=== PATIENT | female | born 1935 | race Caucasian/White ===

== ENCOUNTER 2020-01-12 11:07 | Outpatient (REF) | payer MEDICARE, SELFPAY ==
--- NOTE | 2020-01-12 11:15 | XR_ITS ---
EXAMINATION: XR CHEST CLINICAL INFORMATION: Pneumonia COMPARISON: None TECHNIQUE: 2 views of the chest were obtained. FINDINGS: The cardiac silhouette is upper normal in size. There is a left subclavian dual chamber pacemaker. Mediastinal contours are unremarkable. There are increased central hilar markings and bronchial wall thickening. No evidence of lobar consolidation/pneumonia is seen. There is no pleural effusion. There are degenerative changes of the spine. XR/XR chest 2V IMPRESSION: Upper normal-size cardiac silhouette. Increased central hilar markings and bronchial wall thickening. Bronchitis/airways disease and atypical pneumonia such as viral or mycoplasma pneumonia and mild interstitial pulmonary edema should be considered.
== END 2020-01-12 11:08 | disposition home or self-care (01) ==
LOC: HO.XRAY 11:07
PROVIDERS: PCP Internal Medicine; Visit Provider Hospitalist
DX: J18.9 Pneumonia, unspecified organism (principal); J44.1 Chronic obstructive pulmonary disease with (acute) exacerbation
CPT/HCPCS: 71046; 99212

== ENCOUNTER → 2020-07-19 09:51 | Outpatient (BNVA) | payer MEDICARE, SELFPAY | PROVIDERS: PCP Internal Medicine; Visit Provider Hospitalist | DX: J44.1 Chronic obstructive pulmonary disease with (acute) exacerbation (principal); J18.9 Pneumonia, unspecified organism; F51.01 Primary insomnia | CPT/HCPCS: 99212 ==

== ENCOUNTER → 2020-09-16 13:22 | Outpatient (BNVA) | payer MEDICARE, SELFPAY | PROVIDERS: PCP Internal Medicine; Visit Provider Hospitalist | DX: J44.1 Chronic obstructive pulmonary disease with (acute) exacerbation (principal); J47.9 Bronchiectasis, uncomplicated; J18.9 Pneumonia, unspecified organism | CPT/HCPCS: 99212 ==

== ENCOUNTER 2020-11-21 13:13 | Outpatient (REF) | payer MEDICARE, SELFPAY ==
--- NOTE | ~2020-11-21 | XR_ITS ---
EXAMINATION: XR CHEST CLINICAL INFORMATION: Abnormal weight loss COMPARISON: Chest x-ray January 12, 2020 TECHNIQUE: 2 views of the chest were obtained. FINDINGS: Cardiac silhouette is normal in size. Dual lead pacemaker in stable position. Mildly hyperinflated lungs. Similar diffuse coarsening of the interstitial markings, a chronic finding. No lobar consolidation. No pleural effusion or pneumothorax. No acute osseous abnormality. XR/XR chest 2V IMPRESSION: Chronic emphysematous changes of the lungs suspected without acute pulmonary pathology.
== END 2020-11-21 13:14 | disposition home or self-care (01) ==
LOC: HO.XRAY 13:13
PROVIDERS: PCP Internal Medicine; Visit Provider Hospitalist
DX: J47.9 Bronchiectasis, uncomplicated (principal); R63.4 Abnormal weight loss; Z79.899 Other long term (current) drug therapy
CPT/HCPCS: 71046; 99212

== ENCOUNTER 2021-02-10 14:07 | Outpatient (REF) | payer MEDICARE, SELFPAY | END 2021-02-10 14:08 | disposition home or self-care (01) | LOC: HO.LNP 14:07 | PROVIDERS: PCP Internal Medicine; Visit Provider Hospitalist | DX: J44.1 Chronic obstructive pulmonary disease with (acute) exacerbation (principal); R63.4 Abnormal weight loss; Z79.899 Other long term (current) drug therapy; Z79.51 Long term (current) use of inhaled steroids | CPT/HCPCS: 87070; 87116; 87205; 96372; 99212 ==

== ENCOUNTER 2021-02-10 15:45 | Inpatient (IN) | payer MEDICARE, SELFPAY ==
--- NOTE | ~2021-02-10 | CT_ITS ---
EXAMINATION: CT CHEST WITHOUT CONTRAST CLINICAL INFORMATION: Fever and cough COMPARISON: Chest x-ray 11/21/2020 TECHNIQUE: Multidetector volumetric CT imaging of the chest was done. Axial MIP volume rendering provided. Sagittal and coronal reformatted images were obtained. This CT examination was performed using dose optimization techniques as appropriate, variously including the following: *Automated exposure control *Adjustment of mA and/or kV according to patient size (this includes techniques or standardized protocols for targeted exams where dose is matched to indication/reason for exam; i.e. extremities or head) *Use of iterative reconstruction technique DLP: 173 mGy-cm FINDINGS: The heart is normal in size. Dual-lead pacemaker noted. Atrial appendage flow present. There is no pericardial effusion. Normal caliber thoracic aorta. Evaluation for mediastinal lymphadenopathy is suboptimal given lack of IV contrast, however, there appears to be a few enlarged mediastinal lymph nodes, for example a precarinal lymph node appears to measure approximately 2.6 cm in transverse dimension (image 25/66, series 3). No enlarged axillary lymph nodes. Central airways are patent. Mild to moderate emphysematous changes are noted. Mild diffuse bronchiectasis is present. There is some mild peripheral mucous plugging noted. Diffuse primarily groundglass opacities are noted throughout the lungs in a somewhat peripheral distribution. There is no gross lobar consolidation present. There is mild posterior pleural thickening bilaterally without gross pleural effusion. Evaluation for pulmonary nodules is suboptimal given background of diffuse airspace disease, however, no large pulmonary mass is identified. There is no pneumothorax. Visualized portions of the upper abdomen are grossly unremarkable. Diffuse osteopenia. Mild degenerative changes of the spine are noted. T9 hemangioma. CT/CT chest wo con IMPRESSION: -Moderate emphysematous changes are demonstrated.. There are superimposed primarily groundglass opacities also present which suggest a viral process, i.e. Covid pneumonia. Clinical correlation recommended. Follow-up imaging suggested status post treatment to ensure improvement/resolution. -Evaluation for mediastinal lymphadenopathy is suboptimal given lack of IV contrast, however, there appears to be mild mediastinal lymphadenopathy which is nonspecific. Fleischner guidelines were followed.
[2021-02-10 15:49] VITALS: BP 156/61; PULSE 93; RESP 16; TEMP 36.5; O2SAT 95; BMI 21.2
--- NOTE | 2021-02-10 15:54 | ECG_ITS ---
Test Reason : SOB Blood Pressure : / mmHG Vent. Rate : 060 BPM Atrial Rate : 065 BPM P-R Int : 000 ms QRS Dur : 158 ms QT Int : 498 ms P-R-T Axes : 092 -76 083 degrees QTc Int : 498 ms Ventricular-paced rhythm Atrial sensed rhythm; Abnormal ECG No previous ECGs available Referred By: Generic ED Physician Electronically Signed By:TIMOTHY HERNADZE
--- NOTE | 2021-02-10 16:07 | ED.GENADULT ---
HPI - General Adult General Chief complaint: General Medical Stated complaint: SOB Time Seen by Provider: 02/10/21 18:46 Source: patient Mode of arrival: ambulatory Limitations: no limitations History of Present Illness HPI narrative: 85-year-old female presents for evaluation from pulmonary appointment for shortness of breath and hypoxia. Onset (ago): week(s) (2) Location: chest Severity: moderate Severity scale (1-10): 7 Quality: aching Pain Consistency: constant Relieving factors: none Exacerbating factors: movement Associated symptoms: cough, loss of appetite, malaise and shortness of breath Related Data Home Medications Medication Instructions Recorded Confirmed albuterol sulfate 90 mcg/actuation 2 inh INHALATION Q4H PRN 01/12/20 02/10/21 aerosol inhaler aspirin 81 mg tablet,delayed 81 mg PO Q2D 01/12/20 02/10/21 release levothyroxine 50 mcg tablet 50 mcg PO DAILY@0630 01/12/20 02/10/21 Bone Boost 1 tab PO TID 02/10/21 02/10/21 Lactobacillus 40-Bifidobact 2 cap PO BEDTIME 02/10/21 02/10/21 3-S.thermophilus 100 billion cell capsule (Probiotic) Zeaxanthin 1 mg PO DAILY 02/10/21 02/10/21 azithromycin 250 mg tablet 250 mg PO BEDTIME 02/10/21 02/10/21 budesonide 0.5 mg/2 mL suspension 0.5 mg INHALATION BID PRN 02/10/21 02/10/21 for nebulization cyanocobalamin (vitamin B-12) 1,000 mcg PO DAILY 02/10/21 02/10/21 1,000 mcg tablet folic acid 1 mg tablet 1 mg PO DAILY 02/10/21 02/10/21 ipratropium 0.5 mg-albuterol 3 mg 3 ml INHALATION BID PRN 02/10/21 02/10/21 (2.5 mg base)/3 mL nebulization soln lutein 20 mg capsule 20 mg PO DAILY 02/10/21 02/10/21 magnesium oxide 400 mg PO DAILY@1700 02/10/21 02/10/21 multivitamin 1 tab PO DAILY 02/10/21 02/10/21 sertraline 25 mg tablet 25 mg PO BID 02/10/21 02/10/21 Previous Rx's Medication Instructions Recorded budesonide-formoterol HFA 160 2 inh PO BID #30.6 g 11/16/20 mcg-4.5 mcg/actuation aerosol inhaler Allergies Allergy/AdvReac Type Severity Reaction Status Date / Time Iodinated Contrast Media Allergy Severe Itch and Verified 02/10/21 14:45 [CONTRAST, IV] Rash Review of Systems Review of Systems: Constitutional: positive Fever, positive Chills, positive fatigue, positive Malaise ENT/Mouth: No sore throat, no runny nose Eyes: No Discharge Cardiovascular: Positive Chest Pain, positive SOB Respiratory: Positive Cough, positive Sputum, positive Wheezing, No Smoke Exposure, No Dyspnea Gastrointestinal: No Nausea, No Vomiting, No Diarrhea Genitourinary: no irregular bleeding, No Dysuria, No Urinary Frequency, No Hematuria, No Urinary Incontinence, No Urgency, No Flank Pain, Musculoskeletal: positive Myalgia Skin: No rash Neuro: No Headache Yes all other systems are reviewed and are negative PMFSH Past Medical History Attestation statement: The following information was validated with the patient. Source: old records reviewed Medical History Bronchiectasis, uncomplicated COPD exacerbation Insomnia Pneumonia Weight loss Family History Family History Father No problems noted. Social History Social History Patient Tobacco Use Status: Never used Tobacco Advance Directives: No Advance Directives Information Provided: Yes Physical Exam Vital Signs: Vital Signs: Last Vital Signs Temp 98.3 F 02/10/21 19:15 Pulse 61 02/10/21 19:15 Resp 18 02/10/21 19:15 BP 143/79 H 02/10/21 19:15 Pulse Ox 99 02/10/21 19:15 BMI result Body Mass Index 21.2 Appearance: Alert. Oriented X3. Mild distress. Eyes: Pupils equal, round and reactive to light. ENT: Pharynx normal. Neck: Normal inspection. Neck supple. CVS: Normal heart rate and rhythm. Pulses normal. Respiratory: Expiratory wheezing throughout. Abdomen: Soft and nontender. Skin: Skin warm and dry. Normal skin color. Normal skin turgor. Extremities: No lower extremity edema. Moves all extremities against resistance. Neuro: No motor deficit. No sensory deficit. Cranial nerves 2-12 intact. Course Course Course Narrative: 85-year-old female presents with 2 weeks of upper respiratory symptoms. Received a COVID vaccine on January 23 and started to feel ill shortly after. Has had fevers up to 102 at home. Has a productive cough with yellow thick sputum. Was referred to the ED by Dr. Can and Pulmonary. Was given prednisone while in his office today. Patient presents reported hypoxia at 88% at home. Patient has been as low as 83% on room air at this facility. 7:[address] scan positive for COVID pneumonia bilaterally versus atypical pneumonia. Will give azithromycin and ceftriaxone. As patient did receive prednisone in the office will hold off on steroids at this time. Patient is on O2 2 L nasal cannula. 7:30 p.m. discussion with hospitalist regarding plan to admit for pneumonia, hypoxia. Consultations Consultation #1: Antonio Time: 19:30 Consultation #2: Dr Tarik Can Time: 19:33 Medical Decision Making Differential Diagnosis Differential Diagnosis: COVID, pneumonia, bronchitis, sepsis Medical Records Medical records reviewed: Yes I reviewed the patient's medical records. Lab Data Lab results reviewed: Yes I reviewed the patient's lab results. Result diagrams: 02/10/21 17:31 02/10/21 17:31 Labs: Lab Results 02/10/21 02/10/21 02/10/21 Range/Units 16:45 16:45 16:45 WBC (4.8-10.8) X10*3/uL RBC (4.20-5.50) X10*6/uL Hgb (12.0-16.0) g/dl Hct (37.0-47.0) % MCV (80.0-98.0) fL MCH (27.0-33.0) pg MCHC (31.0-35.0) g/dl RDW (11.0-16.0) % Plt Count (160-400) X10*3/uL MPV (9.4-12.3) fL Immature Gran % (Auto) (0.0-0.4) % Neut % (Auto) (45-73) % Lymph % (Auto) (20-40) % [place] % (Auto) (2-11) % Eos % (Auto) (0-4) % Baso % (Auto) (0-2) % Lymph # (Auto) (1.2-4.9) X10*3/uL [place] # (Auto) (0.1-1.2) X10*3/uL Eos # (Auto) (0.0-0.4) X10*3/uL Baso # (Auto) (0.0-0.2) X10*3/uL Abs Immat Gran (auto) (0.00-0.03) X10*3/uL Absolute Neuts (auto) (2.0-8.3) x10*3/uL Absolute Nucleated RBC (0.0-0.012) X10*3/uL Nucleated RBC % (auto) (0.0-0.2) /100WBC PT 13.8 H (9.9-13.0) SEC INR 1.2 H (0.9-1.1) D-Dimer High Sensitivty 272 NG/ML VBG pH (7.32-7.43) VBG pCO2 mmHg VBG pO2 mmHg VBG HCO3 (22-26) mmol/L VBG O2 Saturation % VBG Base Excess mmol/L Sodium (135-145) mmol/L Potassium (3.3-5.1) mmol/L Chloride (96-108) mmol/L Carbon Dioxide (22-29) mmol/L Anion Gap (12-20) BUN (9-16) mg/dL Creatinine (0.5-1.4) mg/dL Estim Creat Clear Calc Estimated GFR Random Glucose (60-115) mg/dL Lactic Acid 1.3 (0.5-2.0) mmol/L Calcium (8.4-10.2) mg/dL Ferritin (10-250) ng/mL Total Bilirubin (0.0-1.0) mg/dL Direct Bilirubin (0.0-0.5) mg/dL AST (5-31) U/L ALT (0-31) U/L Alkaline Phosphatase (39-117) U/L Total Creatine Kinase (26-140) U/L Troponin I High Sens (<3.5-17.0) ng/L B-Natriuretic Peptide (<100) pg/mL Total Protein (6.5-8.0) g/dL Albumin (3.5-5.0) g/dL Lipase (8-78) U/L Procalcitonin ng/mL Influenza Type A (PCR) NEGATIVE (Negative) Influenza Type B (PCR) NEGATIVE (Negative) RSV RNA Qual (PCR) NEGATIVE (Negative) SARS-CoV-2 RNA (RT-PCR) NEGATIVE (Negative) 02/10/21 02/10/21 02/10/21 Range/Units 16:45 16:45 16:45 WBC (4.8-10.8) X10*3/uL RBC (4.20-5.50) X10*6/uL Hgb (12.0-16.0) g/dl Hct (37.0-47.0) % MCV (80.0-98.0) fL MCH (27.0-33.0) pg MCHC (31.0-35.0) g/dl RDW (11.0-16.0) % Plt Count (160-400) X10*3/uL MPV (9.4-12.3) fL Immature Gran % (Auto) (0.0-0.4) % Neut % (Auto) (45-73) % Lymph % (Auto) (20-40) % [place] % (Auto) (2-11) % Eos % (Auto) (0-4) % Baso % (Auto) (0-2) % Lymph # (Auto) (1.2-4.9) X10*3/uL [place] # (Auto) (0.1-1.2) X10*3/uL Eos # (Auto) (0.0-0.4) X10*3/uL Baso # (Auto) (0.0-0.2) X10*3/uL Abs Immat Gran (auto) (0.00-0.03) X10*3/uL Absolute Neuts (auto) (2.0-8.3) x10*3/uL Absolute Nucleated RBC (0.0-0.012) X10*3/uL Nucleated RBC % (auto) (0.0-0.2) /100WBC PT (9.9-13.0) SEC INR (0.9-1.1) D-Dimer High Sensitivty NG/ML VBG pH (7.32-7.43) VBG pCO2 mmHg VBG pO2 mmHg VBG HCO3 (22-26) mmol/L VBG O2 Saturation % VBG Base Excess mmol/L Sodium (135-145) mmol/L Potassium (3.3-5.1) mmol/L Chloride (96-108) mmol/L Carbon Dioxide (22-29) mmol/L Anion Gap (12-20) BUN (9-16) mg/dL Creatinine (0.5-1.4) mg/dL Estim Creat Clear Calc Estimated GFR Random Glucose (60-115) mg/dL Lactic Acid (0.5-2.0) mmol/L Calcium (8.4-10.2) mg/dL Ferritin 212 (10-250) ng/mL Total Bilirubin (0.0-1.0) mg/dL Direct Bilirubin (0.0-0.5) mg/dL AST (5-31) U/L ALT (0-31) U/L Alkaline Phosphatase (39-117) U/L Total Creatine Kinase 49 (26-140) U/L Troponin I High Sens 3.9 (<3.5-17.0) ng/L B-Natriuretic Peptide 228 H (<100) pg/mL Total Protein (6.5-8.0) g/dL Albumin (3.5-5.0) g/dL Lipase (8-78) U/L Procalcitonin 0.12 ng/mL Influenza Type A (PCR) (Negative) Influenza Type B (PCR) (Negative) RSV RNA Qual (PCR) (Negative) SARS-CoV-2 RNA (RT-PCR) (Negative) 02/10/21 02/10/21 02/10/21 Range/Units 17:31 17:31 19:32 WBC 6.7 (4.8-10.8) X10*3/uL RBC 3.62 L (4.20-5.50) X10*6/uL Hgb 11.6 L (12.0-16.0) g/dl Hct 36.0 L (37.0-47.0) % MCV 99.4 H (80.0-98.0) fL MCH 32.0 (27.0-33.0) pg MCHC 32.2 (31.0-35.0) g/dl RDW 13.0 (11.0-16.0) % Plt Count 257 (160-400) X10*3/uL MPV 10.2 (9.4-12.3) fL Immature Gran % (Auto) 0.3 (0.0-0.4) % Neut % (Auto) 85.5 H (45-73) % Lymph % (Auto) 8.6 L (20-40) % [place] % (Auto) 3.4 (2-11) % Eos % (Auto) 1.0 (0-4) % Baso % (Auto) 1.2 (0-2) % Lymph # (Auto) 0.6 L (1.2-4.9) X10*3/uL [place] # (Auto) 0.2 (0.1-1.2) X10*3/uL Eos # (Auto) 0.1 (0.0-0.4) X10*3/uL Baso # (Auto) 0.1 (0.0-0.2) X10*3/uL Abs Immat Gran (auto) 0.02 (0.00-0.03) X10*3/uL Absolute Neuts (auto) 5.7 (2.0-8.3) x10*3/uL Absolute Nucleated RBC 0.000 (0.0-0.012) X10*3/uL Nucleated RBC % (auto) 0.0 (0.0-0.2) /100WBC PT (9.9-13.0) SEC INR (0.9-1.1) D-Dimer High Sensitivty NG/ML VBG pH 7.44 H (7.32-7.43) VBG pCO2 28 mmHg VBG pO2 105 mmHg VBG HCO3 19 L (22-26) mmol/L VBG O2 Saturation 97.0 % VBG Base Excess -3.2 mmol/L Sodium 139 (135-145) mmol/L Potassium 3.7 (3.3-5.1) mmol/L Chloride 108 (96-108) mmol/L Carbon Dioxide 21 L (22-29) mmol/L Anion Gap 14 (12-20) BUN 13 (9-16) mg/dL Creatinine 0.81 (0.5-1.4) mg/dL Estim Creat Clear Calc 42.0 Estimated GFR > 60 Random Glucose 100 (60-115) mg/dL Lactic Acid (0.5-2.0) mmol/L Calcium 8.9 (8.4-10.2) mg/dL Ferritin (10-250) ng/mL Total Bilirubin 0.4 (0.0-1.0) mg/dL Direct Bilirubin 0.2 (0.0-0.5) mg/dL AST 20 (5-31) U/L ALT 22 (0-31) U/L Alkaline Phosphatase 67 (39-117) U/L Total Creatine Kinase (26-140) U/L Troponin I High Sens (<3.5-17.0) ng/L B-Natriuretic Peptide (<100) pg/mL Total Protein 6.8 (6.5-8.0) g/dL Albumin 3.6 (3.5-5.0) g/dL Lipase 22 (8-78) U/L Procalcitonin ng/mL Influenza Type A (PCR) (Negative) Influenza Type B (PCR) (Negative) RSV RNA Qual (PCR) (Negative) SARS-CoV-2 RNA (RT-PCR) (Negative) Imaging Data CT scan - chest: Attestation: I personally reviewed and interpreted this imaging study as follows: Radiologist's impression: EXAMINATION: CT CHEST WITHOUT CONTRAST CLINICAL INFORMATION: Fever and cough? COMPARISON: Chest x-ray 11/21/2020? TECHNIQUE: Multidetector volumetric CT imaging of the chest was done. Axial MIP volume rendering provided. Sagittal and coronal reformatted images were obtained.? This CT examination was performed using dose optimization techniques as appropriate, variously including the following: *Automated exposure control *Adjustment of mA and/or kV according to patient size (this includes techniques or standardized protocols for targeted exams where dose is matched to indication/reason for exam; i.e. extremities or head) *Use of iterative reconstruction technique DLP: 173 mGy-cm FINDINGS: The heart is normal in size. Dual-lead pacemaker noted. Atrial appendage flow present. There is no pericardial effusion. Normal caliber thoracic aorta. Evaluation for mediastinal lymphadenopathy is suboptimal given lack of IV contrast, however, there appears to be a few enlarged mediastinal lymph nodes, for example a precarinal lymph node appears to measure approximately 2.6 cm in transverse dimension (image 25/66, series 3). No enlarged axillary lymph nodes. Central airways are patent. Mild to moderate emphysematous changes are noted. Mild diffuse bronchiectasis is present. There is some mild peripheral mucous plugging noted. Diffuse primarily groundglass opacities are noted throughout the lungs in a somewhat peripheral distribution. There is no gross lobar consolidation present. There is mild posterior pleural thickening bilaterally without gross pleural effusion. Evaluation for pulmonary nodules is suboptimal given background of diffuse airspace disease, however, no large pulmonary mass is identified. There is no pneumothorax. Visualized portions of the upper abdomen are grossly unremarkable. Diffuse osteopenia. Mild degenerative changes of the spine are noted. T9 hemangioma. CT/CT chest wo con IMPRESSION: -Moderate emphysematous changes are demonstrated.. There are superimposed primarily groundglass opacities also present which suggest a viral process, i.e. Covid pneumonia. Clinical correlation recommended. Follow-up imaging suggested status post treatment to ensure improvement/resolution. -Evaluation for mediastinal lymphadenopathy is suboptimal given lack of IV contrast, however, there appears to be mild mediastinal lymphadenopathy which is nonspecific.? ? Fleischner guidelines were followed. ECG Data Attestation: I personally reviewed and interpreted this ECG as follows: Prior ECG tracings: available for review Interpretation: Vent. Rate : 060 BPM ? ? Atrial Rate : 065 BPM ?? P-R Int : 000 ms? QRS Dur : 158 ms ? ? QT Int : 498 ms ? ? ? P-R-T Axes : 092 -76 083 degrees ?? QTc Int : 498 ms ? Ventricular-paced rhythm Abnormal ECG No previous ECGs available 10-FEB-2021 15:57:53 Critical Care Time Critical Care Time Critical Care Time: Yes Total Critical Care Time: 45 Attestation: I have personally provided critical care time exclusive of time spent on separately billable procedures. Time includes review of laboratory data, radiology results, discussion with consultants, and monitoring for potential decompensation. Interventions were performed as documented. Discharge Plan Discharge Clinical Impression: Hypoxia Pneumonia Qualifiers: Pneumonia type: due to unspecified organism Laterality: bilateral Lung location: unspecified part of lung Qualified Code(s): J18.9 - Pneumonia, unspecified organism Patient Disposition: Admitted As Inpatient
[2021-02-10] MEDS: 0.9 % Sodium Chloride 1,000 ML 999 ML IVCONT (16:47)
[2021-02-10 17:04] LABS: INTERNATIONAL NORM RATIO 1.2 (0.9-1.1); Prothrombin Time 13.8 SEC (9.9-13.0)
[2021-02-10 17:11] LABS: Lactic Acid 1.3 mmol/L (0.5-2.0)
[2021-02-10 17:22] LABS: B Type Natriuretic Peptide 228 pg/mL (<100); Troponin-I High Sensitivity 3.9 ng/L (<3.5-17.0)
[2021-02-10 17:37] LABS: MANUAL DIFF FLAG NO
[2021-02-10 17:44] LABS: Basophils Absolute Auto 0.1 X10*3/uL (0.0-0.2); Basophils Percent Auto 1.2 % (0-2); Eosinophils Absolute Auto 0.1 X10*3/uL (0.0-0.4); Hemoglobin 11.6 g/dl (12.0-16.0); Imm Gran Abs Auto 0.02 X10*3/uL (0.00-0.03); Imm Gran Pct Auto 0.3 % (0.0-0.4); Lymphocytes Absolute Auto 0.6 X10*3/uL (1.2-4.9); Lymphocytes Percent Auto 8.6 % (20-40); Mean Corpuscular HGB Conc 32.2 g/dl (31.0-35.0); Mean Corpuscular Volume 99.4 fL (80.0-98.0); Mean Platelet Volume 10.2 fL (9.4-12.3); Monocytes Absolute Auto 0.2 X10*3/uL (0.1-1.2); Monocytes Percent Auto 3.4 % (2-11); Neutrophils Absolute Auto 5.7 x10*3/uL (2.0-8.3); Neutrophils Percent Auto 85.5 % (45-73); Platelet Count 257 X10*3/uL (160-400); Red Blood Count 3.62 X10*6/uL (4.20-5.50); White Blood Count 6.7 X10*3/uL (4.8-10.8)
[2021-02-10 17:46] LABS: Procalcitonin 0.12 ng/mL
[2021-02-10 17:47] LABS: Influenza A PCR NEGATIVE (Negative); Influenza B PCR NEGATIVE (Negative); Resp Syncy Virus RNA Qual PCR NEGATIVE (Negative); SARS COV2 PCR INHOUSE NEGATIVE (Negative)
[2021-02-10 17:54] LABS: Alanine Aminotransferase 22 U/L (0-31); Albumin Level 3.6 g/dL (3.5-5.0); Alkaline Phosphatase 67 U/L (39-117); Anion Gap 14 (12-20); Aspartate Amino Transferase 20 U/L (5-31); Bilirubin Direct 0.2 mg/dL (0.0-0.5); Bilirubin Total 0.4 mg/dL (0.0-1.0); Blood Urea Nitrogen 13 mg/dL (9-16); Calcium 8.9 mg/dL (8.4-10.2); Carbon Dioxide 21 mmol/L (22-29); Chloride 108 mmol/L (96-108); Estimated Glomerular Filt Rate > 60; Glucose Random 100 mg/dL (60-115); Lipase 22 U/L (8-78); Potassium 3.7 mmol/L (3.3-5.1); Sodium 139 mmol/L (135-145); Total Protein 6.8 g/dL (6.5-8.0)
[2021-02-10 18:46] VITALS: BP 155/71; PULSE 63; RESP 18; TEMP 36.5; O2SAT 96
[2021-02-10 18:58] VITALS: PULSE 83
[2021-02-10 19:12] LABS: D Dimer High Sensitivity 272 NG/ML
[2021-02-10 19:15] VITALS: BP 143/79; PULSE 61; RESP 18; TEMP 36.8; O2SAT 99
[2021-02-10] MEDS: cefTRIAXone sodium 1 GM in 0.9 % Sodium Chloride 50 ML IV (19:24)
[2021-02-10] MEDS: Azithromycin 500 MG TABLET PO (19:25)
[2021-02-10 19:39] LABS: VBG Base Excess -3.2 mmol/L; VBG HCO3 19 mmol/L (22-26); VBG pCO2 28 mmHg; VBG pH 7.44 (7.32-7.43); VBG pO2 105 mmHg
[2021-02-10 19:41] LABS: Venous Blood Gas Refer to POC result
--- NOTE | 2021-02-10 20:14 | PHA.MEDREC ---
Pharmacy Consult ? Medication Reconciliation Pharmacy has completed the medication reconciliation.Spoke with patient in ED. Patient had updated med list with her.
--- NOTE | 2021-02-10 20:27 | P.HPHOSP_ITS ---
History of Present Illness Date of Service: 02/10/21 Chief Complaint: SOB, fever this is a 85-year-old female with past medical history of COPD, AFib status post Watchman procedure, pacemaker, hypothyroidism, depression who presents to the hospital with complaints of shortness of breath as well as fever over the past 2 weeks since receiving her COVID booster shot. Patient reports that she has been so fatigued, feverish, and had loss of appetite that she has been in bed for the past 2 weeks. She has trouble breathing, coughing, progressively worsening to productive cough for the past 3-4 days, she also has wheezing, she denies any abdominal pain, no nausea or vomiting, no chest pain, no palpitations, no diarrhea, no urinary symptoms and no lower extremity edema. patient was found a seen by her engineering documentation specialist who sent her to the ED for further management today. On arrival to the ED hemodynamically stable with no significant abnormal vitals, found to be 96% on room air labs are significant for WBC count of 6.7, pH of 7.4 with no CO2 retention, BNP of 228, influenza type a B as well as COVID-19 as well as RSV negative chest CT shows moderate emphysematous changes, superimposed primarily ground- glass opacities also present are suggestive bottle process i.e. COVID pneumonia. Patient is fully vaccinated against COVID with a booster shot done on the Review of Systems Review of Systems: Yes all other systems are reviewed and are negative FOR[facility], [facility] Medical History (Updated 02/11/21 @ 06:21 by Carlitos Alvarez MD) Bronchiectasis, uncomplicated COPD exacerbation Insomnia Pacemaker Pneumonia Presence of Watchman left atrial appendage closure device Weight loss Family History Father No problems noted. Surgical History (Updated 02/11/21 @ 06:21 by Carlitos Alvarez MD) No pertinent past surgical history Social History Household Members: None Housing: House Do you presently have visiting nurse or other home services: Yes Patient Tobacco Use Status: Never used Tobacco Use of substances other than those prescribed or required for medical reasons: No Currently Displaying Signs/Symptoms of Drug Intoxication Withdrawal: No Have you been hit, kicked, punched, or otherwise hurt by someone within the past year? If so, by whom?: No Do you feel safe in your current relationship?: No Current Relationship Is there a partner from a previous relationship who is making you feel unsafe now?: No Are you made to feel afraid or neglected: No Advance Directives: No Advance Directives Information Provided: Yes Do you have thoughts of harming others: None Do you have a plan to hurt others: No Plan Recently lost weight without trying: No Eating poorly because of decreased appetite: No Nutrition Risks: No Nutritional Risk Patient : No : No Poor oral hygiene: No Meds Allergies Allergy/AdvReac Type Severity Reaction Status Date / Time Iodinated Contrast Media Allergy Severe Itch and Verified 02/10/21 14:45 [CONTRAST, IV] Rash Active Medications: Current Medications Pharmacy Consult (Consult Rx Perform Med Rec) 1 each MISCELLANE ONCE PRN PRN Reason: Consult order Home Medications Medication Instructions Recorded Confirmed Last Taken Type albuterol sulfate 90 mcg/actuation 2 inh INHALATION Q4H PRN 01/12/20 02/10/21 Unknown History aerosol inhaler aspirin 81 mg tablet,delayed 81 mg PO Q2D 01/12/20 02/10/21 02/09/21 History release levothyroxine 50 mcg tablet 50 mcg PO DAILY@0630 01/12/20 02/10/21 02/09/21 History Bone Boost 1 tab PO TID 02/10/21 02/10/21 02/09/21 History Lactobacillus 40-Bifidobact 2 cap PO BEDTIME 02/10/21 02/10/21 02/09/21 History 3-S.thermophilus 100 billion cell capsule (Probiotic) Zeaxanthin 1 mg PO DAILY 02/10/21 02/10/21 02/09/21 History azithromycin 250 mg tablet 250 mg PO BEDTIME 02/10/21 02/10/21 02/09/21 History budesonide 0.5 mg/2 mL suspension 0.5 mg INHALATION BID PRN 02/10/21 02/10/21 Unknown History for nebulization cyanocobalamin (vitamin B-12) 1,000 mcg PO DAILY 02/10/21 02/10/21 02/09/21 History 1,000 mcg tablet folic acid 1 mg tablet 1 mg PO DAILY 02/10/21 02/10/21 02/09/21 History ipratropium 0.5 mg-albuterol 3 mg 3 ml INHALATION BID PRN 02/10/21 02/10/21 Unknown History (2.5 mg base)/3 mL nebulization soln lutein 20 mg capsule 20 mg PO DAILY 02/10/21 02/10/21 02/09/21 History magnesium oxide 400 mg PO DAILY@1700 02/10/21 02/10/21 02/09/21 History multivitamin 1 tab PO DAILY 02/10/21 02/10/21 02/09/21 History sertraline 25 mg tablet 25 mg PO BID 02/10/21 02/10/21 02/09/21 History Physical Exam Vital Signs and Narrative: Vital Signs: Last Vital Signs Temp 98.3 F 02/10/21 19:15 Pulse 61 02/10/21 19:15 Resp 18 02/10/21 19:15 BP 143/79 H 02/10/21 19:15 Pulse Ox 99 02/10/21 19:15 BMI result Body Mass Index 21.2 Const: General: cooperative and no acute distress Orientation/consciousness: patient oriented x3 Eyes: General: appearance normal, both eyes and all related structures Pupils: Equal, round and reactive pupils present Resp: Other: expiratory wheezing, crackles bilaterally Effort & Inspection: normal respiratory effort Cardio: Rate: regular rate Rhythm: regular rhythm GI: Palpation (GI): Soft to palpation Auscultation: normal bowel sounds Skin: General skin exam: no rashes or lesions noted Neuro: General: patient oriented x3 Cranial nerves: Yes Equal, round and reactive pupils present Cognition (Neuro): normal cognition Extrem: General: Yes normal to inspection and Yes no pedal edema Results Labs CBC and Chem 7: 02/10/21 17:31 02/10/21 17:31 Labs: Laboratory Results - last 24 hr 02/10/21 02/10/21 02/10/21 16:45 16:45 16:45 MCV MCH MCHC RDW Plt Count MPV Immature Gran % (Auto) Neut % (Auto) Lymph % (Auto) [place] % (Auto) Eos % (Auto) Baso % (Auto) Lymph # (Auto) [place] # (Auto) Eos # (Auto) Baso # (Auto) Abs Immat Gran (auto) Absolute Neuts (auto) Absolute Nucleated RBC Nucleated RBC % (auto) PT 13.8 H INR 1.2 H D-Dimer High Sensitivty 272 VBG pH VBG pCO2 VBG pO2 VBG HCO3 VBG O2 Saturation VBG Base Excess Anion Gap Estim Creat Clear Calc Estimated GFR Random Glucose Lactic Acid 1.3 Calcium Total Bilirubin Direct Bilirubin AST ALT Alkaline Phosphatase Troponin I High Sens B-Natriuretic Peptide Total Protein Albumin Lipase Procalcitonin Influenza Type A (PCR) NEGATIVE Influenza Type B (PCR) NEGATIVE RSV RNA Qual (PCR) NEGATIVE SARS-CoV-2 RNA (RT-PCR) NEGATIVE 02/10/21 02/10/21 02/10/21 16:45 16:45 17:31 MCV 99.4 H MCH 32.0 MCHC 32.2 RDW 13.0 Plt Count 257 MPV 10.2 Immature Gran % (Auto) 0.3 Neut % (Auto) 85.5 H Lymph % (Auto) 8.6 L [place] % (Auto) 3.4 Eos % (Auto) 1.0 Baso % (Auto) 1.2 Lymph # (Auto) 0.6 L [place] # (Auto) 0.2 Eos # (Auto) 0.1 Baso # (Auto) 0.1 Abs Immat Gran (auto) 0.02 Absolute Neuts (auto) 5.7 Absolute Nucleated RBC 0.000 Nucleated RBC % (auto) 0.0 PT INR D-Dimer High Sensitivty VBG pH VBG pCO2 VBG pO2 VBG HCO3 VBG O2 Saturation VBG Base Excess Anion Gap Estim Creat Clear Calc Estimated GFR Random Glucose Lactic Acid Calcium Total Bilirubin Direct Bilirubin AST ALT Alkaline Phosphatase Troponin I High Sens 3.9 B-Natriuretic Peptide 228 H Total Protein Albumin Lipase Procalcitonin 0.12 Influenza Type A (PCR) Influenza Type B (PCR) RSV RNA Qual (PCR) SARS-CoV-2 RNA (RT-PCR) 02/10/21 02/10/21 17:31 19:32 MCV MCH MCHC RDW Plt Count MPV Immature Gran % (Auto) Neut % (Auto) Lymph % (Auto) [place] % (Auto) Eos % (Auto) Baso % (Auto) Lymph # (Auto) [place] # (Auto) Eos # (Auto) Baso # (Auto) Abs Immat Gran (auto) Absolute Neuts (auto) Absolute Nucleated RBC Nucleated RBC % (auto) PT INR D-Dimer High Sensitivty VBG pH 7.44 H VBG pCO2 28 VBG pO2 105 VBG HCO3 19 L VBG O2 Saturation 97.0 VBG Base Excess -3.2 Anion Gap 14 Estim Creat Clear Calc 42.0 Estimated GFR > 60 Random Glucose 100 Lactic Acid Calcium 8.9 Total Bilirubin 0.4 Direct Bilirubin 0.2 AST 20 ALT 22 Alkaline Phosphatase 67 Troponin I High Sens B-Natriuretic Peptide Total Protein 6.8 Albumin 3.6 Lipase 22 Procalcitonin Influenza Type A (PCR) Influenza Type B (PCR) RSV RNA Qual (PCR) SARS-CoV-2 RNA (RT-PCR) Imaging Radiologist's Impressions: Impressions Chest CT 02/10/21 18:04 IMPRESSION: -Moderate emphysematous changes are demonstrated.. There are superimposed primarily groundglass opacities also present which suggest a viral process, i.e. Covid pneumonia. Clinical correlation recommended. Follow-up imaging suggested status post treatment to ensure improvement/resolution. -Evaluation for mediastinal lymphadenopathy is suboptimal given lack of IV contrast, however, there appears to be mild mediastinal lymphadenopathy which is nonspecific. Fleischner guidelines were followed. Assessment and Plan (1) COPD exacerbation: Status: Acute (2) Pneumonia: Qualifiers: Pneumonia type: due to unspecified organism Laterality: bilateral Lung location: unspecified part of lung Qualified Code(s): J18.9 - Pneumonia, unspecified organism Status: Acute (3) Acute respiratory failure with hypoxia: Status: Acute this is an 85-year-old female with past medical history of COPD/ asthma presents to the hospital with complaints of shortness of breath, fever, found to have pneumonia # acute hypoxic respiratory failure - per ED PA patient was hypoxic in the mid 80s but no documentation were made in EMR - possibly secondary to COVID pneumonia although patient is fully vaccinated with a booster about 2 weeks ago as well as COVID 19 PCR is negative - patient now satting 99% on 2 L of oxygen, will attempt to reduce a given her history of CO2 with an O2 goal of 90-92% - engineering documentation specialist's seen the patient today, wants patient to be on Zosyn as well as Levaquin given her bronchiectasis # pneumonia - concerning for COVID-[address] imaging although COVID-19 PCR negative - patient also has history of COPD - will start on steroids, DuoNeb treatments, IV antibiotics as mentioned above - follow cultures # COPD exacerbation - patient has history of COPD, will start her on IV Solu-Medrol, does treatment - IV antibiotics # hypothyroidism - continue levothyroxine # history of AFib, status post Watchman procedure - not on anticoagulation, all rate controlling medications at this time - monitor DVT prophylaxis: Lovenox Quality Stroke Does the patient have a stroke diagnosis?: No VTE Prior VTE?: No VTE Risk Level:: Medical - moderate - high VTE Device Contraindication: Treatment Not Indicated VTE Drug Contraindication: N/A - Med Ordered
[2021-02-10 21:30] LABS: Ferritin 212 ng/mL (10-250)
[2021-02-10] MEDS: Enoxaparin Sodium 40 MG/0.4 ML SYRINGE SUBCUT (22:12)
[2021-02-10] MEDS: methylPREDNISolone Sod Succ 40 MG/ML VIAL IVPUSH (22:12)
[2021-02-10] MEDS: Sertraline HCL 25 MG TABLET PO (22:12)
[2021-02-10] MEDS: levoFLOXacin/D5W 750 MG/150 ML PIGGYBACK 100 MG IV (22:29)
[2021-02-10] MEDS: Acetaminophen 325 MG TABLET 650 MG PO (22:29)
[2021-02-10] MEDS: Piperacillin Sodium/Tazobactam 3.375 GM in 0.9 % Sodium Chloride 50 ML IV (22:29)
[2021-02-10 22:34] VITALS: BMI 21.2
[2021-02-10] MEDS: traZODone HCL 50 MG TABLET PO (22:54)
[2021-02-10 23:19] LABS: Lactate Dehydrogenase 187 U/L (122-220)
[2021-02-10 23:58] VITALS: BP 151/69; PULSE 62; RESP 17; TEMP 36.6; O2SAT 98
[2021-02-11] VITALS (8 sets, daily range): BP systolic 122–157; BP diastolic 46–84; PULSE 62–67; RESP 14–25; TEMP 36.6–36.8; O2SAT 95–99
--- NOTE | 2021-02-11 03:40 | PC.NURSE ---
Addendum entered by Sanjuanita Gill 02/11/21 03:59: Pt is paced on bedside groundwater monitoring technician, no spikes present on bedside monitor. On EKG, pt is V-paced Original Note: Pt ambulates to bathroom with steady, independent gait with this RN as standby assist. Pt returned to stretcher without incidence. Stretcher in lowest locked position, rails raised, call conroy remains within reach.
[2021-02-11] MEDS: Piperacillin Sodium/Tazobactam 3.375 GM in 0.9 % Sodium Chloride 50 ML IV ×4 (05:11→19:48)
[2021-02-11] MEDS: Levothyroxine Sodium 50 MCG TABLET PO (05:11)
--- NOTE | 2021-02-11 06:44 | PC.NURSE ---
Pt removed from supplemental O2, SpO2 92% on RA. Pt with hx of COPD.
--- NOTE | 2021-02-11 07:44 | P.PNIM_ITS ---
Subjective Subjective Date of Service: 02/11/21 Interval History: COPD exacerbation, pneumonia Review of Systems shortness of breath messina seems improving, denies any chest pain or abdominal pain or fever chills denies any nausea or vomiting. Has dry cough Physical Exam Vital Signs: Vital Signs: Last Vital Signs Temp 97.9 F 02/11/21 03:34 Pulse 67 02/11/21 04:00 Resp 14 02/11/21 04:00 BP 140/69 H 02/11/21 04:00 Pulse Ox 99 02/11/21 04:00 BMI result Body Mass Index 21.2 physical exam: Appearance: Alert.? Oriented X3.? not in distress.? Eyes: Pupils equal, round and reactive to light.? Sclera nonicteric.? ENT: Pharynx normal.? Moist mucous membranes. cvs: rrr, [id number] , no murmur res: air entry improving , still has wheezing abd: no rebound or guarding ,nt, bs present. ext pulses present , no cyanosis. neuro: axo3 , nonfocal. Objective Data Active Medications Acetaminophen (Acetaminophen 325 Mg Tablet) 650 mg PO Q6H PRN PRN Reason: Pain, Mild (Pain Scale 1-3) Last Admin: 02/10/21 22:29 Dose: 650 mg Documented by: WILLIAMS Albuterol/Ipratropium (Albuterol/Iprat 2.5/0.5mg 3 Ml Ampul.Neb) 3 ml INHALE BID PRN PRN Reason: Shortness Of Breath Or Wheezing Albuterol/Ipratropium (Albuterol/Iprat 2.5/0.5mg 3 Ml Ampul.Neb) 3 ml INHALE RQ4H WHILE AWAKE [facility] Aspirin (Aspirin Enteric Coated 81 Mg Tablet.) 81 mg PO Q2D@0900 [facility] Cyanocobalamin (Cyanocobalamin (Vitamin B-12) 1,000 Mcg Tablet) 1,000 mcg PO DAILY [facility] Docusate Sodium (Docusate Sodium 100 Mg Capsule) 100 mg PO DAILY PRN PRN Reason: Constipation Enoxaparin Sodium (Enoxaparin Sodium 40 Mg/0.4 Ml Syringe) 40 mg SUBCUT Q24H [facility] Last Admin: 02/10/21 22:12 Dose: 40 mg Documented by: WILLIAMS Folic Acid (Folic Acid 1 Mg Tablet) 1 mg PO DAILY [facility] Piperacillin Sod/Tazobactam (Sod 3.375 gm/ Sodium Chloride) 50 mls @ 100 mls/hr IV Q6H [facility] Last Infusion: 02/11/21 05:47 Dose: 0 mls/hr Documented by: WILLIAMS Levofloxacin (Levaquin) 750 mg in 150 mls @ 100 mls/hr IV Q48H [facility] Last Infusion: 02/10/21 23:55 Dose: 0 mls/hr Documented by: DARCY Levothyroxine Sodium (Levothyroxine Sodium 50 Mcg Tablet) 50 mcg PO DAILY@0630 [facility] Last Admin: 02/11/21 05:11 Dose: 50 mcg Documented by: WILLIAMS Magnesium Oxide (Magnesium Oxide 400 Mg Tablet) 400 mg PO DAILY@1700 [facility] Methylprednisolone Sodium Succinate (Methylprednisolone Sod Succ 40 Mg/Ml Vial) 40 mg IVPUSH Q12H [facility] Last Admin: 02/10/21 22:12 Dose: 40 mg Documented by: WILLIAMS Multivitamins/Vitamin C (Multivitamin Tablet) 1 tab PO DAILY [facility] Ondansetron HCl (Ondansetron Hcl 4 Mg/2 Ml Vial) 4 mg IVPUSH Q8H PRN PRN Reason: Nausea and Vomiting Pharmacy Consult (Consult Rx Perform Med Rec) 1 each MISCELLANE ONCE PRN PRN Reason: Consult order Sertraline HCl (Sertraline Hcl 25 Mg Tablet) 25 mg PO BID [facility] Last Admin: 02/10/21 22:12 Dose: 25 mg Documented by: WILLIAMS Sodium Chloride (0.9 % Sodium Chloride Flush 3 Ml Syringe) 3 ml IVFLUSH QSHIFT [facility] Last Admin: 02/10/21 23:56 Dose: Not Given Documented by: DARCY Non-Admin Reason: Med Not Available Labs CBC & Chem 7: 02/11/21 08:37 02/11/21 08:37 Labs: Laboratory Results - last 24 hr 02/10/21 02/10/21 02/10/21 16:45 16:45 16:45 MCV MCH MCHC RDW Plt Count MPV Immature Gran % (Auto) Neut % (Auto) Lymph % (Auto) [place] % (Auto) Eos % (Auto) Baso % (Auto) Lymph # (Auto) [place] # (Auto) Eos # (Auto) Baso # (Auto) Abs Immat Gran (auto) Absolute Neuts (auto) Absolute Nucleated RBC Nucleated RBC % (auto) PT 13.8 H INR 1.2 H D-Dimer High Sensitivty 272 VBG pH VBG pCO2 VBG pO2 VBG HCO3 VBG O2 Saturation VBG Base Excess Anion Gap Estim Creat Clear Calc Estimated GFR Random Glucose Lactic Acid 1.3 Calcium Ferritin Total Bilirubin Direct Bilirubin AST ALT Alkaline Phosphatase Lactate Dehydrogenase Total Creatine Kinase Troponin I High Sens B-Natriuretic Peptide Total Protein Albumin Lipase Procalcitonin Influenza Type A (PCR) NEGATIVE Influenza Type B (PCR) NEGATIVE RSV RNA Qual (PCR) NEGATIVE SARS-CoV-2 RNA (RT-PCR) NEGATIVE 02/10/21 02/10/21 02/10/21 16:45 16:45 16:45 MCV MCH MCHC RDW Plt Count MPV Immature Gran % (Auto) Neut % (Auto) Lymph % (Auto) [place] % (Auto) Eos % (Auto) Baso % (Auto) Lymph # (Auto) [place] # (Auto) Eos # (Auto) Baso # (Auto) Abs Immat Gran (auto) Absolute Neuts (auto) Absolute Nucleated RBC Nucleated RBC % (auto) PT INR D-Dimer High Sensitivty VBG pH VBG pCO2 VBG pO2 VBG HCO3 VBG O2 Saturation VBG Base Excess Anion Gap Estim Creat Clear Calc Estimated GFR Random Glucose Lactic Acid Calcium Ferritin 212 Total Bilirubin Direct Bilirubin AST ALT Alkaline Phosphatase Lactate Dehydrogenase 187 Total Creatine Kinase 49 Troponin I High Sens 3.9 B-Natriuretic Peptide 228 H Total Protein Albumin Lipase Procalcitonin 0.12 Influenza Type A (PCR) Influenza Type B (PCR) RSV RNA Qual (PCR) SARS-CoV-2 RNA (RT-PCR) 02/10/21 02/10/21 02/10/21 17:31 17:31 19:32 MCV 99.4 H MCH 32.0 MCHC 32.2 RDW 13.0 Plt Count 257 MPV 10.2 Immature Gran % (Auto) 0.3 Neut % (Auto) 85.5 H Lymph % (Auto) 8.6 L [place] % (Auto) 3.4 Eos % (Auto) 1.0 Baso % (Auto) 1.2 Lymph # (Auto) 0.6 L [place] # (Auto) 0.2 Eos # (Auto) 0.1 Baso # (Auto) 0.1 Abs Immat Gran (auto) 0.02 Absolute Neuts (auto) 5.7 Absolute Nucleated RBC 0.000 Nucleated RBC % (auto) 0.0 PT INR D-Dimer High Sensitivty VBG pH 7.44 H VBG pCO2 28 VBG pO2 105 VBG HCO3 19 L VBG O2 Saturation 97.0 VBG Base Excess -3.2 Anion Gap 14 Estim Creat Clear Calc 42.0 Estimated GFR > 60 Random Glucose 100 Lactic Acid Calcium 8.9 Ferritin Total Bilirubin 0.4 Direct Bilirubin 0.2 AST 20 ALT 22 Alkaline Phosphatase 67 Lactate Dehydrogenase Total Creatine Kinase Troponin I High Sens B-Natriuretic Peptide Total Protein 6.8 Albumin 3.6 Lipase 22 Procalcitonin Influenza Type A (PCR) Influenza Type B (PCR) RSV RNA Qual (PCR) SARS-CoV-2 RNA (RT-PCR) Assessment and Plan (1) Acute respiratory failure with hypoxia: Status: Acute (2) Hypoxia: Status: Acute (3) COPD exacerbation: Status: Acute Assessment and Plan: 85-year-old female with past medical history of COPD/ asthma presents to the hospital with complaints of shortness of breath, fever, found to have? pneumonia 1. acute hypoxic respiratory failure- possibly secondary to COVID pneumonia fully vaccinated with a booster about 2 weeks ago as well as COVID 19 PCR is negative on Zosyn as well as Levaquin given her bronchiectasis 2. pneumonia-?-? patient also has history of COPD continue on steroids, DuoNeb treatments, IV antibiotics. -? follow cultures 3.? COPD exacerbation - ? patient has history of COPD, will start her on IV Solu-Medrol, does treatment -? IV antibiotics 4. hypothyroidism-? continue levothyroxine 5. history of AFib, status post Watchman procedure -? not on anticoagulation,? all rate controlling medications at this time -? monitor ?DVT prophylaxis:? [place] Stroke Does the patient have a stroke diagnosis?: No VTE Prior VTE?: No VTE Risk Level:: Medical - moderate - high VTE Device Contraindication: Treatment Not Indicated VTE Drug Contraindication: N/A - Med Ordered
[2021-02-11 08:52] LABS: Hematocrit 35.3 % (37.0-47.0); Hemoglobin 11.8 g/dl (12.0-16.0); Lymphocytes Absolute Auto 0.6 X10*3/uL (1.2-4.9); Lymphocytes Percent Auto 21.1 % (20-40); MANUAL DIFF FLAG SCAN; Mean Corpuscular HGB Conc 33.4 g/dl (31.0-35.0); Mean Corpuscular Hemoglobin 32.5 pg (27.0-33.0); Mean Corpuscular Volume 97.2 fL (80.0-98.0); Mean Platelet Volume 9.9 fL (9.4-12.3); Monocytes Absolute Auto 0.1 X10*3/uL (0.1-1.2); Monocytes Percent Auto 3.2 % (2-11); Neutrophils Absolute Auto 2.2 x10*3/uL (2.0-8.3); Neutrophils Percent Auto 75.7 % (45-73); Platelet Count 272 X10*3/uL (160-400); Red Blood Count 3.63 X10*6/uL (4.20-5.50); Red Cell Distribution Width 12.9 % (11.0-16.0); SCAN SMEAR FLAG 1; White Blood Count 2.8 X10*3/uL (4.8-10.8)
[2021-02-11 09:12] LABS: SLIDE REVIEW VERIFIED
[2021-02-11 09:17] LABS: Anion Gap 11 (12-20); Blood Urea Nitrogen 13 mg/dL (9-16); Calcium 9.2 mg/dL (8.4-10.2); Carbon Dioxide 23 mmol/L (22-29); Chloride 109 mmol/L (96-108); Creatinine Clr Calc Pharmacy 41.5; Estimated Glomerular Filt Rate > 60; Glucose Random 136 mg/dL (60-115); Potassium 4.5 mmol/L (3.3-5.1); Sodium 138 mmol/L (135-145)
[2021-02-11] MEDS: Cyanocobalamin (Vitamin B-12) 1,000 MCG TABLET 1000 MCG PO (09:58)
[2021-02-11] MEDS: Folic Acid 1 MG TABLET PO (09:58)
[2021-02-11] MEDS: Multivitamin TABLET 1 TAB PO (09:58)
[2021-02-11] MEDS: Sertraline HCL 25 MG TABLET PO ×2 (09:58→19:46)
[2021-02-11] MEDS: Aspirin Enteric Coated 81 MG TABLET.DR PO (09:58)
[2021-02-11] MEDS: methylPREDNISolone Sod Succ 40 MG/ML VIAL IVPUSH ×2 (12:10→22:13)
--- NOTE | 2021-02-11 15:05 | PC.NURSE ---
pt alert and oriented, vss. pt denies pain. no sob/headache/dizziness. pt satting 97-98% R/A. pt assisted to restroom x2, denies sob with exertion. breakfast and lunch given. pt awaiting bed assignment.
[2021-02-11] MEDS: Magnesium Oxide 400 MG TABLET PO (17:04)
[2021-02-11] MEDS: Enoxaparin Sodium 40 MG/0.4 ML SYRINGE SUBCUT (19:47)
[2021-02-11] MEDS: Albuterol/Iprat 2.5/0.5MG 3 ML AMPUL.NEB INHALE (19:55)
--- NOTE | 2021-02-11 20:39 | PC.NURSE ---
pt had been medicated per mar.
--- NOTE | 2021-02-11 21:55 | PC.NURSE ---
PATIENT WAS AMBULATED TO BATHROOM ,PATIENT VOIDED LARGE AMOUNT
[2021-02-11] MEDS: traZODone HCL 25 MG HALFTAB PO (22:13)
--- NOTE | 2021-02-11 22:17 | PC.NURSE ---
medicated per mar.
--- NOTE | 2021-02-11 22:18 | PC.NURSE ---
Report given to [facility] RN.
[2021-02-11] MEDS: 0.9 % Sodium Chloride Flush 3 ML SYRINGE IVFLUSH (23:25)
[2021-02-12] VITALS (7 sets, daily range): BP systolic 123–169; BP diastolic 59–79; PULSE 62–63; RESP 18; TEMP 36.5–37.4; O2SAT 93–97
--- NOTE | 2021-02-12 00:37 | PC.NURSE ---
02/11/21 2250 pt received from ED via hospital bedinto room 482. Although covid PCR negative - Ground glass on CTA typical of covid, therefore airborne precautions maintained. pt denies sob at rest but admits to sob w/ambulation. on ra sat96%, lungs coarse crackles t.o. with faint insp. wheeze. moderate fall risk explained & pt verbalizes whe will ring for assist oob. call conroy in place & oriented to room/surroundings and care plan reviewed & pt agrees with paln. vpaced on monitor with extreme first degree AVB. denies chest pain.medications reviewed. flush to #20 l lower arm - good blood return noted.
[2021-02-12] MEDS: Piperacillin Sodium/Tazobactam 3.375 GM in 0.9 % Sodium Chloride 50 ML IV ×4 (05:40→21:35)
[2021-02-12] MEDS: Levothyroxine Sodium 50 MCG TABLET PO (05:40)
[2021-02-12] MEDS: Sertraline HCL 25 MG TABLET PO ×2 (07:33→21:35)
[2021-02-12] MEDS: Folic Acid 1 MG TABLET PO (07:34)
[2021-02-12] MEDS: 0.9 % Sodium Chloride Flush 3 ML SYRINGE IVFLUSH ×3 (07:34→21:35)
[2021-02-12] MEDS: Multivitamin TABLET 1 TAB PO (07:34)
[2021-02-12] MEDS: Cyanocobalamin (Vitamin B-12) 1,000 MCG TABLET 1000 MCG PO (07:34)
--- NOTE | 2021-02-12 09:03 | MHC.CM.PN ---
CM met with Patient at bedside and addressed IMM with her, providing her with the original and placing a copy on the chart. Patient lives alone in an apartment and uses a cane to assist with mobility. Patient's goal is to return home, no services and CM has initiated and will follow for dc planning.PCP is DR. Analilia Zuniga.
[2021-02-12] MEDS: methylPREDNISolone Sod Succ 40 MG/ML VIAL IVPUSH (09:59)
[2021-02-12] MEDS: Albuterol/Iprat 2.5/0.5MG 3 ML AMPUL.NEB INHALE ×2 (11:37→19:14)
--- NOTE | 2021-02-12 13:41 | P.PNIM_ITS ---
Subjective Subjective Date of Service: 02/12/21 Interval History: copd/pna Review of Systems sob improving still feels generally weak , get sob with walking Physical Exam Vital Signs: Vital Signs: Last Vital Signs Temp 99.3 F 02/12/21 12:00 Pulse 62 02/12/21 12:00 Resp 18 02/12/21 12:00 BP 123/59 L 02/12/21 12:00 Pulse Ox 93 02/12/21 12:00 BMI result Body Mass Index 21.2 Appearance: Alert.? Oriented X3.? generlaly weak. cvs: rrr, [id number] , no murmur res: air entry improving , still has wheezing b/l abd: no rebound or guarding ,nt, bs present. ext pulses present , no cyanosis. neuro: axo3 , nonfocal. Objective Data Active Medications Acetaminophen (Acetaminophen 325 Mg Tablet) 650 mg PO Q6H PRN PRN Reason: Pain, Mild (Pain Scale 1-3) Last Admin: 02/10/21 22:29 Dose: 650 mg Documented by: WILLIAMS Albuterol/Ipratropium (Albuterol/Iprat 2.5/0.5mg 3 Ml Ampul.Neb) 3 ml INHALE BID PRN PRN Reason: Shortness Of Breath Or Wheezing Albuterol/Ipratropium (Albuterol/Iprat 2.5/0.5mg 3 Ml Ampul.Neb) 3 ml INHALE RQ4H WHILE AWAKE [facility] Last Admin: 02/12/21 11:37 Dose: 3 ml Documented by: KELSI Aspirin (Aspirin Enteric Coated 81 Mg Tablet.) 81 mg PO Q2D@0900 [facility] Last Admin: 02/11/21 09:58 Dose: 81 mg Documented by: JOHN Cyanocobalamin (Cyanocobalamin (Vitamin B-12) 1,000 Mcg Tablet) 1,000 mcg PO DAILY [facility] Last Admin: 02/12/21 07:34 Dose: 1,000 mcg Documented by: JESSE Docusate Sodium (Docusate Sodium 100 Mg Capsule) 100 mg PO DAILY PRN PRN Reason: Constipation Enoxaparin Sodium (Enoxaparin Sodium 40 Mg/0.4 Ml Syringe) 40 mg SUBCUT Q24H [facility] Last Admin: 02/11/21 19:47 Dose: 40 mg Documented by: UMBERTO Folic Acid (Folic Acid 1 Mg Tablet) 1 mg PO DAILY [facility] Last Admin: 02/12/21 07:34 Dose: 1 mg Documented by: JESSE Piperacillin Sod/Tazobactam (Sod 3.375 gm/ Sodium Chloride) 50 mls @ 100 mls/hr IV Q6H [facility] Last Infusion: 02/12/21 10:36 Dose: 0 mls/hr Documented by: VALENTINA Levofloxacin (Levaquin) 750 mg in 150 mls @ 100 mls/hr IV Q48H [facility] Last Infusion: 02/10/21 23:55 Dose: 0 mls/hr Documented by: DARCY Levothyroxine Sodium (Levothyroxine Sodium 50 Mcg Tablet) 50 mcg PO DAILY@0630 [facility] Last Admin: 02/12/21 05:40 Dose: 50 mcg Documented by: MARIBEL Magnesium Oxide (Magnesium Oxide 400 Mg Tablet) 400 mg PO DAILY@1700 [facility] Last Admin: 02/11/21 17:04 Dose: 400 mg Documented by: JOHN Methylprednisolone Sodium Succinate (Methylprednisolone Sod Succ 40 Mg/Ml Vial) 40 mg IVPUSH Q24H [facility] Last Admin: 02/12/21 09:59 Dose: 40 mg Documented by: JESSE Multivitamins/Vitamin C (Multivitamin Tablet) 1 tab PO DAILY [facility] Last Admin: 02/12/21 07:34 Dose: 1 tab Documented by: JESSE Ondansetron HCl (Ondansetron Hcl 4 Mg/2 Ml Vial) 4 mg IVPUSH Q8H PRN PRN Reason: Nausea and Vomiting Pharmacy Consult (Consult Rx Perform Med Rec) 1 each MISCELLANE ONCE PRN PRN Reason: Consult order Sertraline HCl (Sertraline Hcl 25 Mg Tablet) 25 mg PO BID [facility] Last Admin: 02/12/21 07:33 Dose: 25 mg Documented by: JESSE Sodium Chloride (0.9 % Sodium Chloride Flush 3 Ml Syringe) 3 ml IVFLUSH QSHIFT [facility] Last Admin: 02/12/21 07:34 Dose: 3 ml Documented by: JESSE Trazodone HCl (Trazodone Hcl 25 Mg Halftab) 25 mg PO BEDTIME PRN PRN Reason: insomnia Last Admin: 02/11/21 22:13 Dose: 25 mg Documented by: DARON Labs CBC & Chem 7: 02/11/21 08:37 02/11/21 08:37 Microbiology Microbiology Results: Microbiology 02/10/21 16:45 Blood Culture - Preliminary Blood - Venous No growth after 24 hours. 02/10/21 16:45 Blood Culture - Preliminary Blood - Venous No growth after 24 hours. Assessment and Plan (1) COPD exacerbation: Status: Acute (2) Bronchiectasis, uncomplicated: Status: Acute (3) Pneumonia: Status: Acute Assessment and Plan: 85-year-old female with past medical history of COPD/ asthma presents to the hospital with complaints of shortness of breath, fever, found to have? pneumonia 1. acute hypoxic respiratory failure- possibly secondary to COVID pneumonia ?fully vaccinated with a booster about 2 weeks ago as well as COVID 19 PCR is negative ?on Zosyn as well as Levaquin given her bronchiectasis 2. pneumonia-?-? patient also has history of COPD continue? on steroids, DuoNeb treatments, IV antibiotics. -? follow cultures 3.? COPD exacerbation - ? patient has history of COPD, will start her on IV Solu-Medrol, does treatment -? IV antibiotics 4. hypothyroidism-? continue levothyroxine 5. history of AFib, status post Watchman procedure -? not on anticoagulation,? all rate controlling medications at this time -? monitor ?DVT prophylaxis:? Lovenox Quality Stroke Does the patient have a stroke diagnosis?: No VTE Prior VTE?: No VTE Risk Level:: Medical - moderate - high VTE Device Contraindication: Treatment Not Indicated VTE Drug Contraindication: N/A - Med Ordered
[2021-02-12] MEDS: Magnesium Oxide 400 MG TABLET PO (16:25)
[2021-02-12] MEDS: LORazepam 0.5 MG TABLET PO (21:35)
[2021-02-12] MEDS: Enoxaparin Sodium 40 MG/0.4 ML SYRINGE SUBCUT (22:12)
[2021-02-12] MEDS: levoFLOXacin/D5W 750 MG/150 ML PIGGYBACK 100 MG IV (22:13)
[2021-02-12] MEDS: diphenhydrAMINE HCL 50 MG/ML VIAL 25 MG IVPUSH (22:31)
[2021-02-13] VITALS (7 sets, daily range): BP systolic 147–157; BP diastolic 67–78; PULSE 62–92; RESP 18–20; TEMP 36.6–37.2; O2SAT 94–98
[2021-02-13] MEDS: Piperacillin Sodium/Tazobactam 3.375 GM in 0.9 % Sodium Chloride 50 ML IV ×2 (06:22→12:24)
[2021-02-13] MEDS: Levothyroxine Sodium 50 MCG TABLET PO (06:22)
[2021-02-13] MEDS: Sertraline HCL 25 MG TABLET PO (08:21)
[2021-02-13] MEDS: methylPREDNISolone Sod Succ 40 MG/ML VIAL IVPUSH (08:21)
[2021-02-13] MEDS: Folic Acid 1 MG TABLET PO (08:21)
[2021-02-13] MEDS: Aspirin Enteric Coated 81 MG TABLET.DR PO (08:21)
[2021-02-13] MEDS: Multivitamin TABLET 1 TAB PO (08:22)
[2021-02-13] MEDS: 0.9 % Sodium Chloride Flush 3 ML SYRINGE IVFLUSH ×2 (08:22→16:14)
[2021-02-13] MEDS: Cyanocobalamin (Vitamin B-12) 1,000 MCG TABLET 1000 MCG PO (08:22)
[2021-02-13] MEDS: Albuterol/Iprat 2.5/0.5MG 3 ML AMPUL.NEB INHALE ×3 (08:53→15:22)
--- NOTE | 2021-02-13 08:55 | PM.DS ---
DS: Providers Provider Date of Service: 02/13/21 Date of admission: 02/10/21 20:26 Primary care physician: Analilia Zuniga MD DS: Diagnosis Discharge Diagnosis (1) COPD exacerbation: Status: Acute (2) Bronchiectasis, uncomplicated: Status: Acute (3) Pneumonia: Status: Acute DS: Summary Hospital Course Hospital Course: 85-year-old female with past medical history of COPD, AFib status post Watchman procedure, pacemaker, hypothyroidism, depression who presents to the hospital with complaints of shortness of breath as well as fever over the past 2 weeks since receiving her COVID booster shot.? Patient reports that she has been so fatigued, feverish, and had loss of appetite that she has been in bed for the past 2 weeks.? She has trouble breathing, coughing, progressively worsening to productive cough for the past 3-4 days, she also has wheezing, she denies any abdominal pain, no nausea or vomiting, no chest pain, no palpitations, no diarrhea, no urinary symptoms and no lower extremity edema. ?patient was found a seen by her office services representative who sent her to the ED for further management today. ? On arrival to the ED hemodynamically stable with no significant abnormal vitals, found to be 96% on room air ?labs are significant for WBC count of 6.7, pH of 7.4 with no CO2 retention, BNP of 228, influenza type a B as well as COVID-19 as well as RSV negative ?chest CT shows moderate emphysematous changes, superimposed? primarily ground-glass opacities also present are suggestive bottle process i.e. COVID pneumonia. ? Patient is fully vaccinated against COVID with a booster shot done on the . hospital course: Patient was admitted for acute hypoxemic respiratory failure secondary to COPD exacerbation /pneumonia- started on IV Solu-Medrol, nebs, antibiotics-seems to be improving: of oxygen, feeling better. Patient will be going home with p.o. steroids and antibiotics. Patient should hold her home azithromycin until complete current p.o. antibiotic course. Patient is to follow-up with her pulmonary outpatient for further management. Above management discussed with the patient in detail length she understand and in agreement with the above plan, time spent 50 minutes and 50% time spent on counseling. Significant findings: As above. Procedures performed: None. Treatment and response: As above. Complications: None. Time Spent with Patient Time attestation: Total time spent providing and/or coordinating discharge services: Discharge coordination time: Greater than 30 minutes Quality: Stroke Does the patient have a stroke diagnosis?: No Physical Exam Vital Signs: Vital Signs: Last Vital Signs Temp 98.8 F 02/13/21 07:22 Pulse 62 02/13/21 07:22 Resp 18 02/13/21 07:22 BP 154/78 H 02/13/21 07:22 Pulse Ox 94 02/13/21 07:22 BMI result Body Mass Index 21.2 Appearance: Alert.? Oriented X3.? generlaly weak. cvs: rrr, [id number] , no murmur res: air entry improving , still has wheezing b/l abd: no rebound or guarding ,nt, bs present. ext pulses present , no cyanosis. neuro: axo3 , nonfocal. DS: Data Data Completed and Pending Labs on day of discharge: Preliminary micro results at discharge 02/10/21 16:45 Blood Culture - Preliminary Blood - Venous No growth after 48 hours. 02/10/21 16:45 Blood Culture - Preliminary Blood - Venous No growth after 48 hours. Discharge Plan Discharge Patient Disposition: er SNF Discharge Diagnosis: Acute hypoxemic respiratory failure secondary to COPD exacerbation, pneumonia. Referrals: Analilia Zuniga MD [Primary Care Provider] - 1 Week Discharge Medications: New prednisone 20 mg tablet 40 mg PO DAILY Qty: 6 RF: 0 levofloxacin 500 mg tablet 500 mg PO DAILY Qty: 5 RF: 0 loratadine 10 mg capsule 10 mg PO DAILY Qty: 7 RF: 0 Continued budesonide-formoterol 160-4.5 mcg/actuation HFA aerosol inhaler 2 inh PO BID Qty: 30.6 RF: 3 multivitamin Tablet 1 tab PO DAILY RF: 0 cyanocobalamin (vitamin B-12) 1,000 mcg Tablet 1,000 mcg PO DAILY RF: 0 budesonide 0.5 mg/2 mL Suspension For Nebulization 0.5 mg INHALATION BID PRN (Reason: Shortness Of Breath) RF: 0 folic acid 1 mg Tablet 1 mg PO DAILY RF: 0 lutein 20 mg Capsule 20 mg PO DAILY RF: 0 Probiotic 100 billion cell Capsule 2 cap PO BEDTIME RF: 0 magnesium oxide 400 mg magnesium Tablet 400 mg PO DAILY@1700 RF: 0 Bone Boost 1 tab PO TID RF: 0 Zeaxanthin 1 mg PO DAILY RF: 0 ipratropium-albuterol 0.5 mg-3 mg(2.5 mg base)/3 mL solution for nebulization 3 ml inhalation BID PRN (Reason: Shortness Of Breath Or Wheezing) RF: 0 sertraline 25 mg tablet 25 mg PO BID RF: 0 levothyroxine 50 mcg tablet 50 mcg PO DAILY@0630 RF: 0 albuterol sulfate 90 mcg/actuation HFA aerosol inhaler 2 inh inhalation Q4H PRN (Reason: Shortness Of Breath) RF: 0 aspirin 81 mg tablet,delayed release (DR/EC) 81 mg PO Q2D RF: 0 Held azithromycin 250 mg tablet 250 mg PO BEDTIME RF: 0 Hold Instructions: Resume on 02/20/21. hold until on po antiobiotic Discharge Orders: Discharge Order (Routine); Ordered 02/13/21 Ordered By: Aleyda Khan Diet: advance to usual diet Activity on Discharge: As tolerated Stand Alone Forms: Patient Portal Discharge page Care Plan Goals: Patient was admitted for acute hypoxemic respiratory failure secondary to COPD exacerbation /pneumonia- started on IV Solu-Medrol, nebs, antibiotics-seems to be improving: of oxygen, feeling better. Patient will be going home with p.o. steroids and antibiotics. Patient should hold her home azithromycin until complete current p.o. antibiotic course. Patient is to follow-up with her pulmonary outpatient for further management. Health Concerns: As above. Plan of Treatment: As above. Assessment: As above.
--- NOTE | 2021-02-13 11:47 | HO.PM.IMPN ---
Subjective Subjective Date of Service: 02/13/21 Physical Exam Vital Signs: Vital Signs: Last Vital Signs Temp 98.9 F 02/13/21 10:55 Pulse 62 02/13/21 10:55 Resp 20 02/13/21 10:55 BP 147/67 H 02/13/21 10:55 Pulse Ox 95 02/13/21 10:55 BMI result Body Mass Index 21.2 Objective Data Active Medications Acetaminophen (Acetaminophen 325 Mg Tablet) 650 mg PO Q6H PRN PRN Reason: Pain, Mild (Pain Scale 1-3) Last Admin: 02/10/21 22:29 Dose: 650 mg Documented by: WILLIAMS Albuterol/Ipratropium (Albuterol/Iprat 2.5/0.5mg 3 Ml Ampul.Neb) 3 ml INHALE BID PRN PRN Reason: Shortness Of Breath Or Wheezing Albuterol/Ipratropium (Albuterol/Iprat 2.5/0.5mg 3 Ml Ampul.Neb) 3 ml INHALE RQ4H WHILE AWAKE [facility] Last Admin: 02/13/21 08:53 Dose: 3 ml Documented by: JAMI Aspirin (Aspirin Enteric Coated 81 Mg Tablet.) 81 mg PO Q2D@0900 [facility] Last Admin: 02/13/21 08:21 Dose: 81 mg Documented by: JESSE Cyanocobalamin (Cyanocobalamin (Vitamin B-12) 1,000 Mcg Tablet) 1,000 mcg PO DAILY [facility] Last Admin: 02/13/21 08:22 Dose: 1,000 mcg Documented by: JESSE Docusate Sodium (Docusate Sodium 100 Mg Capsule) 100 mg PO DAILY PRN PRN Reason: Constipation Enoxaparin Sodium (Enoxaparin Sodium 40 Mg/0.4 Ml Syringe) 40 mg SUBCUT Q24H [facility] Last Admin: 02/12/21 22:12 Dose: 40 mg Documented by: ADDISON Folic Acid (Folic Acid 1 Mg Tablet) 1 mg PO DAILY [facility] Last Admin: 02/13/21 08:21 Dose: 1 mg Documented by: JESSE Piperacillin Sod/Tazobactam (Sod 3.375 gm/ Sodium Chloride) 50 mls @ 100 mls/hr IV Q6H [facility] Last Infusion: 02/13/21 07:10 Dose: 0 mls/hr Documented by: VALENTINA Levofloxacin (Levaquin) 750 mg in 150 mls @ 100 mls/hr IV Q48H [facility] Last Infusion: 02/12/21 23:49 Dose: 0 mls/hr Documented by: ADDISON Levothyroxine Sodium (Levothyroxine Sodium 50 Mcg Tablet) 50 mcg PO DAILY@0630 [facility] Last Admin: 02/13/21 06:22 Dose: 50 mcg Documented by: ADDISON Magnesium Oxide (Magnesium Oxide 400 Mg Tablet) 400 mg PO DAILY@1700 [facility] Last Admin: 02/12/21 16:25 Dose: 400 mg Documented by: JESSE Methylprednisolone Sodium Succinate (Methylprednisolone Sod Succ 40 Mg/Ml Vial) 40 mg IVPUSH Q24H [facility] Last Admin: 02/13/21 08:21 Dose: 40 mg Documented by: JESSE Multivitamins/Vitamin C (Multivitamin Tablet) 1 tab PO DAILY [facility] Last Admin: 02/13/21 08:22 Dose: 1 tab Documented by: JESSE Ondansetron HCl (Ondansetron Hcl 4 Mg/2 Ml Vial) 4 mg IVPUSH Q8H PRN PRN Reason: Nausea and Vomiting Pharmacy Consult (Consult Rx Perform Med Rec) 1 each MISCELLANE ONCE PRN PRN Reason: Consult order Sertraline HCl (Sertraline Hcl 25 Mg Tablet) 25 mg PO BID [facility] Last Admin: 02/13/21 08:21 Dose: 25 mg Documented by: JESSE Sodium Chloride (0.9 % Sodium Chloride Flush 3 Ml Syringe) 3 ml IVFLUSH QSHIFT [facility] Last Admin: 02/13/21 08:22 Dose: 3 ml Documented by: JESSE Trazodone HCl (Trazodone Hcl 25 Mg Halftab) 25 mg PO BEDTIME PRN PRN Reason: insomnia Last Admin: 02/11/21 22:13 Dose: 25 mg Documented by: DARON Labs CBC & Chem 7: 02/11/21 08:37 02/11/21 08:37 Microbiology Microbiology Results: Microbiology 02/10/21 16:45 Blood Culture - Preliminary Blood - Venous No growth after 48 hours. 02/10/21 16:45 Blood Culture - Preliminary Blood - Venous No growth after 48 hours. Assessment and Plan Assessment and Plan: 1.Patient was admitted for acute hypoxemic respiratory failure secondary to COPD exacerbation /pneumonia- started on IV Solu-Medrol, nebs, antibiotics-seems to be improving: off oxygen, feeling better. Patient will be going home with p.o. steroids and antibiotics. Patient should hold her home azithromycin until complete current p.o. antibiotic course. Patient is to follow-up with her pulmonary outpatient for further management. 2. hypothyroidism-? continue levothyroxine 3. history of AFib, status post Watchman procedure -? not on anticoagulation,? all rate controlling medications at this time -? monitor ?DVT prophylaxis:? Beautified Quality Stroke Does the patient have a stroke diagnosis?: No VTE Prior VTE?: No VTE Risk Level:: Medical - moderate - high VTE Device Contraindication: Treatment Not Indicated VTE Drug Contraindication: N/A - Med Ordered
[2021-02-13] MEDS: Docusate Sodium 100 MG CAPSULE PO (12:25)
[2021-02-13 13:02] LABS: COVID-19 Test Negative (Negative)
[2021-02-13] MEDS: Loratadine 10 MG TABLET PO (13:03)
--- NOTE | 2021-02-13 15:24 | MHC.CM.PN ---
IMM 02/13/21 Female COPD PNA discharged today. Pts preference [facility]. She requested a private room. [facility] had a private room available. Patient chose [facility]. She will transport at 5:30pm via BLS.
--- NOTE | 2021-02-13 17:36 | PC.NURSE ---
Attempted to call Francisca 3 times with no response
[2021-02-13] MEDS: Magnesium Oxide 400 MG TABLET PO (17:37)
== END 2021-02-13 18:50 | disposition skilled nursing facility (03) | DRG 193 ==
LOC: HO.ED 20:09 → HO.EDOVER 20:43 → HO.IMC 02-11 22:09
PROVIDERS: Nurse Practitioner Family; Admitting Provider Internal Medicine; Emergency Provider Internal Medicine; PCP Internal Medicine; Visit Provider Internal Medicine
DX: J18.9 Pneumonia, unspecified organism (principal); J96.01 Acute respiratory failure with hypoxia; J47.0 Bronchiectasis with acute lower respiratory infection; J47.1 Bronchiectasis with (acute) exacerbation; E03.9 Hypothyroidism, unspecified; F32.A Depression, unspecified; I48.91 Unspecified atrial fibrillation; Z20.822 Contact with and (suspected) exposure to COVID-19; Z95.0 Presence of cardiac pacemaker; Z79.82 Long term (current) use of aspirin; Z79.890 Hormone replacement therapy; Z79.899 Other long term (current) drug therapy
CPT/HCPCS: 0241U; 36415; 71250; 80048; 80076; 82550; 82728; 82803; 83605; 83615; 83690; 83880; 84145; 84484; 85025; 85379; 85610; 87040; 87635; 93005; 97162; 99285; J0696; J1200; J1650; J1956; J2543; J2920

== ENCOUNTER → 2021-02-14 10:52 | Outpatient (BNVA) | payer MEDICARE, SELFPAY | PROVIDERS: Visit Provider Hospitalist ==

== ENCOUNTER → 2021-02-20 14:27 | Outpatient (BNVA) | payer MEDICARE, SELFPAY | PROVIDERS: PCP Internal Medicine; Visit Provider Hospitalist | DX: J44.1 Chronic obstructive pulmonary disease with (acute) exacerbation (principal); J47.0 Bronchiectasis with acute lower respiratory infection; R63.4 Abnormal weight loss | CPT/HCPCS: 99212 ==

== ENCOUNTER → 2021-03-20 13:02 | Outpatient (BNVA) | payer MEDICARE, SELFPAY | PROVIDERS: PCP Internal Medicine; Visit Provider Hospitalist | DX: R63.4 Abnormal weight loss (principal); J44.1 Chronic obstructive pulmonary disease with (acute) exacerbation; J47.0 Bronchiectasis with acute lower respiratory infection; J18.9 Pneumonia, unspecified organism | CPT/HCPCS: Q3014 ==

== ENCOUNTER → 2021-04-07 08:25 | Outpatient (BNVA) | payer MEDICARE, SELFPAY | PROVIDERS: PCP Internal Medicine; Visit Provider Hospitalist | DX: J44.1 Chronic obstructive pulmonary disease with (acute) exacerbation (principal); J47.0 Bronchiectasis with acute lower respiratory infection; J18.9 Pneumonia, unspecified organism; R07.81 Pleurodynia; R63.4 Abnormal weight loss; Z79.899 Other long term (current) drug therapy | CPT/HCPCS: 99212 ==

== ENCOUNTER 2021-04-07 09:09 | Inpatient (IN) | payer MEDICARE, SELFPAY ==
[2021-04-07] VITALS (10 sets, daily range): BP systolic 111–137; BP diastolic 50–62; PULSE 61–64; RESP 14–24; TEMP 36.6–36.9; O2SAT 88–99; BMI 18.8
--- NOTE | ~2021-04-07 | NM_ITS ---
EXAMINATION: NM LUNG IMAGE PERFUSION CLINICAL INFORMATION: Short of breath, COPD. Pleuritic chest pain. COMPARISON: Chest x-ray 04/07/2021 TECHNIQUE: Following intravenous administration of 4 mCi of 99m technetium MAA, imaging of both lungs were in obtained multiple projections. FINDINGS: There are multiple segmental and nonsegmental filling defects in the right upper lobe, right lower lobe, lingula and left lower lobe. Chest x-ray reveals several ground-glass defects in the left upper lobe, right upper lobe, right lower lobe, lingula segments and left lower lobe suggestive of multilobar airspace disease. This process was seen on previous CT chest 02/10/2021 NM/ND pul perfusion IMPRESSION: Multiple segmental and non-segmental matched filling defects suggestive of indeterminate probability for PE. Recommend follow-up CT chest without contrast and correlation with old CT 02/10/2021.
--- NOTE | ~2021-04-07 | XR_ITS ---
EXAMINATION: XR CHEST CLINICAL INFORMATION: Shortness of breath COMPARISON: CT chest 02/10/2021 TECHNIQUE: Frontal view of the chest was obtained. FINDINGS: Cardiomediastinal silhouette is normal. Left-sided cardiac pacemaker in place. Additional wires overlie the chest. Superimposed on underlying interstitial prominence there are bilateral patchy airspace opacities. No pleural effusion or pneumothorax. Bones are demineralized. XR/XR chest 1V IMPRESSION: Superimposed underlying interstitial prominence there are bilateral patchy airspace opacities concerning for infiltrate.
--- NOTE | ~2021-04-07 | US_ITS ---
EXAMINATION: US VENOUS ULTRASOUND WITH DOPPLER LOWER EXTREMITY, BILATERAL CLINICAL INFORMATION: Pain. Skin changes. COMPARISON: None TECHNIQUE: Ultrasound of the deep veins is performed from the hip to the calf with compression sonography and color and pulse Doppler assessment. Spectral analysis with color-flow imaging is performed. FINDINGS: RIGHT: There is normal venous compression and respiratory variation and augmented flow. The visualized common femoral vein, superficial femoral vein, profunda femoral vein, popliteal vein, and the trifurcation region shows no evidence of deep venous thrombosis. There is no significant popliteal fossa cyst. LEFT: There is normal venous compression and respiratory variation and augmented flow. The visualized common femoral vein, superficial femoral vein, profunda femoral vein, popliteal vein, and the trifurcation region shows no evidence of deep venous thrombosis. There is no significant popliteal fossa cyst. If the patient's symptoms persist, followup ultrasound in 5 days 7 days might be of value to exclude proximal propagation from a non-visualized calf vein. US/US venous duplex LE BI IMPRESSION: No DVT demonstrated in the bilateral lower extremity.
--- NOTE | 2021-04-07 09:46 | ECG_ITS ---
Test Reason : dyspnea Blood Pressure : / mmHG Vent. Rate : 062 BPM Atrial Rate : 073 BPM P-R Int : 000 ms QRS Dur : 148 ms QT Int : 476 ms P-R-T Axes : 000 -76 087 degrees QTc Int : 483 ms Poor data quality Ventricular-paced rhythm with complete heart block Abnormal ECG When compared with ECG of 10-FEB-2021 15:57, Vent. rate has increased BY 2 BPM Referred By: Irene Delacruz Electronically Signed By:ANNA JENKINS MD
--- NOTE | 2021-04-07 09:47 | ED_ITS ---
HPI - SOB/Dyspnea General Chief Complaint: Dyspnea Stated Complaint: Not feeling well- sent from dr can Time Seen by Provider: 04/07/21 09:28 Source: patient Mode of arrival: ambulatory Limitations: no limitations History of Present Illness HPI Narrative: Patient comes to the emergency room complaining of worsening shortness of breath for the last 10 days. Patient was sent over from the pulmonary office this morning. Patient reports poor p.o. intake, weight loss. Patient states that since February she has been trying to recover from pneumonia. According to the office now, patient's oxygen saturation was 87% on room air. Patient states that with any minimal exertion she feels very short of breath. Denies chest pain Related Data Home Medications Medication Instructions Recorded Confirmed albuterol sulfate 90 2 inh INHALATION Q4H PRN 01/12/20 04/07/21 mcg/actuation aerosol inhaler levothyroxine 50 mcg tablet 50 mcg PO DAILY@0630 01/12/20 04/07/21 Bone Boost 1 tab PO TID 02/10/21 04/07/21 Lactobacillus 40-Bifidobact 2 cap PO BEDTIME 02/10/21 04/07/21 3-S.thermophilus 100 billion cell capsule (Probiotic) Zeaxanthin 1 mg PO DAILY 02/10/21 04/07/21 azithromycin 250 mg tablet 250 mg PO BEDTIME 02/10/21 04/07/21 cyanocobalamin (vitamin B-12) 1,000 mcg PO DAILY 02/10/21 04/07/21 1,000 mcg tablet folic acid 1 mg tablet 1 mg PO DAILY 02/10/21 04/07/21 ipratropium 0.5 mg-albuterol 3 3 ml INHALATION BID PRN 02/10/21 04/07/21 mg (2.5 mg base)/3 mL nebulization soln lutein 20 mg capsule 20 mg PO DAILY 02/10/21 04/07/21 magnesium oxide 400 mg PO DAILY@1700 02/10/21 04/07/21 multivitamin 1 tab PO DAILY 02/10/21 04/07/21 sertraline 100 mg tablet 100 mg PO DAILY 02/20/21 04/07/21 nystatin 100,000 unit/mL oral 1 ml PO QID PRN 04/07/21 04/07/21 suspension Previous Rx's Medication Instructions Recorded budesonide-formoterol HFA 160 2 inh PO BID #30.6 g 11/16/20 mcg-4.5 mcg/actuation aerosol inhaler Allergies Allergy/AdvReac Type Severity Reaction Status Date / Time Iodinated Contrast Media Allergy Severe Itch and Verified 04/07/21 09:22 [CONTRAST, IV] Rash Review of Systems Verdana 4l Review of Systems: Verdana 4d Verdana 4d Constitutional : Reports weight loss, subjective fever and chills, No Night Sweats, complaining of fatigue, generalized malaise ENT/Mouth : No Hearing loss, No Ear Pain, No Nasal Congestion, No Sinus Pain, No Hoarseness, No sore throat, NoNo Rhinorrhea, No Swallowing Difficulty Eyes: No Eye Pain, No Swelling, No Redness, No Foreign Body, No Discharge, No Vision Changes Cardiovascular : No Chest Pain, complaining of palpitations with exertion Respiratory : Complaining of chronic cough, chronic wheezing, worsening shortness of breath much worse with minimal exertion Gastrointestinal : No Nausea, No Vomiting, No Diarrhea, No Constipation, No abdominal Pain, No Hematochezia, No Melena Genitourinary : no irregular bleeding, No Dysuria, No Urinary Frequency, No Hematuria, No Urinary Incontinence, No Urgency, No Flank Pain, No Urinary Flow Changes, No Hesitancy Musculoskeletal : No joint pain, No Myalgias, No Joint Swelling Skin : No Skin Lesions, No rash Neuro : No Weakness, No Numbness, No Paresthesias, No Loss of Consciousness, No Dizziness, No Headache Psych : No Anxiety/Panic, No Depression, No SI/HI/AH/VH, No Social Issues, Heme/Lymph: No Bruising, No Bleeding,No Lymphadenopathy Endocrine : No Polyuria, No Polydipsia, No Temperature Intolerance [facility] Past Medical History Medical History Bronchiectasis Bronchiectasis, uncomplicated COPD (chronic obstructive pulmonary disease) COPD exacerbation Insomnia Pacemaker Pleuritic chest pain Pneumonia Presence of Watchman left atrial appendage closure device Weight loss Surgical History No pertinent past surgical history Family History Family History Father No problems noted. Social History Social History Household Members: None Housing: House Do you presently have visiting nurse or other home services: Yes Alcohol intake: unknown Patient Tobacco Use Status: Never used Tobacco Advance Directives: Yes Advance Directives Information Provided: Yes Advance Directives on File: No service: No Current occupational status: retired Physical Exam Verdana 4l Vital Signs: Verdana 4d Verdana 4d Vital Signs: Verdana 4d Verdana 4Bd Last Vital Signs Verdana 4d Match Marker New 4d Match Marker New 4d Temp 98.5 F 04/07/21 11:36 Match Marker New 4d Pulse 62 04/07/21 12:34 Match Marker New 4d Resp 19 04/07/21 12:34 BP 124/51 L 04/07/21 12:34 Pulse Ox 93 04/07/21 12:34 Oxygen Flow Rate 2 04/07/21 09:22 BMI result Body Mass Index 18.8 Const: Other: Appearance: Alert. Oriented X3. No acute distress. Eyes: Pupils equal, round and reactive to light. ENT: Pharynx normal. Neck: Normal inspection. Neck supple. No lymph nodes noted. No crepitus CVS: Normal heart rate and rhythm. Pulses normal. Normal S1 and S2 Respiratory: No respiratory distress. Bilateral rales and crackles, no wheezing. Patient gets significantly short of breath with a few steps, oxygen saturation 88% with exertion, 94% at rest Abdomen: Soft and nontender. No rigidity. No distention. good BS x4 Skin: Skin warm and dry. Normal skin color. Normal skin turgor. Extremities: No lower extremity edema. No Lacerations. No Rash Neuro: Oriented X 3. No motor deficit. No sensory deficit. Moving all exte rmities. No slurred speech. Course Course Course Narrative: Patient finished a course of doxycycline. Patient was recently discharged from [facility] for Staph pneumonia. Patient is allergic to contrast, we will get a V/Q scan to try to rule out PE, patient has been less active than usual due to pneumonia I discussed the patient with Dr. Can. Patient will be started on Levaquin and vancomycin. It is unclear if the patient's V/Q scan is positive for pulmonary embolisms. Patient will be started on Levaquin 1 milligrams/kilogram. Ultrasound of lower extremities pending. I discussed the patient with Dr. Song, patient being admitted. MDM - SOB/Dyspnea Lab Data Result diagrams: 04/07/21 10:16 04/07/21 10:16 Labs: Lab Results 04/07/21 04/07/21 04/07/21 Range/Units 10:16 10:16 10:16 WBC 10.0 (4.8-10.8) X10*3/uL RBC 3.73 L (4.20-5.50) X10*6/uL Hgb 12.0 (12.0-16.0) g/dl Hct 36.4 L (37.0-47.0) % MCV 97.6 (80.0-98.0) fL MCH 32.2 (27.0-33.0) pg MCHC 33.0 (31.0-35.0) g/dl RDW 15.8 (11.0-16.0) % Plt Count 222 (160-400) X10*3/uL MPV 10.6 (9.4-12.3) fL Immature Gran % (Auto) 0.4 (0.0-0.4) % Neut % (Auto) 80.1 H (45-73) % Lymph % (Auto) 9.3 L (20-40) % Piatt % (Auto) 6.8 (2-11) % Eos % (Auto) 2.8 (0-4) % Baso % (Auto) 0.6 (0-2) % Lymph # (Auto) 0.9 L (1.2-4.9) X10*3/uL Piatt # (Auto) 0.7 (0.1-1.2) X10*3/uL Eos # (Auto) 0.3 (0.0-0.4) X10*3/uL Baso # (Auto) 0.1 (0.0-0.2) X10*3/uL Abs Immat Gran (auto) 0.04 H (0.00-0.03) X10*3/uL Absolute Neuts (auto) 8.0 (2.0-8.3) x10*3/uL Absolute Nucleated RBC 0.000 (0.0-0.012) X10*3/uL Nucleated RBC % (auto) 0.0 (0.0-0.2) /100WBC Sodium 138 (135-145) mmol/L Potassium 4.3 (3.3-5.1) mmol/L Chloride 106 (96-108) mmol/L Carbon Dioxide 21 L (22-29) mmol/L Anion Gap 15 (12-20) BUN 18 H (9-16) mg/dL Creatinine 0.91 (0.5-1.4) mg/dL Estim Creat Clear Calc 35.5 Estimated GFR 59 Random Glucose 100 (60-115) mg/dL Lactic Acid 2.0 (0.5-2.0) mmol/L Calcium 9.7 (8.4-10.2) mg/dL Total Bilirubin 0.8 (0.0-1.0) mg/dL Direct Bilirubin 0.4 (0.0-0.5) mg/dL AST 22 (5-31) U/L ALT 17 (0-31) U/L Alkaline Phosphatase 61 (39-117) U/L B-Natriuretic Peptide (<100) pg/mL Total Protein 6.9 (6.5-8.0) g/dL Albumin 3.5 (3.5-5.0) g/dL COVID-19 (SILVER) (Negative) COVID-19 Clin Com 04/07/21 04/07/21 Range/Units 10:16 10:22 WBC (4.8-10.8) X10*3/uL RBC (4.20-5.50) X10*6/uL Hgb (12.0-16.0) g/dl Hct (37.0-47.0) % MCV (80.0-98.0) fL MCH (27.0-33.0) pg MCHC (31.0-35.0) g/dl RDW (11.0-16.0) % Plt Count (160-400) X10*3/uL MPV (9.4-12.3) fL Immature Gran % (Auto) (0.0-0.4) % Neut % (Auto) (45-73) % Lymph % (Auto) (20-40) % Piatt % (Auto) (2-11) % Eos % (Auto) (0-4) % Baso % (Auto) (0-2) % Lymph # (Auto) (1.2-4.9) X10*3/uL Piatt # (Auto) (0.1-1.2) X10*3/uL Eos # (Auto) (0.0-0.4) X10*3/uL Baso # (Auto) (0.0-0.2) X10*3/uL Abs Immat Gran (auto) (0.00-0.03) X10*3/uL Absolute Neuts (auto) (2.0-8.3) x10*3/uL Absolute Nucleated RBC (0.0-0.012) X10*3/uL Nucleated RBC % (auto) (0.0-0.2) /100WBC Sodium (135-145) mmol/L Potassium (3.3-5.1) mmol/L Chloride (96-108) mmol/L Carbon Dioxide (22-29) mmol/L Anion Gap (12-20) BUN (9-16) mg/dL Creatinine (0.5-1.4) mg/dL Estim Creat Clear Calc Estimated GFR Random Glucose (60-115) mg/dL Lactic Acid (0.5-2.0) mmol/L Calcium (8.4-10.2) mg/dL Total Bilirubin (0.0-1.0) mg/dL Direct Bilirubin (0.0-0.5) mg/dL AST (5-31) U/L ALT (0-31) U/L Alkaline Phosphatase (39-117) U/L B-Natriuretic Peptide 423 H (<100) pg/mL Total Protein (6.5-8.0) g/dL Albumin (3.5-5.0) g/dL COVID-19 (SILVER) Negative (Negative) COVID-19 Clin Com See Note Imaging Data Chest x-ray: Radiologist's impression: Cardiomediastinal silhouette is normal. Left-sided cardiac pacemaker in place. Additional wires overlie the chest. Superimposed on underlying interstitial prominence there are bilateral patchy airspace opacities. No pleural effusion or pneumothorax. Bones are demineralized. XR/XR chest 1V IMPRESSION: Superimposed underlying interstitial prominence there are bilateral patchy airspace opacities concerning for infiltrate. Critical Care Time Critical Care Time Critical Care Time: Yes Total Critical Care Time: 60 Attestation: 60 minutes were spent in direct patient care Discharge Plan Discharge Clinical Impression: Pneumonia, Pulmonary emboli Patient Disposition: Admitted As Inpatient Prescriptions: No Action budesonide-formoterol 160-4.5 mcg/actuation HFA aerosol inhaler 2 inh PO BID Qty: 30.6 3RF nystatin 100,000 unit/mL suspension 1 ml PO QID PRN (Reason: THRUSH) 0RF Rx Instructions: swish and swallow multivitamin Tablet 1 tab PO DAILY 0RF cyanocobalamin (vitamin B-12) 1,000 mcg Tablet 1,000 mcg PO DAILY 0RF folic acid 1 mg Tablet 1 mg PO DAILY 0RF lutein 20 mg Capsule 20 mg PO DAILY 0RF Probiotic 100 billion cell Capsule 2 cap PO BEDTIME 0RF magnesium oxide 400 mg magnesium Tablet 400 mg PO DAILY@1700 0RF Bone Boost 1 tab PO TID 0RF Zeaxanthin 1 mg PO DAILY 0RF ipratropium-albuterol 0.5 mg-3 mg(2.5 mg base)/3 mL solution for nebulization 3 ml inhalation BID PRN (Reason: Shortness Of Breath Or Wheezing) 0RF azithromycin 250 mg tablet 250 mg PO BEDTIME 0RF Hold Instructions: Resume on 02/20/21. hold until on po antiobiotic levothyroxine 50 mcg tablet 50 mcg PO DAILY@0630 0RF albuterol sulfate 90 mcg/actuation HFA aerosol inhaler 2 inh inhalation Q4H PRN (Reason: Shortness Of Breath) 0RF sertraline 100 mg tablet 100 mg PO DAILY 0RF
--- NOTE | 2021-04-07 09:53 | PC.NURSE ---
Increased work of breathing noted on ambulation trial. Desaturation noted to 88% on RA with marked tachypnea. Dr. Delacruz notified. Pt does recover to baseline oxygensaturation of 94-95% on RA.
[2021-04-07 10:23] LABS: MANUAL DIFF FLAG NO
[2021-04-07 10:30] LABS: Basophils Absolute Auto 0.1 X10*3/uL (0.0-0.2); Basophils Percent Auto 0.6 % (0-2); Eosinophils Absolute Auto 0.3 X10*3/uL (0.0-0.4); Eosinophils Percent Auto 2.8 % (0-4); Hematocrit 36.4 % (37.0-47.0); Imm Gran Abs Auto 0.04 X10*3/uL (0.00-0.03); Imm Gran Pct Auto 0.4 % (0.0-0.4); Lymphocytes Absolute Auto 0.9 X10*3/uL (1.2-4.9); Lymphocytes Percent Auto 9.3 % (20-40); Mean Corpuscular Hemoglobin 32.2 pg (27.0-33.0); Mean Corpuscular Volume 97.6 fL (80.0-98.0); Mean Platelet Volume 10.6 fL (9.4-12.3); Monocytes Absolute Auto 0.7 X10*3/uL (0.1-1.2); Monocytes Percent Auto 6.8 % (2-11); Neutrophils Percent Auto 80.1 % (45-73); Platelet Count 222 X10*3/uL (160-400); Red Blood Count 3.73 X10*6/uL (4.20-5.50); Red Cell Distribution Width 15.8 % (11.0-16.0)
[2021-04-07 10:44] LABS: COVID-19 Test Negative (Negative); IDNOW Serial# 9DD0AD1C
[2021-04-07 10:44] LABS: Alanine Aminotransferase 17 U/L (0-31); Albumin Level 3.5 g/dL (3.5-5.0); Alkaline Phosphatase 61 U/L (39-117); Anion Gap 15 (12-20); Aspartate Amino Transferase 22 U/L (5-31); Bilirubin Direct 0.4 mg/dL (0.0-0.5); Bilirubin Total 0.8 mg/dL (0.0-1.0); Blood Urea Nitrogen 18 mg/dL (9-16); Calcium 9.7 mg/dL (8.4-10.2); Carbon Dioxide 21 mmol/L (22-29); Chloride 106 mmol/L (96-108); Creatinine Clr Calc Pharmacy 35.5; Estimated Glomerular Filt Rate 59; Glucose Random 100 mg/dL (60-115); Potassium 4.3 mmol/L (3.3-5.1); Sodium 138 mmol/L (135-145); Total Protein 6.9 g/dL (6.5-8.0)
[2021-04-07 10:47] LABS: B Type Natriuretic Peptide 423 pg/mL (<100)
[2021-04-07] MEDS: levoFLOXacin/D5W 500 MG/100 ML PIGGYBACK 100 MG IV (11:06)
--- NOTE | 2021-04-07 11:12 | PC.NURSE ---
while in VQ scan, pt reported increased work of breathing. I went to bedside to assess, Pt was found to have mildly labored respiration on 3 L via NC. Pt reported that she felt anxious. Lung sounds had no acute change from initical assessment. Skin p/w/D, No additional WOB noted. Pt amendable to finishing VQ scan with O2. Provider notified and ammendable to plan.
--- NOTE | 2021-04-07 11:30 | PHA.MEDREC ---
Pharmacy Consult ? Medication Reconciliation Pharmacy has completed the medication reconciliation. Patient never started the prednisone taper from Dr. Can. She also has no start Trelegy she is currently still using the Symbicort. Karol Serra, SigridD
[2021-04-07] MEDS: vancomycin HCL 1,000 MG in 0.9 % Sodium Chloride 250 ML 270 MG IV (13:32)
--- NOTE | 2021-04-07 16:39 | P.HPHOSP_ITS ---
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 The patient has been the hospital twice over the last 2 months for pneumonia is with no significant after leaving the hospital. She has been following with pulmonology clinic and received tapering dose of steroids along antibiotic with no improvement. Today she was noted to be hypoxic and physically deconditioned so pulmonology the clinic decided to send her to the emergency. Found to have O2 sat around 88% on room air with ambulation. The emergency if V/Q scan was done showing moderate possibility of PE. Patient started treatment for PE. Images also were concerning for worsening bilateral infiltrates. Started on IV antibiotics. To be admitted to the hospital further evaluation and treatment. Review of Systems Verdana 4l Review of Systems: Verdana 4d No fever, chills But Verdana 4d reported generalized weakness No chest pain, palpitation having difficulty breathing, dyspnea on exertion and coughing No abdominal pain, nausea or vomiting No urinary symptoms No any rash or wounds Verdana 4d [facility] Medical History Bronchiectasis Bronchiectasis, uncomplicated COPD (chronic obstructive pulmonary disease) COPD exacerbation Insomnia Pacemaker Pleuritic chest pain Pneumonia Presence of Watchman left atrial appendage closure device Weight loss Family History Father No problems noted. Surgical History No pertinent past surgical history Social History Household Members: None Housing: Apartment Do you presently have visiting nurse or other home services: Yes Alcohol intake: unknown Patient Tobacco Use Status: Never used Tobacco Use of substances other than those prescribed or required for medical reasons: No Have you been hit, kicked, punched, or otherwise hurt by someone within the past year? If so, by whom?: No Do you feel safe in your current relationship?: No Current Relationship Is there a partner from a previous relationship who is making you feel unsafe now?: No Are you made to feel afraid or neglected: No Advance Directives: Yes Advance Directives Information Provided: Yes Advance Directives on File: No Advance Directives Date on File: 04/08/21 Do you have thoughts of harming others: None Do you have a plan to hurt others: No Plan Recently lost weight without trying: No Nutrition Risks: No Nutritional Risk Patient : No : No Poor oral hygiene: No service: No Current occupational status: retired Meds Allergies Allergy/AdvReac Type Severity Reaction Status Date / Time Iodinated Contrast Media Allergy Severe Itch and Verified 04/07/21 09:22 [CONTRAST, IV] Rash Active Medications: Current Medications Pharmacy Consult (Consult Rx Vancomycin Dosing) 1 each MISCELLANE DAILY PRN PRN Reason: Consult order Pharmacy Consult (Consult Rx Perform Med Rec) 1 each MISCELLANE ONCE PRN PRN Reason: Consult order Home Medications Medication Instructions Recorded Confirmed Last Taken Type albuterol sulfate 2 inh INHALATION 01/12/20 04/07/21 04/05/21 History 90 mcg/actuation Q4H PRN aerosol inhaler levothyroxine 50 50 mcg PO 01/12/20 04/07/21 04/06/21 History mcg tablet DAILY@0630 Bone Boost 1 tab PO TID 02/10/21 04/07/21 04/05/21 History Lactobacillus 2 cap PO BEDTIME 02/10/21 04/07/21 04/05/21 History 40-Bifidobact 3-S.thermophilus 100 billion cell capsule (Probiotic) Zeaxanthin 1 mg PO DAILY 02/10/21 04/07/21 04/05/21 History azithromycin 250 250 mg PO 02/10/21 04/07/21 04/05/21 History mg tablet BEDTIME cyanocobalamin 1,000 mcg PO 02/10/21 04/07/21 04/05/21 History (vitamin B-12) DAILY 1,000 mcg tablet folic acid 1 mg 1 mg PO DAILY 02/10/21 04/07/21 04/05/21 History tablet ipratropium 0.5 3 ml INHALATION 02/10/21 04/07/21 04/05/21 History mg-albuterol 3 mg BID PRN (2.5 mg base)/3 mL nebulization soln lutein 20 mg 20 mg PO DAILY 02/10/21 04/07/21 04/05/21 History capsule magnesium oxide 400 mg PO 02/10/21 04/07/21 04/05/21 History DAILY@1700 multivitamin 1 tab PO DAILY 02/10/21 04/07/21 04/05/21 History sertraline 100 mg 100 mg PO DAILY 02/20/21 04/07/21 04/05/21 History tablet nystatin 100,000 1 ml PO QID PRN 04/07/21 04/07/21 04/05/21 History unit/mL oral suspension pantoprazole 40 40 mg PO BEDTIME 04/08/21 04/08/21 2 Days Ago History mg tablet,delayed release ~04/06/21 Physical Exam Verdana 4l Vital Signs and Narrative: Verdana 4d Verdana 4d Vital Signs: Verdana 4d Verdana 4Bd Last Vital Signs Verdana 4d Drop Worker New 4d Drop Worker New 4d Temp 98.5 F 04/07/21 11:36 Drop Worker New 4d Pulse 62 04/07/21 12:34 Drop Worker New 4d Resp 19 04/07/21 12:34 BP 124/51 L 04/07/21 12:34 Pulse Ox 93 04/07/21 12:34 Oxygen Flow Rate 2 04/07/21 09:22 BMI result Body Mass Index 18.8 Const: Other: Constitutional : Alert, oriented, in mild dispo distress Neck : Normal inspection, Supple Cardiovascular : RRR, S1 S2, no lower extremity edema Respiratory : decreased bilateral air entry, mildly tachypneic, basal bilateral crackles with expiratory wheezes Gastrointestinal: soft, lax, Normal bowel sounds, Non tender Skin : Warm, Dry, no edema or tenderness In lower extremities. Neurological : Alert & oriented x3, No focal deficit Results Labs CBC and Chem 7: 04/08/21 06:43 04/08/21 06:43 Labs: Laboratory Results - last 24 hr 04/07/21 04/07/21 04/07/21 10:16 10:16 10:16 MCV 97.6 MCH 32.2 MCHC 33.0 RDW 15.8 Plt Count 222 MPV 10.6 Immature Gran % (Auto) 0.4 Neut % (Auto) 80.1 H Lymph % (Auto) 9.3 L Bonner % (Auto) 6.8 Eos % (Auto) 2.8 Baso % (Auto) 0.6 Lymph # (Auto) 0.9 L Bonner # (Auto) 0.7 Eos # (Auto) 0.3 Baso # (Auto) 0.1 Abs Immat Gran (auto) 0.04 H Absolute Neuts (auto) 8.0 Absolute Nucleated RBC 0.000 Nucleated RBC % (auto) 0.0 Anion Gap 15 Estim Creat Clear Calc 35.5 Estimated GFR 59 Random Glucose 100 Lactic Acid 2.0 Calcium 9.7 Total Bilirubin 0.8 Direct Bilirubin 0.4 AST 22 ALT 17 Alkaline Phosphatase 61 B-Natriuretic Peptide Total Protein 6.9 Albumin 3.5 COVID-19 (SILVER) COVID-19 Managed Objects Com 04/07/21 04/07/21 10:16 10:22 MCV MCH MCHC RDW Plt Count MPV Immature Gran % (Auto) Neut % (Auto) Lymph % (Auto) Bonner % (Auto) Eos % (Auto) Baso % (Auto) Lymph # (Auto) Bonner # (Auto) Eos # (Auto) Baso # (Auto) Abs Immat Gran (auto) Absolute Neuts (auto) Absolute Nucleated RBC Nucleated RBC % (auto) Anion Gap Estim Creat Clear Calc Estimated GFR Random Glucose Lactic Acid Calcium Total Bilirubin Direct Bilirubin AST ALT Alkaline Phosphatase B-Natriuretic Peptide 423 H Total Protein Albumin COVID-19 (SILVER) Negative COVID-19 Clin Com See Note Imaging Radiologist's Impressions: Impressions Pulmonary Perfusion Imaging 04/07/21 10:45 IMPRESSION: Multiple segmental and non-segmental matched filling defects suggestive of indeterminate probability for PE. Recommend follow-up CT chest without contrast and correlation with old CT 02/10/2021. Chest X-Ray 04/07/21 11:10 IMPRESSION: Superimposed underlying interstitial prominence there are bilateral patchy airspace opacities concerning for infiltrate. 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 acute hypoxic respiratory failure Secondary to worsening pneumonia possible PE CXR, CT scan showing worsening infiltrates V/Q scan concerning for intermediate JULIO. Started on subcu Lovenox To check Doppler ultrasound lower extremities, D-dimer Start broad-spectrum antibiotic of Zosyn Consider tobramycin nebs Pending sputum culture for mycobacterium To get pulmonology evaluation Wean oxygen down as tolerated COPD To use nebulizer while in the hospital Hypothyroidism Continue levothyroxine DVT PPX Lovenox Quality Stroke Does the patient have a stroke diagnosis?: No VTE Prior VTE?: No VTE Risk Level:: Medical - moderate - high VTE Device Contraindication: Treatment Not Indicated VTE Drug Contraindication: Treatment Not Indicated
[2021-04-07] MEDS: Albuterol Sulfate 90 MCG 8 GM INHALER 2 PUFF INHALE (18:01)
[2021-04-07 18:11] LABS: D Dimer High Sensitivity 782 NG/ML
[2021-04-07] MEDS: Enoxaparin Sodium 60 MG/0.6 ML SYRINGE 50 MG SUBCUT (18:32)
--- NOTE | 2021-04-07 21:22 | PC.NURSE ---
Report given to Felice ALFARO going to [facility]
--- NOTE | 2021-04-07 21:26 | PC.NURSE ---
ASSUMED CARE OF PT. PT ALERT AND SPEAKING ON PHONE. RESPIRATIONS EASY, N/L. SKIN W/D/P. PT IS C/O NO ONE IS ANSWERING MY CALL QUINTERO TO SHUT MY LIGHT OFF AND NO ONE IS FEEDING ME PT HAS EMPTY WRAPPERS OF CRACKERS, 2 PUDDINGS AND SEVERAL APPLE JUICES. PT GIVEN A SANDWICH TO EAT BUT REFUSES IT. PT BEING TRANSFERRED TO [facility]. PT LEFT ED IN NAD.
[2021-04-07] MEDS: Acetaminophen 325 MG TABLET 650 MG PO (22:40)
[2021-04-08] VITALS (9 sets, daily range): BP systolic 101–164; BP diastolic 49–72; PULSE 61–86; RESP 15–20; TEMP 36.1–37.1; O2SAT 88–98; BMI 21.4
[2021-04-08] MEDS: Zolpidem Tartrate 5 MG TABLET PO (03:02)
[2021-04-08] MEDS: Levothyroxine Sodium 50 MCG TABLET PO (06:37)
[2021-04-08] MEDS: Enoxaparin Sodium 60 MG/0.6 ML SYRINGE 50 MG SUBCUT ×2 (06:38→18:36)
[2021-04-08 07:25] LABS: Hematocrit 35.1 % (37.0-47.0); Hemoglobin 11.2 g/dl (12.0-16.0); Mean Corpuscular HGB Conc 31.9 g/dl (31.0-35.0); Mean Corpuscular Hemoglobin 31.4 pg (27.0-33.0); Mean Corpuscular Volume 98.3 fL (80.0-98.0); Mean Platelet Volume 12.1 fL (9.4-12.3); Platelet Count 172 X10*3/uL (160-400); Red Blood Count 3.57 X10*6/uL (4.20-5.50); Red Cell Distribution Width 15.8 % (11.0-16.0); White Blood Count 10.7 X10*3/uL (4.8-10.8)
[2021-04-08 07:51] LABS: Anion Gap 17 (12-20); Blood Urea Nitrogen 13 mg/dL (9-16); Carbon Dioxide 17 mmol/L (22-29); Chloride 106 mmol/L (96-108); Creatinine Clr Calc Pharmacy 46.1; Estimated Glomerular Filt Rate > 60; Glucose Random 81 mg/dL (60-115); Potassium 4.3 mmol/L (3.3-5.1); Sodium 136 mmol/L (135-145)
[2021-04-08] MEDS: guaiFENesin LA 600 MG TAB.ER.12H PO ×2 (08:31→21:08)
[2021-04-08] MEDS: Folic Acid 1 MG TABLET PO (08:31)
[2021-04-08] MEDS: Multivitamin TABLET 1 TAB PO (08:31)
[2021-04-08] MEDS: Sertraline HCL 100 MG TABLET PO (08:31)
[2021-04-08] MEDS: Cyanocobalamin (Vitamin B-12) 1,000 MCG TABLET 1000 MCG PO (08:31)
--- NOTE | 2021-04-08 08:41 | MHC.CM.PN ---
CM met with Patient at bedside and addressed IMM with her, providing her with the original and placing a copy on the chart. Patient lives alone in her apartment and uses no DME to assist with mobility. Patient is active with [facility] but her goal for dc is [facility] at [facility]. CM has initiated and will follow for dc planning. Patient has received Moderna X3 Covid vax and her PCP is Dr. Analilia Zuniga. Patient's Sister will provide transportation to home and Daughter/HCP/Joan can be reached at [phone].
--- NOTE | 2021-04-08 10:25 | P.PNIM_ITS ---
Subjective Subjective Date of Service: 04/08/21 Interval History: the patient was seen and evaluated this morning Laying in bed, feels around the same, still dyspneic at rest and with minimal exertion Denies any fever, chills or chest pain No reported other overnight events. Review of Systems No fever, chills But reported generalized weakness No chest pain, palpitation having difficulty breathing, dyspnea on exertion and coughing No abdominal pain, nausea or vomiting No urinary symptoms No any rash or wounds Physical Exam Verdana 4l Vital Signs: Verdana 4d Verdana 4d Vital Signs: Verdana 4d Verdana 4Bd Last Vital Signs Verdana 4d Cardiovascular Technologist New 4d Cardiovascular Technologist New 4d Temp 98.7 F 04/08/21 07:55 Cardiovascular Technologist New 4d Pulse 63 04/08/21 07:55 Cardiovascular Technologist New 4d Resp 18 04/08/21 07:55 BP 123/58 L 04/08/21 07:55 Pulse Ox 98 04/08/21 07:55 Oxygen Flow Rate 2 04/07/21 09:22 BMI result Body Mass Index 21.4 Const: Other: Constitutional : Alert, oriented, in mild dispo distress Neck : Normal inspection, Supple Cardiovascular : RRR, S1 S2, no lower extremity edema Respiratory : decreased bilateral air entry, mildly tachypneic, basal b ilateral crackles with expiratory wheezes Gastrointestinal: soft, lax, Normal bowel sounds, Non tender Skin : Warm, Dry, no edema or tenderness In lower extremities. Neurological : Alert & oriented x3, No focal deficit Objective Data Active Medications Acetaminophen (Acetaminophen 325 Mg Tablet) 650 mg PO Q6H PRN PRN Reason: Pain, Mild (Pain Scale 1-3) Last Admin: 04/07/21 22:40 Dose: 650 mg Documented by: STEFANI Albuterol Sulfate (Albuterol Sulfate 90 Mcg 8 Gm Inhaler) 2 puff INHALE Q4H PRN PRN Reason: Shortness Of Breath Last Admin: 04/07/21 18:01 Dose: 2 puff Documented by: KIKI Albuterol/Ipratropium (Albuterol/Iprat 2.5/0.5mg 3 Ml Ampul.Neb) 3 ml INHALE RQ4H SAMM Last Admin: 04/08/21 08:30 Dose: Not Given Documented by: HO.[email or web address] Non-Admin Reason: Patient Asleep Cyanocobalamin (Cyanocobalamin (Vitamin B-12) 1,000 Mcg Tablet) 1,000 mcg PO DAILY [facility] Last Admin: 04/08/21 08:31 Dose: 1,000 mcg Documented by: STEPHANIE Enoxaparin Sodium (Enoxaparin Sodium 60 Mg/0.6 Ml Syringe) 50 mg SUBCUT Q12H [facility] Last Admin: 04/08/21 06:38 Dose: 50 mg Documented by: LISA Folic Acid (Folic Acid 1 Mg Tablet) 1 mg PO DAILY [facility] Last Admin: 04/08/21 08:31 Dose: 1 mg Documented by: STEPHANIE Guaifenesin (Guaifenesin La 600 Mg Tab.Er.12h) 600 mg PO BID [facility] Last Admin: 04/08/21 08:31 Dose: 600 mg Documented by: STEPHANIE Piperacillin Sod/Tazobactam (Sod 3.375 gm/ Sodium Chloride) 50 mls @ 100 mls/hr IV Q6H [facility] Levothyroxine Sodium (Levothyroxine Sodium 50 Mcg Tablet) 50 mcg PO DAILY@0630 [facility] Last Admin: 04/08/21 06:37 Dose: 50 mcg Documented by: LISA Magnesium Oxide (Magnesium Oxide 400 Mg Tablet) 400 mg PO DAILY@1700 [facility] Last Admin: 04/07/21 18:33 Dose: Not Given Documented by: JEF Non-Admin Reason: Patient Refused Multivitamins/Vitamin C (Multivitamin Tablet) 1 tab PO DAILY [facility] Last Admin: 04/08/21 08:31 Dose: 1 tab Documented by: STEPHANIE Ondansetron HCl (Ondansetron Hcl 4 Mg/2 Ml Vial) 4 mg IVPUSH Q8H PRN PRN Reason: Nausea and Vomiting Pharmacy Consult (Consult Rx Vancomycin Dosing) 1 each MISCELLANE DAILY PRN PRN Reason: Consult order Pharmacy Consult (Consult Rx Perform Med Rec) 1 each MISCELLANE ONCE PRN PRN Reason: Consult order Sertraline HCl (Sertraline Hcl 100 Mg Tablet) 100 mg PO DAILY [facility] Last Admin: 04/08/21 08:31 Dose: 100 mg Documented by: STEPHANIE Labs CBC & Chem 7: 04/08/21 06:43 04/08/21 06:43 Labs: Laboratory Results - last 24 hr 04/07/21 04/07/21 04/07/21 10:16 10:16 10:16 MCV 97.6 MCH 32.2 MCHC 33.0 RDW 15.8 Plt Count 222 MPV 10.6 Immature Gran % (Auto) 0.4 Neut % (Auto) 80.1 H Lymph % (Auto) 9.3 L [place] % (Auto) 6.8 Eos % (Auto) 2.8 Baso % (Auto) 0.6 Lymph # (Auto) 0.9 L [place] # (Auto) 0.7 Eos # (Auto) 0.3 Baso # (Auto) 0.1 Abs Immat Gran (auto) 0.04 H Absolute Neuts (auto) 8.0 Absolute Nucleated RBC 0.000 Nucleated RBC % (auto) 0.0 D-Dimer High Sensitivty Anion Gap 15 Estim Creat Clear Calc 35.5 Estimated GFR 59 Random Glucose 100 Lactic Acid 2.0 Calcium 9.7 Total Bilirubin 0.8 Direct Bilirubin 0.4 AST 22 ALT 17 Alkaline Phosphatase 61 B-Natriuretic Peptide Total Protein 6.9 Albumin 3.5 COVID-19 (SILVER) COVID-InteraXon 04/07/21 04/07/21 04/07/21 10:16 10:22 17:56 MCV MCH MCHC RDW Plt Count MPV Immature Gran % (Auto) Neut % (Auto) Lymph % (Auto) [place] % (Auto) Eos % (Auto) Baso % (Auto) Lymph # (Auto) [place] # (Auto) Eos # (Auto) Baso # (Auto) Abs Immat Gran (auto) Absolute Neuts (auto) Absolute Nucleated RBC Nucleated RBC % (auto) D-Dimer High Sensitivty 782 Anion Gap Estim Creat Clear Calc Estimated GFR Random Glucose Lactic Acid Calcium Total Bilirubin Direct Bilirubin AST ALT Alkaline Phosphatase B-Natriuretic Peptide 423 H Total Protein Albumin COVID-19 (SILVER) Negative COVID-19 [employer] Com See Note 04/08/21 04/08/21 06:43 06:43 MCV 98.3 H MCH 31.4 MCHC 31.9 RDW 15.8 Plt Count 172 MPV 12.1 Immature Gran % (Auto) Neut % (Auto) Lymph % (Auto) [place] % (Auto) Eos % (Auto) Baso % (Auto) Lymph # (Auto) [place] # (Auto) Eos # (Auto) Baso # (Auto) Abs Immat Gran (auto) Absolute Neuts (auto) Absolute Nucleated RBC 0.000 Nucleated RBC % (auto) 0.0 D-Dimer High Sensitivty Anion Gap 17 Estim Creat Clear Calc 46.1 Estimated GFR > 60 Random Glucose 81 Lactic Acid Calcium 9.0 D Total Bilirubin Direct Bilirubin AST ALT Alkaline Phosphatase B-Natriuretic Peptide Total Protein Albumin COVID-19 (SILVER) COVID-19 Clin Com Assessment and Plan (1) Pulmonary emboli: Status: Acute (2) COPD (chronic obstructive pulmonary disease): Status: Acute (3) Bronchiectasis: Status: Acute (4) Acute respiratory failure with hypoxia: Status: Acute Plan an 85 years old lady with PMH bronchiectasis, COPD who presents to the hospital with worsening shortness of breath as a referral from her human services assistant. acute hypoxic respiratory failure Secondary to worsening pneumonia possible PE CXR, CT scan showing worsening infiltrates V/Q scan concerning for intermediate JULIO. Started on subcu Lovenox pending pulmonology input Negative Doppler ultrasound lower extremities, D-dimer elevated at 700 Continue Zosyn Consider tobramycin nebs Pending sputum culture for mycobacterium To get pulmonology evaluation Wean oxygen down as tolerated COPD To use nebulizer while in the hospital Hypothyroidism Continue levothyroxine DVT PPX Lovenox Quality Stroke Does the patient have a stroke diagnosis?: No VTE Prior VTE?: No VTE Risk Level:: Medical - moderate - high VTE Device Contraindication: Treatment Not Indicated VTE Drug Contraindication: Treatment Not Indicated
--- NOTE | 2021-04-08 11:18 | PM.CNPUL ---
History of Present Illness History of Present Illness Consult date: 04/08/21 Reason for consult: dyspnea, cough, chest pain, hypoxemia and abnormal CXR/CT Chief complaint: Hypoxia, Dyspnea, Weakness Narrative: This 85 years old female is a well-known patient, with extensive chronic lung disease, has been admitted to the hospital several times before with acute exacerbations. Recently she was also treated at [facility] from where she was discharged about 2 weeks ago. She was reported to have Staph aureus infection and was treated with a course of doxycycline for 2-3 weeks. Patient was seen in the office by Dr. Can on 04/06/21 and because she was acutely sick she was sent to the emergency room for further investigations and admission. Patient is known to have chronic bronchiectasis and pulmonary nodules in both lungs for the past many years, In the past she has been treated for mycobacterium avium. She has advanced chronic obstructive pulmonary disease and extensive bronchiectasis. And she is prone to get recurrent respiratory infections causing acute exacerbation. Her past medical history is well documented in medical records from several previous admissions. At home she is being treated with Tresara Stallworth, Bryanna schwabrayaya, intermittent courses of steroids, and oxygen. She states that she does not use oxygen all the times. Currently she complains of fever, increased cough with yellowish expectoration, nonspecific/pleuritic chest pain on the left side. Along with the symptoms her shortness of breath has increased and she has become more debilitated. Review of Systems Review of Systems: As noted in HPI patient is main symptoms include shortness of breath cough expectoration left-sided chest pain low-grade fever. Systemically she remains very weak and debilitated, Along with that she also has chronic symptoms of the insomnia, poor appetite, weight loss. [facility] Past Medical History Medical History (Updated 04/18/21 @ 11:32 by Jayjay Can MD) Bronchiectasis Bronchiectasis, uncomplicated COPD (chronic obstructive pulmonary disease) COPD exacerbation Insomnia Pacemaker Pleuritic chest pain Pneumonia Presence of Watchman left atrial appendage closure device Sedimentation rate elevation Weight loss Family History Family History Father No problems noted. Surgical History Surgical History No pertinent past surgical history Social History Social History Household Members: None Housing: Apartment Do you presently have visiting nurse or other home services: Yes Alcohol intake: unknown Patient Tobacco Use Status: Never used Tobacco Advance Directives Date on File: 04/08/21 service: No Current occupational status: retired Meds Allergies Allergy/AdvReac Type Severity Reaction Status Date / Time Iodinated Contrast Media Allergy Severe Itch and Verified 04/18/21 11:05 [CONTRAST, IV] Rash Active Medications: Current Medications Acetaminophen (Acetaminophen 325 Mg Tablet) 650 mg PO Q6H PRN PRN Reason: Pain, Mild (Pain Scale 1-3) Last Admin: 04/07/21 22:40 Dose: 650 mg Documented by: Albuterol Sulfate (Albuterol Sulfate 90 Mcg 8 Gm Inhaler) 2 puff INHALE Q4H PRN PRN Reason: Shortness Of Breath Last Admin: 04/07/21 18:01 Dose: 2 puff Documented by: Albuterol/Ipratropium (Albuterol/Iprat 2.5/0.5mg 3 Ml Ampul.Neb) 3 ml INHALE RQ4H [facility] Last Admin: 04/08/21 08:30 Dose: Not Given Documented by: Cyanocobalamin (Cyanocobalamin (Vitamin B-12) 1,000 Mcg Tablet) 1,000 mcg PO DAILY [facility] Last Admin: 04/08/21 08:31 Dose: 1,000 mcg Documented by: Enoxaparin Sodium (Enoxaparin Sodium 60 Mg/0.6 Ml Syringe) 50 mg SUBCUT Q12H [facility] Last Admin: 04/08/21 06:38 Dose: 50 mg Documented by: Folic Acid (Folic Acid 1 Mg Tablet) 1 mg PO DAILY [facility] Last Admin: 04/08/21 08:31 Dose: 1 mg Documented by: Guaifenesin (Guaifenesin La 600 Mg Tab.Er.12h) 600 mg PO BID [facility] Last Admin: 04/08/21 08:31 Dose: 600 mg Documented by: Piperacillin Sod/Tazobactam (Sod 3.375 gm/ Sodium Chloride) 50 mls @ 100 mls/hr IV Q6H [facility] Levothyroxine Sodium (Levothyroxine Sodium 50 Mcg Tablet) 50 mcg PO DAILY@0630 [facility] Last Admin: 04/08/21 06:37 Dose: 50 mcg Documented by: Magnesium Oxide (Magnesium Oxide 400 Mg Tablet) 400 mg PO DAILY@1700 [facility] Last Admin: 04/07/21 18:33 Dose: Not Given Documented by: Multivitamins/Vitamin C (Multivitamin Tablet) 1 tab PO DAILY [facility] Last Admin: 04/08/21 08:31 Dose: 1 tab Documented by: Ondansetron HCl (Ondansetron Hcl 4 Mg/2 Ml Vial) 4 mg IVPUSH Q8H PRN PRN Reason: Nausea and Vomiting Pharmacy Consult (Consult Rx Vancomycin Dosing) 1 each MISCELLANE DAILY PRN PRN Reason: Consult order Pharmacy Consult (Consult Rx Perform Med Rec) 1 each MISCELLANE ONCE PRN PRN Reason: Consult order Sertraline HCl (Sertraline Hcl 100 Mg Tablet) 100 mg PO DAILY [facility] Last Admin: 04/08/21 08:31 Dose: 100 mg Documented by: Home Medications Medication Instructions Recorded Confirmed Last Taken Type albuterol sulfate 90 mcg/actuation 2 inh INHALATION Q4H PRN 01/12/20 04/07/21 04/05/21 History aerosol inhaler levothyroxine 50 mcg tablet 50 mcg PO DAILY@0630 01/12/20 04/07/21 04/06/21 History Bone Boost 1 tab PO TID 02/10/21 04/07/21 04/05/21 History Lactobacillus 40-Bifidobact 2 cap PO BEDTIME 02/10/21 04/07/21 04/05/21 History 3-S.thermophilus 100 billion cell capsule (Probiotic) Zeaxanthin 1 mg PO DAILY 02/10/21 04/07/21 04/05/21 History cyanocobalamin (vitamin B-12) 1,000 mcg PO DAILY 02/10/21 04/07/21 04/05/21 History 1,000 mcg tablet folic acid 1 mg tablet 1 mg PO DAILY 02/10/21 04/07/21 04/05/21 History ipratropium 0.5 mg-albuterol 3 mg 3 ml INHALATION BID PRN 02/10/21 04/07/21 04/05/21 History (2.5 mg base)/3 mL nebulization soln lutein 20 mg capsule 20 mg PO DAILY 02/10/21 04/07/21 04/05/21 History magnesium oxide 400 mg PO DAILY@1700 02/10/21 04/07/21 04/05/21 History multivitamin 1 tab PO DAILY 02/10/21 04/07/21 04/05/21 History sertraline 100 mg tablet 100 mg PO DAILY 02/20/21 04/07/21 04/05/21 History pantoprazole 40 mg tablet,delayed 40 mg PO BEDTIME 04/08/21 04/08/21 2 Days Ago History release ~04/06/21 fluticasone fur. 100 mcg-umeclid 1 inh INHALATION Q24H 04/18/21 Unknown History 62.5 mcg-vilant 25 mcg inhalat.powder (Trelegy Ellipta) Physical Exam Vital Signs: Vital Signs: Last Vital Signs Temp 98.0 F 04/08/21 11:07 Pulse 62 04/08/21 11:07 Resp 18 04/08/21 11:07 BP 120/60 04/08/21 11:07 Pulse Ox 95 04/08/21 11:07 Oxygen Flow Rate 2 04/07/21 09:22 BMI result Body Mass Index 21.4 Thin built chronically sick-looking and debilitated Const: General: no acute distress, alert and awake Orientation/consciousness: patient oriented x3 HENMT: Head: Yes normal to inspection General nose exam: No nasal polyps present and No nasal discharge present Face and sinus: Yes sinuses nontender Mouth: oropharynx normal Throat: Yes posterior oropharynx normal Eyes: General: appearance normal, both eyes and all related structures Neck: Neck: Yes normal visual inspection, Yes no lymphadenopathy, Yes trachea midline and Yes no JVD Thyroid: Thyroid normal Chest: Chest palpation & inspection: normal inspection of the chest, normal palpation of entire chest wall and no tenderness Resp: Other: Breath sounds are distant but equal on both sides with prolonged expiratory phase. Coarse crepitations and minimal expiratory wheezes heard posteriorly over both lower lobes. No pleural rub. Cardio: Palpation: normal PMI Rate: regular rate Rhythm: regular rhythm Heart sounds: no gallops and no murmurs GI: Palpation (GI): Soft to palpation, nontender, No hepatosplenomegaly present and no masses Auscultation: normal bowel sounds Back/Spine/Pelvis: Thoracic/Lumbar Spine: thoracic and lumbar spine normal to inspection and thoraco-lumbar ROM limited Skin: General skin exam: no rashes or lesions noted Neuro: General: patient oriented x3 and no focal motor deficits Cranial nerves: Yes CN's II-XII intact bilaterally Extrem: General: Yes normal to inspection, Yes no clubbing, cyanosis or edema and Yes no calf tenderness Psych: Speech and movement: Normal speech and movement present Affect: Anxious affect present Results Laboratory Findings CBC and BMP: 04/14/21 06:03 04/14/21 06:03 ABG, PT/INR, D-dimer: D-dimer values 782, moderately elevated Abnormal lab findings: Abnormal Labs 04/07/21 04/07/21 04/07/21 10:16 10:16 10:16 RBC 3.73 L Hgb Hct 36.4 L MCV Neut % (Auto) 80.1 H Lymph % (Auto) 9.3 L Lymph # (Auto) 0.9 L Abs Immat Gran (auto) 0.04 H Carbon Dioxide 21 L BUN 18 H B-Natriuretic Peptide 423 H 04/08/21 04/08/21 06:43 06:43 RBC 3.57 L Hgb 11.2 L Hct 35.1 L MCV 98.3 H Neut % (Auto) Lymph % (Auto) Lymph # (Auto) Abs Immat Gran (auto) Carbon Dioxide 17 L BUN B-Natriuretic Peptide Coronavirus (COVID 2019): Negative Diagnostic Findings Chest x-ray: report reviewed and image reviewed U/S of Legs: report reviewed and image reviewed Additional studies: Pulmonary ventilation/perfusion scan, shows segmental and subsegmental perfusion defects, With intermediate possibility of pulmonary embolism. CTA of the chest could not be performed because of her reported allergy to contrast media Assessment and Plan (1) Bronchiectasis: Qualifiers: Bronchiectasis type: with acute lower respiratory infection Qualified Code(s): J47.0 - Bronchiectasis with acute lower respiratory infection Status: Acute (2) COPD exacerbation: Status: Acute (3) Pneumonia: Status: Acute (4) Pulmonary emboli: Status: Acute (5) Acute respiratory failure with hypoxia: Status: Acute Plan This elderly, chronically sick and debilitated patient is a well known case of COPD ease, bronchiectasis,, past history , ISIDRO, With the demand pacemaker and also watchman device in the left atrial appendix, Has history of recurrent respiratory infections, and recurrent hospitalizations. 1-At present the ground-glass opacities on top of chronic interstitial lung disease is suggestive of some secondary bacterial pneumonia, Possibilities would be of Staph aureus and Pseudomonas infection or other Gram-negative organism. For this I think coverage with vancomycin and Zosyn at this time is appropriate. 2_Also finding of segmental and subsegmental perfusion defects, indicating intermediate diagnosis of pulmonary embolism, needs to be attended to. Unfortunately we cannot further define it because she would not be able to have CTA of the chest. I suggest that we should treat her with anticoagulation, currently Lovenox subQ b.i.d. while she is inpatient, followed by oral anti coagulant as outpatient for at least 6 months. 3- continue routine care with the oxygen, DuoNeb updrafts , and is IV Solu-Medrol for a few days . 4- I would request Dr. Can to see her on Saturday, and consider doing a bronchoscopy with bronchial lavage for diagnostic and therapeutic purposes. Procedures Date of Service Date of Service: 04/08/21
[2021-04-08] MEDS: Piperacillin Sodium/Tazobactam 3.375 GM in 0.9 % Sodium Chloride 50 ML IV ×2 (11:32→18:35)
[2021-04-08] MEDS: Albuterol Sulfate 90 MCG 8 GM INHALER 2 PUFF INHALE ×2 (11:50→19:22)
[2021-04-08] MEDS: methylPREDNISolone acetate 40 MG VIAL IM (13:22)
[2021-04-08] MEDS: Magnesium Oxide 400 MG TABLET PO (18:35)
[2021-04-08] MEDS: Melatonin 3 MG TABLET 6 MG PO (21:08)
[2021-04-08] MEDS: Nystatin Oral Susp 500,000 UNIT/5 ML ORAL.SUSP 200000 UNIT BUCCAL (21:11)
[2021-04-08] MEDS: methylPREDNISolone Sod Succ 40 MG/ML VIAL IVPUSH (21:11)
[2021-04-09] VITALS (7 sets, daily range): BP systolic 112–148; BP diastolic 60–78; PULSE 59–83; RESP 15–18; TEMP 36.4–36.7; O2SAT 94–98
[2021-04-09] MEDS: Piperacillin Sodium/Tazobactam 3.375 GM in 0.9 % Sodium Chloride 50 ML IV ×4 (00:16→18:48)
[2021-04-09] MEDS: Enoxaparin Sodium 60 MG/0.6 ML SYRINGE 50 MG SUBCUT ×2 (06:18→18:48)
[2021-04-09] MEDS: Levothyroxine Sodium 50 MCG TABLET PO (06:19)
[2021-04-09] MEDS: Nystatin Oral Susp 500,000 UNIT/5 ML ORAL.SUSP 200000 UNIT BUCCAL ×4 (09:06→21:27)
[2021-04-09] MEDS: Sertraline HCL 100 MG TABLET PO (09:07)
[2021-04-09] MEDS: Folic Acid 1 MG TABLET PO (09:07)
[2021-04-09] MEDS: Multivitamin TABLET 1 TAB PO (09:07)
[2021-04-09] MEDS: Cyanocobalamin (Vitamin B-12) 1,000 MCG TABLET 1000 MCG PO (09:07)
[2021-04-09] MEDS: guaiFENesin LA 600 MG TAB.ER.12H PO ×2 (09:07→21:28)
[2021-04-09] MEDS: methylPREDNISolone Sod Succ 40 MG/ML VIAL IVPUSH ×2 (09:08→21:27)
[2021-04-09] MEDS: polyethylene glycoL 3350 17 GM POWD.PACK PO (12:23)
[2021-04-09] MEDS: Omeprazole 40 MG CAPSULE.DR PO (12:23)
--- NOTE | 2021-04-09 14:00 | P.PNIM_ITS ---
Subjective Subjective Date of Service: 04/09/21 Interval History: the patient was seen and evaluated this morning Laying in bed, feels mild improvement still dyspneic at rest and with minimal exertion Denies any fever, chills or chest pain No reported other overnight events. Review of Systems No fever, chills But reported generalized weakness No chest pain, palpitation having difficulty breathing, dyspnea on exertion and coughing No abdominal pain, nausea or vomiting No urinary symptoms No any rash or wounds Physical Exam Verdana 4l Vital Signs: Verdana 4d Verdana 4d Vital Signs: Verdana 4d Verdana 4Bd Last Vital Signs Verdana 4d Motor Block Mechanic New 4d Motor Block Mechanic New 4d Temp 97.9 F 04/09/21 11:25 Motor Block Mechanic New 4d Pulse 59 04/09/21 11:25 Motor Block Mechanic New 4d Resp 18 04/09/21 11:25 BP 136/69 04/09/21 11:25 Pulse Ox 98 04/09/21 11:25 Oxygen Flow Rate 2 04/07/21 09:22 BMI result Body Mass Index 21.4 Const: Other: Constitutional : Alert, oriented, not in distress Neck : Normal inspection, Supple Cardiovascular : RRR, S1 S2, no lower extremity edema Respiratory : decreased bilateral air entry, basal bilateral crackles, on oxyge n supplement Gastrointestinal: soft, lax, Normal bowel sounds, Non tender Skin : Warm, Dry, no edema or tenderness In lower extremities. Neurological : Alert & oriented x3, No focal deficit Objective Data Active Medications Acetaminophen (Acetaminophen 325 Mg Tablet) 650 mg PO Q6H PRN PRN Reason: Pain, Mild (Pain Scale 1-3) Last Admin: 04/07/21 22:40 Dose: 650 mg Documented by: STEFANI Albuterol Sulfate (Albuterol Sulfate 90 Mcg 8 Gm Inhaler) 2 puff INHALE Q4H PRN PRN Reason: Shortness Of Breath Last Admin: 04/08/21 19:22 Dose: 2 puff Documented by: ZOEY Albuterol Sulfate (Albuterol Sulfate 90 Mcg 8 Gm Inhaler) 4 puff INHALE RQ4H WHILE AWAKE [facility] Last Admin: 04/09/21 12:17 Dose: Not Given Documented by: KELSI Non-Admin Reason: Med Not Available Cyanocobalamin (Cyanocobalamin (Vitamin B-12) 1,000 Mcg Tablet) 1,000 mcg PO DAILY [facility] Last Admin: 04/09/21 09:07 Dose: 1,000 mcg Documented by: STEPHANIE Enoxaparin Sodium (Enoxaparin Sodium 60 Mg/0.6 Ml Syringe) 50 mg SUBCUT Q12H [facility] Last Admin: 04/09/21 06:18 Dose: 50 mg Documented by: LISA Folic Acid (Folic Acid 1 Mg Tablet) 1 mg PO DAILY [facility] Last Admin: 04/09/21 09:07 Dose: 1 mg Documented by: STEPHANIE Guaifenesin (Guaifenesin La 600 Mg Tab.Er.12h) 600 mg PO BID [facility] Last Admin: 04/09/21 09:07 Dose: 600 mg Documented by: STEPHANIE Piperacillin Sod/Tazobactam (Sod 3.375 gm/ Sodium Chloride) 50 mls @ 100 mls/hr IV Q6H [facility] Last Admin: 04/09/21 11:38 Dose: 100 mls/hr Documented by: STEPHANIE Levothyroxine Sodium (Levothyroxine Sodium 50 Mcg Tablet) 50 mcg PO DAILY@0630 [facility] Last Admin: 04/09/21 06:19 Dose: 50 mcg Documented by: LISA Magnesium Oxide (Magnesium Oxide 400 Mg Tablet) 400 mg PO DAILY@1700 [facility] Last Admin: 04/08/21 18:35 Dose: 400 mg Documented by: FLORECITA Melatonin (Melatonin 3 Mg Tablet) 6 mg PO BEDTIME [facility] Last Admin: 04/08/21 21:08 Dose: 6 mg Documented by: FLORECITA Methylprednisolone Sodium Succinate (Methylprednisolone Sod Succ 40 Mg/Ml Vial) 40 mg IVPUSH BID [facility] Last Admin: 04/09/21 09:08 Dose: 40 mg Documented by: STEPHANIE Multivitamins/Vitamin C (Multivitamin Tablet) 1 tab PO DAILY [facility] Last Admin: 04/09/21 09:07 Dose: 1 tab Documented by: STEPHANIE Nystatin (Nystatin Oral Susp 500,000 Unit/5 Ml Oral.Susp) 200,000 unit BUCCAL QID [facility]; Protocol Last Admin: 04/09/21 09:06 Dose: 200,000 unit Documented by: STEPHANIE Omeprazole (Omeprazole 40 Mg Capsule.Dr) 40 mg PO DAILY@0630 [facility] Last Admin: 04/09/21 12:23 Dose: 40 mg Documented by: STEPHANIE Ondansetron HCl (Ondansetron Hcl 4 Mg/2 Ml Vial) 4 mg IVPUSH Q8H PRN PRN Reason: Nausea and Vomiting Pharmacy Consult (Consult Rx Vancomycin Dosing) 1 each MISCELLANE DAILY PRN PRN Reason: Consult order Pharmacy Consult (Consult Rx Perform Med Rec) 1 each MISCELLANE ONCE PRN PRN Reason: Consult order Polyethylene Glycol (Polyethylene Glycol 3350 17 Gm Powd.Pack) 17 gm PO DAILY [facility] Last Admin: 04/09/21 12:23 Dose: 17 gm Documented by: STEPHANIE Sertraline HCl (Sertraline Hcl 100 Mg Tablet) 100 mg PO DAILY [facility] Last Admin: 04/09/21 09:07 Dose: 100 mg Documented by: STEPHANIE Labs CBC & Chem 7: 04/08/21 06:43 04/08/21 06:43 Microbiology Microbiology Results: Microbiology 04/07/21 10:22 Blood Culture - Preliminary Blood - Venous No growth after 48 hours. 04/07/21 10:16 Blood Culture - Preliminary Blood - Venous No growth after 48 hours. 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 acute hypoxic respiratory failure Secondary to worsening pneumonia possible PE CXR, CT scan showing worsening infiltrates V/Q scan concerning for intermediate JULIO. Started on subcu Lovenox Negative Doppler ultrasound lower extremities, D-dimer elevated at 700 Continue Zosyn Pending sputum culture for mycobacterium Pulmonology input appreciated, treat be, consider bronchoscopy Wean oxygen down as tolerated COPD exacerbation Started on IV steroids Refuses DuoNebs, to use albuterol inhaler ATC Hypothyroidism Continue levothyroxine DVT PPX Lovenox Quality Stroke Does the patient have a stroke diagnosis?: No VTE Prior VTE?: No VTE Risk Level:: Medical - moderate - high VTE Device Contraindication: Treatment Not Indicated VTE Drug Contraindication: Treatment Not Indicated
[2021-04-09] MEDS: Magnesium Oxide 400 MG TABLET PO (16:59)
[2021-04-09] MEDS: Albuterol Sulfate 90 MCG 8 GM INHALER 4 PUFF INHALE (18:55)
[2021-04-09] MEDS: Melatonin 3 MG TABLET 6 MG PO (21:27)
[2021-04-10] VITALS (8 sets, daily range): BP systolic 129–161; BP diastolic 61–88; PULSE 57–67; RESP 16–20; TEMP 36.4–37; O2SAT 93–97
[2021-04-10] MEDS: Piperacillin Sodium/Tazobactam 3.375 GM in 0.9 % Sodium Chloride 50 ML IV ×5 (00:54→23:26)
[2021-04-10] MEDS: Enoxaparin Sodium 60 MG/0.6 ML SYRINGE 50 MG SUBCUT (06:14)
[2021-04-10] MEDS: Omeprazole 40 MG CAPSULE.DR PO (06:15)
[2021-04-10] MEDS: Levothyroxine Sodium 50 MCG TABLET PO (06:16)
[2021-04-10 06:19] LABS: Anion Gap 11 (12-20); Blood Urea Nitrogen 21 mg/dL (9-16); Calcium 9.1 mg/dL (8.4-10.2); Carbon Dioxide 25 mmol/L (22-29); Chloride 107 mmol/L (96-108); Creatinine Clr Calc Pharmacy 45.5; Estimated Glomerular Filt Rate > 60; Glucose Random 137 mg/dL (60-115); Potassium 4.6 mmol/L (3.3-5.1); Sodium 138 mmol/L (135-145)
[2021-04-10 06:20] LABS: B Type Natriuretic Peptide 439 pg/mL (<100)
[2021-04-10] MEDS: Nystatin Oral Susp 500,000 UNIT/5 ML ORAL.SUSP 200000 UNIT BUCCAL ×4 (09:51→19:23)
[2021-04-10] MEDS: Sertraline HCL 100 MG TABLET PO (09:52)
[2021-04-10] MEDS: Multivitamin TABLET 1 TAB PO (09:52)
[2021-04-10] MEDS: Cyanocobalamin (Vitamin B-12) 1,000 MCG TABLET 1000 MCG PO (09:52)
[2021-04-10] MEDS: guaiFENesin LA 600 MG TAB.ER.12H PO ×2 (09:52→19:24)
[2021-04-10] MEDS: methylPREDNISolone Sod Succ 40 MG/ML VIAL IVPUSH ×2 (09:53→19:24)
[2021-04-10] MEDS: Folic Acid 1 MG TABLET PO (09:53)
--- NOTE | 2021-04-10 10:02 | P.PNPL_ITS ---
Subjective Subjective Date of Service: 04/10/21 Interval history: The patient was seen on exam. She is feeling a little better. She is still on the oxygen. Her cough is less congested. She is starting to walk around a little bit more. She has refused an albuterol treatments due to increased tremulousness. I told her we will try some Xopenex. I am hopeful she can tolerate that. She needs to continue chest physical therapy. I did provide her with a flutter valve that she can use specially after her breathing treatments. In view of the recent diagnosis of blood clots on anti thrombotic therapy in addition to her improvement in symptoms with last chest congestion we will hold off on a bronchoscopy at this point. In a bronchoscopy likely not be of any benefit at this time. We can always consider it in the future. Objective Data Labs CBC & Chem 7: 04/08/21 06:43 04/10/21 05:43 Labs: Laboratory Results - last 24 hr 04/10/21 04/10/21 05:43 05:43 Sodium 138 Potassium 4.6 Chloride 107 Carbon Dioxide 25 Anion Gap 11 L BUN 21 H D Creatinine 0.78 Estim Creat Clear Calc 45.5 Estimated GFR > 60 Random Glucose 137 H Calcium 9.1 B-Natriuretic Peptide 439 H Microbiology Microbiology Results: Microbiology 04/07/21 10:22 Blood - Venous Blood Culture - Preliminary No growth after 48 hours. 04/07/21 10:16 Blood - Venous Blood Culture - Preliminary No growth after 48 hours. Review of Systems Review of Systems No fever, chills But reported generalized weakness No chest pain, palpitation having difficulty breathing, dyspnea on exertion and coughing No abdominal pain, nausea or vomiting No urinary symptoms No any rash or wounds Physical Exam Verdana 4l Vital Signs: Verdana 4d Verdana 4d Vital Signs: Verdana 4d Verdana 4Bd Last Vital Signs Verdana 4d Delivery Table Feeder New 4d Delivery Table Feeder New 4d Temp 98.0 F 04/10/21 07:44 Delivery Table Feeder New 4d Pulse 62 04/10/21 07:44 Delivery Table Feeder New 4d Resp 18 04/10/21 07:44 BP 129/67 04/10/21 07:44 Pulse Ox 96 04/10/21 07:44 Oxygen Flow Rate 2 04/07/21 09:22 BMI result Body Mass Index 21.4 Const: General: alert Neck: Neck: Yes normal visual inspection, Yes full ROM and Yes no lymphadenopathy Chest: Chest palpation & inspection: normal inspection of the chest Resp: Auscultation: crackles, rhonchi and diminished lung sounds Cardio: Rate: regular rate Rhythm: regular rhythm Heart sounds: S1 normal heart sound present and S2 normal heart sound present GI: Palpation (GI): Soft to palpation and nontender Auscultation: normal bowel sounds Procedures Date of Service Date of Service: 04/10/21 Assessment and Plan Assessment and plan (1) Pulmonary emboli: Status: Acute (2) Acute respiratory failure with hypoxia: Status: Acute (3) COPD (chronic obstructive pulmonary disease): Status: Acute (4) Bronchiectasis: Status: Acute (5) Bronchiectasis with (acute) exacerbation: Status: Acute (6) Pneumonia: Status: Acute Plan Holding off on bronchoscopy at this point. We can always consider in the future even as an outpatient the Okay to switch over to anticoagulation with Eliquis twice a day Continue IV antibiotics for today will have to discuss further deescalation of antibiotics with her disposition Provided flutter valve for her to use 4 times a day specially after her nebulized therapy Start Xopenex 4 times a day. She should restart hypertonic saline once available Continue oxygen supplementation to maintain a pulse ox over 90% Disposition: I am concerned with the patient's worsening respiratory capacity and living by herself. Her daughter was staying with her for some time which was very effective. She has been now in and out of hospitals and in and out of rehabs. She does need more assistance specially if she goes home. Time Spent With Patient Time: Total time spent is greater than 50% in coordination of care (as documented) at patient's floor/unit and/or counseling patient: Time with patient: 15 - 24 minutes Progress Note: Quality Stroke Does the patient have a stroke diagnosis?: No
--- NOTE | 2021-04-10 13:11 | P.PNIM_ITS ---
Subjective Subjective Date of Service: 04/10/21 Interval History: the patient was seen and evaluated this morning Laying in bed, feels mild improvement Still requiring oxygen supplement Reporting constipation No reported other overnight events. Review of Systems No fever, chills But reported generalized weakness No chest pain, palpitation having difficulty breathing, dyspnea on exertion and coughing No abdominal pain, nausea or vomiting No urinary symptoms No any rash or wounds Physical Exam Verdana 4l Vital Signs: Verdana 4d Verdana 4d Vital Signs: Verdana 4d Verdana 4Bd Last Vital Signs Verdana 4d Substance Abuse Services Director New 4d Substance Abuse Services Director New 4d Temp 97.6 F 04/10/21 11:58 Substance Abuse Services Director New 4d Pulse 62 04/10/21 12:25 Substance Abuse Services Director New 4d Resp 20 04/10/21 11:58 BP 130/61 04/10/21 12:25 Pulse Ox 97 04/10/21 12:25 Oxygen Flow Rate 2 04/07/21 09:22 BMI result Body Mass Index 21.4 Const: Other: Constitutional : Alert, oriented, not in distress Neck : Normal inspection, Supple Cardiovascular : RRR, S1 S2, no lower extremity edema Respiratory : decreased bilateral air entry, basal bilateral crackles, on oxygen supplement Gastrointestinal: soft, lax, Normal bowel sounds, Non tender Skin : Warm, Dry, no edema or tenderness In lower extremities. Neurological : Alert & oriented x3, No focal deficit Objective Data Active Medications Acetaminophen (Acetaminophen 325 Mg Tablet) 650 mg PO Q6H PRN PRN Reason: Pain, Mild (Pain Scale 1-3) Last Admin: 04/07/21 22:40 Dose: 650 mg Documented by: STEFANI Albuterol Sulfate (Albuterol Sulfate 90 Mcg 8 Gm Inhaler) 2 puff INHALE Q4H PRN PRN Reason: Shortness Of Breath Last Admin: 04/08/21 19:22 Dose: 2 puff Documented by: ZOEY Albuterol Sulfate (Albuterol Sulfate 90 Mcg 8 Gm Inhaler) 4 puff INHALE RQ4H WHILE AWAKE [facility] Last Admin: 04/10/21 10:57 Dose: Not Given Documented by: SANDOR Non-Admin Reason: pt states took mdi already Cyanocobalamin (Cyanocobalamin (Vitamin B-12) 1,000 Mcg Tablet) 1,000 mcg PO DAILY [facility] Last Admin: 04/10/21 09:52 Dose: 1,000 mcg Documented by: KIKI Enoxaparin Sodium (Enoxaparin Sodium 60 Mg/0.6 Ml Syringe) 50 mg SUBCUT Q12H [facility] Last Admin: 04/10/21 06:14 Dose: 50 mg Documented by: FREDRICK Folic Acid (Folic Acid 1 Mg Tablet) 1 mg PO DAILY [facility] Last Admin: 04/10/21 09:53 Dose: 1 mg Documented by: KIKI Guaifenesin (Guaifenesin La 600 Mg Tab.Er.12h) 600 mg PO BID [facility] Last Admin: 04/10/21 09:52 Dose: 600 mg Documented by: KIKI Piperacillin Sod/Tazobactam (Sod 3.375 gm/ Sodium Chloride) 50 mls @ 100 mls/hr IV Q6H [facility] Last Infusion: 04/10/21 07:34 Dose: 0 mls/hr Documented by: FREDRICK Levothyroxine Sodium (Levothyroxine Sodium 50 Mcg Tablet) 50 mcg PO DAILY@0630 [facility] Last Admin: 04/10/21 06:16 Dose: 50 mcg Documented by: FREDRICK Magnesium Oxide (Magnesium Oxide 400 Mg Tablet) 400 mg PO DAILY@1700 [facility] Last Admin: 04/09/21 16:59 Dose: 400 mg Documented by: FLORECITA Melatonin (Melatonin 3 Mg Tablet) 6 mg PO BEDTIME [facility] Last Admin: 04/09/21 21:27 Dose: 6 mg Documented by: FLORECITA Methylprednisolone Sodium Succinate (Methylprednisolone Sod Succ 40 Mg/Ml Vial) 40 mg IVPUSH BID [facility] Last Admin: 04/10/21 09:53 Dose: 40 mg Documented by: KIKI Multivitamins/Vitamin C (Multivitamin Tablet) 1 tab PO DAILY [facility] Last Admin: 04/10/21 09:52 Dose: 1 tab Documented by: KIKI Nystatin (Nystatin Oral Susp 500,000 Unit/5 Ml Oral.Susp) 200,000 unit BUCCAL Q ID [facility]; Protocol Last Admin: 04/10/21 09:51 Dose: 200,000 unit Documented by: KIKI Omeprazole (Omeprazole 40 Mg Capsule.Dr) 40 mg PO DAILY@0630 [facility] Last Admin: 04/10/21 06:15 Dose: 40 mg Documented by: FREDRICK Ondansetron HCl (Ondansetron Hcl 4 Mg/2 Ml Vial) 4 mg IVPUSH Q8H PRN PRN Reason: Nausea and Vomiting Pharmacy Consult (Consult Rx Vancomycin Dosing) 1 each MISCELLANE DAILY PRN PRN Reason: Consult order Pharmacy Consult (Consult Rx Perform Med Rec) 1 each MISCELLANE ONCE PRN PRN Reason: Consult order Polyethylene Glycol (Polyethylene Glycol 3350 17 Gm Powd.Pack) 17 gm PO DAILY [facility] Last Admin: 04/10/21 10:02 Dose: Not Given Documented by: KIKI Non-Admin Reason: Patient Refused Sertraline HCl (Sertraline Hcl 100 Mg Tablet) 100 mg PO DAILY [facility] Last Admin: 04/10/21 09:52 Dose: 100 mg Documented by: KIKI Labs CBC & Chem 7: 04/08/21 06:43 04/10/21 05:43 Labs: Laboratory Results - last 24 hr 04/10/21 04/10/21 05:43 05:43 Anion Gap 11 L Estim Creat Clear Calc 45.5 Estimated GFR > 60 Random Glucose 137 H Calcium 9.1 B-Natriuretic Peptide 439 H Microbiology Microbiology Results: Microbiology 04/07/21 10:22 Blood Culture - Preliminary Blood - Venous No growth after 48 hours. 04/07/21 10:16 Blood Culture - Preliminary Blood - Venous No growth after 48 hours. Assessment and Plan (1) Bronchiectasis with (acute) exacerbation: Status: Acute (2) Acute respiratory failure with hypoxia: Status: Acute (3) Pulmonary emboli: Status: Acute (4) COPD (chronic obstructive pulmonary disease): Status: Acute Plan an 85 years old lady with PMH bronchiectasis, COPD who presents to the hospital with worsening shortness of breath as a referral from her laboratory asst. acute hypoxic respiratory failure Secondary to worsening pneumonia possible PE CXR, CT scan showing worsening infiltrates V/Q scan concerning for intermediate JULIO. Discontinue Lovenox, start Eliquis Negative Doppler ultrasound lower extremities, D-dimer elevated at 700 Continue Zosyn Pending sputum culture for mycobacterium Pulmonology input appreciated, treat be, consider bronchoscopy Wean oxygen down as tolerated COPD exacerbation Started on IV steroids Refuses DuoNebs, start Xopenex nebulizer to use albuterol inhaler ATC Hypothyroidism Continue levothyroxine DVT PPX Lovenox Quality Stroke Does the patient have a stroke diagnosis?: No VTE Prior VTE?: No VTE Risk Level:: Medical - moderate - high VTE Device Contraindication: Treatment Not Indicated VTE Drug Contraindication: Treatment Not Indicated
[2021-04-10] MEDS: Docusate Sodium 100 MG CAPSULE PO ×2 (13:51→19:24)
[2021-04-10] MEDS: Magnesium Oxide 400 MG TABLET PO (17:53)
[2021-04-11] VITALS (7 sets, daily range): BP systolic 126–146; BP diastolic 65–77; PULSE 60–64; RESP 16–20; TEMP 36.6–37.1; O2SAT 91–98
[2021-04-11] MEDS: Levothyroxine Sodium 50 MCG TABLET PO (05:31)
[2021-04-11] MEDS: Omeprazole 40 MG CAPSULE.DR PO (05:31)
[2021-04-11] MEDS: Piperacillin Sodium/Tazobactam 3.375 GM in 0.9 % Sodium Chloride 50 ML IV ×4 (05:31→23:59)
[2021-04-11 07:05] LABS: Anion Gap 11 (12-20); Blood Urea Nitrogen 23 mg/dL (9-16); Carbon Dioxide 26 mmol/L (22-29); Chloride 108 mmol/L (96-108); Creatinine Clr Calc Pharmacy 47.3; Estimated Glomerular Filt Rate > 60; Glucose Random 96 mg/dL (60-115); Potassium 4.6 mmol/L (3.3-5.1); Sodium 140 mmol/L (135-145)
--- NOTE | 2021-04-11 09:19 | P.PNPL_ITS ---
Subjective Subjective Date of Service: 04/11/21 Interval history: The patient was seen on exam. Still on oxygen supplementation. Continues on IV antibiotics. This is her 3rd admission with pneumonia and bronchiectasis exacerbation in a short period of time therefore she would continue and complete the IV antibiotics in the hospital setting. I did speak to her and also to her daughter regarding the abnormal V/Q scan. There was a suspicion of pulmonary emboli. Her D-dimer significantly elevated. She is agreeable ongoing on Eliquis but she does not want to take more than 2.5 mg twice a day. This is not the therapeutic dose for thromboembolic disease. However, we cannot lay start this dose and repeat the V/Q scan at some point for the CTA at some point to make sure that there is resolution of clots. I also spoke to the family and the patient in addition to case management regarding her disposition. The patient does have advanced respiratory disease with extensive bronchiectasis and will need help at home with her activities of daily living and medical therapies. Objective Data Labs CBC & Chem 7: 04/08/21 06:43 04/11/21 06:15 Labs: Laboratory Results - last 24 hr 04/11/21 06:15 Sodium 140 Potassium 4.6 Chloride 108 Carbon Dioxide 26 Anion Gap 11 L BUN 23 H Creatinine 0.75 Estim Creat Clear Calc 47.3 Estimated GFR > 60 Random Glucose 96 Calcium 9.0 Microbiology Microbiology Results: Microbiology 04/07/21 10:22 Blood - Venous Blood Culture - Preliminary No growth after 48 hours. 04/07/21 10:16 Blood - Venous Blood Culture - Preliminary No growth after 48 hours. Review of Systems Review of Systems No fever, chills But reported generalized weakness No chest pain, palpitation having difficulty breathing, dyspnea on exertion and coughing No abdominal pain, nausea or vomiting No urinary symptoms No any rash or wounds Constitutional: Denies chills and Denies fever(s) Physical Exam Verdana 4l Vital Signs: Verdana 4d Verdana 4d Vital Signs: Verdana 4d Verdana 4Bd Last Vital Signs Verdana 4d Disaster Recovery Analyst New 4d Disaster Recovery Analyst New 4d Temp 98.0 F 04/11/21 07:24 Disaster Recovery Analyst New 4d Pulse 62 04/11/21 07:24 Disaster Recovery Analyst New 4d Resp 18 04/11/21 07:24 BP 138/68 04/11/21 07:24 Pulse Ox 96 04/11/21 07:24 Oxygen Flow Rate 2 04/07/21 09:22 BMI result Body Mass Index 21.4 Const: General: alert Neck: Neck: Yes normal visual inspection, Yes full ROM and Yes no lymphadenopathy Chest: Chest palpation & inspection: normal inspection of the chest Resp: Auscultation: rhonchi and diminished lung sounds Cardio: Rate: regular rate Rhythm: regular rhythm Heart sounds: S1 normal heart sound present and S2 normal heart sound present GI: Palpation (GI): Soft to palpation and nontender Auscultation: normal bowel sounds Skin: General skin exam: rashes and/or lesions noted Procedures Date of Service Date of Service: 04/11/21 Assessment and Plan Assessment and plan (1) Bronchiectasis with (acute) exacerbation: Status: Acute (2) Acute respiratory failure with hypoxia: Status: Acute (3) Pulmonary emboli: Status: Acute (4) Pneumonia: Status: Acute (5) COPD exacerbation: Status: Acute Plan Continue vanco/zosyn IV x 8 days Continue Eliquis, pt understands that 2.5mg BID is not the therapeutic dose, but that is what she is willing to take Will repeat VQ or CTA in 3 months time to assess resolution Prednisone with slow taper nasal cannula oxygen to keep pox >90% CPT with [employer] Dispo: Needs assistance at home with ADLS and medical issues Time Spent With Patient Time: Total time spent is greater than 50% in coordination of care (as documented) at patient's floor/unit and/or counseling patient: Time with patient: 25 - 35 minutes Progress Note: Quality Stroke Does the patient have a stroke diagnosis?: No
[2021-04-11] MEDS: Cyanocobalamin (Vitamin B-12) 1,000 MCG TABLET 1000 MCG PO (09:35)
[2021-04-11] MEDS: guaiFENesin LA 600 MG TAB.ER.12H PO ×2 (09:35→20:47)
[2021-04-11] MEDS: methylPREDNISolone Sod Succ 40 MG/ML VIAL IVPUSH ×2 (09:35→20:47)
[2021-04-11] MEDS: Multivitamin TABLET 1 TAB PO (09:35)
[2021-04-11] MEDS: Nystatin Oral Susp 500,000 UNIT/5 ML ORAL.SUSP 200000 UNIT BUCCAL ×4 (09:35→20:47)
[2021-04-11] MEDS: Folic Acid 1 MG TABLET PO (09:35)
[2021-04-11] MEDS: Sertraline HCL 100 MG TABLET PO (09:35)
--- NOTE | 2021-04-11 16:17 | P.PNIM_ITS ---
Subjective Subjective Date of Service: 04/11/21 Interval History: the patient was seen and evaluated this morning Laying in bed, feels little improvement Still requiring oxygen supplement No reported other overnight events. Review of Systems No fever, chills But reported generalized weakness No chest pain, palpitation having difficulty breathing, dyspnea on exertion and coughing No abdominal pain, nausea or vomiting No urinary symptoms No any rash or wounds Physical Exam Verdana 4l Vital Signs: Verdana 4d Verdana 4d Vital Signs: Verdana 4d Verdana 4Bd Last Vital Signs Verdana 4d Thermodynamic Physicist New 4d Thermodynamic Physicist New 4d Temp 98.8 F 04/11/21 15:11 Thermodynamic Physicist New 4d Pulse 63 04/11/21 15:11 Thermodynamic Physicist New 4d Resp 16 04/11/21 15:11 BP 140/73 H 04/11/21 15:11 Pulse Ox 91 L 04/11/21 15:11 Oxygen Flow Rate 2 04/07/21 09:22 BMI result Body Mass Index 21.4 Const: Other: Constitutional : Alert, oriented, not in distress Neck : Normal inspection, Supple Cardiovascular : RRR, S1 S2, no lower extremity edema Respiratory : decreased bilateral air entry, basal bilateral crackles, on oxygen supplement Gastrointestinal: soft, lax, Normal bowel sounds, Non tender Skin : Warm, Dry, no edema or tenderness In lower extremities. Neurological : Alert & oriented x3, No focal deficit Objective Data Active Medications Acetaminophen (Acetaminophen 325 Mg Tablet) 650 mg PO Q6H PRN PRN Reason: Pain, Mild (Pain Scale 1-3) Last Admin: 04/07/21 22:40 Dose: 650 mg Documented by: STEFANI Albuterol Sulfate (Albuterol Sulfate 90 Mcg 8 Gm Inhaler) 2 puff INHALE Q4H PRN PRN Reason: Shortness Of Breath Last Admin: 04/08/21 19:22 Dose: 2 puff Documented by: ZOEY Apixaban (Apixaban 2.5 Mg Tablet) 2.5 mg PO BID@0600,1800 [facility] Cyanocobalamin (Cyanocobalamin (Vitamin B-12) 1,000 Mcg Tablet) 1,000 mcg PO DAILY [facility] Last Admin: 04/11/21 09:35 Dose: 1,000 mcg Documented by: IVY Docusate Sodium (Docusate Sodium 100 Mg Capsule) 100 mg PO BID [facility] Last Admin: 04/11/21 09:36 Dose: Not Given Documented by: IVY Non-Admin Reason: bm this am Folic Acid (Folic Acid 1 Mg Tablet) 1 mg PO DAILY [facility] Last Admin: 04/11/21 09:35 Dose: 1 mg Documented by: IVY Guaifenesin (Guaifenesin La 600 Mg Tab.Er.12h) 600 mg PO BID [facility] Last Admin: 04/11/21 09:35 Dose: 600 mg Documented by: IVY Piperacillin Sod/Tazobactam (Sod 3.375 gm/ Sodium Chloride) 50 mls @ 100 mls/hr IV Q6H [facility] Last Infusion: 04/11/21 12:52 Dose: 0 mls/hr Documented by: IVY Levalbuterol HCl (Levalbuterol Hcl 1.25 Mg/0.5 Ml Vial.Neb) 1.25 mg INHALE RQ4H WHILE AWAKE [facility] Last Admin: 04/11/21 15:23 Dose: Not Given Documented by: SANDOR Non-Admin Reason: pt refused Levothyroxine Sodium (Levothyroxine Sodium 50 Mcg Tablet) 50 mcg PO DAILY@0630 [facility] Last Admin: 04/11/21 05:31 Dose: 50 mcg Documented by: JOLLY Magnesium Oxide (Magnesium Oxide 400 Mg Tablet) 400 mg PO DAILY@1700 [facility] Last Admin: 04/10/21 17:53 Dose: 400 mg Documented by: KIKI Melatonin (Melatonin 3 Mg Tablet) 6 mg PO BEDTIME [facility] Last Admin: 04/10/21 19:33 Dose: Not Given Documented by: JOLLY Non-Admin Reason: Patient Refused Methylprednisolone Sodium Succinate (Methylprednisolone Sod Succ 40 Mg/Ml Vial) 40 mg IVPUSH BID [facility] Last Admin: 04/11/21 09:35 Dose: 40 mg Documented by: IVY Multivitamins/Vitamin C (Multivitamin Tablet) 1 tab PO DAILY [facility] Last Admin: 04/11/21 09:35 Dose: 1 tab Documented by: IVY Nystatin (Nystatin Oral Susp 500,000 Unit/5 Ml Oral.Susp) 200,000 unit BUCCAL QID [facility]; Protocol Last Admin: 04/11/21 12:11 Dose: 200,000 unit Documented by: IVY Omeprazole (Omeprazole 40 Mg Capsule.Dr) 40 mg PO DAILY@0630 [facility] Last Admin: 04/11/21 05:31 Dose: 40 mg Documented by: JOLLY Ondansetron HCl (Ondansetron Hcl 4 Mg/2 Ml Vial) 4 mg IVPUSH Q8H PRN PRN Reason: Nausea and Vomiting Pharmacy Consult (Consult Rx Vancomycin Dosing) 1 each MISCELLANE DAILY PRN PRN Reason: Consult order Pharmacy Consult (Consult Rx Perform Med Rec) 1 each MISCELLANE ONCE PRN PRN Reason: Consult order Polyethylene Glycol (Polyethylene Glycol 3350 17 Gm Powd.Pack) 17 gm PO DAILY [facility] Last Admin: 04/11/21 09:36 Dose: Not Given Documented by: IVY Non-Admin Reason: bm this am Sertraline HCl (Sertraline Hcl 100 Mg Tablet) 100 mg PO DAILY [facility] Last Admin: 04/11/21 09:35 Dose: 100 mg Documented by: IVY Labs CBC & Chem 7: 04/08/21 06:43 04/11/21 06:15 Labs: Laboratory Results - last 24 hr 04/11/21 06:15 Anion Gap 11 L Estim Creat Clear Calc 47.3 Estimated GFR > 60 Random Glucose 96 Calcium 9.0 Assessment and Plan (1) Bronchiectasis with (acute) exacerbation: Status: Acute (2) Acute respiratory failure with hypoxia: Status: Acute (3) Pulmonary emboli: Status: Acute Plan an 85 years old lady with PMH bronchiectasis, COPD who presents to the hospital with worsening shortness of breath as a referral from her network technical analyst. acute hypoxic respiratory failure Secondary to bronchiectasis, pneumonia and PE CXR, CT scan showing worsening infiltrates V/Q scan concerning for intermediate PE Discontinue Lovenox, start Eliquis lower dose 2.5 mg b.i.d. Negative Doppler ultrasound lower extremities, D-dimer elevated at 700 Continue Zosyn for total of 7 days per pulmonology D5/7 Pending sputum culture for mycobacterium Pulmonology input appreciated, antibiotic for 7 days, no need for bronchoscopy Wean oxygen down as tolerated COPD exacerbation Continue IV steroids Refuses DuoNebs, start Xopenex nebulizer to use albuterol inhaler ATC Hypothyroidism Continue levothyroxine DVT PPX Lovenox Quality Stroke Does the patient have a stroke diagnosis?: No VTE Prior VTE?: No VTE Risk Level:: Medical - moderate - high VTE Device Contraindication: Treatment Not Indicated VTE Drug Contraindication: Treatment Not Indicated
[2021-04-11] MEDS: Apixaban 2.5 MG TABLET PO (17:25)
[2021-04-11] MEDS: Magnesium Oxide 400 MG TABLET PO (17:25)
[2021-04-12] VITALS (7 sets, daily range): BP systolic 133–167; BP diastolic 65–95; PULSE 62–64; RESP 14–20; TEMP 36.7–37.3; O2SAT 93–97
[2021-04-12] MEDS: Apixaban 2.5 MG TABLET PO ×2 (05:37→18:22)
[2021-04-12] MEDS: Levothyroxine Sodium 50 MCG TABLET PO (05:37)
[2021-04-12] MEDS: Piperacillin Sodium/Tazobactam 3.375 GM in 0.9 % Sodium Chloride 50 ML IV ×3 (05:37→18:21)
[2021-04-12] MEDS: Omeprazole 40 MG CAPSULE.DR PO (05:37)
[2021-04-12] MEDS: Sertraline HCL 100 MG TABLET PO (08:34)
[2021-04-12] MEDS: guaiFENesin LA 600 MG TAB.ER.12H PO ×2 (08:34→20:47)
[2021-04-12] MEDS: Cyanocobalamin (Vitamin B-12) 1,000 MCG TABLET 1000 MCG PO (08:34)
[2021-04-12] MEDS: Multivitamin TABLET 1 TAB PO (08:34)
[2021-04-12] MEDS: Folic Acid 1 MG TABLET PO (08:34)
[2021-04-12] MEDS: Nystatin Oral Susp 500,000 UNIT/5 ML ORAL.SUSP 200000 UNIT BUCCAL ×4 (08:35→20:47)
[2021-04-12] MEDS: methylPREDNISolone Sod Succ 40 MG/ML VIAL IVPUSH ×2 (08:36→20:47)
--- NOTE | 2021-04-12 13:18 | P.PNIM_ITS ---
Subjective Subjective Date of Service: 04/12/21 Interval History: cc: sob interval history: better, but still sob Cardiovascular Cardiovascular: Reports no additional cardiovascular complaints Gastrointestinal Gastrointestinal: Reports no additional gastrointestinal complaints Physical Exam Verdana 4l Vital Signs: Verdana 4d Verdana 4d Vital Signs: Verdana 4d Verdana 4Bd Last Vital Signs Verdana 4d Endbander New 4d Endbander New 4d Temp 99.0 F 04/12/21 11:24 Endbander New 4d Pulse 64 04/12/21 11:24 Endbander New 4d Resp 18 04/12/21 11:24 BP 140/72 H 04/12/21 11:24 Pulse Ox 97 04/12/21 11:24 Oxygen Flow Rate 2 04/07/21 09:22 BMI result Body Mass Index 21.4 General: AO X 3, no acute distress Resp: Crackles bilateral, no accessory muscles used CVS: S1,S2,RRR GI: soft, non tender, non distended Neuro: motor grossly intact, alert Psych: appropriate affect, appropriate insight Objective Data Active Medications Acetaminophen (Acetaminophen 325 Mg Tablet) 650 mg PO Q6H PRN PRN Reason: Pain, Mild (Pain Scale 1-3) Last Admin: 04/07/21 22:40 Dose: 650 mg Documented by: STEFANI Albuterol Sulfate (Albuterol Sulfate 90 Mcg 8 Gm Inhaler) 2 puff INHALE Q4H PRN PRN Reason: Shortness Of Breath Last Admin: 04/08/21 19:22 Dose: 2 puff Documented by: ZOEY Apixaban (Apixaban 2.5 Mg Tablet) 2.5 mg PO BID@0600,1800 [facility] Last Admin: 04/12/21 05:37 Dose: 2.5 mg Documented by: RALPH Cyanocobalamin (Cyanocobalamin (Vitamin B-12) 1,000 Mcg Tablet) 1,000 mcg PO DAILY [facility] Last Admin: 04/12/21 08:34 Dose: 1,000 mcg Documented by: COTEMA Docusate Sodium (Docusate Sodium 100 Mg Capsule) 100 mg PO BID [facility] Last Admin: 04/12/21 08:35 Dose: Not Given Documented by: COTEMA Non-Admin Reason: Patient Refused Doxycycline Hyclate (Doxycycline Hyclate 100 Mg Tablet) 100 mg PO Q12H [facility] Folic Acid (Folic Acid 1 Mg Tablet) 1 mg PO DAILY [facility] Last Admin: 04/12/21 08:34 Dose: 1 mg Documented by: JUVEEMA Guaifenesin (Guaifenesin La 600 Mg Tab.Er.12h) 600 mg PO BID [facility] Last Admin: 04/12/21 08:34 Dose: 600 mg Documented by: RUEL Piperacillin Sod/Tazobactam (Sod 3.375 gm/ Sodium Chloride) 50 mls @ 100 mls/hr IV Q6H [facility] Last Admin: 04/12/21 12:42 Dose: 100 mls/hr Documented by: RUEL Levalbuterol HCl (Levalbuterol Hcl 1.25 Mg/0.5 Ml Vial.Neb) 1.25 mg INHALE RQ4H WHILE AWAKE [facility] Last Admin: 04/12/21 12:51 Dose: Not Given Documented by: DANIELRICC Non-Admin Reason: Patient Refused Levothyroxine Sodium (Levothyroxine Sodium 50 Mcg Tablet) 50 mcg PO DAILY@0630 [facility] Last Admin: 04/12/21 05:37 Dose: 50 mcg Documented by: RALPH Magnesium Oxide (Magnesium Oxide 400 Mg Tablet) 400 mg PO DAILY@1700 [facility] Last Admin: 04/11/21 17:25 Dose: 400 mg Documented by: IVY Melatonin (Melatonin 3 Mg Tablet) 6 mg PO BEDTIME [facility] Last Admin: 04/11/21 20:49 Dose: Not Given Documented by: RALPH Non-Admin Reason: Patient Refused Methylprednisolone Sodium Succinate (Methylprednisolone Sod Succ 40 Mg/Ml Vial) 40 mg IVPUSH BID [facility] Last Admin: 04/12/21 08:36 Dose: 40 mg Documented by: RUEL Multivitamins/Vitamin C (Multivitamin Tablet) 1 tab PO DAILY [facility] Last Admin: 04/12/21 08:34 Dose: 1 tab Documented by: RUEL Nystatin (Nystatin Oral Susp 500,000 Unit/5 Ml Oral.Susp) 200,000 unit BUCCAL QID [facility]; Protocol Last Admin: 04/12/21 12:43 Dose: 200,000 unit Documented by: RUEL Omeprazole (Omeprazole 40 Mg Capsule.) 40 mg PO DAILY@0630 [facility] Last Admin: 04/12/21 05:37 Dose: 40 mg Documented by: RALPH Ondansetron HCl (Ondansetron Hcl 4 Mg/2 Ml Vial) 4 mg IVPUSH Q8H PRN PRN Reason: Nausea and Vomiting Pharmacy Consult (Consult Rx Vancomycin Dosing) 1 each MISCELLANE DAILY PRN PRN Reason: Consult order Pharmacy Consult (Consult Rx Perform Med Rec) 1 each MISCELLANE ONCE PRN PRN Reason: Consult order Polyethylene Glycol (Polyethylene Glycol 3350 17 Gm Powd.Pack) 17 gm PO DAILY [facility] Last Admin: 04/12/21 08:35 Dose: Not Given Documented by: RUEL Non-Admin Reason: Patient Refused Sertraline HCl (Sertraline Hcl 100 Mg Tablet) 100 mg PO DAILY [facility] Last Admin: 04/12/21 08:34 Dose: 100 mg Documented by: RUEL Labs CBC & Chem 7: 04/08/21 06:43 04/11/21 06:15 Microbiology Microbiology Results: Microbiology 04/07/21 10:22 Blood Culture - Final Blood - Venous No growth after 5 days. 04/07/21 10:16 Blood Culture - Final Blood - Venous No growth after 5 days. 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 acute hypoxic respiratory failure Secondary to bronchiectasis, pneumonia and possible PE CXR, CT scan showing worsening infiltrates V/Q scan concerning for intermediate PE on Eliquis 2.5 mg b.i.d. as that was the only dose patient willing to take, she is aware that this is not the recommended dose for VTE Negative Doppler ultrasound lower extremities, D-dimer elevated at 700 Continue Zosyn for total of 7 days per pulmonology D6/8, and po doxy Pending sputum culture for mycobacterium Pulmonology input appreciated, antibiotic for 8 days, no need for bronchoscopy Wean oxygen down as tolerated COPD exacerbation Continue IV steroids followed by prolonged prednisone taper Refuses DuoNebs, start Xopenex nebulizer to use albuterol inhaler ATC Hypothyroidism Continue levothyroxine DVT PPX Lovenox Quality Stroke Does the patient have a stroke diagnosis?: No VTE Prior VTE?: No VTE Risk Level:: Medical - moderate - high VTE Device Contraindication: Treatment Not Indicated VTE Drug Contraindication: Treatment Not Indicated
--- NOTE | 2021-04-12 15:34 | MHC.CM.PN ---
per rounds pt has pneumonia and is not ready for dc
[2021-04-12] MEDS: Magnesium Oxide 400 MG TABLET PO (18:22)
[2021-04-13] VITALS (10 sets, daily range): BP systolic 130–164; BP diastolic 64–83; PULSE 60–65; RESP 16–20; TEMP 36.4–37.3; O2SAT 92–95
[2021-04-13] MEDS: Piperacillin Sodium/Tazobactam 3.375 GM in 0.9 % Sodium Chloride 50 ML IV ×4 (01:05→17:35)
[2021-04-13] MEDS: Omeprazole 40 MG CAPSULE.DR PO (06:33)
[2021-04-13] MEDS: Apixaban 2.5 MG TABLET PO ×2 (06:33→17:35)
[2021-04-13] MEDS: Levothyroxine Sodium 50 MCG TABLET PO (06:33)
[2021-04-13] MEDS: Sertraline HCL 100 MG TABLET PO (08:38)
[2021-04-13] MEDS: Cyanocobalamin (Vitamin B-12) 1,000 MCG TABLET 1000 MCG PO (08:38)
[2021-04-13] MEDS: guaiFENesin LA 600 MG TAB.ER.12H PO ×2 (08:38→21:18)
[2021-04-13] MEDS: Multivitamin TABLET 1 TAB PO (08:38)
[2021-04-13] MEDS: Folic Acid 1 MG TABLET PO (08:39)
[2021-04-13] MEDS: Nystatin Oral Susp 500,000 UNIT/5 ML ORAL.SUSP 200000 UNIT BUCCAL ×4 (08:39→21:18)
[2021-04-13] MEDS: methylPREDNISolone Sod Succ 40 MG/ML VIAL IVPUSH ×2 (08:40→21:18)
--- NOTE | 2021-04-13 09:28 | P.PNPL_ITS ---
Subjective Subjective Date of Service: 04/13/21 Interval history: Patient was seen on exam. The patient overall feels a little better. She was able to be weaned off the oxygen at rest saturating 92% on room air. However, patient is likely to still need oxygen with activity. In the meantime she continues to complete her IV antibiotics. The biggest issue will be her disposition. Her family is coming this weekend in order to figure out what services she will need. I do believe that in view of her 3rd admission we need to make sure that social insurance analyst Case Management talks directly to the family to come up with good option of taking care of the patient's needs outside of the hospital. In the meantime slowly she is making some progress although she is not her baseline. Objective Data Labs CBC & Chem 7: 04/08/21 06:43 04/11/21 06:15 Microbiology Microbiology Results: Microbiology 04/07/21 10:22 Blood - Venous Blood Culture - Final No growth after 5 days. 04/07/21 10:16 Blood - Venous Blood Culture - Final No growth after 5 days. Review of Systems Review of Systems No fever, chills But reported generalized weakness No chest pain, palpitation having difficulty breathing, dyspnea on exertion and coughing No abdominal pain, nausea or vomiting No urinary symptoms No any rash or wounds Constitutional: Denies chills and Denies fever(s) Physical Exam Verdana 4l Vital Signs: Verdana 4d Verdana 4d Vital Signs: Verdana 4d Verdana 4Bd Last Vital Signs Verdana 4d Desk Pen Set Assembler New 4d Desk Pen Set Assembler New 4d Temp 97.5 F 04/13/21 07:49 Desk Pen Set Assembler New 4d Pulse 63 04/13/21 07:59 Desk Pen Set Assembler New 4d Resp 18 04/13/21 07:59 BP 154/75 H 04/13/21 07:49 Pulse Ox 92 04/13/21 07:49 Oxygen Flow Rate 2 04/07/21 09:22 BMI result Body Mass Index 21.4 Const: General: alert HENMT: General nose exam: Abnormal external nose present and Nasal discharge present Eyes: Pupils: Equal, round and reactive pupils present Neck: Neck: Yes normal visual inspection, Yes full ROM and Yes no lymphadenopathy Chest: Chest palpation & inspection: normal inspection of the chest Resp: Effort & Inspection: normal respiratory effort and able to speak in complete sentences Skin: General skin exam: rashes and/or lesions noted Neuro: Cranial nerves: Yes Equal, round and reactive pupils present Procedures Date of Service Date of Service: 04/13/21 Assessment and Plan Assessment and plan (1) Acute respiratory failure with hypoxia: Status: Acute (2) Pulmonary emboli: Status: Acute (3) Bronchiectasis with (acute) exacerbation: Status: Acute (4) COPD (chronic obstructive pulmonary disease): Status: Acute (5) Pneumonia: Status: Acute Plan Complete complete a days of IV antibiotics Complete 14 days total of doxycycline. Then will switch over to azithromycin 500 mg 3 times a week for treatment of her bronchiectasis Okay to continue the Eliquis at 2.5 mg b.i.d.. Will have to reassess any clot burden issues as an outpatient. Patient will need a total of 3 months of anticoagulation as long as the clot burden subsides Disposition needs to be discussed with the family and Case Management and social insurance analyst. The patient does need help with her activities of daily living. Plans for to go home but she does need support and based on her 3rd admission when he to make sure to provide her with the support needed to avoid readmission. Time Spent With Patient Time: Total time spent is greater than 50% in coordination of care (as documented) at patient's floor/unit and/or counseling patient: Time with patient: 25 - 35 minutes Progress Note: Quality Stroke Does the patient have a stroke diagnosis?: No
--- NOTE | 2021-04-13 10:08 | P.PNIM_ITS ---
Subjective Subjective Date of Service: 04/13/21 Interval History: cc: sob interval history: improving Cardiovascular Cardiovascular: Reports no additional cardiovascular complaints Gastrointestinal Gastrointestinal: Reports no additional gastrointestinal complaints Physical Exam Verdana 4l Vital Signs: Verdana 4d Verdana 4d Vital Signs: Verdana 4d Verdana 4Bd Last Vital Signs Verdana 4d City Engineer New 4d City Engineer New 4d Temp 97.5 F 04/13/21 07:49 City Engineer New 4d Pulse 63 04/13/21 07:59 City Engineer New 4d Resp 18 04/13/21 07:59 BP 154/75 H 04/13/21 07:49 Pulse Ox 92 04/13/21 07:49 Oxygen Flow Rate 2 04/07/21 09:22 BMI result Body Mass Index 21.4 General: AO X 3, no acute distress Resp:? Crackles bilateral, no accessory muscles used CVS: S1,S2,RRR GI: soft, non tender, non distended Neuro:? motor grossly intact, alert Psych: appropriate affect, appropriate insight? Objective Data Active Medications Acetaminophen (Acetaminophen 325 Mg Tablet) 650 mg PO Q6H PRN PRN Reason: Pain, Mild (Pain Scale 1-3) Last Admin: 04/07/21 22:40 Dose: 650 mg Documented by: STEFANI Albuterol Sulfate (Albuterol Sulfate 90 Mcg 8 Gm Inhaler) 2 puff INHALE Q4H PRN PRN Reason: Shortness Of Breath Last Admin: 04/08/21 19:22 Dose: 2 puff Documented by: ZOEY Apixaban (Apixaban 2.5 Mg Tablet) 2.5 mg PO BID@0600,1800 [facility] Last Admin: 04/13/21 06:33 Dose: 2.5 mg Documented by: ADDISON Cyanocobalamin (Cyanocobalamin (Vitamin B-12) 1,000 Mcg Tablet) 1,000 mcg PO DAILY [facility] Last Admin: 04/13/21 08:38 Dose: 1,000 mcg Documented by: CHUY Docusate Sodium (Docusate Sodium 100 Mg Capsule) 100 mg PO BID [facility] Last Admin: 04/13/21 08:40 Dose: Not Given Documented by: CHUY Non-Admin Reason: Patient Refused Doxycycline Hyclate (Doxycycline Hyclate 100 Mg Tablet) 100 mg PO Q12H [facility] Last Admin: 04/13/21 08:38 Dose: 100 mg Documented by: CHUY Folic Acid (Folic Acid 1 Mg Tablet) 1 mg PO DAILY [facility] Last Admin: 04/13/21 08:39 Dose: 1 mg Documented by: CHUY Guaifenesin (Guaifenesin La 600 Mg Tab.Er.12h) 600 mg PO BID [facility] Last Admin: 04/13/21 08:38 Dose: 600 mg Documented by: CHUY Piperacillin Sod/Tazobactam (Sod 3.375 gm/ Sodium Chloride) 50 mls @ 100 mls/hr IV Q6H [facility] Last Infusion: 04/13/21 07:05 Dose: 0 mls/hr Documented by: CHUY Levalbuterol HCl (Levalbuterol Hcl 1.25 Mg/0.5 Ml Vial.Neb) 1.25 mg INHALE RQ4H WHILE AWAKE [facility] Last Admin: 04/13/21 07:57 Dose: 1.25 mg Documented by: KELSI Levothyroxine Sodium (Levothyroxine Sodium 50 Mcg Tablet) 50 mcg PO DAILY@0630 [facility] Last Admin: 04/13/21 06:33 Dose: 50 mcg Documented by: ADDISON Magnesium Oxide (Magnesium Oxide 400 Mg Tablet) 400 mg PO DAILY@1700 [facility] Last Admin: 04/12/21 18:22 Dose: 400 mg Documented by: IVY Melatonin (Melatonin 3 Mg Tablet) 6 mg PO BEDTIME [facility] Last Admin: 04/12/21 21:14 Dose: Not Given Documented by: ADDISON Non-Admin Reason: Patient Refused Methylprednisolone Sodium Succinate (Methylprednisolone Sod Succ 40 Mg/Ml Vial) 40 mg IVPUSH BID [facility] Last Admin: 04/13/21 08:40 Dose: 40 mg Documented by: CHUY Multivitamins/Vitamin C (Multivitamin Tablet) 1 tab PO DAILY [facility] Last Admin: 04/13/21 08:38 Dose: 1 tab Documented by: CHUY Nystatin (Nystatin Oral Susp 500,000 Unit/5 Ml Oral.Susp) 200,000 unit BUCCAL QID [facility]; Protocol Last Admin: 04/13/21 08:39 Dose: 200,000 unit Documented by: CHUY Omeprazole (Omeprazole 40 Mg Capsule.) 40 mg PO DAILY@0630 [facility] Last Admin: 04/13/21 06:33 Dose: 40 mg Documented by: ADDISON Ondansetron HCl (Ondansetron Hcl 4 Mg/2 Ml Vial) 4 mg IVPUSH Q8H PRN PRN Reason: Nausea and Vomiting Pharmacy Consult (Consult Rx Vancomycin Dosing) 1 each MISCELLANE DAILY PRN PRN Reason: Consult order Pharmacy Consult (Consult Rx Perform Med Rec) 1 each MISCELLANE ONCE PRN PRN Reason: Consult order Polyethylene Glycol (Polyethylene Glycol 3350 17 Gm Powd.Pack) 17 gm PO DAILY [facility] Last Admin: 04/13/21 08:40 Dose: Not Given Documented by: CHUY Non-Admin Reason: Patient Refused Sertraline HCl (Sertraline Hcl 100 Mg Tablet) 100 mg PO DAILY [facility] Last Admin: 04/13/21 08:38 Dose: 100 mg Documented by: CHUY Labs CBC & Chem 7: 04/08/21 06:43 04/11/21 06:15 Microbiology Microbiology Results: Microbiology 04/07/21 10:22 Blood Culture - Final Blood - Venous No growth after 5 days. 04/07/21 10:16 Blood Culture - Final Blood - Venous No growth after 5 days. 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 acute hypoxic respiratory failure Secondary to bronchiectasis, pneumonia and possible PE CXR, CT scan showing worsening infiltrates V/Q scan concerning for intermediate PE on Eliquis 2.5 mg b.i.d. as that was the only dose patient willing to take, she is aware that this is not the recommended dose for VTE Negative Doppler ultrasound lower extremities, D-dimer elevated at 700 Continue Zosyn for total of 7 days per pulmonology D7/8, and po doxy Pending sputum culture for mycobacterium Pulmonology input appreciated, antibiotic for 8 days, no need for bronchoscopy Wean oxygen down as tolerated COPD exacerbation Continue IV steroids followed by prolonged prednisone taper Refuses DuoNebs, start Xopenex nebulizer to use albuterol inhaler ATC Hypothyroidism Continue levothyroxine DVT PPX Lovenox Quality Stroke Does the patient have a stroke diagnosis?: No VTE Prior VTE?: No VTE Risk Level:: Medical - moderate - high VTE Device Contraindication: Treatment Not Indicated VTE Drug Contraindication: Treatment Not Indicated
--- NOTE | 2021-04-13 12:07 | MHC.CM.PN ---
CM met with Patient at bedside and over speaker phone spoke with Patient's Daughter/RN/Joan. DC Goal is home on 04/15/21, when Joan arrives from [place] to pick Patient up.Referrals have been made in order for [facility] to resume services and a request was made to add a TILE PRESSER and [facility] has been notified of Patient';s past concerns. CM will continue to follow.
[2021-04-13] MEDS: Magnesium Oxide 400 MG TABLET PO (17:35)
[2021-04-14] VITALS (9 sets, daily range): BP systolic 123–177; BP diastolic 63–86; PULSE 60–68; RESP 15–20; TEMP 36.2–36.8; O2SAT 92–96
[2021-04-14 06:30] LABS: Hematocrit 34.8 % (37.0-47.0); Hemoglobin 10.9 g/dl (12.0-16.0); Mean Corpuscular HGB Conc 31.3 g/dl (31.0-35.0); Mean Corpuscular Hemoglobin 30.5 pg (27.0-33.0); Mean Corpuscular Volume 97.5 fL (80.0-98.0); Mean Platelet Volume 12.7 fL (9.4-12.3); Platelet Count 195 X10*3/uL (160-400); Red Blood Count 3.57 X10*6/uL (4.20-5.50); Red Cell Distribution Width 16.3 % (11.0-16.0); White Blood Count 10.6 X10*3/uL (4.8-10.8)
[2021-04-14] MEDS: Piperacillin Sodium/Tazobactam 3.375 GM in 0.9 % Sodium Chloride 50 ML IV ×4 (06:41→17:25)
[2021-04-14] MEDS: Apixaban 2.5 MG TABLET PO ×2 (06:41→17:25)
[2021-04-14] MEDS: Omeprazole 40 MG CAPSULE.DR PO (06:41)
[2021-04-14] MEDS: Levothyroxine Sodium 50 MCG TABLET PO (06:41)
[2021-04-14] MEDS: methylPREDNISolone Sod Succ 40 MG/ML VIAL IVPUSH ×2 (08:14→19:53)
[2021-04-14] MEDS: Sertraline HCL 100 MG TABLET PO (08:15)
[2021-04-14] MEDS: Folic Acid 1 MG TABLET PO (08:16)
[2021-04-14] MEDS: Cyanocobalamin (Vitamin B-12) 1,000 MCG TABLET 1000 MCG PO (08:16)
[2021-04-14] MEDS: Nystatin Oral Susp 500,000 UNIT/5 ML ORAL.SUSP 200000 UNIT BUCCAL ×4 (08:16→19:52)
[2021-04-14] MEDS: Multivitamin TABLET 1 TAB PO (08:16)
[2021-04-14] MEDS: guaiFENesin LA 600 MG TAB.ER.12H PO ×2 (08:16→19:52)
[2021-04-14 08:27] LABS: Anion Gap 15 (12-20); Blood Urea Nitrogen 26 mg/dL (9-16); Calcium 9.3 mg/dL (8.4-10.2); Carbon Dioxide 23 mmol/L (22-29); Chloride 106 mmol/L (96-108); Creatinine Clr Calc Pharmacy 43.3; Estimated Glomerular Filt Rate > 60; Glucose Fasting 106 mg/dL (60-99); Potassium 4.9 mmol/L (3.3-5.1); Sodium 139 mmol/L (135-145)
--- NOTE | 2021-04-14 11:09 | P.PNIM_ITS ---
Subjective Subjective Date of Service: 04/14/21 Interval History: cc: sob interval history: improving Cardiovascular Cardiovascular: Reports no additional cardiovascular complaints Respiratory Respiratory: Reports no additional respiratory complaints Physical Exam Verdana 4l Vital Signs: Verdana 4d Verdana 4d Vital Signs: Verdana 4d Verdana 4Bd Last Vital Signs Verdana 4d Bus Matron New 4d Bus Matron New 4d Temp 97.8 F 04/14/21 07:38 Bus Matron New 4d Pulse 68 04/14/21 07:44 Bus Matron New 4d Resp 18 04/14/21 07:44 BP 141/82 H 04/14/21 07:38 Pulse Ox 96 04/14/21 07:38 Oxygen Flow Rate 2 04/07/21 09:22 BMI result Body Mass Index 21.4 General: AO X 3, no acute distress Resp:? Crackles bilateral, no accessory muscles used CVS: S1,S2,RRR GI: soft, non tender, non distended Neuro:? motor grossly intact, alert Psych: appropriate affect, appropriate insight? Objective Data Active Medications Acetaminophen (Acetaminophen 325 Mg Tablet) 650 mg PO Q6H PRN PRN Reason: Pain, Mild (Pain Scale 1-3) Last Admin: 04/07/21 22:40 Dose: 650 mg Documented by: STEFANI Albuterol Sulfate (Albuterol Sulfate 90 Mcg 8 Gm Inhaler) 2 puff INHALE Q4H PRN PRN Reason: Shortness Of Breath Last Admin: 04/08/21 19:22 Dose: 2 puff Documented by: ZOEY Apixaban (Apixaban 2.5 Mg Tablet) 2.5 mg PO BID@0600,1800 [facility] Last Admin: 04/14/21 06:41 Dose: 2.5 mg Documented by: ISIS Cyanocobalamin (Cyanocobalamin (Vitamin B-12) 1,000 Mcg Tablet) 1,000 mcg PO DAILY [facility] Last Admin: 04/14/21 08:16 Dose: 1,000 mcg Documented by: CHUY Docusate Sodium (Docusate Sodium 100 Mg Capsule) 100 mg PO BID [facility] Last Admin: 04/14/21 08:18 Dose: Not Given Documented by: CHUY Non-Admin Reason: Patient Refused Doxycycline Hyclate (Doxycycline Hyclate 100 Mg Tablet) 100 mg PO Q12H [facility] Last Admin: 04/14/21 08:16 Dose: 100 mg Documented by: CHUY Folic Acid (Folic Acid 1 Mg Tablet) 1 mg PO DAILY [facility] Last Admin: 04/14/21 08:16 Dose: 1 mg Documented by: CHUY Guaifenesin (Guaifenesin La 600 Mg Tab.Er.12h) 600 mg PO BID [facility] Last Admin: 04/14/21 08:16 Dose: 600 mg Documented by: CHUY Piperacillin Sod/Tazobactam (Sod 3.375 gm/ Sodium Chloride) 50 mls @ 100 mls/hr IV Q6H [facility] Last Infusion: 04/14/21 07:15 Dose: 0 mls/hr Documented by: CHUY Levalbuterol HCl (Levalbuterol Hcl 1.25 Mg/0.5 Ml Vial.Neb) 1.25 mg INHALE RQ4H WHILE AWAKE [facility] Last Admin: 04/14/21 07:42 Dose: 1.25 mg Documented by: JAMI Levothyroxine Sodium (Levothyroxine Sodium 50 Mcg Tablet) 50 mcg PO DAILY@0630 [facility] Last Admin: 04/14/21 06:41 Dose: 50 mcg Documented by: ANTOIC Magnesium Oxide (Magnesium Oxide 400 Mg Tablet) 400 mg PO DAILY@1700 [facility] Last Admin: 04/13/21 17:35 Dose: 400 mg Documented by: FLORECITA Melatonin (Melatonin 3 Mg Tablet) 6 mg PO BEDTIME [facility] Last Admin: 04/13/21 21:29 Dose: Not Given Documented by: FLORECITA Non-Admin Reason: Patient Refused Methylprednisolone Sodium Succinate (Methylprednisolone Sod Succ 40 Mg/Ml Vial) 40 mg IVPUSH BID [facility] Last Admin: 04/14/21 08:14 Dose: 40 mg Documented by: CHUY Multivitamins/Vitamin C (Multivitamin Tablet) 1 tab PO DAILY [facility] Last Admin: 04/14/21 08:16 Dose: 1 tab Documented by: CHUY Nystatin (Nystatin Oral Susp 500,000 Unit/5 Ml Oral.Susp) 200,000 unit BUCCAL QID [facility]; Protocol Last Admin: 04/14/21 08:16 Dose: 200,000 unit Documented by: CHUY Omeprazole (Omeprazole 40 Mg Capsule.Dr) 40 mg PO DAILY@0630 [facility] Last Admin: 04/14/21 06:41 Dose: 40 mg Documented by: ISIS Ondansetron HCl (Ondansetron Hcl 4 Mg/2 Ml Vial) 4 mg IVPUSH Q8H PRN PRN Reason: Nausea and Vomiting Pharmacy Consult (Consult Rx Vancomycin Dosing) 1 each MISCELLANE DAILY PRN PRN Reason: Consult order Pharmacy Consult (Consult Rx Perform Med Rec) 1 each MISCELLANE ONCE PRN PRN Reason: Consult order Polyethylene Glycol (Polyethylene Glycol 3350 17 Gm Powd.Pack) 17 gm PO DAILY [facility] Last Admin: 04/14/21 08:19 Dose: Not Given Documented by: CHUY Non-Admin Reason: Patient Refused Sertraline HCl (Sertraline Hcl 100 Mg Tablet) 100 mg PO DAILY [facility] Last Admin: 04/14/21 08:15 Dose: 100 mg Documented by: CHUY Labs CBC & Chem 7: 04/14/21 06:03 04/14/21 06:03 Labs: Laboratory Results - last 24 hr 04/14/21 04/14/21 06:03 06:03 MCV 97.5 MCH 30.5 MCHC 31.3 RDW 16.3 H Plt Count 195 MPV 12.7 H Absolute Nucleated RBC 0.000 Nucleated RBC % (auto) 0.0 Anion Gap 15 Estim Creat Clear Calc 43.3 Estimated GFR > 60 Fasting Glucose 106 H Calcium 9.3 Assessment and Plan (1) Bronchiectasis with (acute) exacerbation: Status: Acute (2) Acute respiratory failure with hypoxia: Status: Acute (3) Pulmonary emboli: Status: Acute Plan 85 years old lady with PMH bronchiectasis, COPD who presents to the hospital with worsening shortness of breath as a referral from her bindery technician. acute hypoxic respiratory failure Secondary to bronchiectasis, pneumonia and possible PE CXR, CT scan showing worsening infiltrates V/Q scan concerning for intermediate PE on Eliquis 2.5 mg b.i.d. as that was the only dose patient willing to take, she is aware that this is not the recommended dose for VTE Negative Doppler ultrasound lower extremities, D-dimer elevated at 700 Continue Zosyn for total of 8 days per pulmonology D7/8, and po doxy Pending sputum culture for mycobacterium no need for bronchoscopy Wean oxygen down as tolerated COPD exacerbation Continue IV steroids followed by prolonged prednisone taper Refuses DuoNebs, start Xopenex nebulizer to use albuterol inhaler ATC Hypothyroidism Continue levothyroxine DVT PPX Lovenox Quality Stroke Does the patient have a stroke diagnosis?: No VTE Prior VTE?: No VTE Risk Level:: Medical - moderate - high VTE Device Contraindication: Treatment Not Indicated VTE Drug Contraindication: Treatment Not Indicated
--- NOTE | 2021-04-14 17:09 | PC.NURSE ---
report given to Fabio PEREZ
[2021-04-14] MEDS: Magnesium Oxide 400 MG TABLET PO (17:18)
[2021-04-15] VITALS: BP 135/63; PULSE 62; RESP 20; TEMP 36.8; O2SAT 93
[2021-04-15] MEDS: Piperacillin Sodium/Tazobactam 3.375 GM in 0.9 % Sodium Chloride 50 ML IV ×3 (00:05→12:22)
[2021-04-15 04:00] VITALS: BP 145/75; PULSE 61; RESP 20; TEMP 36.9; O2SAT 93
[2021-04-15] MEDS: Apixaban 2.5 MG TABLET PO (06:02)
[2021-04-15] MEDS: Levothyroxine Sodium 50 MCG TABLET PO (06:02)
[2021-04-15] MEDS: Omeprazole 40 MG CAPSULE.DR PO (06:02)
[2021-04-15 07:40] VITALS: PULSE 61; RESP 18; O2SAT 96
[2021-04-15 07:52] VITALS: BP 130/64; PULSE 62; RESP 18; TEMP 36.6; O2SAT 92
[2021-04-15] MEDS: guaiFENesin LA 600 MG TAB.ER.12H PO (09:26)
[2021-04-15] MEDS: Cyanocobalamin (Vitamin B-12) 1,000 MCG TABLET 1000 MCG PO (09:26)
[2021-04-15] MEDS: Multivitamin TABLET 1 TAB PO (09:26)
[2021-04-15] MEDS: Nystatin Oral Susp 500,000 UNIT/5 ML ORAL.SUSP 200000 UNIT BUCCAL ×2 (09:26→12:22)
[2021-04-15] MEDS: Folic Acid 1 MG TABLET PO (09:26)
[2021-04-15] MEDS: Sertraline HCL 100 MG TABLET PO (09:27)
[2021-04-15] MEDS: methylPREDNISolone Sod Succ 40 MG/ML VIAL IVPUSH (09:27)
--- NOTE | 2021-04-15 10:46 | P.F2F_ITS ---
Service Date Service Date: 04/15/21 Encounter Date of encounter: 04/15/21 Reasons for Services Signs and symptoms assessed: sob on exertion Reason for group home: medication management, medication treatment and teach disease management Homebound: Leaving the home is medically contraindicated at this time without the asist of a device and/or another person due th the listed conditions above and below. Reason homebound: shortness of breath with minimal effort Certification: Based on the above findings, I certify that this patient is confined to the home and needs intermittent group home care, physical therapy and/or speech therapy, or continues to need occupational therapy. The patient is under my care, and I have initiated the establishment of the plan of care. The patient will be followed by a physician who will periodically review the plan of care.
--- NOTE | 2021-04-15 10:47 | P.DS_ITS ---
DS: Providers Provider Date of Service: 04/15/21 Date of admission: 04/07/21 16:33 Primary care physician: Jayjay Can MD Consults: 04/07/21 16:32 Consult to Pulmonology Routine Consulting Provider: Jayjay Can Reason for consultation: Eval for recurrent PNA, Concern of PE ? DS: Diagnosis Discharge Diagnosis (1) Bronchiectasis with (acute) exacerbation: Status: Acute (2) Acute respiratory failure with hypoxia: Status: Acute (3) Pulmonary emboli: Status: Acute DS: Summary Hospital Course Hospital Course: patient was admitted for acute hypoxic respiratory failure due to copd exacerbation in setting of bronchiectasis, possible pneumonia, and possible pulmonary embolism. she was treated with 8 days of iv zosyn and doxycyline, doxy will continue for 5 more days. she was given iv steroids and will be discharged on 10 day prednisone taper. her VQ scan showed intermediate risk for PE. pulmona ry recommended anticoagulation with eliquis 5mg bid, however, patient was only willing to take 2.5mg bid. she is aware this is a suboptimal dose for VTE treatment. she was able to be weaned off oxygen and will be discharged home. Time Spent with Patient Time attestation: Total time spent providing and/or coordinating discharge services: Discharge coordination time: Greater than 30 minutes Quality: Stroke Does the patient have a stroke diagnosis?: No Physical Exam Verdana 4l Vital Signs: Verdana 4d Verdana 4d Vital Signs: Verdana 4d Verdana 4Bd Last Vital Signs Verdana 4d Director Web New 4d Director Web New 4d Temp 97.9 F 04/15/21 07:52 Director Web New 4d Pulse 62 04/15/21 07:52 Director Web New 4d Resp 18 04/15/21 07:52 BP 130/64 04/15/21 07:52 Pulse Ox 92 04/15/21 07:52 Oxygen Flow Rate 2 04/07/21 09:22 BMI result Body Mass Index 21.4 General: AO X 3, no acute distress Resp: CTA bilateral, no accessory muscles used CVS: S1,S2,RRR GI: soft, non tender, non distended Neuro: motor grossly intact, alert Psych: appropriate affect, appropriate insight Discharge Plan Discharge Patient Disposition: Home Health Service Discharge Diagnosis: copd, pna Referrals: Jayjay Can MD [Primary Care Provider] - 1 Week Discharge Medications: New doxycycline hyclate 100 mg Tablet 100 mg PO Q12H Qty: 10 0RF Eliquis 2.5 mg Tablet 2.5 mg PO BID@0600,1800 Qty: 60 0RF Rx Instructions: correct dose would be 5mg bid, however, patient only willing to take 2.5mg bid prednisone 20 mg tablet 40 mg PO DAILY Qty: 15 0RF Rx Instructions: 40mg daily for 5 days, then 20mg daily for 5 days Continued budesonide-formoterol 160-4.5 mcg/actuation HFA aerosol inhaler 2 inh PO BID Qty: 30.6 3RF nystatin 100,000 unit/mL suspension 1 ml PO QID PRN (Reason: THRUSH) 0RF Rx Instructions: swish and swallow pantoprazole 40 mg Tablet,Delayed Release (Dr/Ec) 40 mg PO BEDTIME 0RF multivitamin Tablet 1 tab PO DAILY 0RF cyanocobalamin (vitamin B-12) 1,000 mcg Tablet 1,000 mcg PO DAILY 0RF folic acid 1 mg Tablet 1 mg PO DAILY 0RF lutein 20 mg Capsule 20 mg PO DAILY 0RF Probiotic 100 billion cell Capsule 2 cap PO BEDTIME 0RF magnesium oxide 400 mg magnesium Tablet 400 mg PO DAILY@1700 0RF Bone Boost 1 tab PO TID 0RF Zeaxanthin 1 mg PO DAILY 0RF ipratropium-albuterol 0.5 mg-3 mg(2.5 mg base)/3 mL solution for nebulization 3 ml inhalation BID PRN (Reason: Shortness Of Breath Or Wheezing) 0RF levothyroxine 50 mcg tablet 50 mcg PO DAILY@0630 0RF albuterol sulfate 90 mcg/actuation HFA aerosol inhaler 2 inh inhalation Q4H PRN (Reason: Shortness Of Breath) 0RF sertraline 100 mg tablet 100 mg PO DAILY 0RF Discontinued azithromycin 250 mg tablet 250 mg PO BEDTIME 0RF Hold Instructions: Resume on 02/20/21. hold until on po antiobiotic Discharge Orders: Discharge Order (Routine); Ordered 04/15/21 Ordered By: Fransico Oliva Diet: advance to usual diet Activity on Discharge: As tolerated Stand Alone Forms: Patient Portal Discharge page Care Plan Goals: avoid hospitalizations Health Concerns: bronchiectasis Plan of Treatment: doxy for 5 more days, prednisone taper, continue eliquis, follow up with pulmonary Assessment: see above
[2021-04-15 11:23] VITALS: BP 124/64; PULSE 63; RESP 18; TEMP 36.9; O2SAT 95
--- NOTE | 2021-04-15 11:35 | MHC.CM.PN ---
Addendum entered by Socorro Cadena 04/16/21 12:38: POST DC NOTE: AT DC, PTS DAUGHTER EXPRESSED CONCERN THAT SHE WAS UNSURE WHEN A ENGINE COWLING INSTALLER WOULD SEE THE PT. SHE ASKED THAT THE ENGINE COWLING INSTALLER CALL THEM WITHIN 48 HOURS TO SEE THE PT. CM INFORMED HER ENGINE COWLING INSTALLER SERVICES COULD NOT BE ARRANGED THROUGH THE HOSPITAL HOWEVER THE [facility] MAY PROVIDE ONE SO THEY WOULD BE THE ONES SETTING UP THE SCHEDULE. PT AND DAUGHTER ALSO REPORTED CONCERN THAT THEY THOUGHT THE ENGINE COWLING INSTALLER WOULD BE A FEW TIMES PER WEEK. CM EXPLAINED THE ENGINE COWLING INSTALLER THROUGH THE [facility] WAS USUALLY ONLY AN HOUR PER WEEK AND SOMETIMES LESS DEPENDING ON THEIR STAFFING AND THE ASSESSMENT OF THE PT. CM INFORMED THEM ANYTHING MORE WOULD NEED TO BE PRIVATELY PAIN OR THROUGH [facility]. CM ALSO INFORMED THEM A MESSAGE HAD BEEN LEFT FOR PTS [facility] MORTGAGE OR LOAN UNDERWRITER INFORMING HER OF PTS DC AND REQUEST FOR INCREASED SERVICES Original Note: PT BEING DISCHARGED HOME TODAY WITH RESUMPTION OF PREVIOUS SERVICES [facility] [facility] WAS NOTIFIED VIA [employer] AND DC SUMMARY WAS SENT A MESSAGE WAS LEFT FOR PTS DAYCARE ASSISTANT AT [facility] ([phone]) INFORMING HER OF DC PTS SISTER TO TRANSPORT
[2021-04-15 11:39] VITALS: PULSE 82; RESP 18; O2SAT 98
== END 2021-04-15 14:45 | disposition home health service (06) | DRG 193 ==
LOC: HO.ED 16:32 → HO.EDOVER 16:58 → HO.IMC 04-08 00:44
PROVIDERS: Admitting Provider Student in an Organized Health Care Education/Training Program; Emergency Provider Emergency Medicine; PCP Hospitalist; Visit Provider Internal Medicine
DX: J18.9 Pneumonia, unspecified organism (principal); I26.99 Other pulmonary embolism without acute cor pulmonale; J96.01 Acute respiratory failure with hypoxia; J47.0 Bronchiectasis with acute lower respiratory infection; E03.9 Hypothyroidism, unspecified; Z20.822 Contact with and (suspected) exposure to COVID-19; Z79.01 Long term (current) use of anticoagulants; Z79.890 Hormone replacement therapy; Z79.899 Other long term (current) drug therapy
CPT/HCPCS: 36415; 71045; 78580; 80048; 80076; 83605; 83880; 85025; 85027; 85379; 87040; 87635; 93005; 93970; 94640; 96365; 96367; 96372; 96375; 97116; 97162; 99285; 99291; A9540; J1020; J1650; J1956; J2543; J2920; J3370

== ENCOUNTER → 2021-04-18 10:48 | Outpatient (BNVA) | payer MEDICARE, SELFPAY | PROVIDERS: PCP Internal Medicine; Visit Provider Hospitalist | DX: Z23 Encounter for immunization (principal); J47.0 Bronchiectasis with acute lower respiratory infection; J18.9 Pneumonia, unspecified organism; I26.99 Other pulmonary embolism without acute cor pulmonale; R70.0 Elevated erythrocyte sedimentation rate; R63.4 Abnormal weight loss | CPT/HCPCS: 90471; 90732; 99212 ==

== ENCOUNTER 2021-04-30 18:34 | Inpatient (IN) | payer MEDICARE, SELFPAY ==
--- NOTE | ~2021-04-30 | XR_ITS ---
EXAMINATION: XR CHEST CLINICAL INFORMATION: Shortness of breath COMPARISON: 04/07/2021 TECHNIQUE: Frontal view of the chest was obtained. FINDINGS: Bilateral patchy airspace opacities appear increased when compared to the prior study. Heart size is normal. No gross CHF. Tiny pleural effusions are most likely present. A left chest wall bipolar pacemaker is again seen. XR/XR chest 1V IMPRESSION: Increase in the bilateral patchy airspace opacities.
--- NOTE | ~2021-04-30 | XR_ITS ---
EXAMINATION: XR CHEST CLINICAL INFORMATION: Hypoxia COMPARISON: 05/03/2021 TECHNIQUE: Frontal view of the chest was obtained. FINDINGS: Left-sided pacemaker lead tips extend to the right atrium and right ventricle. Right PICC tip lies in the region of the cavoatrial junction. Lung volumes are symmetric. There are moderately extensive multifocal bilateral airspace opacities, right lung greater than left. Left basilar aeration appears slightly improved compared to prior. No appreciable pneumothorax. There is suggestion of small pleural effusions. The cardiomediastinal contour is unremarkable. No acute osseous findings are seen. XR/XR chest 1V IMPRESSION: Moderately extensive bilateral airspace opacities, right lung greater than left. Left basilar aeration appears improved since 05/03/2021.
--- NOTE | ~2021-04-30 | CT_ITS ---
EXAMINATION: CT HEAD WITHOUT CONTRAST (STROKE PROTOCOL) CLINICAL INFORMATION: Stroke protocol. Right hand weakness COMPARISON: None TECHNIQUE: Contiguous axial imaging was performed from the skull base to vertex without intravenous administration of contrast. This CT examination was performed using dose optimization techniques as appropriate, variously including the following: *Automated exposure control *Adjustment of mA and/or kV according to patient size (this includes techniques or standardized protocols for targeted exams where dose is matched to indication/reason for exam; i.e. extremities or head) *Use of iterative reconstruction technique DLP: 676 mGy-cm FINDINGS: There is no intracranial hemorrhage, hematoma, or extra-axial fluid collection. There is mild prominence of the ventricles, sulci, and cisterns. No edematous change or midline structure shift is seen. The sosa-white matter differentiation appears symmetric. There is some periventricular white matter low density present bilaterally. No associated mass effect is seen. There is a lacunar infarct seen involving the anterior limb of the left internal capsule.. The calvarium appears intact. There is no pneumocephalus or orbital emphysema. The visualized sinuses and middle ears and mastoid air cells show no significant mucosal thickening. There are no air-fluid levels. CT/CT head for stroke IMPRESSION: No acute intracranial pathology. Findings consistent with microangiopathy. This critical result was discussed with Dr. Ross at 1330 p.m. hours on May 10, 2021. It was ascertained that the content and urgency of the report was understood at the time of direct communication.
--- NOTE | ~2021-04-30 | CT_ITS ---
EXAMINATION: CT CHEST WITHOUT CONTRAST CLINICAL INFORMATION: Pneumonia COMPARISON: CT chest 02/10/2021. Chest x-ray 04/30/2021, 04/07/2021, 11/21/2020 TECHNIQUE: Multidetector volumetric CT imaging of the chest was done. Axial MIP volume rendering provided. Sagittal and coronal reformatted images were obtained. This CT examination was performed using dose optimization techniques as appropriate, variously including the following: *Automated exposure control *Adjustment of mA and/or kV according to patient size (this includes techniques or standardized protocols for targeted exams where dose is matched to indication/reason for exam; i.e. extremities or head) *Use of iterative reconstruction technique DLP: 99 mGy-cm FINDINGS: LUNGS: There are diffuse multifocal reticular and groundglass opacities throughout the lung. Commonly reported imaging features of COVID-19 pneumonia are present. Other processes such as influenza pneumonia or organizing pneumonia can cause a similar imaging appearance, as can certain drug toxicities and connective tissue disorders. The severity of airspace disease has worsened since the CT chest 02/10/2021 and 04/07/2021. No lung cavitation. MEDIASTINUM: There are prominent mediastinal lymph nodes in the pretracheal retrovascular space measuring up to a diameter about 1.5 cm. Subcarinal lymph node measures 1.5 cm as well. Lymphadenopathy similar to CT chest 02/10/2021 Heart size is normal. No pericardial effusion. Pacemaker leads in right atrium and right ventricle. Cardiac device related to the left atrial appendage. PLEURA: Small volume dependent right pleural effusion and trace dependent left pleural effusion. Volume of the pleural effusions has increased slightly since prior CT exam 02/10/2021. There is no pneumothorax. AXILLA: No lymphadenopathy. UPPER ABDOMEN: Unremarkable. OSSEOUS STRUCTURES: Multilevel degenerative spondylosis of the spine. CT/CT chest wo con IMPRESSION: 1. Worsening bilateral airspace opacities. Commonly reported imaging features of COVID-19 pneumonia are present. Other processes such as influenza pneumonia or organizing pneumonia can cause a similar imaging appearance, as can certain drug toxicities and connective tissue disorders. 2. Persistent mediastinal lymphadenopathy. 3. Small bilateral pleural effusions. The volume of effusions has increased since CT chest 02/10/2021. Fleischner guidelines were followed.
--- NOTE | ~2021-04-30 | US_ITS ---
EXAMINATION: US VENOUS WITH DOPPLER UPPER EXTREMITY, LEFT CLINICAL INFORMATION: Pain and edema COMPARISON: None TECHNIQUE: Ultrasound of the upper extremity is performed using compression sonography and color and pulse Doppler flow with assessment of augmentation of flow. There is also imaging and Doppler assessment of the jugular and subclavian veins. Spectral analysis with color-flow imaging is performed. FINDINGS: DVT present within the left subclavian, axillary, brachial and basilic veins. Radial and ulnar veins not seen. Thrombus also present within the superficial forearm veins. Cephalic vein is patent. Left internal jugular vein is patent. Right subclavian vein for comparison is patent US/US venous duplex UE LT IMPRESSION: * Extensive DVT present throughout the left upper extremity including the left subclavian, axillary, brachial and basilic veins. * Left internal jugular vein is patent. * Superficial venous thrombosis throughout the forearm veins.
--- NOTE | ~2021-04-30 | US_ITS ---
EXAMINATION: US EXTRACRANIAL CAROTID DUPLEX, BILATERAL CLINICAL INFORMATION: CVA COMPARISON: None TECHNIQUE: Real-time ultrasound and Doppler techniques (integrating B-mode 2-D vascular images, Doppler spectral analysis and color-flow Doppler imaging) were utilized to interrogate the extracranial carotid arteries, the vertebral arteries and proximal subclavian arteries bilaterally. The degree of stenosis is determined by criteria similar to NASCET. FINDINGS: Right Side: 1. There is minimal atherosclerotic plaque seen in the bifurcation/proximal ICA region. 2. The common carotid artery PSV proximally is 52.9 cm/s and distally 35.2 cm/s. 3. The proximal internal carotid artery velocities are 41.5 cm/s systolic and 12 cm/s diastolic. 4. The proximal external carotid artery PSV is 32.3 cm/s. 5. The vertebral artery shows 35.7 flow. 6. The subclavian artery waveforms are normal. Left Side: 1. There is minimal atherosclerotic plaque seen in the bifurcation/proximal ICA region. 2. The common carotid artery PSV proximally is 55.8 cm/s and distally 42.0 cm/s. 3. The proximal internal carotid artery velocities are 49.5 cm/s systolic and 12.7 cm/s diastolic. 4. The proximal external carotid artery PSV is 40.0 cm/s. 5. The vertebral artery shows antegrade flow. 6. The subclavian artery waveforms are normal. US/US carotid duplex BI IMPRESSION: 1. RIGHT: 0-49% range stenosis right carotid artery. 2. LEFT: 0-49% range stenosis left carotid artery 3. Normal antegrade flow seen in both vertebral arteries.
--- NOTE | ~2021-04-30 | CT_ITS ---
EXAMINATION: CT HEAD WITHOUT CONTRAST (STROKE PROTOCOL) CLINICAL INFORMATION: Stroke protocol. Right upper extremity weakness and new expressive aphasia COMPARISON: May 10, 2021 TECHNIQUE: Contiguous axial imaging was performed from the skull base to vertex without intravenous administration of contrast. This CT examination was performed using dose optimization techniques as appropriate, variously including the following: *Automated exposure control *Adjustment of mA and/or kV according to patient size (this includes techniques or standardized protocols for targeted exams where dose is matched to indication/reason for exam; i.e. extremities or head) *Use of iterative reconstruction technique DLP: 683 mGy-cm FINDINGS: There is no intracranial hemorrhage, hematoma, or extra-axial fluid collection. Ventricles are again noted to be mildly prominent as well sulci and cisterns consistent with generalized atrophy. . Periventricular white matter low density is again seen consistent with microangiopathy. There is a question of some increase in diminished density within the left centrum semiovale which may be related to a small evolving infarct with no hemorrhage or mass effect identified.. The diffuse bilateral periventricular low density again seen consistent with chronic microangiopathy. The calvarium appears intact. There is no pneumocephalus or orbital emphysema. The visualized sinuses and middle ears and mastoid air cells show no significant mucosal thickening. There are no air-fluid levels. CT/CT head for stroke IMPRESSION: Question possible small evolving left centrum semiovale infarct without hemorrhage or edema. Microangiopathy. This critical result was discussed with Dr. Ross at 10:27 AM hours on May 11, 2021. It was ascertained that the content and urgency of the report was understood at the time of direct communication.
--- NOTE | ~2021-04-30 | IR_ITS ---
PROCEDURE: IR INSERTION OF PICC CLINICAL INFORMATION: Needs IV therapy for bilateral infiltrates COMPARISON: None TECHNIQUE: Following explaining ultrasound and fluoroscopically guided placement of PICC line placement procedure, benefits and risk, it couldn't consent was obtained patient was placed supine on fluoroscopy table and preliminary ultrasound imaging was obtained through the right arm. An optimal site was selected, marked, cleaned and draped in usual sterile manner. A tourniquet was applied about the right arm. The area marked along the right arm was cleaned in the usual sterile manner. 1% lidocaine was injected. Under sterile ultrasound guidance a single wall needle was advanced and right basilic vein was punctured above the elbow. After obtaining venous return a thin guidewire was advanced under fluoroscopy and placed in SVC and needle withdrawn. A 5 [place] dilator sheath was placed over the guidewire. A precut single lumen PICC catheter was then advanced over the guidewire and through the peel away sheath after removing the dilator. The catheter was and advanced and placed in the distal SVC. The peel-away sheath and the guidewire removed and a single image obtained over the chest with documentation. The single port catheter was flushed with saline . Simple dressing was placed at the incision site. Patient on procedure extremely well. All elements of maximal sterile barrier technique followed including use of cap, mask, sterile gown, sterile gloves, a sterile full body drape and hand hygiene. Also followed skin preparation with 2% chlorhexidine for cutaneous antisepsis, and sterile ultrasound preparation with sterile gel and probe cover when applicable. FINDINGS: On preliminary ultrasound imaging there is widely patent basilic vein. Cephalic vein is not seen. 8 38 cm long 5 Sammarinese long single lumen PICC catheter was placed under fluoroscopy and CT with the tip lying in the distal SVC. The catheter is ready for use. IR/IR cvc insert peripheral IMPRESSION: Successful ultrasound fluoroscopy-guided placement of a 5 [place] 38 cm long PICC catheter with its tip in distal SVC. The catheter is ready for use. Fluoroscopy time: 1.1 minute Dose area product: 83 cGy/cm2
[2021-04-30 18:46] VITALS: BP 122/59; PULSE 67; RESP 28; TEMP 36.5; O2SAT 97; BMI 20.9
--- NOTE | 2021-04-30 18:49 | ECG_ITS ---
Test Reason : SOB Blood Pressure : / mmHG Vent. Rate : 062 BPM Atrial Rate : 066 BPM P-R Int : 000 ms QRS Dur : 156 ms QT Int : 512 ms P-R-T Axes : 000 -78 079 degrees QTc Int : 519 ms Ventricular-paced rhythm Abnormal ECG When compared with ECG of 07-APR-2021 09:52, due to quality, cannot compare Referred By: Mendoza Sibley Electronically Signed By:TIMOTHY HERNADEZ
[2021-04-30 18:59] VITALS: PULSE 67; RESP 17; O2SAT 97
[2021-04-30] MEDS: Albuterol/Iprat 2.5/0.5MG 3 ML AMPUL.NEB INHALE (18:59)
[2021-04-30 20:00] VITALS: PULSE 62; RESP 18; O2SAT 95
[2021-04-30 20:08] LABS: MANUAL DIFF FLAG NO
[2021-04-30 20:10] LABS: Basophils Absolute Auto 0.1 X10*3/uL (0.0-0.2); Basophils Percent Auto 0.4 % (0-2); Eosinophils Absolute Auto 0.3 X10*3/uL (0.0-0.4); Hematocrit 32.3 % (37.0-47.0); Hemoglobin 10.4 g/dl (12.0-16.0); Imm Gran Abs Auto 0.05 X10*3/uL (0.00-0.03); Imm Gran Pct Auto 0.4 % (0.0-0.4); Lymphocytes Absolute Auto 2.8 X10*3/uL (1.2-4.9); Mean Corpuscular HGB Conc 32.2 g/dl (31.0-35.0); Mean Corpuscular Volume 99.4 fL (80.0-98.0); Mean Platelet Volume 10.6 fL (9.4-12.3); Monocytes Absolute Auto 0.7 X10*3/uL (0.1-1.2); Monocytes Percent Auto 5.5 % (2-11); Neutrophils Absolute Auto 9.3 x10*3/uL (2.0-8.3); Neutrophils Percent Auto 70.7 % (45-73); Platelet Count 152 X10*3/uL (160-400); Red Blood Count 3.25 X10*6/uL (4.20-5.50); Red Cell Distribution Width 17.2 % (11.0-16.0); White Blood Count 13.2 X10*3/uL (4.8-10.8)
--- NOTE | 2021-04-30 20:17 | ED_ITS ---
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 wit h history of bronchiectasis and mucous plugging had intermediate probability of V/Q scan on 04/18 started on Eliquis finish prednisone and doxycycline, discharge on no oxygen but since last night patient required oxygen to breathe comes back as she is not feeling better specially for last 2 days still coughing with purulent phlegm no fever no chest pain or palpitation Related Data Home Medications Medication Instructions Recorded Confirmed albuterol sulfate 90 mcg/actuation 2 inh INHALATION Q4H PRN 01/12/20 04/30/21 aerosol inhaler levothyroxine 50 mcg tablet 50 mcg PO DAILY@0630 01/12/20 04/30/21 Bone Boost 1 tab PO TID 02/10/21 04/30/21 Lactobacillus 40-Bifidobact 2 cap PO BEDTIME 02/10/21 04/30/21 3-S.thermophilus 100 billion cell capsule (Probiotic) Zeaxanthin 1 mg PO DAILY 02/10/21 04/30/21 cyanocobalamin (vitamin B-12) 1,000 mcg PO DAILY 02/10/21 04/30/21 1,000 mcg tablet folic acid 1 mg tablet 1 mg PO DAILY 02/10/21 04/30/21 ipratropium 0.5 mg-albuterol 3 mg 3 ml INHALATION BID PRN 02/10/21 04/30/21 (2.5 mg base)/3 mL nebulization soln lutein 20 mg capsule 20 mg PO DAILY 02/10/21 04/30/21 magnesium oxide 400 mg PO DAILY@1700 02/10/21 04/30/21 multivitamin 1 tab PO DAILY 02/10/21 04/30/21 sertraline 100 mg tablet 100 mg PO DAILY 02/20/21 04/30/21 pantoprazole 40 mg tablet,delayed 40 mg PO BEDTIME 04/08/21 04/30/21 release Previous Rx's Medication Instructions Recorded apixaban 2.5 mg tablet (Eliquis) 2.5 mg PO BID@0600,1800 #60 tab 04/15/21 doxycycline hyclate 100 mg tablet 100 mg PO Q12H #10 tab 04/15/21 nystatin 100,000 unit/mL oral 1 ml PO QID PRN #60 ml 04/15/21 suspension prednisone 20 mg tablet 40 mg PO DAILY #15 tab 04/15/21 Allergies Allergy/AdvReac Type Severity Reaction Status Date / Time Iodinated Contrast Media Allergy Severe Itch and Verified 04/18/21 11:05 [CONTRAST, IV] Rash Review of Systems Review of Systems: Yes all other systems are reviewed and are negative [facility] Past Medical History Medical History (Reviewed 04/30/21 @ 21: by Mendoza Sibley MD) Bronchiectasis Bronchiectasis, uncomplicated COPD (chronic obstructive pulmonary disease) COPD exacerbation Insomnia Pacemaker Pleuritic chest pain Pneumonia Presence of Watchman left atrial appendage closure device Sedimentation rate elevation Weight loss Surgical History (Reviewed 04/30/21 @ 21: by Mendoza Sibley MD) No pertinent past surgical history Family History Family History (Reviewed 04/30/21 @ : by Mendoza Sibley MD) Father No problems noted. Social History Social History (Reviewed 04/30/21 @ 21: by Mendoza Sibley MD) Household Members: None Housing: Apartment Do you presently have visiting nurse or other home services: Yes Alcohol intake: never Patient Tobacco Use Status: Never used Tobacco Use of substances other than those prescribed or required for medical reasons: No Advance Directives: Yes Advance Directives Information Provided: No Advance Directives on File: No Advance Directives Date on File: 04/08/21 service: No Current occupational status: retired Physical Exam 2 Vital Signs: Vital Signs: Last Vital Signs Temp 98.2 F 04/30/21 22:00 Pulse 60 04/30/21 22:24 Resp 14 04/30/21 22:24 BP 118/58 L 04/30/21 22:24 Pulse Ox 95 04/30/21 22:24 Oxygen Flow Rate 2 04/30/21 18:46 BMI result Body Mass Index 20.9 Appearance: Alert. Oriented X3. No acute distress. Eyes: PERRLA, No Nystagmus ENT: Pharynx normal. Oral Mucosa moist Neck: Normal inspection. Neck supple. CVS: Normal heart rate and rhythm. Pulses normal. Respiratory: No respiratory distress. Equal air entry bilateral, bilateral diffuse crackles Abdomen: Soft and nontender. Bowel sounds are present, no mass palpable, no CVA tenderness Skin: Skin warm and dry. Normal skin color. Normal skin turgor. Extremities: No lower extremity edema. No calf tenderness Neuro: Oriented X 3. No motor deficit. MDM - SOB/Dyspnea Lab Data Result diagrams: 04/30/21 19:58 04/30/21 19:58 Labs: Lab Results 04/30/21 04/30/21 04/30/21 Range/Units 19:58 19:58 19:58 WBC 13.2 H (4.8-10.8) X10*3/uL RBC 3.25 L (4.20-5.50) X10*6/uL Hgb 10.4 L (12.0-16.0) g/dl Hct 32.3 L (37.0-47.0) % MCV 99.4 H (80.0-98.0) fL MCH 32.0 (27.0-33.0) pg MCHC 32.2 (31.0-35.0) g/dl RDW 17.2 H (11.0-16.0) % Plt Count 152 L (160-400) X10*3/uL MPV 10.6 (9.4-12.3) fL Immature Gran % (Auto) 0.4 (0.0-0.4) % Neut % (Auto) 70.7 (45-73) % Lymph % (Auto) 21.0 (20-40) % [place] % (Auto) 5.5 (2-11) % Eos % (Auto) 2.0 (0-4) % Baso % (Auto) 0.4 (0-2) % Lymph # (Auto) 2.8 (1.2-4.9) X10*3/uL [place] # (Auto) 0.7 (0.1-1.2) X10*3/uL Eos # (Auto) 0.3 (0.0-0.4) X10*3/uL Baso # (Auto) 0.1 (0.0-0.2) X10*3/uL Abs Immat Gran (auto) 0.05 H (0.00-0.03) X10*3/uL Absolute Neuts (auto) 9.3 H (2.0-8.3) x10*3/uL Absolute Nucleated RBC 0.000 (0.0-0.012) X10*3/uL Nucleated RBC % (auto) 0.0 (0.0-0.2) /100WBC PT 22.5 H (9.9-13.0) SEC INR 2.0 H (0.9-1.1) Sodium (135-145) mmol/L Potassium (3.3-5.1) mmol/L Chloride (96-108) mmol/L Carbon Dioxide (22-29) mmol/L Anion Gap (12-20) BUN (9-16) mg/dL Creatinine (0.5-1.4) mg/dL Estim Creat Clear Calc Estimated GFR Random Glucose (60-115) mg/dL Lactic Acid (0.5-2.0) mmol/L Calcium (8.4-10.2) mg/dL Total Bilirubin (0.0-1.0) mg/dL AST (5-31) U/L ALT (0-31) U/L Alkaline Phosphatase (39-117) U/L Troponin I High Sens (<3.5-17.0) ng/L B-Natriuretic Peptide (<100) pg/mL Total Protein (6.5-8.0) g/dL Albumin (3.5-5.0) g/dL COVID-19 (SIL[facility]) Negative (Negative) COVID-19 Clin Com See Note 04/30/21 04/30/21 04/30/21 Range/Units 19:58 19:58 19:58 WBC (4.8-10.8) X10*3/uL RBC (4.20-5.50) X10*6/uL Hgb (12.0-16.0) g/dl Hct (37.0-47.0) % MCV (80.0-98.0) fL MCH (27.0-33.0) pg MCHC (31.0-35.0) g/dl RDW (11.0-16.0) % Plt Count (160-400) X10*3/uL MPV (9.4-12.3) fL Immature Gran % (Auto) (0.0-0.4) % Neut % (Auto) (45-73) % Lymph % (Auto) (20-40) % [place] % (Auto) (2-11) % Eos % (Auto) (0-4) % Baso % (Auto) (0-2) % Lymph # (Auto) (1.2-4.9) X10*3/uL [place] # (Auto) (0.1-1.2) X10*3/uL Eos # (Auto) (0.0-0.4) X10*3/uL Baso # (Auto) (0.0-0.2) X10*3/uL Abs Immat Gran (auto) (0.00-0.03) X10*3/uL Absolute Neuts (auto) (2.0-8.3) x10*3/uL Absolute Nucleated RBC (0.0-0.012) X10*3/uL Nucleated RBC % (auto) (0.0-0.2) /100WBC PT (9.9-13.0) SEC INR (0.9-1.1) Sodium 136 (135-145) mmol/L Potassium 3.7 D (3.3-5.1) mmol/L Chloride 104 (96-108) mmol/L Carbon Dioxide 21 L (22-29) mmol/L Anion Gap 15 (12-20) BUN 11 D (9-16) mg/dL Creatinine 0.74 (0.5-1.4) mg/dL Estim Creat Clear Calc 47.9 Estimated GFR > 60 Random Glucose 91 (60-115) mg/dL Lactic Acid 1.3 (0.5-2.0) mmol/L Calcium 8.7 D (8.4-10.2) mg/dL Total Bilirubin 1.0 (0.0-1.0) mg/dL AST 20 (5-31) U/L ALT 15 (0-31) U/L Alkaline Phosphatase 49 (39-117) U/L Troponin I High Sens 20.9 H D (<3.5-17.0) ng/L B-Natriuretic Peptide 564 H (<100) pg/mL Total Protein 5.6 L (6.5-8.0) g/dL Albumin 2.9 L (3.5-5.0) g/dL COVID-19 ([facility]IL[facility]) (Negative) COVID-19 Clin Com Discharge Plan Discharge Clinical Impression: Bronchiectasis, Community acquired pneumonia, COPD (chronic obstructive pulmonary disease) Patient Disposition: Admitted As Inpatient
[2021-04-30 20:22] LABS: Prothrombin Time 22.5 SEC (9.9-13.0)
[2021-04-30] MEDS: methylPREDNISolone Sod Succ 125 MG/2 ML VIAL IVPUSH (20:25)
[2021-04-30] MEDS: cefTRIAXone sodium 1 GM in 0.9 % Sodium Chloride 50 ML IV (20:25)
--- NOTE | 2021-04-30 20:31 | PC.NURSE ---
DELAY IN MEDICATION ADMINISTRATION AND LABS DUE TO DIFFICULTY GETTING LABS AND BLOOD CULTURES. PATIENT IS CALM AND COOPERATIVE WITH NO COMPLAINTS AT THIS TIME. GIVEN WARM BLANKET AND LIGHTS DIMMED, PATIENT ON 2L NC SAT IS 96%
[2021-04-30 20:36] LABS: COVID-19 Test Negative (Negative)
[2021-04-30 20:39] LABS: B Type Natriuretic Peptide 564 pg/mL (<100); Troponin-I High Sensitivity 20.9 ng/L (<3.5-17.0)
[2021-04-30 20:41] LABS: Lactic Acid 1.3 mmol/L (0.5-2.0)
[2021-04-30 20:45] LABS: Alanine Aminotransferase 15 U/L (0-31); Albumin Level 2.9 g/dL (3.5-5.0); Alkaline Phosphatase 49 U/L (39-117); Anion Gap 15 (12-20); Aspartate Amino Transferase 20 U/L (5-31); Blood Urea Nitrogen 11 mg/dL (9-16); Calcium 8.7 mg/dL (8.4-10.2); Carbon Dioxide 21 mmol/L (22-29); Chloride 104 mmol/L (96-108); Creatinine Clr Calc Pharmacy 47.9; Estimated Glomerular Filt Rate > 60; Glucose Random 91 mg/dL (60-115); Potassium 3.7 mmol/L (3.3-5.1); Sodium 136 mmol/L (135-145); Total Protein 5.6 g/dL (6.5-8.0)
[2021-04-30] MEDS: Piperacillin Sodium/Tazobactam 3.375 GM in 0.9 % Sodium Chloride 50 ML IV (21:41)
[2021-04-30 22:00] VITALS: BP 120/56; PULSE 69; RESP 24; TEMP 36.8; O2SAT 95
[2021-04-30 22:24] VITALS: BP 118/58; PULSE 60; RESP 14; O2SAT 95
[2021-04-30] MEDS: vancomycin HCL 1,000 MG in 0.9 % Sodium Chloride 250 ML 270 MG IV (22:24)
[2021-04-30 23:13] VITALS: BP 132/62; PULSE 61; RESP 16; O2SAT 98
--- NOTE | 2021-04-30 23:28 | P.HPHOSP_ITS ---
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 Denies any nausea vomiting or diarrhea. review of all other systems is negative except mentioned above ER course: ER team concern for COPD exacerbation/ healthcare associated pneumonia; pat ient was given IV antibiotics and Solu-Medrol; admitted to the hospital for further management [facility] Medical History (Updated 05/10/21 @ 15:10 by Penny Jacobo MD) Acute and chronic respiratory failure Aspergillosis, unspecified Bronchiectasis Bronchiectasis, uncomplicated COPD (chronic obstructive pulmonary disease) COPD exacerbation Insomnia Pacemaker Pleuritic chest pain Pneumonia Presence of Watchman left atrial appendage closure device Sedimentation rate elevation Weight loss Family History Father No problems noted. Surgical History No pertinent past surgical history Social History Household Members: None Housing: House Do you presently have visiting nurse or other home services: No Alcohol intake: never Patient Tobacco Use Status: Former Tobacco user Quit Date: 50 years ago Advance Directives Date on File: 04/08/21 service: No Current occupational status: retired Meds Allergies Allergy/AdvReac Type Severity Reaction Status Date / Time Iodinated Contrast Media Allergy Severe Itch and Verified 04/18/21 11:05 [CONTRAST, IV] Rash Active Medications: Current Medications Acetaminophen (Acetaminophen 325 Mg Tablet) 650 mg PO Q6H PRN PRN Reason: Pain, Mild (Pain Scale 1-3) Albuterol Sulfate (Albuterol Sulfate 90 Mcg 8 Gm Inhaler) 2 puff INHALE Q4H PRN PRN Reason: Shortness Of Breath Albuterol/Ipratropium (Albuterol/Iprat 2.5/0.5mg 3 Ml Ampul.Neb) 3 ml INHALE BID PRN PRN Reason: Shortness Of Breath Or Wheezing Apixaban (Apixaban 2.5 Mg Tablet) 2.5 mg PO BID@0600,1800 [facility] Cyanocobalamin (Cyanocobalamin (Vitamin B-12) 1,000 Mcg Tablet) 1,000 mcg PO DAILY [facility] Folic Acid (Folic Acid 1 Mg Tablet) 1 mg PO DAILY [facility] Vancomycin HCl 1,000 mg/ (Sodium Chloride) 270 mls @ 270 mls/hr IV Q12H [facility] Piperacillin Sod/Tazobactam (Sod 3.375 gm/ Sodium Chloride) 50 mls @ 100 mls/hr IV Q6H [facility] Levothyroxine Sodium (Levothyroxine Sodium 50 Mcg Tablet) 50 mcg PO DAILY@0630 [facility] Magnesium Oxide (Magnesium Oxide 400 Mg Tablet) 400 mg PO DAILY@1700 [facility] Melatonin (Melatonin 3 Mg Tablet) 6 mg PO BEDTIME PRN PRN Reason: Insomnia Multivitamins/Vitamin C (Multivitamin Tablet) 1 tab PO DAILY [facility] Non-Formulary Medication (Pantoprazole) 40 mg PO BEDTIME [facility] Non-Formulary Medication (Zeaxanthin) 1 mg PO DAILY [facility] Pharmacy Consult (Consult Rx Vancomycin Dosing) 1 each MISCELLANE DAILY PRN PRN Reason: Consult order Senna (Sennosides 8.6 Mg Tablet) 17.2 mg PO BEDTIME PRN PRN Reason: Constipation Sertraline HCl (Sertraline Hcl 100 Mg Tablet) 100 mg PO DAILY [facility] Sodium Chloride (0.9 % Sodium Chloride Flush 3 Ml Syringe) 3 ml IVFLUSH QSHIFT [facility] Home Medications Medication Instructions Recorded Confirmed Last Taken Type albuterol sulfate 90 mcg/actuation 2 inh INHALATION Q4H PRN 01/12/20 04/30/21 04/05/21 History aerosol inhaler levothyroxine 50 mcg tablet 50 mcg PO DAILY@0630 01/12/20 04/30/21 04/06/21 History Bone Boost 1 tab PO TID 02/10/21 04/30/21 04/05/21 History Lactobacillus 40-Bifidobact 2 cap PO BEDTIME 12/05/2904/30/21 04/05/21 History 3-S.thermophilus 100 billion cell capsule (Probiotic) Zeaxanthin 1 mg PO DAILY 02/10/21 04/30/21 04/05/21 History cyanocobalamin (vitamin B-12) 1,000 mcg PO DAILY 02/10/21 04/30/21 04/05/21 History 1,000 mcg tablet folic acid 1 mg tablet 1 mg PO DAILY 02/10/21 04/30/21 04/05/21 History ipratropium 0.5 mg-albuterol 3 mg 3 ml INHALATION BID PRN 02/10/21 04/30/21 04/05/21 History (2.5 mg base)/3 mL nebulization soln lutein 20 mg capsule 20 mg PO DAILY 02/10/21 04/30/21 04/05/21 History magnesium oxide 400 mg PO DAILY@1700 02/10/21 04/30/21 04/05/21 History multivitamin 1 tab PO DAILY 02/10/21 04/30/21 04/05/21 History sertraline 100 mg tablet 100 mg PO DAILY 02/20/21 04/30/21 04/05/21 History pantoprazole 40 mg tablet,delayed 40 mg PO BEDTIME 04/08/21 04/30/21 2 Days Ago History release ~04/06/21 fluticasone fur. 200 mcg-umeclid 1 puff INHALATION DAILY 05/01/21 05/01/21 Unknown History 62.5 mcg-vilant 25 mcg inhalat.powder (Trelegy Ellipta) sodium chloride 7 % for 1 vial INHALATION BID 05/01/21 05/01/21 Unknown History nebulization Physical Exam Vital Signs and Narrative: Vital Signs: Last Vital Signs Temp 98.2 F 04/30/21 22:00 Pulse 61 04/30/21 23:13 Resp 16 04/30/21 23:13 BP 132/62 04/30/21 23:13 Pulse Ox 98 04/30/21 23:13 Oxygen Flow Rate 2 04/30/21 18:46 BMI result Body Mass Index 20.9 Gen: Appears be in no acute distress. On supplemental oxygen. Speaks in full sentences. HEENT: NCAT, Moist mucosa. Pulmonary: Coarse breath sounds, rales and rhonchi present. Mild occasional expiratory wheezing noted. CVS: Normal S1-S2 Abdomen: BS+, Soft, Nontender Extremities: Warm well perfused Neuro: Alert and awake. Grossly nonfocal Results Labs CBC and Chem 7: 05/10/21 08:02 05/10/21 08:02 Labs: Laboratory Results - last 24 hr 04/30/21 04/30/21 04/30/21 19:58 19:58 19:58 MCV 99.4 H MCH 32.0 MCHC 32.2 RDW 17.2 H Plt Count 152 L MPV 10.6 Immature Gran % (Auto) 0.4 Neut % (Auto) 70.7 Lymph % (Auto) 21.0 [place] % (Auto) 5.5 Eos % (Auto) 2.0 Baso % (Auto) 0.4 Lymph # (Auto) 2.8 [place] # (Auto) 0.7 Eos # (Auto) 0.3 Baso # (Auto) 0.1 Abs Immat Gran (auto) 0.05 H Absolute Neuts (auto) 9.3 H Absolute Nucleated RBC 0.000 Nucleated RBC % (auto) 0.0 PT 22.5 H INR 2.0 H Anion Gap Estim Creat Clear Calc Estimated GFR Random Glucose Lactic Acid Calcium Total Bilirubin AST ALT Alkaline Phosphatase B-Natriuretic Peptide Total Protein Albumin COVID-19 (SILVER) Negative COVID-19 Clin Com See Note 04/30/21 04/30/21 04/30/21 19:58 19:58 19:58 MCV MCH MCHC RDW Plt Count MPV Immature Gran % (Auto) Neut % (Auto) Lymph % (Auto) [place] % (Auto) Eos % (Auto) Baso % (Auto) Lymph # (Auto) [place] # (Auto) Eos # (Auto) Baso # (Auto) Abs Immat Gran (auto) Absolute Neuts (auto) Absolute Nucleated RBC Nucleated RBC % (auto) PT INR Anion Gap 15 Estim Creat Clear Calc 47.9 Estimated GFR > 60 Random Glucose 91 Lactic Acid 1.3 Calcium 8.7 D Total Bilirubin 1.0 AST 20 ALT 15 Alkaline Phosphatase 49 B-Natriuretic Peptide 564 H Total Protein 5.6 L Albumin 2.9 L COVID-19 (SILVER) COVID-19 Clin Com Imaging Radiologist's Impressions: Impressions Chest X-Ray 04/30/21 19:17 IMPRESSION: Increase in the bilateral patchy airspace opacities. 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 noted to have following-> Shortness of breath/dyspnea on exertion: Patient denies any chest pain. Likely in the setting of pneumonia/COPD. Currently on supplemental oxygen. Breathing comfortably. EKG nonischemic Troponin 29-> repeat pending Pneumonia: Hcap. Continue IV vancomycin and Zosyn History of PE: Patient on Eliquis Patient was not able to get CT angio of the ches given contrast allergy. Patient recent V/Q scan showed intermediate probability for PE. Patient empirically started on Eliquis. For all other chronic conditions, home medications continued DVT prophylaxis: Patient on Eliquis Code status: DNR/DNI. Confirmed with the patient's daughter at bedside Quality Stroke Does the patient have a stroke diagnosis?: No VTE Prior VTE?: No VTE Risk Level:: Medical - moderate - high VTE Device Contraindication: Treatment Not Indicated VTE Drug Contraindication: N/A - Med Ordered
[2021-05-01] VITALS (9 sets, daily range): BP systolic 118–198; BP diastolic 56–86; PULSE 61–78; RESP 16–26; TEMP 36.1–37.2; O2SAT 91–99
[2021-05-01 00:13] LABS: Troponin-I High Sensitivity 15.5 ng/L (<3.5-17.0)
[2021-05-01] MEDS: Levothyroxine Sodium 50 MCG TABLET PO (05:52)
[2021-05-01] MEDS: Apixaban 2.5 MG TABLET PO ×2 (05:52→18:36)
[2021-05-01] MEDS: Piperacillin Sodium/Tazobactam 3.375 GM in 0.9 % Sodium Chloride 50 ML IV ×3 (05:52→18:02)
--- NOTE | 2021-05-01 06:28 | PC.NURSE ---
WAKING PATIENT UP FROM SLEEP, BEDDING CHANGED, VITALS DONE. WITH ALL THE MOVEMENT PATIENT NEEDING TO GO UP TO 4L O2, SAT WAS 92% ON 4L, CALLING RESP THERAPY FOR A TREATMENT. PATIENT NOT WANTING PRN TREATMENT AND WAS GIVEN RESCUE INHALER PER REQUEST
[2021-05-01] MEDS: Albuterol Sulfate 90 MCG 8 GM INHALER 2 PUFF INHALE (06:33)
--- NOTE | 2021-05-01 07:03 | PHA.PROG ---
Admission Date/Time: April 30, 2021 23:24 Indication: Respiratory Inefection Weight in k.3 kg Adjusted body weight in Kg: [place] body weight in Kg: Obesity Dosing Indication % IBW: Serum Creatinine - Last 168 Hours 04/30/21 19:58 Creatinine 0.74 Estimated CrCl and GFR - Last 168 Hours 04/30/21 19:58 Estim Creat Clear Calc 47.9 Estimated GFR > 60 Vancomycin Loading Dose: 1000 mg Current Vancomycin Dosing Regimen: 750mg q24h Vancomycin Monitoring using AUC goal of 400 - 600 range with trough as surrogate marker: AUC 425; trough 13.3 Date and Time for next Vancomycin Level to be drawn: 05/02@1900 Pharmacist Comments on Vancomycin Plan: Patient's SCr could be low due to patient's age and size (lack of muscle). Since we are not tracking urine output yet, I would consider being more conservative. If CrCL improves, we may consider going up to 1g Q24 (predicted auc 557, trough 17.4). The trough is being drawn after the second dose to assess for safety. Vancomycin dosing will take advantage of [employer] as a clinical decision support tool that uses Bayesian modeling to calculate individual patient's pharmacokinetic parameters and forecast the patient's drug concentration time course with the target goal AUC 24 range of 400 - 600 mg/L/hr.
[2021-05-01] MEDS: Sertraline HCL 100 MG TABLET PO (07:47)
[2021-05-01] MEDS: Famotidine/PF 20 MG/2 ML VIAL IVPUSH ×2 (07:47→19:54)
[2021-05-01] MEDS: Cyanocobalamin (Vitamin B-12) 1,000 MCG TABLET 1000 MCG PO (07:47)
[2021-05-01] MEDS: 0.9 % Sodium Chloride Flush 3 ML SYRINGE IVFLUSH ×2 (07:48→18:32)
[2021-05-01] MEDS: Folic Acid 1 MG TABLET PO (07:48)
[2021-05-01] MEDS: Multivitamin TABLET 1 TAB PO (07:48)
--- NOTE | 2021-05-01 07:53 | PC.NURSE ---
pt arrived to overflow unit on 4l nc with increased work of breathing in stretcher. o2 was 89-90%. rt at bedside adjusting pt on to britt. medicated per emar.
--- NOTE | 2021-05-01 08:30 | PHA.MEDREC ---
Pharmacy Consult ? Medication Reconciliation Pharmacy has completed the medication reconciliation. Spoke to patients daughter Joan and updated med rec RN did accordingly. Mylene MattaD
[2021-05-01 08:49] LABS: Basophils Percent Auto 0.2 % (0-2); Hematocrit 37.3 % (37.0-47.0); Hemoglobin 11.8 g/dl (12.0-16.0); Imm Gran Abs Auto 0.03 X10*3/uL (0.00-0.03); Imm Gran Pct Auto 0.3 % (0.0-0.4); Lymphocytes Absolute Auto 0.3 X10*3/uL (1.2-4.9); Lymphocytes Percent Auto 3.6 % (20-40); MANUAL DIFF FLAG SCAN; Mean Corpuscular HGB Conc 31.6 g/dl (31.0-35.0); Mean Corpuscular Hemoglobin 31.6 pg (27.0-33.0); Monocytes Absolute Auto 0.2 X10*3/uL (0.1-1.2); Neutrophils Absolute Auto 8.1 x10*3/uL (2.0-8.3); Neutrophils Percent Auto 93.9 % (45-73); Platelet Count 166 X10*3/uL (160-400); Red Blood Count 3.73 X10*6/uL (4.20-5.50); Red Cell Distribution Width 17.2 % (11.0-16.0); SCAN SMEAR FLAG 1; White Blood Count 8.6 X10*3/uL (4.8-10.8)
[2021-05-01 09:17] LABS: Anion Gap 18 (12-20); Blood Urea Nitrogen 15 mg/dL (9-16); Calcium 9.2 mg/dL (8.4-10.2); Carbon Dioxide 21 mmol/L (22-29); Chloride 107 mmol/L (96-108); Creatinine Clr Calc Pharmacy 44.4; Estimated Glomerular Filt Rate > 60; Glucose Random 219 mg/dL (60-115); Potassium 4.5 mmol/L (3.3-5.1); Sodium 141 mmol/L (135-145)
[2021-05-01 09:26] LABS: SLIDE REVIEW VERIFIED
--- NOTE | 2021-05-01 10:11 | PC.NURSE ---
PT GOT HYPOXIC AND TACHYPNEA WITH AMBULATION TO THE BATHROOM. SHE WAS ABLE TO RECOVER WITH REST AND SHORT INCREASED OF 02
--- NOTE | 2021-05-01 14:54 | MHC.CM.PN ---
PT REPORTS SHE LIVES ALONE AND IS INDEPENDENT AT BASELINE PT REPORTS SHE IS ACTIVE WITH [facility] FOR SN/PT/MESSENGER OFFICE PT HAS A CANE FOR DME P[T REPORTS HER DAUGHTER, MICHELLE, IS HER HCP AND HER PCP IS HEB[facility] PT IS VACCINATED AGAINST COVID X 3 PT ALSO REPORTS SHE HAS BEEN APPROVED FOR MORE HOURS THROUGH [facility]. SHE REPORTS IT HAS NOT STARTED YET, BUT SHE WILL HAVE TWO HOURS TWICE PER WEEK OF TRANSPLANT NURSE SERVICES IMM DELIVERED, COPY SENT TO [facility] CURRENT DC PLAN IS HOME, RESUME [facility] TO TRANSPORT
--- NOTE | 2021-05-01 16:27 | P.PNIM_ITS ---
Subjective Subjective Date of Service: 05/01/21 Interval History: No acute events overnight. Respiratory status stable Review of Systems Denies chest pain Admits to ongoing shortness of breath at at rest; worse with exertion It denies nausea vomiting diarrhea Physical Exam Vital Signs: Vital Signs: Last Vital Signs Temp 97 F 05/01/21 07:50 Pulse 63 05/01/21 10:56 Resp 20 05/01/21 10:56 BP 133/77 05/01/21 10:56 Pulse Ox 99 05/01/21 10:56 Oxygen Flow Rate 2 04/30/21 18:46 BMI result Body Mass Index 20.9 Const: Other: Awake alert oriented x3 no acute distress Resp: Other: Diminished throughout with diffuse fine rhonchi; crackles at bases. Rhonchi improved with cough Cardio: Other: No S4; positive S1-S2; no S3 murmurs rubs or gallops GI: Other: Soft nontender nondistended with normoactive bowel sounds. Neuro: Other: Cranial nerves 2-12 grossly intact as tested. Motor is 5/5 all extremities. Sensation is intact. Cognition appropriate Extrem: Other: No edema bilaterally Objective Data Active Medications Acetaminophen (Acetaminophen 325 Mg Tablet) 650 mg PO Q6H PRN PRN Reason: Pain, Mild (Pain Scale 1-3) Albuterol Sulfate (Albuterol Sulfate 90 Mcg 8 Gm Inhaler) 2 puff INHALE Q4H PRN PRN Reason: Shortness Of Breath Last Admin: 05/01/21 06:33 Dose: 2 puff Documented by: CAROLANN Albuterol/Ipratropium (Albuterol/Iprat 2.5/0.5mg 3 Ml Ampul.Neb) 3 ml INHALE BID PRN PRN Reason: Shortness Of Breath Or Wheezing Albuterol/Ipratropium (Albuterol/Iprat 2.5/0.5mg 3 Ml Ampul.Neb) 3 ml INHALE RQ4H PRN PRN Reason: Shortness of Breath/Wheezing Apixaban (Apixaban 2.5 Mg Tablet) 2.5 mg PO BID@0600,1800 [facility] Last Admin: 05/01/21 05:52 Dose: 2.5 mg Documented by: GRZEGORZ Cyanocobalamin (Cyanocobalamin (Vitamin B-12) 1,000 Mcg Tablet) 1,000 mcg PO DAILY [facility] Last Admin: 05/01/21 07:47 Dose: 1,000 mcg Documented by: OUMOU Famotidine (Famotidine/Pf 20 Mg/2 Ml Vial) 20 mg IVPUSH BID [facility] Last Admin: 05/01/21 07:47 Dose: 20 mg Documented by: OUMOU Folic Acid (Folic Acid 1 Mg Tablet) 1 mg PO DAILY [facility] Last Admin: 05/01/21 07:48 Dose: 1 mg Documented by: OUMOU Piperacillin Sod/Tazobactam (Sod 3.375 gm/ Sodium Chloride) 50 mls @ 100 mls/hr IV Q6H [facility] Last Infusion: 05/01/21 11:44 Dose: 0 mls/hr Documented by: OUMOU Vancomycin HCl 750 mg/ Sodium (Chloride) 265 mls @ 265 mls/hr IV Q24H [facility] Levothyroxine Sodium (Levothyroxine Sodium 50 Mcg Tablet) 50 mcg PO DAILY@0630 [facility] Last Admin: 05/01/21 05:52 Dose: 50 mcg Documented by: GRZEGORZ Magnesium Oxide (Magnesium Oxide 400 Mg Tablet) 400 mg PO DAILY@1700 [facility] Melatonin (Melatonin 3 Mg Tablet) 6 mg PO BEDTIME PRN PRN Reason: Insomnia Multivitamins/Vitamin C (Multivitamin Tablet) 1 tab PO DAILY [facility] Last Admin: 05/01/21 07:48 Dose: 1 tab Documented by: OUMOU Omeprazole (Omeprazole 20 Mg Capsule.Dr) 20 mg PO BEDTIME [facility] Pharmacy Consult (Consult Rx Vancomycin Dosing) 1 each MISCELLANE DAILY PRN PRN Reason: Consult order Senna (Sennosides 8.6 Mg Tablet) 17.2 mg PO BEDTIME PRN PRN Reason: Constipation Sertraline HCl (Sertraline Hcl 100 Mg Tablet) 100 mg PO DAILY [facility] Last Admin: 05/01/21 07:47 Dose: 100 mg Documented by: OUMOU Sodium Chloride (0.9 % Sodium Chloride Flush 3 Ml Syringe) 3 ml IVFLUSH QSHIFT [facility] Last Admin: 05/01/21 07:48 Dose: 3 ml Documented by: OUMOU Labs CBC & Chem 7: 05/01/21 08:10 05/01/21 08:10 Labs: Laboratory Results - last 24 hr 04/30/21 04/30/21 04/30/21 19:58 19:58 19:58 MCV 99.4 H MCH 32.0 MCHC 32.2 RDW 17.2 H Plt Count 152 L MPV 10.6 Immature Gran % (Auto) 0.4 Neut % (Auto) 70.7 Lymph % (Auto) 21.0 [place] % (Auto) 5.5 Eos % (Auto) 2.0 Baso % (Auto) 0.4 Lymph # (Auto) 2.8 [place] # (Auto) 0.7 Eos # (Auto) 0.3 Baso # (Auto) 0.1 Abs Immat Gran (auto) 0.05 H Absolute Neuts (auto) 9.3 H Absolute Nucleated RBC 0.000 Nucleated RBC % (auto) 0.0 Smear Tech's Comments PT 22.5 H INR 2.0 H Anion Gap Estim Creat Clear Calc Estimated GFR Random Glucose Lactic Acid Calcium Total Bilirubin AST ALT Alkaline Phosphatase B-Natriuretic Peptide Total Protein Albumin COVID-19 (SILVER) Negative COVID-19 Clin Com See Note 04/30/21 04/30/21 04/30/21 19:58 19:58 19:58 MCV MCH MCHC RDW Plt Count MPV Immature Gran % (Auto) Neut % (Auto) Lymph % (Auto) [place] % (Auto) Eos % (Auto) Baso % (Auto) Lymph # (Auto) [place] # (Auto) Eos # (Auto) Baso # (Auto) Abs Immat Gran (auto) Absolute Neuts (auto) Absolute Nucleated RBC Nucleated RBC % (auto) Smear Tech's Comments PT INR Anion Gap 15 Estim Creat Clear Calc 47.9 Estimated GFR > 60 Random Glucose 91 Lactic Acid 1.3 Calcium 8.7 D Total Bilirubin 1.0 AST 20 ALT 15 Alkaline Phosphatase 49 B-Natriuretic Peptide 564 H Total Protein 5.6 L Albumin 2.9 L COVID-19 (SILVER) COVID-GLO Science 05/01/21 05/01/21 08:10 08:10 MCV 100.0 H MCH 31.6 MCHC 31.6 RDW 17.2 H Plt Count 166 MPV 11.0 Immature Gran % (Auto) 0.3 Neut % (Auto) 93.9 H Lymph % (Auto) 3.6 L [place] % (Auto) 2.0 Eos % (Auto) 0.0 Baso % (Auto) 0.2 Lymph # (Auto) 0.3 L [place] # (Auto) 0.2 Eos # (Auto) 0.0 Baso # (Auto) 0.0 Abs Immat Gran (auto) 0.03 Absolute Neuts (auto) 8.1 Absolute Nucleated RBC 0.000 Nucleated RBC % (auto) 0.0 Smear Tech's Comments VERIFIED PT INR Anion Gap 18 Estim Creat Clear Calc 44.4 Estimated GFR > 60 Random Glucose 219 H Lactic Acid Calcium 9.2 Total Bilirubin AST ALT Alkaline Phosphatase B-Natriuretic Peptide Total Protein Albumin COVID-19 (SILVER) COVID-19 Clin Com Microbiology Microbiology Results: Microbiology 05/01/21 07:31 Gram Stain - Final Sputum - Expectorated Sputum Culture - Final Assessment and Plan (1) HAP (hospital-acquired pneumonia): Status: Acute (2) Pulmonary emboli: Status: Acute Plan 85 years old with 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 had intermediate probability of V/Q scan on 04/18 and was started on Eliquis.Completed course of prednisone and doxycycline. Discharged 04/15/21 1.Pneumonia(bilat patchy infiltrates). -IV vancomycin and Zosyn to cover Hospital aquired -pulmonary consult in am -continue pulmonary toilet 2. PE(suspected on V/Q) - empirical eloquist however pt agreed only to subtheraputic dose -continue same; await Pulm input Eloquist DNR/DNI Quality Stroke Does the patient have a stroke diagnosis?: No VTE Prior VTE?: No VTE Risk Level:: Medical - moderate - high VTE Device Contraindication: Treatment Not Indicated VTE Drug Contraindication: N/A - Med Ordered
[2021-05-01] MEDS: Magnesium Oxide 400 MG TABLET PO (18:02)
[2021-05-01] MEDS: methylPREDNISolone Sod Succ 125 MG/2 ML VIAL 60 MG IVPUSH (18:36)
--- NOTE | 2021-05-01 18:39 | PC.NURSE ---
PT EATING REMAINS ON O2 SUPPORT WITH OSMAN CANNULA. SHE DECOMPS WITH ACTIVITY. SHE WAS OFFERED A RESP TREATMENT BUT DECLINES AT THIS TIME
[2021-05-01] MEDS: Omeprazole 20 MG CAPSULE.DR PO (19:53)
[2021-05-01] MEDS: vancomycin HCL 750 MG in 0.9 % Sodium Chloride 250 ML 265 MG IV (20:24)
[2021-05-01] MEDS: Albuterol/Iprat 2.5/0.5MG 3 ML AMPUL.NEB INHALE (23:03)
[2021-05-02] VITALS (9 sets, daily range): BP systolic 123–167; BP diastolic 52–85; PULSE 62–66; RESP 18–22; TEMP 36.1–36.7; O2SAT 88–98
[2021-05-02] MEDS: Piperacillin Sodium/Tazobactam 3.375 GM in 0.9 % Sodium Chloride 50 ML IV ×5 (00:31→22:52)
[2021-05-02] MEDS: 0.9 % Sodium Chloride Flush 3 ML SYRINGE IVFLUSH (00:36)
[2021-05-02] MEDS: methylPREDNISolone Sod Succ 125 MG/2 ML VIAL 60 MG IVPUSH ×3 (01:07→17:30)
--- NOTE | 2021-05-02 02:35 | PC.NURSE ---
This rn took over patient's care at 1900. Patient alert and oriented x3, denies pain at this time. Patient reports sob with any activity, currently on 3 liters britt, l/s crackles at bases, intermittent nonproductive cough noted. 2244; Patient became very sob after getting up to brush teeth for bedtime, respiratory called for breathing treatment with good effect. 0000; patient resting in bed with oxygen sats of 95% on 3 liters britt. Call conroy within reach.
[2021-05-02] MEDS: Albuterol/Iprat 2.5/0.5MG 3 ML AMPUL.NEB INHALE (05:04)
[2021-05-02] MEDS: Apixaban 2.5 MG TABLET PO ×2 (05:46→17:30)
[2021-05-02] MEDS: Levothyroxine Sodium 50 MCG TABLET PO (05:46)
[2021-05-02] MEDS: Acetaminophen 325 MG TABLET 650 MG PO ×2 (06:00→14:03)
[2021-05-02 08:05] LABS: Basophils Percent Auto 0.1 % (0-2); Hematocrit 31.4 % (37.0-47.0); Hemoglobin 10.2 g/dl (12.0-16.0); Imm Gran Abs Auto 0.06 X10*3/uL (0.00-0.03); Imm Gran Pct Auto 0.5 % (0.0-0.4); Lymphocytes Absolute Auto 0.3 X10*3/uL (1.2-4.9); Lymphocytes Percent Auto 1.9 % (20-40); MANUAL DIFF FLAG SCAN; Mean Corpuscular HGB Conc 32.5 g/dl (31.0-35.0); Mean Corpuscular Hemoglobin 31.8 pg (27.0-33.0); Mean Corpuscular Volume 97.8 fL (80.0-98.0); Mean Platelet Volume 10.8 fL (9.4-12.3); Monocytes Absolute Auto 0.3 X10*3/uL (0.1-1.2); Monocytes Percent Auto 2.3 % (2-11); Neutrophils Absolute Auto 12.7 x10*3/uL (2.0-8.3); Neutrophils Percent Auto 95.2 % (45-73); Platelet Count 164 X10*3/uL (160-400); Red Blood Count 3.21 X10*6/uL (4.20-5.50); SCAN SMEAR FLAG 1; White Blood Count 13.3 X10*3/uL (4.8-10.8)
[2021-05-02 08:23] LABS: Alanine Aminotransferase 21 U/L (0-31); Alkaline Phosphatase 52 U/L (39-117); Anion Gap 12 (12-20); Aspartate Amino Transferase 23 U/L (5-31); Bilirubin Total 0.4 mg/dL (0.0-1.0); Blood Urea Nitrogen 22 mg/dL (9-16); Calcium 9.1 mg/dL (8.4-10.2); Carbon Dioxide 24 mmol/L (22-29); Chloride 108 mmol/L (96-108); Creatinine Clr Calc Pharmacy 43.8; Estimated Glomerular Filt Rate > 60; Glucose Fasting 186 mg/dL (60-99); Potassium 4.2 mmol/L (3.3-5.1); Sodium 140 mmol/L (135-145); Total Protein 5.7 g/dL (6.5-8.0)
[2021-05-02 08:57] LABS: SLIDE REVIEW VERIFIED
[2021-05-02] MEDS: Folic Acid 1 MG TABLET PO (09:03)
[2021-05-02] MEDS: Famotidine/PF 20 MG/2 ML VIAL IVPUSH ×2 (09:03→20:50)
[2021-05-02] MEDS: Sertraline HCL 100 MG TABLET PO (09:03)
[2021-05-02] MEDS: Multivitamin TABLET 1 TAB PO (09:03)
--- NOTE | 2021-05-02 09:04 | PC.NURSE ---
Pt received from slot shift supervisor: Pt AOX4 with noted frustration and anger due to frequent hospital visits. NSR noted and lungs clear. Pt has intermittent dry cough. Noted tachypneia. Pt remains on 3L N/C on [place]. Pt abd soft and non-tender. Soybean Grower currently at bedside.
[2021-05-02] MEDS: Cyanocobalamin (Vitamin B-12) 1,000 MCG TABLET 1000 MCG PO (09:50)
--- NOTE | 2021-05-02 13:40 | P.PNIM_ITS ---
Subjective Subjective Date of Service: 05/02/21 Interval History: No acute issues overnight. Breathing minimally improved therapies Review of Systems Denies chest pain Denies nausea vomiting diarrhea Admits to exertional shortness of breath; minimal movement Physical Exam Vital Signs: Vital Signs: Last Vital Signs Temp 98.1 F 05/02/21 08:22 Pulse 63 05/02/21 08:22 Resp 18 05/02/21 08:22 BP 123/52 L 05/02/21 08:22 Pulse Ox 94 05/02/21 08:22 Oxygen Flow Rate 2 04/30/21 18:46 BMI result Body Mass Index 20.9 Const: Other: Awake alert oriented x3 in no acute distress Resp: Other: Dizziness all fontanez fine rhonchi that clear with cough. Scattered expiratory wheezes Cardio: Other: No S4; positive S1-S2; no S3 murmurs rubs or gallops GI: Other: Soft nontender nondistended with normoactive bowel sounds x4 quadrants Extrem: Other: No edema bilaterally Objective Data Active Medications Acetaminophen (Acetaminophen 325 Mg Tablet) 650 mg PO Q6H PRN PRN Reason: Pain, Mild (Pain Scale 1-3) Last Admin: 05/02/21 06:00 Dose: 650 mg Documented by: BENIGNO Albuterol Sulfate (Albuterol Sulfate 90 Mcg 8 Gm Inhaler) 2 puff INHALE Q4H PRN PRN Reason: Shortness Of Breath Last Admin: 05/01/21 06:33 Dose: 2 puff Documented by: CAROLANN Albuterol/Ipratropium (Albuterol/Iprat 2.5/0.5mg 3 Ml Ampul.Neb) 3 ml INHALE BID PRN PRN Reason: Shortness Of Breath Or Wheezing Last Admin: 05/02/21 05:04 Dose: 3 ml Documented by: ZOEY Albuterol/Ipratropium (Albuterol/Iprat 2.5/0.5mg 3 Ml Ampul.Neb) 3 ml INHALE RQ4H PRN PRN Reason: Shortness of Breath/Wheezing Apixaban (Apixaban 2.5 Mg Tablet) 2.5 mg PO BID@0600,1800 [facility] Last Admin: 05/02/21 05:46 Dose: 2.5 mg Documented by: BENIGNO Cyanocobalamin (Cyanocobalamin (Vitamin B-12) 1,000 Mcg Tablet) 1,000 mcg PO DAILY [facility] Last Admin: 05/02/21 09:50 Dose: 1,000 mcg Documented by: DANIELA Comments: pt initially refused this medication, but now would like to take it. medication given to pt, and documenting now. Famotidine (Famotidine/Pf 20 Mg/2 Ml Vial) 20 mg IVPUSH BID [facility] Last Admin: 05/02/21 09:03 Dose: 20 mg Documented by: DANIELA Folic Acid (Folic Acid 1 Mg Tablet) 1 mg PO DAILY [facility] Last Admin: 05/02/21 09:03 Dose: 1 mg Documented by: DANIELA Piperacillin Sod/Tazobactam (Sod 3.375 gm/ Sodium Chloride) 50 mls @ 100 mls/hr IV Q6H [facility] Last Infusion: 05/02/21 12:32 Dose: 0 mls/hr Documented by: DANIELA Vancomycin HCl 750 mg/ Sodium (Chloride) 265 mls @ 265 mls/hr IV Q24H [facility] Last Infusion: 05/01/21 22:00 Dose: 0 mls/hr Documented by: BENIGNO Levothyroxine Sodium (Levothyroxine Sodium 50 Mcg Tablet) 50 mcg PO DAILY@0630 [facility] Last Admin: 05/02/21 05:46 Dose: 50 mcg Documented by: BENIGNO Magnesium Oxide (Magnesium Oxide 400 Mg Tablet) 400 mg PO DAILY@1700 [facility] Last Admin: 05/01/21 18:02 Dose: 400 mg Documented by: EFRAIN Melatonin (Melatonin 3 Mg Tablet) 6 mg PO BEDTIME PRN PRN Reason: Insomnia Methylprednisolone Sodium Succinate (Methylprednisolone Sod Succ 125 Mg/2 Ml Vial) 60 mg IVPUSH Q8H [facility] Last Admin: 05/02/21 09:03 Dose: 60 mg Documented by: DANIELA Multivitamins/Vitamin C (Multivitamin Tablet) 1 tab PO DAILY [facility] Last Admin: 05/02/21 09:03 Dose: 1 tab Documented by: DANIELA Omeprazole (Omeprazole 20 Mg Capsule.) 20 mg PO BEDTIME [facility] Last Admin: 05/01/21 19:53 Dose: 20 mg Documented by: BENIGNO Pharmacy Consult (Consult Rx Vancomycin Dosing) 1 each MISCELLANE DAILY PRN PRN Reason: Consult order Senna (Sennosides 8.6 Mg Tablet) 17.2 mg PO BEDTIME PRN PRN Reason: Constipation Sertraline HCl (Sertraline Hcl 100 Mg Tablet) 100 mg PO DAILY [facility] Last Admin: 05/02/21 09:03 Dose: 100 mg Documented by: DANIELA Sodium Chloride (0.9 % Sodium Chloride Flush 3 Ml Syringe) 3 ml IVFLUSH QSHIFT [facility] Last Admin: 05/02/21 10:35 Dose: Not Given Documented by: DANIELA Non-Admin Reason: Med Not Available Labs CBC & Chem 7: 05/02/21 07:48 05/02/21 07:48 Labs: Laboratory Results - last 24 hr 05/02/21 05/02/21 07:48 07:48 MCV 97.8 MCH 31.8 MCHC 32.5 RDW 17.0 H Plt Count 164 MPV 10.8 Immature Gran % (Auto) 0.5 H Neut % (Auto) 95.2 H Lymph % (Auto) 1.9 L [place] % (Auto) 2.3 Eos % (Auto) 0.0 Baso % (Auto) 0.1 Lymph # (Auto) 0.3 L [place] # (Auto) 0.3 Eos # (Auto) 0.0 Baso # (Auto) 0.0 Abs Immat Gran (auto) 0.06 H Absolute Neuts (auto) 12.7 H Absolute Nucleated RBC 0.000 Nucleated RBC % (auto) 0.0 Smear Tech's Comments VERIFIED Anion Gap 12 Estim Creat Clear Calc 43.8 Estimated GFR > 60 Fasting Glucose 186 H Calcium 9.1 Total Bilirubin 0.4 AST 23 ALT 21 Alkaline Phosphatase 52 Total Protein 5.7 L Albumin 3.0 L Microbiology Microbiology Results: Microbiology 04/30/21 20:23 Blood Culture - Preliminary Blood - Venous No growth after 24 hours. 04/30/21 19:58 Blood Culture - Preliminary Blood - Venous No growth after 24 hours. 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 had intermediate probability of V/Q scan on 04/18 and was started on Eliquis.Completed course of prednisone and doxycycline. Discharged 04/15/21 1.Pneumonia(bilat patchy infiltrates).? -IV vancomycin and Zosyn to cover Hospital aquired - Discussed with Pulm;PICC and plan for 2-3 weeks followed by inhaled Tobramycin -STR for therapies 2. PE(suspected on V/Q) - empirical cornelio however pt agreed only to subtheraputic dose -continue same; await Pulm input Cornelio DNR/DNI Quality Stroke Does the patient have a stroke diagnosis?: No VTE Prior VTE?: No VTE Risk Level:: Medical - moderate - high VTE Device Contraindication: Treatment Not Indicated VTE Drug Contraindication: N/A - Med Ordered
--- NOTE | 2021-05-02 15:50 | PC.NURSE ---
1407: Dr Menjivar made aware that pt requesting for nystatin suspension for oral thrush r/t solumedrol IVP. Pt also requesting for either lorazepam or zolpidem PRN for sleep. states he will place order. RN will continue to monitor. No new orders placed yet.
[2021-05-02] MEDS: Magnesium Oxide 400 MG TABLET PO (17:29)
[2021-05-02] MEDS: Nystatin Oral Susp 500,000 UNIT/5 ML ORAL.SUSP 200000 UNIT BUCCAL ×2 (18:51→20:53)
[2021-05-02 19:24] LABS: Vancomycin Trough 3.1 mcg/mL (10.0-20.0)
--- NOTE | 2021-05-02 19:37 | HE.PHANOTE ---
Vancomycin Dosing Addendum Increased dose to 1000 mg q24h for predicted AUC of 419. next trough 05/04/21 @1800
--- NOTE | 2021-05-02 19:51 | PC.NURSE ---
pt 02 sat 88% on 3L nasal cannula. this nurse offered to increase 02 flow but pt refused. while this nurse was taking vitals, pt was expressing frustration/complaining about being in overflow unit. pt was encouraged by nurse to not expend energy on talking and focus on her breathing. pt requesting to speak to nurse telephone supervisor or ombudsman. nurse telephone supervisor contacted. hospitalist notified of pt vitals/oxygen status.
--- NOTE | 2021-05-02 19:56 | PC.NURSE ---
88% on 3L ok per hospitalist. no new orders at this time.
--- NOTE | 2021-05-02 20:08 | P.CONPL_ITS ---
History of Present Illness History of Present Illness Consult date: 05/02/21 Chief complaint: HCAP Narrative: This is an inpatient pulmonary consultation. The patient is an 85 years old w ith nontuberculous mycobacterial lung disease and extensive bronchiectasis and mucous plugging had intermediate probability of V/Q scan on 04/18 started on Eliquis. the patient has had multiple hospitalizations with recurrent bronchiectasis exacerbation and pneumonia. She has had cultures positive for both Staph aureus and for Pseudomonas. She finished prednisone and doxycycline,? discharge on no oxygen. After her recent discharge she did follow-up with Pulmonary. She had been doing well and had been completing the course of the doxycycline. Once she stop the doxycycline and she went back on her azithromycin 3 times a week she started noticing again shortness of breath and extreme weakness and malaise. She also has been coughing and has been using her percussion vest as well as the hypertonic saline without any significant improvement. On the day of the admission the patient had significant shortness of breath and was noted to be hypoxic again. The patient was then transferred over back to the hospital for further evaluation. Her chest x-ray demonstrated worsening airspace disease and extensive bronchiectasis. She was started on vancomycin and Zosyn in appears to be doing better on the oxygen. We did consider bronchoscopy. This point the patient seems to be responding to therapy therefore we will hold off at this time. Although, based on her recurrent admissions at this point we will treat her with IV antibiotics for 21 days for bronchiectasis exacerbation. Will try to get a sputum culture but, since she is already on antibiotics is going to be of low yield to try to identify the organism. Therefore I will recommend continuing the broad antibiotic coverage. In the meantime I will hold off on her Eliquis in order for her to be able to have a bronchoscopy if her condition worsens that she will need therapeutic cleaning of the airways. Review of Systems Constitutional: Constitutional: Reports fatigue, Denies fever(s) and Reports malaise Eyes: Eyes: Denies change in vision ENT: Denies nasal congestion and Denies nasal discharge Cardiovascular: Cardiovascular: Denies chest pain and Reports dyspnea on exer tion Respiratory: Respiratory: Reports change in phlegm color, Reports chest congestion, Reports cough, Denies hemoptysis, Reports excessive phlegm production and Reports dyspnea on exertion Gastrointestinal: Gastrointestinal: Reports no additional gastrointestinal complaints Musculoskeletal: Musculoskeletal: Reports no additional musculoskeletal complaints Endocrine: Endocrine: Reports fatigue [facility] Past Medical History Medical History (Updated 05/02/21 @ 20:31 by Jayjay Can MD) Acute and chronic respiratory failure Bronchiectasis Bronchiectasis, uncomplicated COPD (chronic obstructive pulmonary disease) COPD exacerbation Insomnia Pacemaker Pleuritic chest pain Pneumonia Presence of Watchman left atrial appendage closure device Sedimentation rate elevation Weight loss Family History Family History (Reviewed 04/30/21 @ 21: by Mendoza Sibley MD) Father No problems noted. Surgical History Surgical History (Reviewed 04/30/21 @ 21: by Mendoza Sibely MD) No pertinent past surgical history Social History Social History (Reviewed 04/30/21 @ : by Mendoza Sibley MD) Household Members: None Housing: Apartment Do you presently have visiting nurse or other home services: Yes Alcohol intake: never Patient Tobacco Use Status: Never used Tobacco Use of substances other than those prescribed or required for medical reasons: No Advance Directives: Yes Advance Directives Information Provided: No Advance Directives on File: No Advance Directives Date on File: 04/08/21 service: No Current occupational status: retired [employer] Allergies Allergy/AdvReac Type Severity Reaction Status Date / Time Iodinated Contrast Media Allergy Severe Itch and Verified 04/18/21 11:05 [CONTRAST, IV] Rash Active Medications: Current Medications Acetaminophen (Acetaminophen 325 Mg Tablet) 650 mg PO Q6H PRN PRN Reason: Pain, Mild (Pain Scale 1-3) Last Admin: 05/02/21 14:03 Dose: 650 mg Documented by: Albuterol Sulfate (Albuterol Sulfate 90 Mcg 8 Gm Inhaler) 2 puff INHALE Q4H PRN PRN Reason: Shortness Of Breath Last Admin: 05/01/21 06:33 Dose: 2 puff Documented by: Albuterol/Ipratropium (Albuterol/Iprat 2.5/0.5mg 3 Ml Ampul.Neb) 3 ml INHALE BID PRN PRN Reason: Shortness Of Breath Or Wheezing Last Admin: 05/02/21 05:04 Dose: 3 ml Documented by: Albuterol/Ipratropium (Albuterol/Iprat 2.5/0.5mg 3 Ml Ampul.Neb) 3 ml INHALE RQ4H PRN PRN Reason: Shortness of Breath/Wheezing Apixaban (Apixaban 2.5 Mg Tablet) 2.5 mg PO BID@0600,1800 [facility] Last Admin: 05/02/21 17:30 Dose: 2.5 mg Documented by: Cyanocobalamin (Cyanocobalamin (Vitamin B-12) 1,000 Mcg Tablet) 1,000 mcg PO DAILY [facility] Last Admin: 05/02/21 09:50 Dose: 1,000 mcg Documented by: Famotidine (Famotidine/Pf 20 Mg/2 Ml Vial) 20 mg IVPUSH BID [facility] Last Admin: 05/02/21 09:03 Dose: 20 mg Documented by: Folic Acid (Folic Acid 1 Mg Tablet) 1 mg PO DAILY [facility] Last Admin: 05/02/21 09:03 Dose: 1 mg Documented by: Piperacillin Sod/Tazobactam (Sod 3.375 gm/ Sodium Chloride) 50 mls @ 100 mls/hr IV Q6H [facility] Last Infusion: 05/02/21 17:58 Dose: Infused Documented by: Vancomycin HCl 1,000 mg/ (Sodium Chloride) 270 mls @ 270 mls/hr IV Q24H [facility] Levothyroxine Sodium (Levothyroxine Sodium 50 Mcg Tablet) 50 mcg PO DAILY@0630 [facility] Last Admin: 05/02/21 05:46 Dose: 50 mcg Documented by: Lorazepam (Lorazepam 0.5 Mg Tablet) 0.5 mg PO BEDTIME PRN PRN Reason: Insomnia Magnesium Oxide (Magnesium Oxide 400 Mg Tablet) 400 mg PO DAILY@1700 [facility] Last Admin: 05/02/21 17:29 Dose: 400 mg Documented by: Melatonin (Melatonin 3 Mg Tablet) 6 mg PO BEDTIME PRN PRN Reason: Insomnia Methylprednisolone Sodium Succinate (Methylprednisolone Sod Succ 125 Mg/2 Ml Vial) 60 mg IVPUSH Q8H [facility] Last Admin: 05/02/21 17:30 Dose: 60 mg Documented by: Multivitamins/Vitamin C (Multivitamin Tablet) 1 tab PO DAILY [facility] Last Admin: 05/02/21 09:03 Dose: 1 tab Documented by: Nystatin (Nystatin Oral Susp 500,000 Unit/5 Ml Oral.Susp) 200,000 unit BUCCAL QID [facility]; Protocol Stop: 05/07/21 16:59 Last Admin: 05/02/21 18:51 Dose: 200,000 unit Documented by: Omeprazole (Omeprazole 20 Mg Capsule.Dr) 20 mg PO BEDTIME [facility] Last Admin: 05/01/21 19:53 Dose: 20 mg Documented by: Pharmacy Consult (Consult Rx Vancomycin Dosing) 1 each MISCELLANE DAILY PRN PRN Reason: Consult order Senna (Sennosides 8.6 Mg Tablet) 17.2 mg PO BEDTIME PRN PRN Reason: Constipation Sertraline HCl (Sertraline Hcl 100 Mg Tablet) 100 mg PO DAILY [facility] Last Admin: 05/02/21 09:03 Dose: 100 mg Documented by: Sodium Chloride (0.9 % Sodium Chloride Flush 3 Ml Syringe) 3 ml IVFLUSH QSHIFT [facility] Last Admin: 05/02/21 10:35 Dose: Not Given Documented by: Home Medications Medication Instructions Recorded Confirmed Last Taken Type albuterol sulfate 90 mcg/actuation 2 inh INHALATION Q4H PRN 01/12/20 04/30/21 04/05/21 History aerosol inhaler levothyroxine 50 mcg tablet 50 mcg PO DAILY@0630 01/12/20 04/30/21 04/06/21 History Bone Boost 1 tab PO TID 02/10/21 04/30/21 04/05/21 History Lactobacillus 40-Bifidobact 2 cap PO BEDTIME 02/10/21 04/30/21 04/05/21 History 3-S.thermophilus 100 billion cell capsule (Probiotic) Zeaxanthin 1 mg PO DAILY 02/10/21 04/30/21 04/05/21 History cyanocobalamin (vitamin B-12) 1,000 mcg PO DAILY 02/10/21 04/30/21 04/05/21 History 1,000 mcg tablet folic acid 1 mg tablet 1 mg PO DAILY 02/10/21 04/30/21 04/05/21 History ipratropium 0.5 mg-albuterol 3 mg 3 ml INHALATION BID PRN 02/10/21 04/30/21 04/05/21 History (2.5 mg base)/3 mL nebulization soln lutein 20 mg capsule 20 mg PO DAILY 02/10/21 04/30/21 04/05/21 History magnesium oxide 400 mg PO DAILY@1700 02/10/21 04/30/21 04/05/21 History multivitamin 1 tab PO DAILY 02/10/21 04/30/21 04/05/21 History sertraline 100 mg tablet 100 mg PO DAILY 02/20/21 04/30/21 04/05/21 History pantoprazole 40 mg tablet,delayed 40 mg PO BEDTIME 04/08/21 04/30/21 2 Days Ago History release ~04/06/21 fluticasone fur. 200 mcg-umeclid 1 puff INHALATION DAILY 05/01/21 05/01/21 Unknown History 62.5 mcg-vilant 25 mcg inhalat.powder (Trelegy Ellipta) sodium chloride 7 % for 1 vial INHALATION BID 05/01/21 05/01/21 Unknown History nebulization Physical Exam Vital Signs: Vital Signs: Last Vital Signs Temp 98.1 F 05/02/21 08:22 Pulse 63 05/02/21 19:42 Resp 22 H 05/02/21 19:42 BP 164/79 H 05/02/21 19:42 Pulse Ox 88 L 05/02/21 19:42 Oxygen Flow Rate 2 04/30/21 18:46 BMI result Body Mass Index 20.9 Const: General: alert Neck: Neck: Yes normal visual inspection, Yes full ROM and Yes no lymphadenopathy Chest: Chest palpation & inspection: normal inspection of the chest Resp: Auscultation: rhonchi and diminished lung sounds Cardio: Rate: regular rate Rhythm: regular rhythm Heart sounds: S1 normal heart sound present and S2 normal heart sound present GI: Palpation (GI): Soft to palpation and nontender Auscultation: normal bowel sounds Skin: General skin exam: rashes and/or lesions noted Results Laboratory Findings CBC and BMP: 05/02/21 07:48 05/02/21 07:48 ABG, PT/INR, D-dimer: PT/INR, D-dimer PT 22.5 SEC (9.9-13.0) H 04/30/21 19:58 INR 2.0 (0.9-1.1) H 04/30/21 19:58 Abnormal lab findings: Abnormal Labs 04/30/21 04/30/21 04/30/21 19:58 19:58 19:58 WBC 13.2 H RBC 3.25 L Hgb 10.4 L Hct 32.3 L MCV 99.4 H RDW 17.2 H Plt Count 152 L Immature Gran % (Auto) Neut % (Auto) Lymph % (Auto) Lymph # (Auto) Abs Immat Gran (auto) 0.05 H Absolute Neuts (auto) 9.3 H PT 22.5 H INR 2.0 H Carbon Dioxide 21 L BUN Random Glucose Fasting Glucose Troponin I High Sens B-Natriuretic Peptide Total Protein 5.6 L Albumin 2.9 L Vancomycin Trough 04/30/21 05/01/21 05/01/21 19:58 08:10 08:10 WBC RBC 3.73 L Hgb 11.8 L Hct MCV 100.0 H RDW 17.2 H Plt Count Immature Gran % (Auto) Neut % (Auto) 93.9 H Lymph % (Auto) 3.6 L Lymph # (Auto) 0.3 L Abs Immat Gran (auto) Absolute Neuts (auto) PT INR Carbon Dioxide 21 L BUN Random Glucose 219 H Fasting Glucose Troponin I High Sens 20.9 H D B-Natriuretic Peptide 564 H Total Protein Albumin Vancomycin Trough 05/02/21 05/02/21 05/02/21 07:48 07:48 18:54 WBC 13.3 H RBC 3.21 L Hgb 10.2 L Hct 31.4 L MCV RDW 17.0 H Plt Count Immature Gran % (Auto) 0.5 H Neut % (Auto) 95.2 H Lymph % (Auto) 1.9 L Lymph # (Auto) 0.3 L Abs Immat Gran (auto) 0.06 H Absolute Neuts (auto) 12.7 H PT INR Carbon Dioxide BUN 22 H Random Glucose Fasting Glucose 186 H Troponin I High Sens B-Natriuretic Peptide Total Protein 5.7 L Albumin 3.0 L Vancomycin Trough 3.1 L Microbiology: Microbiology 04/30/21 20:23 Blood - Venous Blood Culture - Preliminary No growth after 24 hours. 04/30/21 19:58 Blood - Venous Blood Culture - Preliminary No growth after 24 hours. 05/01/21 07:31 Sputum - Expectorated Gram Stain - Final 05/01/21 07:31 Sputum - Expectorated Sputum Culture - Final Assessment and Plan (1) Acute and chronic respiratory failure: Qualifiers: Respiratory failure complication: hypoxia Qualified Code(s): J96.21 - Acute and chronic respiratory failure with hypoxia Status: Acute (2) Bronchiectasis with (acute) exacerbation: Status: Acute (3) HAP (hospital-acquired pneumonia): Status: Acute (4) COPD (chronic obstructive pulmonary disease): Qualifiers: COPD type: chronic bronchitis Chronic bronchitis type: mucopurulent Qualified Code(s): J41.1 - Mucopurulent chronic bronchitis Status: Acute Plan Continue broad-spectrum antibiotics for 21 days to treat her bronchiectasis exacerbation with a history of both Pseudomonas and Staph aureus continue oxygen supplementation to maintain a pulse ox above 90% continue CPT, at home using hypertonic saline and percussion vest sputum culture holding Eliquis in case she needs a bronchoscopy. will reassess in 24 hours to avoid prolonged period of times off anticoagulation in view of her suspicion of thromboembolic disease continue respiratory therapy continue Solu-Medrol for now will continue to follow closely Procedures Date of Service Date of Service: 05/02/21
[2021-05-02] MEDS: Omeprazole 20 MG CAPSULE.DR PO (20:49)
[2021-05-02] MEDS: vancomycin HCL 1,000 MG in 0.9 % Sodium Chloride 250 ML 270 MG IV (20:55)
[2021-05-02] MEDS: LORazepam 0.5 MG TABLET PO (22:52)
--- NOTE | 2021-05-02 22:56 | PC.NURSE ---
pt informed this RN that she does not want to be woken up for vitals through the night if she is asleep. hospitalist notified
[2021-05-03] VITALS (11 sets, daily range): BP systolic 150–180; BP diastolic 63–92; PULSE 60–65; RESP 16–22; TEMP 36.4–36.6; O2SAT 82–99; BMI 19.6
[2021-05-03] MEDS: methylPREDNISolone Sod Succ 125 MG/2 ML VIAL 60 MG IVPUSH ×3 (01:40→17:50)
[2021-05-03] MEDS: Piperacillin Sodium/Tazobactam 3.375 GM in 0.9 % Sodium Chloride 50 ML IV ×3 (05:57→17:50)
[2021-05-03] MEDS: Levothyroxine Sodium 50 MCG TABLET PO (05:57)
--- NOTE | 2021-05-03 08:51 | PM.PNPUL ---
Subjective Subjective Date of Service: 05/03/21 Interval history: The patient was seen and examined. Had a restful night. Responded well to lorazepam last night. Continues on iv antibiotics. Awaiting PICC line. Held Eliquis for today. Unlikely to require a bronchoscopy. Objective Data Labs CBC & Chem 7: 05/02/21 07:48 05/02/21 07:48 Labs: Laboratory Results - last 24 hr 05/02/21 05/02/21 05/02/21 07:48 07:48 18:54 WBC 13.3 H RBC 3.21 L Hgb 10.2 L Hct 31.4 L MCV 97.8 MCH 31.8 MCHC 32.5 RDW 17.0 H Plt Count 164 MPV 10.8 Immature Gran % (Auto) 0.5 H Neut % (Auto) 95.2 H Lymph % (Auto) 1.9 L Collier % (Auto) 2.3 Eos % (Auto) 0.0 Baso % (Auto) 0.1 Lymph # (Auto) 0.3 L Collier # (Auto) 0.3 Eos # (Auto) 0.0 Baso # (Auto) 0.0 Abs Immat Gran (auto) 0.06 H Absolute Neuts (auto) 12.7 H Absolute Nucleated RBC 0.000 Nucleated RBC % (auto) 0.0 Smear Tech's Comments VERIFIED Sodium 140 Potassium 4.2 Chloride 108 Carbon Dioxide 24 Anion Gap 12 BUN 22 H Creatinine 0.81 Estim Creat Clear Calc 43.8 Estimated GFR > 60 Fasting Glucose 186 H Calcium 9.1 Total Bilirubin 0.4 AST 23 ALT 21 Alkaline Phosphatase 52 Total Protein 5.7 L Albumin 3.0 L Vancomycin Trough 3.1 L Microbiology Microbiology Results: Microbiology 04/30/21 20:23 Blood - Venous Blood Culture - Preliminary No growth after 48 hours. 04/30/21 19:58 Blood - Venous Blood Culture - Preliminary No growth after 48 hours. 05/01/21 07:31 Sputum - Expectorated Gram Stain - Final 05/01/21 07:31 Sputum - Expectorated Sputum Culture - Final Review of Systems Constitutional: Reports fatigue, Denies fever(s) and Reports malaise Eyes: Denies change in vision Denies nasal congestion and Denies nasal discharge Cardiovascular: Denies chest pain and Reports dyspnea on exertion Respiratory: Reports change in phlegm color, Reports chest congestion, Reports cough, Denies hemoptysis, Reports excessive phlegm production and Reports dyspnea on exertion Gastrointestinal: Reports no additional gastrointestinal complaints Musculoskeletal: Reports no additional musculoskeletal complaints Endocrine: Reports fatigue Physical Exam Vital Signs: Vital Signs: Last Vital Signs Temp 98.1 F 05/02/21 08:22 Pulse 60 05/03/21 05:18 Resp 18 05/03/21 05:18 BP 164/79 H 05/02/21 19:42 Pulse Ox 93 05/03/21 05:18 Oxygen Flow Rate 2 04/30/21 18:46 BMI result Body Mass Index 20.9 Const: General: alert Neck: Neck: Yes normal visual inspection, Yes full ROM and Yes no lymphadenopathy Chest: Chest palpation & inspection: normal inspection of the chest Resp: Auscultation: diminished lung sounds Cardio: Rate: regular rate Rhythm: regular rhythm Heart sounds: S1 normal heart sound present and S2 normal heart sound present GI: Palpation (GI): Soft to palpation and nontender Auscultation: normal bowel sounds Skin: General skin exam: rashes and/or lesions noted Procedures Date of Service Date of Service: 05/03/21 Assessment and Plan Assessment and plan (1) Acute and chronic respiratory failure: Status: Acute (2) HAP (hospital-acquired pneumonia): Status: Acute (3) Bronchiectasis with (acute) exacerbation: Status: Acute (4) COPD (chronic obstructive pulmonary disease): Status: Acute Plan Continue vanco and zosyn x 21 days CPT, once she gets to rehab needs to restart her percussion vest and hypertonic saline Unlikely to need bronchoscopy repeat CXR tomorrow Hold Cielo for today, ok to restart tomorrow (2.5mg) if no procedures needed Time Spent With Patient Time: Total time spent is greater than 50% in coordination of care (as documented) at patient's floor/unit and/or counseling patient: Time with patient: 15 - 24 minutes Progress Note: Quality Stroke Does the patient have a stroke diagnosis?: No
[2021-05-03] MEDS: Famotidine/PF 20 MG/2 ML VIAL IVPUSH ×2 (09:54→21:27)
[2021-05-03] MEDS: Nystatin Oral Susp 500,000 UNIT/5 ML ORAL.SUSP 200000 UNIT BUCCAL ×4 (09:55→20:25)
[2021-05-03] MEDS: Cyanocobalamin (Vitamin B-12) 1,000 MCG TABLET 1000 MCG PO (09:55)
[2021-05-03] MEDS: Sertraline HCL 100 MG TABLET PO (09:55)
[2021-05-03] MEDS: Multivitamin TABLET 1 TAB PO (09:55)
[2021-05-03] MEDS: Folic Acid 1 MG TABLET PO (09:55)
[2021-05-03] MEDS: 0.9 % Sodium Chloride Flush 3 ML SYRINGE IVFLUSH ×3 (09:56→20:26)
[2021-05-03 10:26] LABS: Basophils Percent Auto 0.1 % (0-2); Hematocrit 32.2 % (37.0-47.0); Hemoglobin 10.4 g/dl (12.0-16.0); Imm Gran Abs Auto 0.08 X10*3/uL (0.00-0.03); Imm Gran Pct Auto 0.6 % (0.0-0.4); Lymphocytes Absolute Auto 0.5 X10*3/uL (1.2-4.9); Lymphocytes Percent Auto 4.1 % (20-40); MANUAL DIFF FLAG SCAN; Mean Corpuscular HGB Conc 32.3 g/dl (31.0-35.0); Mean Corpuscular Hemoglobin 31.8 pg (27.0-33.0); Mean Corpuscular Volume 98.5 fL (80.0-98.0); Mean Platelet Volume 11.2 fL (9.4-12.3); Monocytes Absolute Auto 0.6 X10*3/uL (0.1-1.2); Monocytes Percent Auto 4.5 % (2-11); Neutrophils Absolute Auto 11.8 x10*3/uL (2.0-8.3); Neutrophils Percent Auto 90.7 % (45-73); Platelet Count 182 X10*3/uL (160-400); Red Blood Count 3.27 X10*6/uL (4.20-5.50); Red Cell Distribution Width 17.1 % (11.0-16.0); SCAN SMEAR FLAG 1
[2021-05-03 10:31] LABS: Creatinine Clr Calc Pharmacy 45.5; Estimated Glomerular Filt Rate > 60
[2021-05-03 10:40] LABS: Alanine Aminotransferase 68 U/L (0-31); Albumin Level 3.2 g/dL (3.5-5.0); Alkaline Phosphatase 65 U/L (39-117); Anion Gap 12 (12-20); Aspartate Amino Transferase 58 U/L (5-31); Bilirubin Total 0.5 mg/dL (0.0-1.0); Blood Urea Nitrogen 19 mg/dL (9-16); Carbon Dioxide 25 mmol/L (22-29); Chloride 105 mmol/L (96-108); Creatinine Clr Calc Pharmacy 45.5; Estimated Glomerular Filt Rate > 60; Glucose Fasting 118 mg/dL (60-99); Potassium 4.1 mmol/L (3.3-5.1); Sodium 138 mmol/L (135-145)
[2021-05-03 11:01] LABS: SLIDE REVIEW VERIFIED
[2021-05-03] MEDS: Albuterol Sulfate 90 MCG 8 GM INHALER 2 PUFF INHALE ×2 (11:19→15:02)
--- NOTE | 2021-05-03 11:24 | PHA.PROG ---
Admission Date/Time: April 30, 2021 23:24 Indication: Weight in k.9 kg Adjusted body weight in K.7 kg [place] body weight in K.5 kg Obesity Dosing Indication % IBW: 96 % Serum Creatinine - Last 168 Hours 04/30/21 05/01/21 05/02/21 19:58 08:10 07:48 Creatinine 0.74 0.80 0.81 05/03/21 05/03/21 10:07 10:07 Creatinine 0.74 0.74 Estimated CrCl and GFR - Last 168 Hours 04/30/21 05/01/21 05/02/21 19:58 08:10 07:48 Estim Creat Clear Calc 47.9 44.4 43.8 Estimated GFR > 60 > 60 > 60 05/03/21 05/03/21 10:07 10:07 Estim Creat Clear Calc 45.5 45.5 Estimated GFR > 60 > 60 Vancomycin Loading Dose: N/A Current Vancomycin Dosing Regimen: 1000 mg Q24H Date and Time for next Vancomycin Level to be drawn: 05/04 @ 1800 Vancomycin Trough 3.1 mcg/mL (10.0-20.0) L 05/02/21 18:54 Pharmacist Comments on Vancomycin Plan: Vancomycin orginally dosed by [facility] to be conservative due to old age and low muslce mass. Random level prior to 3rd dose was subtherapeutic at 3.1. Dose was increased to 1000 mg Q24H Since patient only has one more dose then another random level tomorrow. We will continue with 1000 mg Q24H and have the dose adjusted after level is drawn. Per insight, using the nanette model, patient will most likely required 1250 mg Q24H. Karol Serra, Praveen Vancomycin dosing will take advantage of [employer] as a clinical decision support tool that uses Bayesian modeling to calculate individual patient's pharmacokinetic parameters and forecast the patient's drug concentration time course with the target goal AUC 24 range of 400 - 600 mg/L/hr.
--- NOTE | 2021-05-03 12:07 | MHC.CM.PN ---
Per ROUNDS discussion, MD has spoken to Patient and family who hope that Patient can go to STR at [facility] [place]. Referral has been made and CM will continue to follow.
--- NOTE | 2021-05-03 12:36 | P.CNID_ITS ---
History of Present Illness Data of Consult Service Date: 05/02/21 Requesting physician: Morena Can Primary Care Provider: Rebekah Kurtz MD [facility] Reason for consult: shortness of breath She is a patient of Dr Jayjay Can who has been treated for ISIDRO presents with shortness of breath and found to have new oxygen need. She is on 4 liters. She has CXR increased hazy opacities from previous CXR but no lobar infiltrates. She has no productive sputum and no reported fevers or significant leukocytosis(has been on Prednisone earlier) Review of Systems Review of Systems: Yes all other systems are reviewed and are negative [facility] Past Medical History Medical History (Updated 05/12/21 @ 17:10 by Akshat White MD) Acute and chronic respiratory failure Aspergillosis, unspecified Bronchiectasis Bronchiectasis, uncomplicated COPD (chronic obstructive pulmonary disease) COPD exacerbation Insomnia Pacemaker Pleuritic chest pain Pneumonia Presence of Watchman left atrial appendage closure device Sedimentation rate elevation Weight loss Family History Family History Father No problems noted. Family history: reviewed and not pertinent Surgical History Surgical History No pertinent past surgical history Social History Social History Household Members: None Housing: House Do you presently have visiting nurse or other home services: No Alcohol intake: never Patient Tobacco Use Status: Former Tobacco user Quit Date: 50 years ago Advance Directives Date on File: 04/08/21 service: No Current occupational status: retired Meds Allergies Allergy/AdvReac Type Severity Reaction Status Date / Time Iodinated Contrast Media Allergy Severe Itch and Verified 04/18/21 11:05 [CONTRAST, IV] Rash Active Medications: Current Medications Acetaminophen (Acetaminophen 325 Mg Tablet) 650 mg PO Q6H PRN PRN Reason: Pain, Mild (Pain Scale 1-3) Last Admin: 05/02/21 14:03 Dose: 650 mg Documented by: Albuterol Sulfate (Albuterol Sulfate 90 Mcg 8 Gm Inhaler) 2 puff INHALE Q4H PRN PRN Reason: Shortness Of Breath Last Admin: 05/03/21 11:19 Dose: 2 puff Documented by: Albuterol/Ipratropium (Albuterol/Iprat 2.5/0.5mg 3 Ml Ampul.Neb) 3 ml INHALE BID PRN PRN Reason: Shortness Of Breath Or Wheezing Last Admin: 05/02/21 05:04 Dose: 3 ml Documented by: Albuterol/Ipratropium (Albuterol/Iprat 2.5/0.5mg 3 Ml Ampul.Neb) 3 ml INHALE RQ4H PRN PRN Reason: Shortness of Breath/Wheezing Apixaban (Apixaban 2.5 Mg Tablet) 2.5 mg PO BID@0600,1800 [facility] Last Admin: 05/02/21 17:30 Dose: 2.5 mg Documented by: Cyanocobalamin (Cyanocobalamin (Vitamin B-12) 1,000 Mcg Tablet) 1,000 mcg PO DAILY [facility] Last Admin: 05/03/21 09:55 Dose: 1,000 mcg Documented by: Famotidine (Famotidine/Pf 20 Mg/2 Ml Vial) 20 mg IVPUSH BID [facility] Last Admin: 05/03/21 09:54 Dose: 20 mg Documented by: Folic Acid (Folic Acid 1 Mg Tablet) 1 mg PO DAILY [facility] Last Admin: 05/03/21 09:55 Dose: 1 mg Documented by: Piperacillin Sod/Tazobactam (Sod 3.375 gm/ Sodium Chloride) 50 mls @ 100 mls/hr IV Q6H [facility] Last Infusion: 05/03/21 06:27 Dose: Infused Documented by: Vancomycin HCl 1,000 mg/ (Sodium Chloride) 270 mls @ 270 mls/hr IV Q24H [facility] Last Infusion: 05/02/21 21:55 Dose: Infused Documented by: Levothyroxine Sodium (Levothyroxine Sodium 50 Mcg Tablet) 50 mcg PO DAILY@0630 [facility] Last Admin: 05/03/21 05:57 Dose: 50 mcg Documented by: Lorazepam (Lorazepam 0.5 Mg Tablet) 0.5 mg PO BEDTIME PRN PRN Reason: Insomnia Last Admin: 05/02/21 22:52 Dose: 0.5 mg Documented by: Magnesium Oxide (Magnesium Oxide 400 Mg Tablet) 400 mg PO DAILY@1700 [facility] Last Admin: 05/02/21 17:29 Dose: 400 mg Documented by: Melatonin (Melatonin 3 Mg Tablet) 6 mg PO BEDTIME PRN PRN Reason: Insomnia Methylprednisolone Sodium Succinate (Methylprednisolone Sod Succ 125 Mg/2 Ml Vial) 60 mg IVPUSH Q8H [facility] Last Admin: 05/03/21 09:54 Dose: 60 mg Documented by: Multivitamins/Vitamin C (Multivitamin Tablet) 1 tab PO DAILY [facility] Last Admin: 05/03/21 09:55 Dose: 1 tab Documented by: Nystatin (Nystatin Oral Susp 500,000 Unit/5 Ml Oral.Susp) 200,000 unit BUCCAL QID [facility]; Protocol Stop: 05/07/21 16:59 Last Admin: 05/03/21 09:55 Dose: 200,000 unit Documented by: Omeprazole (Omeprazole 20 Mg Capsule.Dr) 20 mg PO BEDTIME [facility] Last Admin: 05/02/21 20:49 Dose: 20 mg Documented by: Pharmacy Consult (Consult Rx Vancomycin Dosing) 1 each MISCELLANE DAILY PRN PRN Reason: Consult order Senna (Sennosides 8.6 Mg Tablet) 17.2 mg PO BEDTIME PRN PRN Reason: Constipation Sertraline HCl (Sertraline Hcl 100 Mg Tablet) 100 mg PO DAILY [facility] Last Admin: 05/03/21 09:55 Dose: 100 mg Documented by: Sodium Chloride (0.9 % Sodium Chloride Flush 3 Ml Syringe) 3 ml IVFLUSH QSHIFT [facility] Last Admin: 05/03/21 09:56 Dose: 3 ml Documented by: Home Medications Medication Instructions Recorded Confirmed Last Taken Type albuterol sulfate 90 mcg/actuation 2 inh INHALATION Q4H PRN 01/12/20 04/30/21 04/05/21 History aerosol inhaler levothyroxine 50 mcg tablet 50 mcg PO DAILY@0630 01/12/20 04/30/21 04/06/21 History Bone Boost 1 tab PO TID 02/10/21 04/30/21 04/05/21 History Lactobacillus 40-Bifidobact 2 cap PO BEDTIME 02/10/21 04/30/21 04/05/21 History 3-S.thermophilus 100 billion cell capsule (Probiotic) Zeaxanthin 1 mg PO DAILY 02/10/21 04/30/21 04/05/21 History cyanocobalamin (vitamin B-12) 1,000 mcg PO DAILY 02/10/21 04/30/21 04/05/21 History 1,000 mcg tablet folic acid 1 mg tablet 1 mg PO DAILY 02/10/21 04/30/21 04/05/21 History ipratropium 0.5 mg-albuterol 3 mg 3 ml INHALATION BID PRN 02/10/21 04/30/21 04/05/21 History (2.5 mg base)/3 mL nebulization soln lutein 20 mg capsule 20 mg PO DAILY 02/10/21 04/30/21 04/05/21 History magnesium oxide 400 mg PO DAILY@1700 02/10/21 04/30/21 04/05/21 History multivitamin 1 tab PO DAILY 02/10/21 04/30/21 04/05/21 History sertraline 100 mg tablet 100 mg PO DAILY 02/20/21 04/30/21 04/05/21 History pantoprazole 40 mg tablet,delayed 40 mg PO BEDTIME 04/08/21 04/30/21 2 Days Ago History release ~04/06/21 fluticasone fur. 200 mcg-umeclid 1 puff INHALATION DAILY 05/01/21 05/01/21 Unknown History 62.5 mcg-vilant 25 mcg inhalat.powder (Trelegy Ellipta) sodium chloride 7 % for 1 vial INHALATION BID 05/01/21 05/01/21 Unknown History nebulization Physical Exam Vital Signs: Vital Signs: Last Vital Signs Temp 97.6 F 05/03/21 11:35 Pulse 60 05/03/21 11:35 Resp 20 05/03/21 11:35 BP 150/63 H 05/03/21 11:35 Pulse Ox 98 05/03/21 11:35 Oxygen Flow Rate 2 04/30/21 18:46 BMI result Body Mass Index 19.6 Const: General: cooperative Eyes: General: appearance normal, both eyes and all related structures Pupils: Equal, round and reactive pupils present Resp: Effort & Inspection: abnormal respiratory pattern Auscultation: diminished lung sounds Cardio: Rate: regular rate Rhythm: regular rhythm GI: Palpation (GI): Soft to palpation and nontender Neuro: Cranial nerves: Yes Equal, round and reactive pupils present Extrem: General: Yes normal to inspection Results Labs CBC & Chem 7: 05/15/21 06:26 05/15/21 06:26 Labs: Short CBC 05/03/21 Range/Units 10:07 WBC 13.0 H (4.8-10.8) X10*3/uL Hgb 10.4 L (12.0-16.0) g/dl Hct 32.2 L (37.0-47.0) % Plt Count 182 (160-400) X10*3/uL BMP 05/03/21 05/03/21 10:07 10:07 Sodium 138 Potassium 4.1 Chloride 105 Carbon Dioxide 25 BUN 19 H Creatinine 0.74 0.74 Calcium 9.0 Liver Function 05/03/21 Range/Units 10:07 Total Bilirubin 0.5 (0.0-1.0) mg/dL AST 58 H (5-31) U/L ALT 68 H (0-31) U/L Alkaline Phosphatase 65 D (39-117) U/L Albumin 3.2 L (3.5-5.0) g/dL Microbiology Microbiology Results: Microbiology 04/30/21 20:23 Blood - Venous Blood Culture - Preliminary No growth after 48 hours. 04/30/21 19:58 Blood - Venous Blood Culture - Preliminary No growth after 48 hours. 05/01/21 07:31 Sputum - Expectorated Gram Stain - Final 05/01/21 07:31 Sputum - Expectorated Sputum Culture - Final Assessment and Plan (1) Bronchiectasis with (acute) exacerbation: Status: Acute (2) Acute respiratory failure with hypoxia: Status: Acute She has increased hazy opacities in lung and from CXR not consistent with usually lobar bacterial pneumonia. She has chronic bronchiectasis and may just have more mucus plugging contributing to shortness of breath Alternatively, nondefinitive ?PE or possible lung fibrosis or other complaints may be contributing to picture. (3) COPD (chronic obstructive pulmonary disease): Qualifiers: COPD type: chronic bronchitis Chronic bronchitis type: mucopurulent Qualified Code(s): J41.1 - Mucopurulent chronic bronchitis Status: Acute Plan Check procalcitonin. Recheck chest CT Have Dr Can review if he is available for consult. May stop IV antibiotics if nothing definitive found such as bacteremia,definite lobar pneumonia on CT for example or low procalcitonin.
[2021-05-03 13:55] LABS: Procalcitonin 0.19 ng/mL
--- NOTE | 2021-05-03 13:59 | P.PNIM_ITS ---
Subjective Subjective Date of Service: 05/03/21 Interval History: No acute issues overnight. Breathing minimally improved therapies; good response to HS ativan Review of Systems Denies chest pain Denies nausea vomiting diarrhea Admits to exertional shortness of breath; minimal movement Physical Exam Vital Signs: Vital Signs: Last Vital Signs Temp 97.6 F 05/03/21 11:35 Pulse 60 05/03/21 11:35 Resp 20 05/03/21 11:35 BP 150/63 H 05/03/21 11:35 Pulse Ox 98 05/03/21 11:35 Oxygen Flow Rate 2 04/30/21 18:46 BMI result Body Mass Index 19.6 Const: Other: Awake alert oriented x3 in no acute distress Resp: Other: Dizziness all fontanez fine rhonchi that clear with cough. Scattered expiratory wheezes Cardio: Other: No S4; positive S1-S2; no S3 murmurs rubs or gallops GI: Other: Soft nontender nondistended with normoactive bowel sounds x4 quadrants Extrem: Other: No edema bilaterally Objective Data Active Medications Acetaminophen (Acetaminophen 325 Mg Tablet) 650 mg PO Q6H PRN PRN Reason: Pain, Mild (Pain Scale 1-3) Last Admin: 05/02/21 14:03 Dose: 650 mg Documented by: DANIELA Albuterol Sulfate (Albuterol Sulfate 90 Mcg 8 Gm Inhaler) 2 puff INHALE Q4H PRN PRN Reason: Shortness Of Breath Last Admin: 05/03/21 11:19 Dose: 2 puff Documented by: SANDOR Albuterol/Ipratropium (Albuterol/Iprat 2.5/0.5mg 3 Ml Ampul.Neb) 3 ml INHALE BID PRN PRN Reason: Shortness Of Breath Or Wheezing Last Admin: 05/02/21 05:04 Dose: 3 ml Documented by: ZOEY Albuterol/Ipratropium (Albuterol/Iprat 2.5/0.5mg 3 Ml Ampul.Neb) 3 ml INHALE RQ4H PRN PRN Reason: Shortness of Breath/Wheezing Apixaban (Apixaban 2.5 Mg Tablet) 2.5 mg PO BID@0600,1800 [facility] Last Admin: 05/02/21 17:30 Dose: 2.5 mg Documented by: DANIELA Cyanocobalamin (Cyanocobalamin (Vitamin B-12) 1,000 Mcg Tablet) 1,000 mcg PO DAILY [facility] Last Admin: 05/03/21 09:55 Dose: 1,000 mcg Documented by: SRIKANTH Famotidine (Famotidine/Pf 20 Mg/2 Ml Vial) 20 mg IVPUSH BID [facility] Last Admin: 05/03/21 09:54 Dose: 20 mg Documented by: SRIKANTH Folic Acid (Folic Acid 1 Mg Tablet) 1 mg PO DAILY [facility] Last Admin: 05/03/21 09:55 Dose: 1 mg Documented by: SRIKANTH Piperacillin Sod/Tazobactam (Sod 3.375 gm/ Sodium Chloride) 50 mls @ 100 mls/hr IV Q6H [facility] Last Admin: 05/03/21 13:12 Dose: 100 mls/hr Documented by: SRIKANTH Vancomycin HCl 1,000 mg/ (Sodium Chloride) 270 mls @ 270 mls/hr IV Q24H [facility] Last Infusion: 05/02/21 21:55 Dose: 0 mls/hr Documented by: STERLING Levothyroxine Sodium (Levothyroxine Sodium 50 Mcg Tablet) 50 mcg PO DAILY@0630 [facility] Last Admin: 05/03/21 05:57 Dose: 50 mcg Documented by: STERLING Loratadine (Loratadine 10 Mg Tablet) 10 mg PO DAILY [facility] Lorazepam (Lorazepam 0.5 Mg Tablet) 0.5 mg PO BEDTIME PRN PRN Reason: Insomnia Last Admin: 05/02/21 22:52 Dose: 0.5 mg Documented by: STERLING Magnesium Oxide (Magnesium Oxide 400 Mg Tablet) 400 mg PO DAILY@1700 [facility] Last Admin: 05/02/21 17:29 Dose: 400 mg Documented by: DANIELA Melatonin (Melatonin 3 Mg Tablet) 6 mg PO BEDTIME PRN PRN Reason: Insomnia Methylprednisolone Sodium Succinate (Methylprednisolone Sod Succ 125 Mg/2 Ml Vial) 60 mg IVPUSH Q8H [facility] Last Admin: 05/03/21 09:54 Dose: 60 mg Documented by: SRIKANTH Multivitamins/Vitamin C (Multivitamin Tablet) 1 tab PO DAILY [facility] Last Admin: 05/03/21 09:55 Dose: 1 tab Documented by: SRIKANTH Nystatin (Nystatin Oral Susp 500,000 Unit/5 Ml Oral.Susp) 200,000 unit BUCCAL QID [facility]; Protocol Stop: 05/07/21 16:59 Last Admin: 05/03/21 13:17 Dose: 200,000 unit Documented by: SRIKANTH Omeprazole (Omeprazole 20 Mg Capsule.Dr) 20 mg PO BEDTIME [facility] Last Admin: 05/02/21 20:49 Dose: 20 mg Documented by: STERLING Pharmacy Consult (Consult Rx Vancomycin Dosing) 1 each MISCELLANE DAILY PRN PRN Reason: Consult order Senna (Sennosides 8.6 Mg Tablet) 17.2 mg PO BEDTIME PRN PRN Reason: Constipation Sertraline HCl (Sertraline Hcl 100 Mg Tablet) 100 mg PO DAILY [facility] Last Admin: 05/03/21 09:55 Dose: 100 mg Documented by: SRIKANTH Sodium Chloride (0.9 % Sodium Chloride Flush 3 Ml Syringe) 3 ml IVFLUSH QSHIFT [facility] Last Admin: 05/03/21 09:56 Dose: 3 ml Documented by: SRIKANTH Labs CBC & Chem 7: 05/03/21 10:07 05/03/21 10:07 Labs: Laboratory Results - last 24 hr 05/02/21 05/03/21 05/03/21 18:54 06:02 10:07 MCV 98.5 H MCH 31.8 MCHC 32.3 RDW 17.1 H Plt Count 182 MPV 11.2 Immature Gran % (Auto) 0.6 H Neut % (Auto) 90.7 H Lymph % (Auto) 4.1 L [place] % (Auto) 4.5 Eos % (Auto) 0.0 Baso % (Auto) 0.1 Lymph # (Auto) 0.5 L [place] # (Auto) 0.6 Eos # (Auto) 0.0 Baso # (Auto) 0.0 Abs Immat Gran (auto) 0.08 H Absolute Neuts (auto) 11.8 H Absolute Nucleated RBC 0.000 Nucleated RBC % (auto) 0.0 Smear Tech's Comments VERIFIED Anion Gap Estim Creat Clear Calc Estimated GFR Fasting Glucose Calcium Total Bilirubin AST ALT Alkaline Phosphatase Total Protein Albumin Procalcitonin 0.19 Vancomycin Trough 3.1 L 05/03/21 05/03/21 10:07 10:07 MCV MCH MCHC RDW Plt Count MPV Immature Gran % (Auto) Neut % (Auto) Lymph % (Auto) [place] % (Auto) Eos % (Auto) Baso % (Auto) Lymph # (Auto) [place] # (Auto) Eos # (Auto) Baso # (Auto) Abs Immat Gran (auto) Absolute Neuts (auto) Absolute Nucleated RBC Nucleated RBC % (auto) Smear Tech's Comments Anion Gap 12 Estim Creat Clear Calc 45.5 45.5 Estimated GFR > 60 > 60 Fasting Glucose 118 H Calcium 9.0 Total Bilirubin 0.5 AST 58 H ALT 68 H Alkaline Phosphatase 65 D Total Protein 6.0 L Albumin 3.2 L Procalcitonin Vancomycin Trough Microbiology Microbiology Results: Microbiology 04/30/21 20:23 Blood Culture - Preliminary Blood - Venous No growth after 48 hours. 04/30/21 19:58 Blood Culture - Preliminary Blood - Venous No growth after 48 hours. 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 had intermediate probability of V/Q scan on 04/18 and was started on Eliquis.Completed course of prednisone and doxycycline. Discharged 04/15/21 1.Pneumonia(bilat patchy infiltrates).? -IV vancomycin and Zosyn to cover Hospital aquired - Discussed with Pulm;PICC and plan for 2-3 weeks followed by inhaled Tobramycin -STR for therapies 2. PE(suspected on V/Q) - empirical cornelio however pt agreed only to subtheraputic dose -continue same; await Pulm input Cornelio DNR/DNI Quality Stroke Does the patient have a stroke diagnosis?: No VTE Prior VTE?: No VTE Risk Level:: Medical - moderate - high VTE Device Contraindication: Treatment Not Indicated VTE Drug Contraindication: N/A - Med Ordered
--- NOTE | 2021-05-03 14:13 | PC.NURSE ---
Patient SOB, 82% 3L OOB, back to bed and slow to recover after being put on 5L, only sat 91%, paged respiratory approx 10 min ago. [email or web address] requested from as patient c/o productive cough and runny nose. states she has allergies. CT scan notified of delay due to SOB and that we are waiting for respiratory.
[2021-05-03] MEDS: Loratadine 10 MG TABLET PO (14:32)
[2021-05-03] MEDS: Morphine Sulfate 2 MG/ML CARTRIDGE IVPUSH ×2 (16:04→20:25)
[2021-05-03] MEDS: Magnesium Oxide 400 MG TABLET PO (16:05)
[2021-05-03] MEDS: Omeprazole 20 MG CAPSULE.DR PO (20:25)
[2021-05-03] MEDS: vancomycin HCL 1,000 MG in 0.9 % Sodium Chloride 250 ML 270 MG IV (20:26)
[2021-05-04] VITALS (8 sets, daily range): BP systolic 137–174; BP diastolic 68–81; PULSE 62–68; RESP 18–22; TEMP 36.1–36.9; O2SAT 85–98
[2021-05-04] MEDS: Piperacillin Sodium/Tazobactam 3.375 GM in 0.9 % Sodium Chloride 50 ML IV ×5 (00:12→23:49)
[2021-05-04] MEDS: methylPREDNISolone Sod Succ 125 MG/2 ML VIAL 60 MG IVPUSH ×3 (00:50→18:29)
[2021-05-04] MEDS: Levothyroxine Sodium 50 MCG TABLET PO (06:14)
[2021-05-04] MEDS: Nystatin Oral Susp 500,000 UNIT/5 ML ORAL.SUSP 200000 UNIT BUCCAL ×4 (08:17→20:47)
[2021-05-04] MEDS: 0.9 % Sodium Chloride Flush 3 ML SYRINGE IVFLUSH ×3 (08:18→20:47)
[2021-05-04] MEDS: Famotidine/PF 20 MG/2 ML VIAL IVPUSH ×2 (08:18→20:47)
[2021-05-04] MEDS: Loratadine 10 MG TABLET PO (08:19)
[2021-05-04] MEDS: Cyanocobalamin (Vitamin B-12) 1,000 MCG TABLET 1000 MCG PO (08:22)
[2021-05-04] MEDS: Folic Acid 1 MG TABLET PO (08:23)
[2021-05-04] MEDS: Sertraline HCL 100 MG TABLET PO (08:23)
[2021-05-04] MEDS: Multivitamin TABLET 1 TAB PO (08:23)
[2021-05-04] MEDS: Albuterol Sulfate 90 MCG 8 GM INHALER 2 PUFF INHALE (08:47)
[2021-05-04] MEDS: Morphine Sulfate 2 MG/ML CARTRIDGE IVPUSH (09:33)
--- NOTE | 2021-05-04 09:44 | P.PNPL_ITS ---
Subjective Subjective Date of Service: 05/04/21 Interval history: the patient was seen and examined cleared had increased oxygen requirements overnight and increasing shortness of breath. CT chest with extensive GGO and bronchiectasis. Currently on 5-6 L NC. Awaiting RSV/flu/covid19 swab. If negative, plan for bronchoscpy 05/05 at 12pm. I also spoke to the patient's daughter, Joan. She understands the patient has a worsening respiratory condition and has respiratory failure. She continues on the broad-spectrum antibiotics and also the steroids. Objective Data Labs CBC & Chem 7: 05/03/21 10:07 05/03/21 10:07 Labs: Laboratory Results - last 24 hr 05/03/21 05/03/21 05/03/21 06:02 10:07 10:07 WBC 13.0 H RBC 3.27 L Hgb 10.4 L Hct 32.2 L MCV 98.5 H MCH 31.8 MCHC 32.3 RDW 17.1 H Plt Count 182 MPV 11.2 Immature Gran % (Auto) 0.6 H Neut % (Auto) 90.7 H Lymph % (Auto) 4.1 L [place] % (Auto) 4.5 Eos % (Auto) 0.0 Baso % (Auto) 0.1 Lymph # (Auto) 0.5 L [place] # (Auto) 0.6 Eos # (Auto) 0.0 Baso # (Auto) 0.0 Abs Immat Gran (auto) 0.08 H Absolute Neuts (auto) 11.8 H Absolute Nucleated RBC 0.000 Nucleated RBC % (auto) 0.0 Smear Tech's Comments VERIFIED Sodium 138 Potassium 4.1 Chloride 105 Carbon Dioxide 25 Anion Gap 12 BUN 19 H Creatinine 0.74 Estim Creat Clear Calc 45.5 Estimated GFR > 60 Fasting Glucose 118 H Calcium 9.0 Total Bilirubin 0.5 AST 58 H ALT 68 H Alkaline Phosphatase 65 D Total Protein 6.0 L Albumin 3.2 L Procalcitonin 0.19 05/03/21 10:07 WBC RBC Hgb Hct MCV MCH MCHC RDW Plt Count MPV Immature Gran % (Auto) Neut % (Auto) Lymph % (Auto) [place] % (Auto) Eos % (Auto) Baso % (Auto) Lymph # (Auto) [place] # (Auto) Eos # (Auto) Baso # (Auto) Abs Immat Gran (auto) Absolute Neuts (auto) Absolute Nucleated RBC Nucleated RBC % (auto) Smear Tech's Comments Sodium Potassium Chloride Carbon Dioxide Anion Gap BUN Creatinine 0.74 Estim Creat Clear Calc 45.5 Estimated GFR > 60 Fasting Glucose Calcium Total Bilirubin AST ALT Alkaline Phosphatase Total Protein Albumin Procalcitonin Microbiology Microbiology Results: Microbiology 05/03/21 10:18 Sputum - Expectorated Gram Stain - Final 05/03/21 10:18 Sputum - Expectorated Sputum Culture - Final 04/30/21 20:23 Blood - Venous Blood Culture - Preliminary No growth after 48 hours. 04/30/21 19:58 Blood - Venous Blood Culture - Preliminary No growth after 48 hours. 05/01/21 07:31 Sputum - Expectorated Gram Stain - Final 05/01/21 07:31 Sputum - Expectorated Sputum Culture - Final Review of Systems Constitutional: Reports fatigue, Denies fever(s) and Reports malaise Eyes: Denies change in vision Denies nasal congestion and Denies nasal discharge Cardiovascular: Denies chest pain, Reports dyspnea and Reports dyspnea on exertion Respiratory: Reports change in phlegm color, Reports chest congestion, Reports cough, Denies hemoptysis, Reports excessive phlegm production, Reports dyspnea and Reports dyspnea on exertion Gastrointestinal: Reports no additional gastrointestinal complaints Musculoskeletal: Reports no additional musculoskeletal complaints Endocrine: Reports fatigue Physical Exam Vital Signs: Vital Signs: Last Vital Signs Temp 97.8 F 05/04/21 07:12 Pulse 68 05/04/21 08:48 Resp 22 H 05/04/21 08:48 BP 151/78 H 05/04/21 07:12 Pulse Ox 95 05/04/21 07:12 Oxygen Flow Rate 2 04/30/21 18:46 BMI result Body Mass Index 19.6 Const: General: alert Neck: Neck: Yes normal visual inspection, Yes full ROM and Yes no ly mphadenopathy Chest: Chest palpation & inspection: normal inspection of the chest Resp: Auscultation: rhonchi and diminished lung sounds Cardio: Rate: regular rate Rhythm: regular rhythm Heart sounds: S1 normal heart sound present and S2 normal heart sound present GI: Palpation (GI): Soft to palpation and nontender Auscultation: normal bowel sounds Skin: General skin exam: rashes and/or lesions noted Procedures Date of Service Date of Service: 05/04/21 Assessment and Plan Assessment and plan (1) HAP (hospital-acquired pneumonia): Status: Acute (2) Acute and chronic respiratory failure: Status: Acute (3) Bronchiectasis with (acute) exacerbation: Status: Acute Plan We need to consider smoldering infections that is resulting in the worsening ground-glass opacities. She is on broad-spectrum antibiotics. Need to consider PCP and viral pneumonias. ARDS is also in differential. She has increased oxygen requirements. The patient carries a decreasing prognosis with her worsening respiratory status, multiple hospitalizations Plan for bronchoscopy at this point tomorrow at noon time. Please make patient NPO in continue holding Eliquis Currently the patient is DNR, she is aware that will have to switch her over to full code 24 hours during the perioperative. Continue broad-spectrum antibiotics for now Continue Solu-Medrol for now Time Spent With Patient Time: Total time spent is greater than 50% in coordination of care (as documented) at patient's floor/unit and/or counseling patient: Time with patient: 25 - 35 minutes Progress Note: Quality Stroke Does the patient have a stroke diagnosis?: No
[2021-05-04 10:37] LABS: Influenza A PCR NEGATIVE (Negative); Influenza B PCR NEGATIVE (Negative); Resp Syncy Virus RNA Qual PCR NEGATIVE (Negative); SARS COV2 PCR INHOUSE NEGATIVE (Negative)
--- NOTE | 2021-05-04 11:14 | HO.MIDLINE_ITS ---
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 Following completion of [place] Protocol the skin and soft tissues were anesthetized with 1% Lidocaine plain. Using ultrasound guidance, BASILIC vein access was obtained IN SINGLE ATTEMPT BY THIS RN; x1 UNSUCCESSFUL ATTEMPT PRIOR BY RN CARON Bonilla, SO TOTAL x2 ATTEMPTS. A SINGLE LUMEN, NONPASV, (18G X 8CM) MIDLINE was positioned. The procedure was performed in S-272. Ultrasound was used to document vein patency and for needle entry. A formal ultrasound picture was recorded. [employer] Teacher has released the line for use and it is currently dressed with a StatLock, Tegaderm, and CHG disc. Verification has been performed for blood return and line patency. Arm Circumference: 24 CM Equipment: [employer] POWERGLIDE PRO Catheter Type: SINGLE LUMEN, NONPASV, (18G X 8CM) Lot #: [id number]
--- NOTE | 2021-05-04 12:46 | P.PNIM_ITS ---
Subjective Subjective Date of Service: 05/04/21 Interval History: No acute issues overnight. Breathing minimally improved therapies; good response to HS ativan/MSO4. Increasing O2 requirement Review of Systems Denies chest pain Denies nausea vomiting diarrhea Admits to exertional shortness of breath; minimal movement Physical Exam Vital Signs: Vital Signs: Last Vital Signs Temp 97.1 F 05/04/21 11:14 Pulse 65 05/04/21 11:14 Resp 18 05/04/21 11:14 BP 137/77 05/04/21 11:14 Pulse Ox 92 05/04/21 11:14 Oxygen Flow Rate 2 04/30/21 18:46 BMI result Body Mass Index 19.6 Const: Other: Awake alert oriented x3 in no acute distress Resp: Other: Diminished all fontanez fine rhonchi that clear with cough. Scattered expiratory wheezes Cardio: Other: No S4; positive S1-S2; no S3 murmurs rubs or gallops GI: Other: Soft nontender nondistended with normoactive bowel sounds x4 quadrants Extrem: Other: No edema bilaterally Objective Data Active Medications Acetaminophen (Acetaminophen 325 Mg Tablet) 650 mg PO Q6H PRN PRN Reason: Pain, Mild (Pain Scale 1-3) Last Admin: 05/02/21 14:03 Dose: 650 mg Documented by: DANIELA Albuterol Sulfate (Albuterol Sulfate 90 Mcg 8 Gm Inhaler) 2 puff INHALE Q4H PRN PRN Reason: Shortness Of Breath Last Admin: 05/04/21 08:47 Dose: 2 puff Documented by: JAMI Albuterol/Ipratropium (Albuterol/Iprat 2.5/0.5mg 3 Ml Ampul.Neb) 3 ml INHALE BID PRN PRN Reason: Shortness Of Breath Or Wheezing Last Admin: 05/02/21 05:04 Dose: 3 ml Documented by: ZOEY Albuterol/Ipratropium (Albuterol/Iprat 2.5/0.5mg 3 Ml Ampul.Neb) 3 ml INHALE RQ4H PRN PRN Reason: Shortness of Breath/Wheezing Apixaban (Apixaban 2.5 Mg Tablet) 2.5 mg PO BID@0600,1800 [facility] Last Admin: 05/02/21 17:30 Dose: 2.5 mg Documented by: DANIELA Cyanocobalamin (Cyanocobalamin (Vitamin B-12) 1,000 Mcg Tablet) 1,000 mcg PO DAILY [facility] Last Admin: 05/04/21 08:22 Dose: 1,000 mcg Documented by: PERLA Famotidine (Famotidine/Pf 20 Mg/2 Ml Vial) 20 mg IVPUSH BID [facility] Last Admin: 05/04/21 08:18 Dose: 20 mg Documented by: PERLA Folic Acid (Folic Acid 1 Mg Tablet) 1 mg PO DAILY [facility] Last Admin: 05/04/21 08:23 Dose: 1 mg Documented by: PERLA Piperacillin Sod/Tazobactam (Sod 3.375 gm/ Sodium Chloride) 50 mls @ 100 mls/hr IV Q6H [facility] Last Admin: 05/04/21 12:27 Dose: 100 mls/hr Documented by: PERLA Vancomycin HCl 1,000 mg/ (Sodium Chloride) 270 mls @ 270 mls/hr IV Q24H [facility] Last Infusion: 05/03/21 21:46 Dose: 0 mls/hr Documented by: ADDISON Levothyroxine Sodium (Levothyroxine Sodium 50 Mcg Tablet) 50 mcg PO DAILY@0630 [facility] Last Admin: 05/04/21 06:14 Dose: 50 mcg Documented by: FREDRICK Loratadine (Loratadine 10 Mg Tablet) 10 mg PO DAILY [facility] Last Admin: 05/04/21 08:19 Dose: 10 mg Documented by: PERLA Lorazepam (Lorazepam 0.5 Mg Tablet) 0.5 mg PO BEDTIME PRN PRN Reason: Insomnia Last Admin: 05/02/21 22:52 Dose: 0.5 mg Documented by: STERLING Magnesium Oxide (Magnesium Oxide 400 Mg Tablet) 400 mg PO DAILY@1700 [facility] Last Admin: 05/03/21 16:05 Dose: 400 mg Documented by: FLORECITA Melatonin (Melatonin 3 Mg Tablet) 6 mg PO BEDTIME PRN PRN Reason: Insomnia Methylprednisolone Sodium Succinate (Methylprednisolone Sod Succ 125 Mg/2 Ml Vial) 60 mg IVPUSH Q8H [facility] Last Admin: 05/04/21 08:17 Dose: 60 mg Documented by: PERLA Morphine Sulfate (Morphine Sulfate 2 Mg/Ml Cartridge) 2 mg IVPUSH Q4H PRN; Protocol PRN Reason: Restlessness Last Admin: 05/04/21 09:33 Dose: 2 mg Documented by: LIBORIO Multivitamins/Vitamin C (Multivitamin Tablet) 1 tab PO DAILY [facility] Last Admin: 05/04/21 08:23 Dose: 1 tab Documented by: PERLA Nystatin (Nystatin Oral Susp 500,000 Unit/5 Ml Oral.Susp) 200,000 unit BUCCAL QID [facility]; Protocol Stop: 05/07/21 16:59 Last Admin: 05/04/21 12:26 Dose: 200,000 unit Documented by: PERLA Omeprazole (Omeprazole 20 Mg Capsule.Dr) 20 mg PO BEDTIME [facility] Last Admin: 05/03/21 20:25 Dose: 20 mg Documented by: ADDISON Pharmacy Consult (Consult Rx Vancomycin Dosing) 1 each MISCELLANE DAILY PRN PRN Reason: Consult order Senna (Sennosides 8.6 Mg Tablet) 17.2 mg PO BEDTIME PRN PRN Reason: Constipation Sertraline HCl (Sertraline Hcl 100 Mg Tablet) 100 mg PO DAILY [facility] Last Admin: 05/04/21 08:23 Dose: 100 mg Documented by: PERLA Sodium Chloride (0.9 % Sodium Chloride Flush 3 Ml Syringe) 3 ml IVFLUSH QSHIFT [facility] Last Admin: 05/04/21 08:18 Dose: 3 ml Documented by: PERLA Labs CBC & Chem 7: 05/03/21 10:07 05/03/21 10:07 Labs: Laboratory Results - last 24 hr 05/03/21 05/04/21 06:02 08:41 Procalcitonin 0.19 Influenza Type A (PCR) NEGATIVE Influenza Type B (PCR) NEGATIVE RSV RNA Qual (PCR) NEGATIVE SARS-CoV-2 RNA (RT-PCR) NEGATIVE Microbiology Microbiology Results: Microbiology 05/03/21 10:18 Gram Stain - Final Sputum - Expectorated Sputum Culture - Final 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 had intermediate probability of V/Q scan on 04/18 and was started on Eliquis.Completed course of prednisone and doxycycline. Discharged 04/15/21 1.Pneumonia(bilat patchy infiltrates).? -IV vancomycin and Zosyn to cover Hospital aquired;mid line in -for bronch tomorrow am 2. PE(suspected on V/Q) - empirical elobraulio however pt agreed only to subtheraputic dose -continue same; await Pulm input Elobraulio DNR/DNI Quality Stroke Does the patient have a stroke diagnosis?: No VTE Prior VTE?: No VTE Risk Level:: Medical - moderate - high VTE Device Contraindication: Treatment Not Indicated VTE Drug Contraindication: N/A - Med Ordered
[2021-05-04 15:11] LABS: Basophils Percent Auto 0.1 % (0-2); Hematocrit 31.3 % (37.0-47.0); Hemoglobin 9.9 g/dl (12.0-16.0); Imm Gran Abs Auto 0.11 X10*3/uL (0.00-0.03); Lymphocytes Absolute Auto 0.4 X10*3/uL (1.2-4.9); Lymphocytes Percent Auto 3.4 % (20-40); MANUAL DIFF FLAG SCAN; Mean Corpuscular HGB Conc 31.6 g/dl (31.0-35.0); Mean Corpuscular Hemoglobin 31.3 pg (27.0-33.0); Mean Corpuscular Volume 99.1 fL (80.0-98.0); Mean Platelet Volume 10.2 fL (9.4-12.3); Monocytes Absolute Auto 0.4 X10*3/uL (0.1-1.2); Monocytes Percent Auto 3.7 % (2-11); Neutrophils Absolute Auto 10.5 x10*3/uL (2.0-8.3); Neutrophils Percent Auto 91.8 % (45-73); Platelet Count 128 X10*3/uL (160-400); Red Blood Count 3.16 X10*6/uL (4.20-5.50); SCAN SMEAR FLAG 1; White Blood Count 11.4 X10*3/uL (4.8-10.8)
[2021-05-04 15:29] LABS: SLIDE REVIEW VERIFIED
[2021-05-04 15:31] LABS: Alanine Aminotransferase 51 U/L (0-31); Albumin Level 3.2 g/dL (3.5-5.0); Alkaline Phosphatase 66 U/L (39-117); Anion Gap 12 (12-20); Aspartate Amino Transferase 20 U/L (5-31); Bilirubin Total 0.4 mg/dL (0.0-1.0); Blood Urea Nitrogen 22 mg/dL (9-16); Calcium 9.2 mg/dL (8.4-10.2); Carbon Dioxide 26 mmol/L (22-29); Chloride 105 mmol/L (96-108); Creatinine Clr Calc Pharmacy 41.6; Estimated Glomerular Filt Rate > 60; Glucose Fasting 156 mg/dL (60-99); Potassium 4.1 mmol/L (3.3-5.1); Sodium 139 mmol/L (135-145)
[2021-05-04] MEDS: Magnesium Oxide 400 MG TABLET PO (16:14)
[2021-05-04 20:04] LABS: Vancomycin Trough 9.8 mcg/mL (10.0-20.0)
--- NOTE | 2021-05-04 20:17 | HE.PHANOTE ---
increased vanco dose to 1250 mg q24h, predicted auc 475, trough 12.9, next trough 05/06 @1800
[2021-05-04] MEDS: Omeprazole 20 MG CAPSULE.DR PO (20:47)
[2021-05-04] MEDS: vancomycin HCL 1,250 MG in 0.9 % Sodium Chloride 250 ML 166.67 MG IV (20:47)
[2021-05-05] VITALS (14 sets, daily range): BP systolic 112–193; BP diastolic 65–129; PULSE 62–88; RESP 16–22; TEMP 36.1–37.3; O2SAT 90–100
[2021-05-05] MEDS: methylPREDNISolone Sod Succ 125 MG/2 ML VIAL 60 MG IVPUSH ×4 (00:45→23:00)
[2021-05-05] MEDS: Levothyroxine Sodium 50 MCG TABLET PO (06:06)
[2021-05-05] MEDS: Piperacillin Sodium/Tazobactam 3.375 GM in 0.9 % Sodium Chloride 50 ML IV ×4 (06:07→23:00)
[2021-05-05 07:08] LABS: Basophils Percent Auto 0.1 % (0-2); Hematocrit 31.8 % (37.0-47.0); Hemoglobin 10.2 g/dl (12.0-16.0); Imm Gran Abs Auto 0.08 X10*3/uL (0.00-0.03); Imm Gran Pct Auto 0.8 % (0.0-0.4); Lymphocytes Absolute Auto 0.4 X10*3/uL (1.2-4.9); Lymphocytes Percent Auto 4.1 % (20-40); MANUAL DIFF FLAG SCAN; Mean Corpuscular HGB Conc 32.1 g/dl (31.0-35.0); Mean Corpuscular Hemoglobin 31.6 pg (27.0-33.0); Mean Corpuscular Volume 98.5 fL (80.0-98.0); Mean Platelet Volume 11.4 fL (9.4-12.3); Monocytes Absolute Auto 0.3 X10*3/uL (0.1-1.2); Monocytes Percent Auto 3.2 % (2-11); Neutrophils Absolute Auto 9.4 x10*3/uL (2.0-8.3); Neutrophils Percent Auto 91.8 % (45-73); Platelet Count 109 X10*3/uL (160-400); Red Blood Count 3.23 X10*6/uL (4.20-5.50); SCAN SMEAR FLAG 1; White Blood Count 10.2 X10*3/uL (4.8-10.8)
[2021-05-05 07:30] LABS: Alanine Aminotransferase 59 U/L (0-31); Albumin Level 3.1 g/dL (3.5-5.0); Alkaline Phosphatase 71 U/L (39-117); Anion Gap 13 (12-20); Aspartate Amino Transferase 46 U/L (5-31); Bilirubin Total 0.7 mg/dL (0.0-1.0); Blood Urea Nitrogen 24 mg/dL (9-16); Calcium 9.1 mg/dL (8.4-10.2); Carbon Dioxide 27 mmol/L (22-29); Chloride 105 mmol/L (96-108); Creatinine Clr Calc Pharmacy 43.7; Estimated Glomerular Filt Rate > 60; Glucose Fasting 126 mg/dL (60-99); Potassium 4.2 mmol/L (3.3-5.1); Sodium 141 mmol/L (135-145); Total Protein 5.9 g/dL (6.5-8.0)
[2021-05-05 07:50] LABS: SLIDE REVIEW VERIFIED
--- NOTE | 2021-05-05 08:56 | PC.NURSE ---
lue midline assessed d/t c/o swelling. noted lue swelling and bruising at initial puncture site, along with 4 cm increase in arm circumference since insertion. midline flushing and able to aspirate blood, though pt c/o tenderness above insertion site w/ light ns flushing. findings discussed with ir dr smieon. per dr. simeon, midline to be removed. intact functional [id number] midline removed from lue. gauze/tegaderm dressing applied. rn and hospitalist made aware.
--- NOTE | 2021-05-05 09:07 | HE.PHANOTE ---
Vancomycin Dosing Addendum Based on new labs dose continued at [id number]. Next trough on 05/06 @ 1800
[2021-05-05] MEDS: Sertraline HCL 100 MG TABLET PO (09:40)
[2021-05-05] MEDS: 0.9 % Sodium Chloride Flush 3 ML SYRINGE IVFLUSH ×3 (09:42→21:27)
[2021-05-05] MEDS: Famotidine/PF 20 MG/2 ML VIAL IVPUSH ×2 (09:42→21:27)
[2021-05-05] MEDS: Nystatin Oral Susp 500,000 UNIT/5 ML ORAL.SUSP 200000 UNIT BUCCAL ×3 (09:46→21:26)
--- NOTE | 2021-05-05 10:07 | P.PNPL_ITS ---
Subjective Subjective Date of Service: 05/05/21 Interval history: The patient was seen on exam. She had an uneventful night. She is still on 4-5 L of oxygen to maintain a pulse ox above 90%. She is having hard time with her mucus. Feels like it is getting stuck and she is not able to expectorate. She is to agreeable to undergo a bronchoscopy today. Will plan to do that at noontime she is currently NPO. The patient understands that during the 24 hours perioperative. The patient will set will be changed to full code. Objective Data Labs CBC & Chem 7: 05/05/21 06:57 05/05/21 06:57 Labs: Laboratory Results - last 24 hr 05/04/21 05/04/21 05/04/21 08:41 15:02 15:02 WBC 11.4 H RBC 3.16 L Hgb 9.9 L Hct 31.3 L MCV 99.1 H MCH 31.3 MCHC 31.6 RDW 17.0 H Plt Count 128 L D MPV 10.2 Immature Gran % (Auto) 1.0 H Neut % (Auto) 91.8 H Lymph % (Auto) 3.4 L [place] % (Auto) 3.7 Eos % (Auto) 0.0 Baso % (Auto) 0.1 Lymph # (Auto) 0.4 L [place] # (Auto) 0.4 Eos # (Auto) 0.0 Baso # (Auto) 0.0 Abs Immat Gran (auto) 0.11 H Absolute Neuts (auto) 10.5 H Absolute Nucleated RBC 0.000 Nucleated RBC % (auto) 0.0 Smear Tech's Comments VERIFIED Sodium 139 Potassium 4.1 Chloride 105 Carbon Dioxide 26 Anion Gap 12 BUN 22 H Creatinine 0.81 Estim Creat Clear Calc 41.6 Estimated GFR > 60 Fasting Glucose 156 H Calcium 9.2 Total Bilirubin 0.4 AST 20 D ALT 51 H Alkaline Phosphatase 66 Total Protein 6.0 L Albumin 3.2 L Vancomycin Trough Influenza Type A (PCR) NEGATIVE Influenza Type B (PCR) NEGATIVE RSV RNA Qual (PCR) NEGATIVE SARS-CoV-2 RNA (RT-PCR) NEGATIVE 05/04/21 05/05/21 05/05/21 19:35 06:57 06:57 WBC 10.2 RBC 3.23 L Hgb 10.2 L Hct 31.8 L MCV 98.5 H MCH 31.6 MCHC 32.1 RDW 17.0 H Plt Count 109 L MPV 11.4 Immature Gran % (Auto) 0.8 H Neut % (Auto) 91.8 H Lymph % (Auto) 4.1 L [place] % (Auto) 3.2 Eos % (Auto) 0.0 Baso % (Auto) 0.1 Lymph # (Auto) 0.4 L [place] # (Auto) 0.3 Eos # (Auto) 0.0 Baso # (Auto) 0.0 Abs Immat Gran (auto) 0.08 H Absolute Neuts (auto) 9.4 H Absolute Nucleated RBC 0.000 Nucleated RBC % (auto) 0.0 Smear Tech's Comments VERIFIED Sodium 141 Potassium 4.2 Chloride 105 Carbon Dioxide 27 Anion Gap 13 BUN 24 H Creatinine 0.77 Estim Creat Clear Calc 43.7 Estimated GFR > 60 Fasting Glucose 126 H Calcium 9.1 Total Bilirubin 0.7 AST 46 H D ALT 59 H Alkaline Phosphatase 71 Total Protein 5.9 L Albumin 3.1 L Vancomycin Trough 9.8 L Influenza Type A (PCR) Influenza Type B (PCR) RSV RNA Qual (PCR) SARS-CoV-2 RNA (RT-PCR) Microbiology Microbiology Results: Microbiology 05/03/21 10:18 Sputum - Expectorated Gram Stain - Final 05/03/21 10:18 Sputum - Expectorated Sputum Culture - Final 04/30/21 20:23 Blood - Venous Blood Culture - Preliminary No growth after 48 hours. 04/30/21 19:58 Blood - Venous Blood Culture - Preliminary No growth after 48 hours. 05/01/21 07:31 Sputum - Expectorated Gram Stain - Final 05/01/21 07:31 Sputum - Expectorated Sputum Culture - Final Review of Systems Constitutional: Reports fatigue, Denies fever(s) and Reports malaise Eyes: Denies change in vision Denies nasal congestion and Denies nasal discharge Cardiovascular: Denies chest pain, Reports dyspnea and Reports dyspnea on exer tion Respiratory: Reports change in phlegm color, Reports chest congestion, Reports cough, Denies hemoptysis, Reports excessive phlegm production, Reports dyspnea and Reports dyspnea on exertion Gastrointestinal: Reports no additional gastrointestinal complaints Musculoskeletal: Reports no additional musculoskeletal complaints Endocrine: Reports fatigue Physical Exam Vital Signs: Vital Signs: Last Vital Signs Temp 97.0 F 05/05/21 08:00 Pulse 62 02/25/22 08:00 Resp 17 05/05/21 08:00 BP 193/91 H 05/05/21 08:00 Pulse Ox 100 05/05/21 08:00 Oxygen Flow Rate 2 04/30/21 18:46 BMI result Body Mass Index 19.6 Const: General: alert Neck: Neck: Yes normal visual inspection, Yes full ROM and Yes no lymphadenopathy Chest: Chest palpation & inspection: normal inspection of the chest Resp: Auscultation: rhonchi and diminished lung sounds Cardio: Rate: regular rate Rhythm: regular rhythm Heart sounds: S1 normal heart sound present and S2 normal heart sound present GI: Palpation (GI): Soft to palpation and nontender Auscultation: normal bowel sounds Skin: General skin exam: rashes and/or lesions noted Procedures Date of Service Date of Service: 05/05/21 Assessment and Plan Assessment and plan (1) Acute and chronic respiratory failure: Status: Acute (2) HAP (hospital-acquired pneumonia): Status: Acute (3) Bronchiectasis with (acute) exacerbation: Status: Acute (4) Pulmonary emboli: Status: Acute (5) COPD (chronic obstructive pulmonary disease): Status: Acute Plan Plan for bronchoscopy today for both therapeutic and diagnostic purposes. Continue broad-spectrum antibiotics Continue IV Solu-Medrol Continue oxygen supplementation CPT with Acapella valve should be provided Patient is currently DNR we will have to reverse her code status for 24 hours during the bronchoscopy in 24 hours after Time Spent With Patient Time: Total time spent is greater than 50% in coordination of care (as documented) at patient's floor/unit and/or counseling patient: Time with patient: 15 - 24 minutes Progress Note: Quality Stroke Does the patient have a stroke diagnosis?: No
--- NOTE | 2021-05-05 11:58 | MHC.SHP ---
Pre-Procedural Eval Section A Date of Service: 05/05/21 The patient is an INPATIENT: Yes Section B Chief Complaint: HCAP Allergies: Allergies Allergy/AdvReac Type Severity Reaction Status Date / Time Iodinated Contrast Media Allergy Severe Itch and Verified 04/18/21 11:05 [CONTRAST, IV] Rash Plan I have reviewed the history and physical and performed a pertinent physical examination on my patient. No changes have occurred unless specified.
[2021-05-05] MEDS: Lactated Ringers 500 ML 50 ML IV (12:15)
--- NOTE | 2021-05-05 12:59 | P.CONAN_ITS ---
FORM[facility]LY [facility] Active Problems Active Problems: All Active Problems (Updated 05/02/21 @ 20:31 by Jayjay Can MD) Acute and chronic respiratory failure (Acute) HAP (hospital-acquired pneumonia) (Acute) Community acquired pneumonia (Acute) Sedimentation rate elevation (Acute) Bronchiectasis with (acute) exacerbation (Acute) Acute respiratory failure with hypoxia (Acute) Pulmonary emboli (Acute) Pleuritic chest pain (Acute) COPD (chronic obstructive pulmonary disease) (Acute) Bronchiectasis (Acute) Weight loss (Acute) Insomnia (Acute) COPD exacerbation (Acute) Pneumonia (Acute) Past Medical History Medical History Acute and chronic respiratory failure Bronchiectasis Bronchiectasis, uncomplicated COPD (chronic obstructive pulmonary disease) COPD exacerbation Insomnia Pacemaker Pleuritic chest pain Pneumonia Presence of Watchman left atrial appendage closure device Sedimentation rate elevation Weight loss Functional capacity: independent ambulation Patient : No Family History Family History Father No problems noted. Family history of problems with anesthesia: No Surgical History Surgical History No pertinent past surgical history History of Problems with Anesthesia: No Social History Social History Household Members: None Housing: House Do you presently have visiting nurse or other home services: No Alcohol intake: never Patient Tobacco Use Status: Former Tobacco user Quit Date: 50 years ago Advance Directives Date on File: 04/08/21 service: No Current occupational status: retired Meds Allergies Allergy/AdvReac Type Severity Reaction Status Date / Time Iodinated Contrast Media Allergy Severe Itch and Verified 04/18/21 11:05 [CONTRAST, IV] Rash Active Medications: Current Medications Acetaminophen (Acetaminophen 325 Mg Tablet) 650 mg PO Q6H PRN PRN Reason: Pain, Mild (Pain Scale 1-3) Last Admin: 05/02/21 14:03 Dose: 650 mg Documented by: Albuterol Sulfate (Albuterol Sulfate 90 Mcg 8 Gm Inhaler) 2 puff INHALE Q4H PRN PRN Reason: Shortness Of Breath Last Admin: 05/04/21 08:47 Dose: 2 puff Documented by: Albuterol/Ipratropium (Albuterol/Iprat 2.5/0.5mg 3 Ml Ampul.Neb) 3 ml INHALE BID PRN PRN Reason: Shortness Of Breath Or Wheezing Last Admin: 05/02/21 05:04 Dose: 3 ml Documented by: Albuterol/Ipratropium (Albuterol/Iprat 2.5/0.5mg 3 Ml Ampul.Neb) 3 ml INHALE RQ4H PRN PRN Reason: Shortness of Breath/Wheezing Apixaban (Apixaban 2.5 Mg Tablet) 2.5 mg PO BID@0600,1800 [facility] Last Admin: 05/02/21 17:30 Dose: 2.5 mg Documented by: Cyanocobalamin (Cyanocobalamin (Vitamin B-12) 1,000 Mcg Tablet) 1,000 mcg PO DAILY [facility] Last Admin: 05/05/21 09:42 Dose: Not Given Documented by: Famotidine (Famotidine/Pf 20 Mg/2 Ml Vial) 20 mg IVPUSH BID [facility] Last Admin: 05/05/21 09:42 Dose: 20 mg Documented by: Folic Acid (Folic Acid 1 Mg Tablet) 1 mg PO DAILY [facility] Last Admin: 05/05/21 09:51 Dose: Not Given Documented by: Piperacillin Sod/Tazobactam (Sod 3.375 gm/ Sodium Chloride) 50 mls @ 100 mls/hr IV Q6H [facility] Last Infusion: 05/05/21 11:59 Dose: Infused Documented by: Vancomycin HCl 1,250 mg/ (Sodium Chloride) 250 mls @ 166.667 mls/hr IV Q24H [facility] Last Infusion: 05/04/21 22:20 Dose: Infused Documented by: Lactated Ringer's (Lr) 500 mls @ 50 mls/hr IV .Q10H [facility] Stop: 05/05/21 21:59 Last Admin: 05/05/21 12:15 Dose: 50 mls/hr Documented by: Levothyroxine Sodium (Levothyroxine Sodium 50 Mcg Tablet) 50 mcg PO DAILY@0630 [facility] Last Admin: 05/05/21 06:06 Dose: 50 mcg Documented by: Loratadine (Loratadine 10 Mg Tablet) 10 mg PO DAILY [facility] Last Admin: 05/05/21 09:51 Dose: Not Given Documented by: Lorazepam (Lorazepam 0.5 Mg Tablet) 0.5 mg PO BEDTIME PRN PRN Reason: Insomnia Last Admin: 05/02/21 22:52 Dose: 0.5 mg Documented by: Magnesium Oxide (Magnesium Oxide 400 Mg Tablet) 400 mg PO DAILY@1700 [facility] Last Admin: 05/04/21 16:14 Dose: 400 mg Documented by: Melatonin (Melatonin 3 Mg Tablet) 6 mg PO BEDTIME PRN PRN Reason: Insomnia Methylprednisolone Sodium Succinate (Methylprednisolone Sod Succ 125 Mg/2 Ml Vial) 60 mg IVPUSH Q8H [facility] Last Admin: 05/05/21 09:45 Dose: 60 mg Documented by: Morphine Sulfate (Morphine Sulfate 2 Mg/Ml Cartridge) 2 mg IVPUSH Q4H PRN; Protocol PRN Reason: Restlessness Last Admin: 05/04/21 09:33 Dose: 2 mg Documented by: Multivitamins/Vitamin C (Multivitamin Tablet) 1 tab PO DAILY [facility] Last Admin: 05/05/21 09:51 Dose: Not Given Documented by: Nystatin (Nystatin Oral Susp 500,000 Unit/5 Ml Oral.Susp) 200,000 unit BUCCAL QID [facility]; Protocol Stop: 05/07/21 16:59 Last Admin: 05/05/21 09:46 Dose: 200,000 unit Documented by: Omeprazole (Omeprazole 20 Mg Capsule.Dr) 20 mg PO BEDTIME [facility] Last Admin: 05/04/21 20:47 Dose: 20 mg Documented by: Pharmacy Consult (Consult Rx Vancomycin Dosing) 1 each MISCELLANE DAILY PRN PRN Reason: Consult order Senna (Sennosides 8.6 Mg Tablet) 17.2 mg PO BEDTIME PRN PRN Reason: Constipation Sertraline HCl (Sertraline Hcl 100 Mg Tablet) 100 mg PO DAILY [facility] Last Admin: 05/05/21 09:40 Dose: 100 mg Documented by: Sodium Chloride (0.9 % Sodium Chloride Flush 3 Ml Syringe) 3 ml IVFLUSH QSHIFT [facility] Last Admin: 05/05/21 09:42 Dose: 3 ml Documented by: Home Medications Medication Instructions Recorded Confirmed Last Taken Type albuterol sulfate 90 mcg/actuation 2 inh INHALATION Q4H PRN 01/12/20 04/30/21 04/05/21 History aerosol inhaler levothyroxine 50 mcg tablet 50 mcg PO DAILY@0630 01/12/20 04/30/21 04/06/21 History Bone Boost 1 tab PO TID 02/10/21 04/30/21 04/05/21 History Lactobacillus 40-Bifidobact 2 cap PO BEDTIME 02/10/21 04/30/21 04/05/21 History 3-S.thermophilus 100 billion cell capsule (Probiotic) Zeaxanthin 1 mg PO DAILY 02/10/21 04/30/21 04/05/21 History cyanocobalamin (vitamin B-12) 1,000 mcg PO DAILY 02/10/21 04/30/21 04/05/21 History 1,000 mcg tablet folic acid 1 mg tablet 1 mg PO DAILY 02/10/21 04/30/21 04/05/21 History ipratropium 0.5 mg-albuterol 3 mg 3 ml INHALATION BID PRN 02/10/21 04/30/21 04/05/21 History (2.5 mg base)/3 mL nebulization soln lutein 20 mg capsule 20 mg PO DAILY 02/10/21 04/30/21 04/05/21 History magnesium oxide 400 mg PO DAILY@1700 02/10/21 04/30/21 04/05/21 History multivitamin 1 tab PO DAILY 02/10/21 04/30/21 04/05/21 History sertraline 100 mg tablet 100 mg PO DAILY 02/20/21 04/30/21 04/05/21 History pantoprazole 40 mg tablet,delayed 40 mg PO BEDTIME 04/08/21 04/30/21 2 Days Ago History release ~04/06/21 fluticasone fur. 200 mcg-umeclid 1 puff INHALATION DAILY 05/01/21 05/01/21 Unknown History 62.5 mcg-vilant 25 mcg inhalat.powder (Trelegy Ellipta) sodium chloride 7 % for 1 vial INHALATION BID 05/01/21 05/01/21 Unknown History nebulization Exam Exam Date and Time: May 05, [id number] Height,Weight and Vital Signs: Height 5 ft 4 in Weight 51.9 kg Last Vital Signs Temp 97.7 F 05/05/21 12:31 Pulse 88 05/05/21 11:54 Resp 18 05/05/21 11:54 BP 165/76 H 05/05/21 11:54 Pulse Ox 98 05/05/21 11:54 Oxygen Flow Rate 2 04/30/21 18:46 Pertinent Lab Results Pertinent Lab Results: Laboratory Tests 04/30/21 04/30/21 04/30/21 19:58 19:58 19:58 WBC 13.2 H RBC 3.25 L Hgb 10.4 L Hct 32.3 L MCV 99.4 H MCH 32.0 MCHC 32.2 RDW 17.2 H Plt Count 152 L MPV 10.6 Immature Gran % (Auto) 0.4 Neut % (Auto) 70.7 Lymph % (Auto) 21.0 [place] % (Auto) 5.5 Eos % (Auto) 2.0 Baso % (Auto) 0.4 Lymph # (Auto) 2.8 [place] # (Auto) 0.7 Eos # (Auto) 0.3 Baso # (Auto) 0.1 Abs Immat Gran (auto) 0.05 H Absolute Neuts (auto) 9.3 H Absolute Nucleated RBC 0.000 Nucleated RBC % (auto) 0.0 Smear Tech's Comments PT 22.5 H INR 2.0 H Sodium Potassium Chloride Carbon Dioxide Anion Gap BUN Creatinine Estim Creat Clear Calc Estimated GFR Random Glucose Fasting Glucose Lactic Acid Calcium Total Bilirubin AST ALT Alkaline Phosphatase Troponin I High Sens B-Natriuretic Peptide Total Protein Albumin Procalcitonin Vancomycin Trough COVID-19 ([facility]) Negative COVID-19 Clin Com See Note Influenza Type A (PCR) Influenza Type B (PCR) RSV RNA Qual (PCR) SARS-CoV-2 RNA (RT-PCR) 04/30/21 04/30/21 04/30/21 19:58 19:58 19:58 WBC RBC Hgb Hct MCV MCH MCHC RDW Plt Count MPV Immature Gran % (Auto) Neut % (Auto) Lymph % (Auto) [place] % (Auto) Eos % (Auto) Baso % (Auto) Lymph # (Auto) [place] # (Auto) Eos # (Auto) Baso # (Auto) Abs Immat Gran (auto) Absolute Neuts (auto) Absolute Nucleated RBC Nucleated RBC % (auto) Smear Tech's Comments PT INR Sodium 136 Potassium 3.7 D Chloride 104 Carbon Dioxide 21 L Anion Gap 15 BUN 11 D Creatinine 0.74 Estim Creat Clear Calc 47.9 Estimated GFR > 60 Random Glucose 91 Fasting Glucose Lactic Acid 1.3 Calcium 8.7 D Total Bilirubin 1.0 AST 20 ALT 15 Alkaline Phosphatase 49 Troponin I High Sens 20.9 H D B-Natriuretic Peptide 564 H Total Protein 5.6 L Albumin 2.9 L Procalcitonin Vancomycin Trough COVID-19 ([facility]) COVID-19 Clin Com Influenza Type A (PCR) Influenza Type B (PCR) RSV RNA Qual (PCR) SARS-CoV-2 RNA (RT-PCR) 04/30/21 05/01/21 05/01/21 23:41 08:10 08:10 WBC 8.6 RBC 3.73 L Hgb 11.8 L Hct 37.3 MCV 100.0 H MCH 31.6 MCHC 31.6 RDW 17.2 H Plt Count 166 MPV 11.0 Immature Gran % (Auto) 0.3 Neut % (Auto) 93.9 H Lymph % (Auto) 3.6 L [place] % (Auto) 2.0 Eos % (Auto) 0.0 Baso % (Auto) 0.2 Lymph # (Auto) 0.3 L [place] # (Auto) 0.2 Eos # (Auto) 0.0 Baso # (Auto) 0.0 Abs Immat Gran (auto) 0.03 Absolute Neuts (auto) 8.1 Absolute Nucleated RBC 0.000 Nucleated RBC % (auto) 0.0 Smear Tech's Comments VERIFIED PT INR Sodium 141 Potassium 4.5 D Chloride 107 Carbon Dioxide 21 L Anion Gap 18 BUN 15 Creatinine 0.80 Estim Creat Clear Calc 44.4 Estimated GFR > 60 Random Glucose 219 H Fasting Glucose Lactic Acid Calcium 9.2 Total Bilirubin AST ALT Alkaline Phosphatase Troponin I High Sens 15.5 B-Natriuretic Peptide Total Protein Albumin Procalcitonin Vancomycin Trough COVID-19 ([facility]) COVID-19 Clin Com Influenza Type A (PCR) Influenza Type B (PCR) RSV RNA Qual (PCR) SARS-CoV-2 RNA (RT-PCR) 05/02/21 05/02/21 05/02/21 07:48 07:48 18:54 WBC 13.3 H RBC 3.21 L Hgb 10.2 L Hct 31.4 L MCV 97.8 MCH 31.8 MCHC 32.5 RDW 17.0 H Plt Count 164 MPV 10.8 Immature Gran % (Auto) 0.5 H Neut % (Auto) 95.2 H Lymph % (Auto) 1.9 L [place] % (Auto) 2.3 Eos % (Auto) 0.0 Baso % (Auto) 0.1 Lymph # (Auto) 0.3 L [place] # (Auto) 0.3 Eos # (Auto) 0.0 Baso # (Auto) 0.0 Abs Immat Gran (auto) 0.06 H Absolute Neuts (auto) 12.7 H Absolute Nucleated RBC 0.000 Nucleated RBC % (auto) 0.0 Smear Tech's Comments VERIFIED PT INR Sodium 140 Potassium 4.2 Chloride 108 Carbon Dioxide 24 Anion Gap 12 BUN 22 H Creatinine 0.81 Estim Creat Clear Calc 43.8 Estimated GFR > 60 Random Glucose Fasting Glucose 186 H Lactic Acid Calcium 9.1 Total Bilirubin 0.4 AST 23 ALT 21 Alkaline Phosphatase 52 Troponin I High Sens B-Natriuretic Peptide Total Protein 5.7 L Albumin 3.0 L Procalcitonin Vancomycin Trough 3.1 L COVID-19 ([facility]) COVID-19 Clin Com Influenza Type A (PCR) Influenza Type B (PCR) RSV RNA Qual (PCR) SARS-CoV-2 RNA (RT-PCR) 05/03/21 05/03/21 05/03/21 06:02 10:07 10:07 WBC 13.0 H RBC 3.27 L Hgb 10.4 L Hct 32.2 L MCV 98.5 H MCH 31.8 MCHC 32.3 RDW 17.1 H Plt Count 182 MPV 11.2 Immature Gran % (Auto) 0.6 H Neut % (Auto) 90.7 H Lymph % (Auto) 4.1 L [place] % (Auto) 4.5 Eos % (Auto) 0.0 Baso % (Auto) 0.1 Lymph # (Auto) 0.5 L [place] # (Auto) 0.6 Eos # (Auto) 0.0 Baso # (Auto) 0.0 Abs Immat Gran (auto) 0.08 H Absolute Neuts (auto) 11.8 H Absolute Nucleated RBC 0.000 Nucleated RBC % (auto) 0.0 Smear Tech's Comments VERIFIED PT INR Sodium 138 Potassium 4.1 Chloride 105 Carbon Dioxide 25 Anion Gap 12 BUN 19 H Creatinine 0.74 Estim Creat Clear Calc 45.5 Estimated GFR > 60 Random Glucose Fasting Glucose 118 H Lactic Acid Calcium 9.0 Total Bilirubin 0.5 AST 58 H ALT 68 H Alkaline Phosphatase 65 D Troponin I High Sens B-Natriuretic Peptide Total Protein 6.0 L Albumin 3.2 L Procalcitonin 0.19 Vancomycin Trough COVID-19 ([facility]) COVID-19 Clin Com Influenza Type A (PCR) Influenza Type B (PCR) RSV RNA Qual (PCR) SARS-CoV-2 RNA (RT-PCR) 05/03/21 05/04/21 05/04/21 10:07 08:41 15:02 WBC 11.4 H RBC 3.16 L Hgb 9.9 L Hct 31.3 L MCV 99.1 H MCH 31.3 MCHC 31.6 RDW 17.0 H Plt Count 128 L D MPV 10.2 Immature Gran % (Auto) 1.0 H Neut % (Auto) 91.8 H Lymph % (Auto) 3.4 L [place] % (Auto) 3.7 Eos % (Auto) 0.0 Baso % (Auto) 0.1 Lymph # (Auto) 0.4 L [place] # (Auto) 0.4 Eos # (Auto) 0.0 Baso # (Auto) 0.0 Abs Immat Gran (auto) 0.11 H Absolute Neuts (auto) 10.5 H Absolute Nucleated RBC 0.000 Nucleated RBC % (auto) 0.0 Smear Tech's Comments VERIFIED PT INR Sodium Potassium Chloride Carbon Dioxide Anion Gap BUN Creatinine 0.74 Estim Creat Clear Calc 45.5 Estimated GFR > 60 Random Glucose Fasting Glucose Lactic Acid Calcium Total Bilirubin AST ALT Alkaline Phosphatase Troponin I High Sens B-Natriuretic Peptide Total Protein Albumin Procalcitonin Vancomycin Trough COVID-19 ([facility]) COVID-19 Clin Com Influenza Type A (PCR) NEGATIVE Influenza Type B (PCR) NEGATIVE RSV RNA Qual (PCR) NEGATIVE SARS-CoV-2 RNA (RT-PCR) NEGATIVE 05/04/21 05/04/21 05/05/21 15:02 19:35 06:57 WBC 10.2 RBC 3.23 L Hgb 10.2 L Hct 31.8 L MCV 98.5 H MCH 31.6 MCHC 32.1 RDW 17.0 H Plt Count 109 L MPV 11.4 Immature Gran % (Auto) 0.8 H Neut % (Auto) 91.8 H Lymph % (Auto) 4.1 L [place] % (Auto) 3.2 Eos % (Auto) 0.0 Baso % (Auto) 0.1 Lymph # (Auto) 0.4 L [place] # (Auto) 0.3 Eos # (Auto) 0.0 Baso # (Auto) 0.0 Abs Immat Gran (auto) 0.08 H Absolute Neuts (auto) 9.4 H Absolute Nucleated RBC 0.000 Nucleated RBC % (auto) 0.0 Smear Tech's Comments VERIFIED PT INR Sodium 139 Potassium 4.1 Chloride 105 Carbon Dioxide 26 Anion Gap 12 BUN 22 H Creatinine 0.81 Estim Creat Clear Calc 41.6 Estimated GFR > 60 Random Glucose Fasting Glucose 156 H Lactic Acid Calcium 9.2 Total Bilirubin 0.4 AST 20 D ALT 51 H Alkaline Phosphatase 66 Troponin I High Sens B-Natriuretic Peptide Total Protein 6.0 L Albumin 3.2 L Procalcitonin Vancomycin Trough 9.8 L COVID-19 ([facility]) COVID-19 Clin Com Influenza Type A (PCR) Influenza Type B (PCR) RSV RNA Qual (PCR) SARS-CoV-2 RNA (RT-PCR) 05/05/21 06:57 WBC RBC Hgb Hct MCV MCH MCHC RDW Plt Count MPV Immature Gran % (Auto) Neut % (Auto) Lymph % (Auto) [place] % (Auto) Eos % (Auto) Baso % (Auto) Lymph # (Auto) [place] # (Auto) Eos # (Auto) Baso # (Auto) Abs Immat Gran (auto) Absolute Neuts (auto) Absolute Nucleated RBC Nucleated RBC % (auto) Smear Tech's Comments PT INR Sodium 141 Potassium 4.2 Chloride 105 Carbon Dioxide 27 Anion Gap 13 BUN 24 H Creatinine 0.77 Estim Creat Clear Calc 43.7 Estimated GFR > 60 Random Glucose Fasting Glucose 126 H Lactic Acid Calcium 9.1 Total Bilirubin 0.7 AST 46 H D ALT 59 H Alkaline Phosphatase 71 Troponin I High Sens B-Natriuretic Peptide Total Protein 5.9 L Albumin 3.1 L Procalcitonin Vancomycin Trough COVID-19 ([facility]) COVID-19 Clin Com Influenza Type A (PCR) Influenza Type B (PCR) RSV RNA Qual (PCR) SARS-CoV-2 RNA (RT-PCR) Airway Loose/Missing/Broken Teeth: No Heart: RRR Lungs: BS lower Assessment and Plan Final Anesthetic Review Family History of Problems with Anesthesia: No History of Problems with Anesthesia: No ASA Class: III Final Preanesthetic Review: No Changes in Pt Med Stat, Meds/Allgs Chart Reviewed, Consent Obtained/Reviewed and Anes Risks/Benef Reviewed Patient Risk: Intermediate Anesthetic Plan Anesthetic Plan: GA Disposition: Standard PACU
--- NOTE | 2021-05-05 13:07 | PM.OP ---
Brief Operative Note Date of Service: 05/05/21 Pre-op diagnosis: Pneumonia and bronchiectasis Post-op diagnosis: other (Pneumonia, bronchiectasis, neovascularization) Procedure: Bronchoscopy with therapeutic cleaning Surgeon: Jayjay Can MD Anesthesia: GETA Was an Seismic Prospecting Observer Helper used for this Procedure?: No Estimated blood loss (mL): 0 Condition: stable Disposition: floor
--- NOTE | 2021-05-05 14:51 | HO.PM.IMPN ---
Subjective Subjective Date of Service: 05/05/21 Interval History: No acute issues overnight. Breathing minimally improved therapies; good response to HS ativan/MSO4. Increasing O2 requirement Review of Systems Denies chest pain Denies nausea vomiting diarrhea Admits to exertional shortness of breath; minimal movement Physical Exam Vital Signs: Vital Signs: Last Vital Signs Temp 97.4 F 05/05/21 14:40 Pulse 62 05/05/21 14:40 Resp 19 05/05/21 14:40 BP 189/91 H 05/05/21 14:40 Pulse Ox 97 05/05/21 14:40 Oxygen Flow Rate 2 04/30/21 18:46 BMI result Body Mass Index 19.6 Const: Other: Awake alert oriented x3 in no acute distress Resp: Other: Diminished all fontanez fine rhonchi that clear with cough. Scattered expiratory wheezes Cardio: Other: No S4; positive S1-S2; no S3 murmurs rubs or gallops GI: Other: Soft nontender nondistended with normoactive bowel sounds x4 quadrants Extrem: Other: No edema bilaterally Objective Data Active Medications Acetaminophen (Acetaminophen 325 Mg Tablet) 650 mg PO Q6H PRN PRN Reason: Pain, Mild (Pain Scale 1-3) Last Admin: 05/02/21 14:03 Dose: 650 mg Documented by: DANIELA Albuterol Sulfate (Albuterol Sulfate 90 Mcg 8 Gm Inhaler) 2 puff INHALE Q4H PRN PRN Reason: Shortness Of Breath Last Admin: 05/04/21 08:47 Dose: 2 puff Documented by: JAMI Albuterol/Ipratropium (Albuterol/Iprat 2.5/0.5mg 3 Ml Ampul.Neb) 3 ml INHALE BID PRN PRN Reason: Shortness Of Breath Or Wheezing Last Admin: 05/02/21 05:04 Dose: 3 ml Documented by: ZOEY Albuterol/Ipratropium (Albuterol/Iprat 2.5/0.5mg 3 Ml Ampul.Neb) 3 ml INHALE RQ4H PRN PRN Reason: Shortness of Breath/Wheezing Apixaban (Apixaban 2.5 Mg Tablet) 2.5 mg PO BID@0600,1800 [facility] Last Admin: 05/02/21 17:30 Dose: 2.5 mg Documented by: DANIELA Cyanocobalamin (Cyanocobalamin (Vitamin B-12) 1,000 Mcg Tablet) 1,000 mcg PO DAILY [facility] Last Admin: 05/05/21 09:42 Dose: Not Given Documented by: VALERY Non-Admin Reason: NPO Famotidine (Famotidine/Pf 20 Mg/2 Ml Vial) 20 mg IVPUSH BID [facility] Last Admin: 05/05/21 09:42 Dose: 20 mg Documented by: VALERY Fentanyl (Fentanyl Citrate/Pf 100 Mcg/2 Ml Vial) 25 mcg IVPUSH Q5M PRN; Protocol PRN Reason: Pain, Moderate (Pain Scale 4-6 Folic Acid (Folic Acid 1 Mg Tablet) 1 mg PO DAILY [facility] Last Admin: 05/05/21 09:51 Dose: Not Given Documented by: VALERY Non-Admin Reason: NPO Piperacillin Sod/Tazobactam (Sod 3.375 gm/ Sodium Chloride) 50 mls @ 100 mls/hr IV Q6H [facility] Last Infusion: 05/05/21 11:59 Dose: 0 mls/hr Documented by: VALERY Vancomycin HCl 1,250 mg/ (Sodium Chloride) 250 mls @ 166.667 mls/hr IV Q24H [facility] Last Infusion: 05/04/21 22:20 Dose: 0 mls/hr Documented by: AB Lactated Ringer's (Lr) 500 mls @ 50 mls/hr IV .Q10H [facility] Stop: 05/05/21 21:59 Last Admin: 05/05/21 12:15 Dose: 50 mls/hr Documented by: MARIBEL Levothyroxine Sodium (Levothyroxine Sodium 50 Mcg Tablet) 50 mcg PO DAILY@0630 [facility] Last Admin: 05/05/21 06:06 Dose: 50 mcg Documented by: FREDRICK Loratadine (Loratadine 10 Mg Tablet) 10 mg PO DAILY [facility] Last Admin: 05/05/21 09:51 Dose: Not Given Documented by: VALERY Non-Admin Reason: NPO Lorazepam (Lorazepam 0.5 Mg Tablet) 0.5 mg PO BEDTIME PRN PRN Reason: Insomnia Last Admin: 05/02/21 22:52 Dose: 0.5 mg Documented by: STERLING Magnesium Oxide (Magnesium Oxide 400 Mg Tablet) 400 mg PO DAILY@1700 [facility] Last Admin: 05/04/21 16:14 Dose: 400 mg Documented by: PERLA Melatonin (Melatonin 3 Mg Tablet) 6 mg PO BEDTIME PRN PRN Reason: Insomnia Methylprednisolone Sodium Succinate (Methylprednisolone Sod Succ 125 Mg/2 Ml Vial) 60 mg IVPUSH Q8H [facility] Last Admin: 05/05/21 09:45 Dose: 60 mg Documented by: VALERY Morphine Sulfate (Morphine Sulfate 2 Mg/Ml Cartridge) 2 mg IVPUSH Q4H PRN; Protocol PRN Reason: Restlessness Last Admin: 05/04/21 09:33 Dose: 2 mg Documented by: LIBORIO Multivitamins/Vitamin C (Multivitamin Tablet) 1 tab PO DAILY [facility] Last Admin: 05/05/21 09:51 Dose: Not Given Documented by: VALERY Non-Admin Reason: NPO Nystatin (Nystatin Oral Susp 500,000 Unit/5 Ml Oral.Susp) 200,000 unit BUCCAL QID [facility]; Protocol Stop: 05/07/21 16:59 Last Admin: 05/05/21 09:46 Dose: 200,000 unit Documented by: VALERY Omeprazole (Omeprazole 20 Mg Capsule.Dr) 20 mg PO BEDTIME [facility] Last Admin: 05/04/21 20:47 Dose: 20 mg Documented by: AB Ondansetron HCl (Ondansetron Hcl 4 Mg/2 Ml Vial) 4 mg IVPUSH ONCE PRN PRN Reason: Nausea and Vomiting Pharmacy Consult (Consult Rx Vancomycin Dosing) 1 each MISCELLANE DAILY PRN PRN Reason: Consult order Senna (Sennosides 8.6 Mg Tablet) 17.2 mg PO BEDTIME PRN PRN Reason: Constipation Sertraline HCl (Sertraline Hcl 100 Mg Tablet) 100 mg PO DAILY [facility] Last Admin: 05/05/21 09:40 Dose: 100 mg Documented by: VALERY Sodium Chloride (0.9 % Sodium Chloride Flush 3 Ml Syringe) 3 ml IVFLUSH QSHIFT [facility] Last Admin: 05/05/21 09:42 Dose: 3 ml Documented by: VALERY Labs CBC & Chem 7: 05/05/21 06:57 05/05/21 06:57 Labs: Laboratory Results - last 24 hr 05/04/21 05/04/21 05/04/21 15:02 15:02 19:35 MCV 99.1 H MCH 31.3 MCHC 31.6 RDW 17.0 H Plt Count 128 L D MPV 10.2 Immature Gran % (Auto) 1.0 H Neut % (Auto) 91.8 H Lymph % (Auto) 3.4 L [place] % (Auto) 3.7 Eos % (Auto) 0.0 Baso % (Auto) 0.1 Lymph # (Auto) 0.4 L [place] # (Auto) 0.4 Eos # (Auto) 0.0 Baso # (Auto) 0.0 Abs Immat Gran (auto) 0.11 H Absolute Neuts (auto) 10.5 H Absolute Nucleated RBC 0.000 Nucleated RBC % (auto) 0.0 Smear Tech's Comments VERIFIED Anion Gap 12 Estim Creat Clear Calc 41.6 Estimated GFR > 60 Fasting Glucose 156 H Calcium 9.2 Total Bilirubin 0.4 AST 20 D ALT 51 H Alkaline Phosphatase 66 Total Protein 6.0 L Albumin 3.2 L Vancomycin Trough 9.8 L 05/05/21 05/05/21 06:57 06:57 MCV 98.5 H MCH 31.6 MCHC 32.1 RDW 17.0 H Plt Count 109 L MPV 11.4 Immature Gran % (Auto) 0.8 H Neut % (Auto) 91.8 H Lymph % (Auto) 4.1 L [place] % (Auto) 3.2 Eos % (Auto) 0.0 Baso % (Auto) 0.1 Lymph # (Auto) 0.4 L [place] # (Auto) 0.3 Eos # (Auto) 0.0 Baso # (Auto) 0.0 Abs Immat Gran (auto) 0.08 H Absolute Neuts (auto) 9.4 H Absolute Nucleated RBC 0.000 Nucleated RBC % (auto) 0.0 Smear Tech's Comments VERIFIED Anion Gap 13 Estim Creat Clear Calc 43.7 Estimated GFR > 60 Fasting Glucose 126 H Calcium 9.1 Total Bilirubin 0.7 AST 46 H D ALT 59 H Alkaline Phosphatase 71 Total Protein 5.9 L Albumin 3.1 L Vancomycin Trough 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 had intermediate probability of V/Q scan on 04/18 and was started on Eliquis.Completed course of prednisone and doxycycline. Re admitted for same 1.Pneumonia(bilat patchy infiltrates).? -IV vancomycin and Zosyn to cover Hospital aquired;needs PICC. --bronch done..await results 2. PE(suspected on V/Q) - empirical elobraulio however pt agreed only to subtheraputic dose -continue same; await Pulm input Elobraulio DNR/DNI Quality Stroke Does the patient have a stroke diagnosis?: No VTE Prior VTE?: No VTE Risk Level:: Medical - moderate - high VTE Device Contraindication: Treatment Not Indicated VTE Drug Contraindication: N/A - Med Ordered
[2021-05-05] MEDS: Morphine Sulfate 2 MG/ML CARTRIDGE IVPUSH (17:12)
[2021-05-05] MEDS: Magnesium Oxide 400 MG TABLET PO (17:23)
[2021-05-05] MEDS: vancomycin HCL 1,250 MG in 0.9 % Sodium Chloride 250 ML 166.67 MG IV (21:26)
[2021-05-05] MEDS: Omeprazole 20 MG CAPSULE.DR PO (21:26)
--- NOTE | 2021-05-05 23:14 | OP_ITS ---
SURGEON: Jayjay Can MD PREOPERATIVE DIAGNOSIS: POSTOPERATIVE DIAGNOSIS: PROCEDURE PERFORMED: Bronchoscopy with therapeutic cleaning. ESTIMATED BLOOD LOSS: COMPLICATIONS: ANESTHESIA: General endotracheal anesthesia provided. ASSISTANTS: SPECIMENS: PREOPERATIVE DIAGNOSES: Bronchiectasis and pneumonia. POSTOPERATIVE DIAGNOSES: Bronchiectasis, pneumonia, and also neovascularization. DESCRIPTION OF PROCEDURE: After the patient adequately sedated, the flexible digital bronchoscope was inserted over the ET tube to the level of the trachea. Tracheal mucosa appeared to be normal. The main chang was also normal splayed. The bronchoscope was then introduced to the entire tracheobronchial tree. The patient had significant bronchiectatic looking airways with some increased neovascularization primarily in the right lung. No evidence of any endobronchial lesions, however. Although, the thought of lymphangitic spreading process did come up based on the distribution of the neovascularization. The patient did have moderate degree of mucus plugging in the central airways in addition to significant heavy thick mucus in the lower airways bilaterally. The bronchoscope was navigated into every segment and saline was used for suctioning with mucus clearance. In addition to that, 10% acetylcysteine was used, 2 mL were introduced into both bases and that help with mucus breakdown. The patient has significant mucus plugging primarily at the bases. After the airways were all cleared, the bronchoscope was then removed. The total endoscopic time was approximately about 50 minutes. The patient tolerated the procedure well. She was quickly extubated and now transferred to the floor. INTERPRETATION: 1. Successful therapeutic bronchoscopy with airway clearance, [id number]. 2. Bilateral lung washings for Microbiology and Cytology. Jayjay Can MD MR/MODL / [id number]
[2021-05-06] VITALS: BP 159/93; PULSE 63; RESP 18; TEMP 37.1; O2SAT 98
[2021-05-06 04:00] VITALS: BP 155/80; PULSE 60; RESP 18; TEMP 36.2; O2SAT 98
[2021-05-06] MEDS: Piperacillin Sodium/Tazobactam 3.375 GM in 0.9 % Sodium Chloride 50 ML IV ×2 (06:06→17:20)
[2021-05-06] MEDS: Levothyroxine Sodium 50 MCG TABLET PO (06:07)
[2021-05-06 07:13] LABS: MANUAL DIFF FLAG NO
[2021-05-06 07:20] LABS: Basophils Percent Auto 0.1 % (0-2); Hematocrit 30.6 % (37.0-47.0); Hemoglobin 9.8 g/dl (12.0-16.0); Imm Gran Abs Auto 0.11 X10*3/uL (0.00-0.03); Lymphocytes Absolute Auto 0.6 X10*3/uL (1.2-4.9); Lymphocytes Percent Auto 5.7 % (20-40); Mean Corpuscular Hemoglobin 31.2 pg (27.0-33.0); Mean Corpuscular Volume 97.5 fL (80.0-98.0); Mean Platelet Volume 11.5 fL (9.4-12.3); Monocytes Absolute Auto 0.5 X10*3/uL (0.1-1.2); Monocytes Percent Auto 4.6 % (2-11); Neutrophils Absolute Auto 9.8 x10*3/uL (2.0-8.3); Neutrophils Percent Auto 88.6 % (45-73); Red Blood Count 3.14 X10*6/uL (4.20-5.50); Red Cell Distribution Width 17.4 % (11.0-16.0); White Blood Count 11.1 X10*3/uL (4.8-10.8)
[2021-05-06 07:32] LABS: Alanine Aminotransferase 86 U/L (0-31); Alkaline Phosphatase 78 U/L (39-117); Anion Gap 12 (12-20); Aspartate Amino Transferase 34 U/L (5-31); Bilirubin Total 0.6 mg/dL (0.0-1.0); Blood Urea Nitrogen 30 mg/dL (9-16); Calcium 8.9 mg/dL (8.4-10.2); Carbon Dioxide 28 mmol/L (22-29); Chloride 106 mmol/L (96-108); Creatinine Clr Calc Pharmacy 42.6; Estimated Glomerular Filt Rate > 60; Glucose Fasting 140 mg/dL (60-99); Platelet Count 91 X10*3/uL (160-400); Sodium 142 mmol/L (135-145); Total Protein 5.7 g/dL (6.5-8.0)
[2021-05-06] MEDS: Acetaminophen 325 MG TABLET 650 MG PO (08:50)
[2021-05-06] MEDS: Nystatin Oral Susp 500,000 UNIT/5 ML ORAL.SUSP 200000 UNIT BUCCAL ×2 (08:50→17:25)
[2021-05-06] MEDS: Sertraline HCL 100 MG TABLET PO (08:51)
[2021-05-06] MEDS: Multivitamin TABLET 1 TAB PO (08:51)
[2021-05-06] MEDS: Folic Acid 1 MG TABLET PO (08:51)
[2021-05-06] MEDS: methylPREDNISolone Sod Succ 125 MG/2 ML VIAL 60 MG IVPUSH ×2 (08:52→18:11)
[2021-05-06] MEDS: Famotidine/PF 20 MG/2 ML VIAL IVPUSH (08:52)
[2021-05-06] MEDS: Loratadine 10 MG TABLET PO (08:52)
[2021-05-06] MEDS: Cyanocobalamin (Vitamin B-12) 1,000 MCG TABLET 1000 MCG PO (08:52)
[2021-05-06] MEDS: 0.9 % Sodium Chloride Flush 3 ML SYRINGE IVFLUSH ×2 (08:53→17:20)
[2021-05-06] MEDS: Morphine Sulfate 2 MG/ML CARTRIDGE IVPUSH (09:32)
[2021-05-06] MEDS: Lidocaine HCl 1 % MPF 5 ML VIAL 8 ML INFILTRATI (12:57)
[2021-05-06 13:04] VITALS: O2SAT 92
[2021-05-06 13:37] VITALS: BP 135/81; PULSE 63; RESP 20; TEMP 36.8; O2SAT 92
--- NOTE | 2021-05-06 15:36 | PC.NURSE ---
PT RETURNED FROM PICC LINE INSERTION AT APPROX 1315. SITE BLEEDING, SATURATED THROUGH DRESSING. DSG CHANGED. AND AGAIN SATURATED THROUGH DSG LEEANN WRAP APPLIED FOR PRESSURE AT 1345. DR EUBANKS AWARE. IR TECH STATED WAS BLEEDING AFTER INSERTION, DUE TO ELIQUIS. 1500 LEEANN WRAP CLEAN DRY.
--- NOTE | 2021-05-06 15:40 | P.PNIM_ITS ---
Subjective Subjective Date of Service: 05/06/21 Interval History: No acute issues overnight. Stable after bronch.PICC today Review of Systems Denies chest pain Denies nausea vomiting diarrhea Admits to exertional shortness of breath; minimal movement Physical Exam Vital Signs: Vital Signs: Last Vital Signs Temp 98.2 F 05/06/21 13:37 Pulse 63 05/06/21 13:37 Resp 20 05/06/21 13:37 BP 135/81 05/06/21 13:37 Pulse Ox 92 05/06/21 13:37 Oxygen Flow Rate 4 05/06/21 13:04 BMI result Body Mass Index 19.6 Const: Other: Awake alert oriented x3 in no acute distress Resp: Other: Diminished all fontanez fine rhonchi that clear with cough. Scattered expiratory wheezes Cardio: Other: No S4; positive S1-S2; no S3 murmurs rubs or gallops GI: Other: Soft nontender nondistended with normoactive bowel sounds x4 quadrants Extrem: Other: No edema bilaterally Objective Data Active Medications Acetaminophen (Acetaminophen 325 Mg Tablet) 650 mg PO Q6H PRN PRN Reason: Pain, Mild (Pain Scale 1-3) Last Admin: 05/06/21 08:50 Dose: 650 mg Documented by: STEPHANIE Albuterol Sulfate (Albuterol Sulfate 90 Mcg 8 Gm Inhaler) 2 puff INHALE Q4H PRN PRN Reason: Shortness Of Breath Last Admin: 05/04/21 08:47 Dose: 2 puff Documented by: JAMI Albuterol/Ipratropium (Albuterol/Iprat 2.5/0.5mg 3 Ml Ampul.Neb) 3 ml INHALE BID PRN PRN Reason: Shortness Of Breath Or Wheezing Last Admin: 05/02/21 05:04 Dose: 3 ml Documented by: ZOEY Albuterol/Ipratropium (Albuterol/Iprat 2.5/0.5mg 3 Ml Ampul.Neb) 3 ml INHALE RQ4H PRN PRN Reason: Shortness of Breath/Wheezing Apixaban (Apixaban 2.5 Mg Tablet) 2.5 mg PO BID@0600,1800 [facility] Last Admin: 05/06/21 05:56 Dose: Not Given Documented by: ANTOIC Non-Admin Reason: Pt getting PICC line Cyanocobalamin (Cyanocobalamin (Vitamin B-12) 1,000 Mcg Tablet) 1,000 mcg PO DAILY [facility] Last Admin: 05/06/21 08:52 Dose: 1,000 mcg Documented by: STEPHANIE Famotidine (Famotidine/Pf 20 Mg/2 Ml Vial) 20 mg IVPUSH BID [facility] Last Admin: 05/06/21 08:52 Dose: 20 mg Documented by: STEPHANIE Fentanyl (Fentanyl Citrate/Pf 100 Mcg/2 Ml Vial) 25 mcg IVPUSH Q5M PRN; Protocol PRN Reason: Pain, Moderate (Pain Scale 4-6 Folic Acid (Folic Acid 1 Mg Tablet) 1 mg PO DAILY [facility] Last Admin: 05/06/21 08:51 Dose: 1 mg Documented by: STEPHANIE Piperacillin Sod/Tazobactam (Sod 3.375 gm/ Sodium Chloride) 50 mls @ 100 mls/hr IV Q6H [facility] Last Admin: 05/06/21 13:52 Dose: Not Given Documented by: STEPHANIE Non-Admin Reason: off unit Vancomycin HCl 1,250 mg/ (Sodium Chloride) 250 mls @ 166.667 mls/hr IV Q24H [facility] Last Infusion: 05/05/21 23:35 Dose: 0 mls/hr Documented by: ANTDIAMOND Levothyroxine Sodium (Levothyroxine Sodium 50 Mcg Tablet) 50 mcg PO DAILY@0630 [facility] Last Admin: 05/06/21 06:07 Dose: 50 mcg Documented by: ANTOIC Loratadine (Loratadine 10 Mg Tablet) 10 mg PO DAILY [facility] Last Admin: 05/06/21 08:52 Dose: 10 mg Documented by: STEPHANIE Lorazepam (Lorazepam 0.5 Mg Tablet) 0.5 mg PO BEDTIME PRN PRN Reason: Insomnia Last Admin: 05/02/21 22:52 Dose: 0.5 mg Documented by: STERLING Magnesium Oxide (Magnesium Oxide 400 Mg Tablet) 400 mg PO DAILY@1700 [facility] Last Admin: 05/05/21 17:23 Dose: 400 mg Documented by: KATIEENOAL Melatonin (Melatonin 3 Mg Tablet) 6 mg PO BEDTIME PRN PRN Reason: Insomnia Methylprednisolone Sodium Succinate (Methylprednisolone Sod Succ 125 Mg/2 Ml Vial) 60 mg IVPUSH Q8H [facility] Last Admin: 05/06/21 08:52 Dose: 60 mg Documented by: STEPHANIE Comments: Morphine Sulfate (Morphine Sulfate 2 Mg/Ml Cartridge) 2 mg IVPUSH Q4H PRN; Protocol PRN Reason: Restlessness Last Admin: 05/06/21 09:32 Dose: 2 mg Documented by: STEPHANIE Multivitamins/Vitamin C (Multivitamin Tablet) 1 tab PO DAILY [facility] Last Admin: 05/06/21 08:51 Dose: 1 tab Documented by: STEPHANIE Nystatin (Nystatin Oral Susp 500,000 Unit/5 Ml Oral.Susp) 200,000 unit BUCCAL QID [facility]; Protocol Stop: 05/07/21 16:59 Last Admin: 05/06/21 14:39 Dose: Not Given Documented by: STEPHANIE Non-Admin Reason: Patient Refused Omeprazole (Omeprazole 20 Mg Capsule.) 20 mg PO BEDTIME [facility] Last Admin: 05/05/21 21:26 Dose: 20 mg Documented by: ANTOIC Ondansetron HCl (Ondansetron Hcl 4 Mg/2 Ml Vial) 4 mg IVPUSH ONCE PRN PRN Reason: Nausea and Vomiting Pharmacy Consult (Consult Rx Vancomycin Dosing) 1 each MISCELLANE DAILY PRN PRN Reason: Consult order Senna (Sennosides 8.6 Mg Tablet) 17.2 mg PO BEDTIME PRN PRN Reason: Constipation Sertraline HCl (Sertraline Hcl 100 Mg Tablet) 100 mg PO DAILY [facility] Last Admin: 05/06/21 08:51 Dose: 100 mg Documented by: STEPHANIE Sodium Chloride (0.9 % Sodium Chloride Flush 3 Ml Syringe) 3 ml IVFLUSH QSHIFT [facility] Last Admin: 05/06/21 08:53 Dose: 3 ml Documented by: STEPHANIE Labs CBC & Chem 7: 05/06/21 06:48 05/06/21 06:48 Labs: Laboratory Results - last 24 hr 05/06/21 05/06/21 06:48 06:48 MCV 97.5 MCH 31.2 MCHC 32.0 RDW 17.4 H Plt Count 91 L MPV 11.5 Immature Gran % (Auto) 1.0 H Neut % (Auto) 88.6 H Lymph % (Auto) 5.7 L [place] % (Auto) 4.6 Eos % (Auto) 0.0 Baso % (Auto) 0.1 Lymph # (Auto) 0.6 L [place] # (Auto) 0.5 Eos # (Auto) 0.0 Baso # (Auto) 0.0 Abs Immat Gran (auto) 0.11 H Absolute Neuts (auto) 9.8 H Absolute Nucleated RBC 0.000 Nucleated RBC % (auto) 0.0 Anion Gap 12 Estim Creat Clear Calc 42.6 Estimated GFR > 60 Fasting Glucose 140 H Calcium 8.9 Total Bilirubin 0.6 AST 34 H ALT 86 H Alkaline Phosphatase 78 Total Protein 5.7 L Albumin 3.0 L Microbiology Microbiology Results: Microbiology 05/05/21 13:08 Gram Stain - Final Washing - Wash, bilateral Routine Culture - Preliminary No growth to date. 04/30/21 20:23 Blood Culture - Final Blood - Venous No growth after 5 days. 04/30/21 19:58 Blood Culture - Final Blood - Venous No growth after 5 days. 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 had intermediate probability of V/Q scan on 04/18 and was started on Eliquis.Completed course of prednisone and doxycycline. Re admitted for same 1.Pneumonia(bilat patchy infiltrates).? -IV vancomycin and Zosyn to cover Hospital aquired;PICC in --bronch done..await results 2. PE(suspected on V/Q) - empirical eloquist however pt agreed only to subtheraputic dose -continue same; Eloquist DNR/DNI Quality Stroke Does the patient have a stroke diagnosis?: No VTE Prior VTE?: No VTE Risk Level:: Medical - moderate - high VTE Device Contraindication: Treatment Not Indicated VTE Drug Contraindication: N/A - Med Ordered
[2021-05-06] MEDS: Magnesium Oxide 400 MG TABLET PO (17:25)
--- NOTE | 2021-05-06 17:44 | PC.NURSE ---
Addendum entered by Fernanda Summers RN 05/06/21 18:36: per DR Menjivar : apply warm compress to the lt upper extremity Addendum entered by Fernanda Summers RN 05/06/21 17:45: ,arm warm to touch , bruise present to the upper part of the lt arm, positive radial pulse. pt's daughter has questions regarding the intervention re: swollen lt arm, daughter requested to talk to DR Menjivar. MD was paged and speaking to the family now Original Note: left upper extremity nonpitting edema pr
[2021-05-06 18:27] VITALS: BP 140/68; PULSE 64; RESP 20; TEMP 37.1; O2SAT 94
[2021-05-06 18:36] LABS: Vancomycin Trough 15.3 mcg/mL (10.0-20.0)
[2021-05-06 20:25] VITALS: BP 165/70; PULSE 64; RESP 24; TEMP 36.5; O2SAT 100
[2021-05-06] MEDS: Omeprazole 20 MG CAPSULE.DR PO (20:35)
[2021-05-06] MEDS: LORazepam 0.5 MG TABLET PO (20:39)
[2021-05-06] MEDS: vancomycin HCL 1,000 MG in 0.9 % Sodium Chloride 250 ML 270 MG IV (20:40)
[2021-05-07] VITALS (7 sets, daily range): BP systolic 146–177; BP diastolic 71–87; PULSE 60–63; RESP 20; TEMP 36.1–36.8; O2SAT 96–100
[2021-05-07] MEDS: Piperacillin Sodium/Tazobactam 3.375 GM in 0.9 % Sodium Chloride 50 ML IV ×4 (00:46→17:37)
[2021-05-07] MEDS: 0.9 % Sodium Chloride Flush 3 ML SYRINGE IVFLUSH ×3 (00:54→17:36)
[2021-05-07] MEDS: methylPREDNISolone Sod Succ 125 MG/2 ML VIAL 60 MG IVPUSH ×3 (03:19→17:36)
[2021-05-07] MEDS: Levothyroxine Sodium 50 MCG TABLET PO (06:10)
[2021-05-07] MEDS: Apixaban 2.5 MG TABLET PO (06:10)
[2021-05-07 07:15] LABS: Basophils Percent Auto 0.1 % (0-2); Hemoglobin 9.3 g/dl (12.0-16.0); Monocytes Absolute Auto 0.4 X10*3/uL (0.1-1.2); Monocytes Percent Auto 3.4 % (2-11); SCAN SMEAR FLAG 1
[2021-05-07 07:16] LABS: Hematocrit 29.7 % (37.0-47.0); Imm Gran Abs Auto 0.12 X10*3/uL (0.00-0.03); Lymphocytes Absolute Auto 0.5 X10*3/uL (1.2-4.9); Lymphocytes Percent Auto 4.1 % (20-40); MANUAL DIFF FLAG SCAN; Mean Corpuscular HGB Conc 31.3 g/dl (31.0-35.0); Mean Corpuscular Hemoglobin 31.5 pg (27.0-33.0); Mean Corpuscular Volume 100.7 fL (80.0-98.0); Mean Platelet Volume 11.1 fL (9.4-12.3); Neutrophils Absolute Auto 11.2 x10*3/uL (2.0-8.3); Neutrophils Percent Auto 91.4 % (45-73); Red Blood Count 2.95 X10*6/uL (4.20-5.50); Red Cell Distribution Width 17.5 % (11.0-16.0); White Blood Count 12.2 X10*3/uL (4.8-10.8)
[2021-05-07 07:27] LABS: Alanine Aminotransferase 67 U/L (0-31); Albumin Level 2.9 g/dL (3.5-5.0); Alkaline Phosphatase 68 U/L (39-117); Anion Gap 12 (12-20); Aspartate Amino Transferase 27 U/L (5-31); Bilirubin Total 0.8 mg/dL (0.0-1.0); Blood Urea Nitrogen 33 mg/dL (9-16); Calcium 8.8 mg/dL (8.4-10.2); Carbon Dioxide 29 mmol/L (22-29); Chloride 106 mmol/L (96-108); Creatinine Clr Calc Pharmacy 41.6; Estimated Glomerular Filt Rate > 60; Glucose Fasting 138 mg/dL (60-99); Potassium 4.6 mmol/L (3.3-5.1); Sodium 142 mmol/L (135-145); Total Protein 5.7 g/dL (6.5-8.0)
[2021-05-07 07:44] LABS: PLT ABN DIST 1; Platelet Count 63 X10*3/uL (160-400)
[2021-05-07 07:46] LABS: SLIDE REVIEW VERIFIED
--- NOTE | 2021-05-07 09:52 | MHC.CM.PN ---
Updates sent to [facility] w/question of accommodations available today per request of MD. Pending response.
--- NOTE | 2021-05-07 10:08 | HE.PHANOTE ---
VANCOMYCIN DOSING ADDENDUM CURRENT DOSE 1000 MG EVERY 24 HOURS, PREDICTED AUC 418, CONTINUE CURRENT REGIMEN, NO CHANGE REPEAT TROUGH ANA
[2021-05-07] MEDS: Morphine Sulfate 2 MG/ML CARTRIDGE IVPUSH ×2 (10:17→16:40)
[2021-05-07] MEDS: Nystatin Oral Susp 500,000 UNIT/5 ML ORAL.SUSP 200000 UNIT BUCCAL (10:20)
[2021-05-07] MEDS: Famotidine/PF 20 MG/2 ML VIAL IVPUSH (10:20)
[2021-05-07] MEDS: Cyanocobalamin (Vitamin B-12) 1,000 MCG TABLET 1000 MCG PO (10:21)
[2021-05-07] MEDS: Multivitamin TABLET 1 TAB PO (10:21)
[2021-05-07] MEDS: Sertraline HCL 100 MG TABLET PO (10:21)
[2021-05-07] MEDS: Loratadine 10 MG TABLET PO (10:21)
[2021-05-07] MEDS: Folic Acid 1 MG TABLET PO (10:21)
--- NOTE | 2021-05-07 12:05 | MHC.CM.PN ---
communicated new clot; holding patient for another day. Notified facility. Facility changed acceptance status from yes, willing to accept, to interested, but need more information. Will follow along for bed offer and new D/C order.
--- NOTE | 2021-05-07 13:55 | HO.PM.IMPN ---
Subjective Subjective Date of Service: 05/07/21 Interval History: No acute issues overnight. Stable after bronch.PICC today Review of Systems Denies chest pain Denies nausea vomiting diarrhea Admits to exertional shortness of breath; minimal movement Physical Exam Vital Signs: Vital Signs: Last Vital Signs Temp 97.8 F 05/07/21 11:44 Pulse 62 05/07/21 11:44 Resp 20 05/07/21 11:44 BP 146/71 H 05/07/21 11:44 Pulse Ox 98 05/07/21 11:48 Oxygen Flow Rate 4 05/07/21 11:48 BMI result Body Mass Index 19.6 Const: Other: Awake alert oriented x3 in no acute distress Resp: Other: Diminished all fontanez fine rhonchi that clear with cough. Scattered expiratory wheezes Cardio: Other: No S4; positive S1-S2; no S3 murmurs rubs or gallops GI: Other: Soft nontender nondistended with normoactive bowel sounds x4 quadrants Extrem: Other: No edema bilaterally Objective Data Active Medications Acetaminophen (Acetaminophen 325 Mg Tablet) 650 mg PO Q6H PRN PRN Reason: Pain, Mild (Pain Scale 1-3) Last Admin: 05/06/21 08:50 Dose: 650 mg Documented by: STEPHANIE Albuterol Sulfate (Albuterol Sulfate 90 Mcg 8 Gm Inhaler) 2 puff INHALE Q4H PRN PRN Reason: Shortness Of Breath Last Admin: 05/04/21 08:47 Dose: 2 puff Documented by: JAMI Albuterol/Ipratropium (Albuterol/Iprat 2.5/0.5mg 3 Ml Ampul.Neb) 3 ml INHALE BID PRN PRN Reason: Shortness Of Breath Or Wheezing Last Admin: 05/02/21 05:04 Dose: 3 ml Documented by: ZOEY Albuterol/Ipratropium (Albuterol/Iprat 2.5/0.5mg 3 Ml Ampul.Neb) 3 ml INHALE RQ4H PRN PRN Reason: Shortness of Breath/Wheezing Apixaban (Apixaban 5 Mg Tablet) 5 mg PO BID [facility] Cyanocobalamin (Cyanocobalamin (Vitamin B-12) 1,000 Mcg Tablet) 1,000 mcg PO DAILY [facility] Last Admin: 05/07/21 10:21 Dose: 1,000 mcg Documented by: MEGHA Famotidine (Famotidine/Pf 20 Mg/2 Ml Vial) 20 mg IVPUSH BID [facility] Last Admin: 05/07/21 10:20 Dose: 20 mg Documented by: MEGHA Fentanyl (Fentanyl Citrate/Pf 100 Mcg/2 Ml Vial) 25 mcg IVPUSH Q5M PRN; Protocol PRN Reason: Pain, Moderate (Pain Scale 4-6 Folic Acid (Folic Acid 1 Mg Tablet) 1 mg PO DAILY [facility] Last Admin: 05/07/21 10:21 Dose: 1 mg Documented by: MEGHA Piperacillin Sod/Tazobactam (Sod 3.375 gm/ Sodium Chloride) 50 mls @ 100 mls/hr IV Q6H [facility] Last Infusion: 05/07/21 13:17 Dose: 0 mls/hr Documented by: MEGHA Vancomycin HCl 1,000 mg/ (Sodium Chloride) 270 mls @ 270 mls/hr IV Q24H [facility] Last Infusion: 05/06/21 22:35 Dose: 0 mls/hr Documented by: FLORECITA Levothyroxine Sodium (Levothyroxine Sodium 50 Mcg Tablet) 50 mcg PO DAILY@0630 [facility] Last Admin: 05/07/21 06:10 Dose: 50 mcg Documented by: MEGHANN Loratadine (Loratadine 10 Mg Tablet) 10 mg PO DAILY [facility] Last Admin: 05/07/21 10:21 Dose: 10 mg Documented by: MEGHA Lorazepam (Lorazepam 0.5 Mg Tablet) 0.5 mg PO BEDTIME PRN PRN Reason: Insomnia Last Admin: 05/06/21 20:39 Dose: 0.5 mg Documented by: FLORECITA Magnesium Oxide (Magnesium Oxide 400 Mg Tablet) 400 mg PO DAILY@1700 [facility] Last Admin: 05/06/21 17:25 Dose: 400 mg Documented by: FLORECITA Melatonin (Melatonin 3 Mg Tablet) 6 mg PO BEDTIME PRN PRN Reason: Insomnia Methylprednisolone Sodium Succinate (Methylprednisolone Sod Succ 125 Mg/2 Ml Vial) 60 mg IVPUSH Q8H [facility] Last Admin: 05/07/21 10:20 Dose: 60 mg Documented by: MEGHA Morphine Sulfate (Morphine Sulfate 2 Mg/Ml Cartridge) 2 mg IVPUSH Q4H PRN; Protocol PRN Reason: Restlessness Last Admin: 05/07/21 10:17 Dose: 2 mg Documented by: MEGHA Multivitamins/Vitamin C (Multivitamin Tablet) 1 tab PO DAILY [facility] Last Admin: 05/07/21 10:21 Dose: 1 tab Documented by: MEGHA Nystatin (Nystatin Oral Susp 500,000 Unit/5 Ml Oral.Susp) 200,000 unit BUCCAL QID [facility]; Protocol Stop: 05/07/21 16:59 Last Admin: 05/07/21 10:20 Dose: 200,000 unit Documented by: MEGHA Omeprazole (Omeprazole 20 Mg Capsule.Dr) 20 mg PO BEDTIME [facility] Last Admin: 05/06/21 20:35 Dose: 20 mg Documented by: FLORECITA Ondansetron HCl (Ondansetron Hcl 4 Mg/2 Ml Vial) 4 mg IVPUSH ONCE PRN PRN Reason: Nausea and Vomiting Pharmacy Consult (Consult Rx Vancomycin Dosing) 1 each MISCELLANE DAILY PRN PRN Reason: Consult order Senna (Sennosides 8.6 Mg Tablet) 17.2 mg PO BEDTIME PRN PRN Reason: Constipation Sertraline HCl (Sertraline Hcl 100 Mg Tablet) 100 mg PO DAILY [facility] Last Admin: 05/07/21 10:21 Dose: 100 mg Documented by: MEGHA Sodium Chloride (0.9 % Sodium Chloride Flush 3 Ml Syringe) 3 ml IVFLUSH QSHIFT [facility] Last Admin: 05/07/21 10:21 Dose: 3 ml Documented by: MEGHA Labs CBC & Chem 7: 05/07/21 06:37 05/07/21 06:37 Labs: Laboratory Results - last 24 hr 05/06/21 05/07/21 05/07/21 18:08 06:37 06:37 MCV 100.7 H MCH 31.5 MCHC 31.3 RDW 17.5 H Plt Count 63 L D MPV 11.1 Immature Gran % (Auto) 1.0 H Neut % (Auto) 91.4 H Lymph % (Auto) 4.1 L [place] % (Auto) 3.4 Eos % (Auto) 0.0 Baso % (Auto) 0.1 Lymph # (Auto) 0.5 L [place] # (Auto) 0.4 Eos # (Auto) 0.0 Baso # (Auto) 0.0 Abs Immat Gran (auto) 0.12 H Absolute Neuts (auto) 11.2 H Absolute Nucleated RBC 0.000 Nucleated RBC % (auto) 0.0 Smear Tech's Comments VERIFIED Anion Gap 12 Estim Creat Clear Calc 41.6 Estimated GFR > 60 Fasting Glucose 138 H Calcium 8.8 Total Bilirubin 0.8 AST 27 ALT 67 H Alkaline Phosphatase 68 Total Protein 5.7 L Albumin 2.9 L Vancomycin Trough 15.3 Microbiology Microbiology Results: Microbiology 05/05/21 13:08 Gram Stain - Final Washing - Wash, bilateral Routine Culture - Final No growth after 2 days Assessment and Plan (1) HAP (hospital-acquired pneumonia): Status: Acute (2) Acute embolism and thrombosis of deep vein of left upper extremity: Status: Acute Plan 85 years old with 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 had intermediate probability of V/Q scan on 04/18 and was started on Eliquis.Completed course of prednisone and doxycycline. Re admitted for same 1.Pneumonia(bilat patchy infiltrates).? -IV vancomycin and Zosyn to cover Hospital aquired;PICC in --bronch done..cultures thus far negative - Plan is 14 days Zosyn/Vanco (09/21) followed by inhaled tobramycin -Pulmonary rehab 2. PE(suspected on V/Q) now with Basilic -subclavian clot on left -full dose eliquist -3 months of therapies...repeat ROSETTEE US [place] DNR/DNI Quality Stroke Does the patient have a stroke diagnosis?: No VTE Prior VTE?: No VTE Risk Level:: Medical - moderate - high VTE Device Contraindication: Treatment Not Indicated VTE Drug Contraindication: N/A - Med Ordered
--- NOTE | 2021-05-07 14:52 | PC.NURSE ---
ULTRASOUND WITH DVT'S IN LEFT UPPER ARM. ELIQUIS DOSE INCREASED TO 5MG. PATIENT MEDICATED WITH 2.5 THIS AM. TO START 5MG TONIGHT AT 9PM PER DR. EUBANKS.
--- NOTE | 2021-05-07 15:04 | MHC.CM.PN ---
Patient's daughter requesting to meet w/CM; met w/patient's daughter Joan in room. Joan wanted to verify patient's plan several times. Reviewed and confirmed patient's plan w/Joan and patient; notified her that facility will require updates prior to formal offer and secured transfer. Joan inquiring exact date/time of D/C; discussed this is dictated per MD order based on patient's clinical stability. Joan requesting to be contacted when D/C is known. Sdd Joan she will be contacted when MD indicates patient has been cleared for D/C. Joan in agreement.
--- NOTE | 2021-05-07 15:34 | HO.POSTANES ---
Post Anesthesia Evaluation Post Anesthesia Evaluation Vital Signs: Vital Signs Temp Pulse Resp BP Pulse Ox 05/07/21 15:05 97.4 F 63 20 159/74 H 100 05/07/21 11:48 98 05/07/21 11:44 97.8 F 62 20 146/71 H 98 05/07/21 07:52 97.8 F 63 20 159/82 H 98 Anesthesia: General Endotracheal-GETA Mental Status: Awake Pain Control: Satisfactory Nausea/Vomiting: None Hydration: Adequate Anesthesia-Related Issues: No Anes. Related Issues
[2021-05-07] MEDS: Magnesium Oxide 400 MG TABLET PO (17:37)
[2021-05-07] MEDS: Omeprazole 20 MG CAPSULE.DR PO (20:17)
[2021-05-07] MEDS: Apixaban 5 MG TABLET PO (20:17)
[2021-05-07] MEDS: vancomycin HCL 1,000 MG in 0.9 % Sodium Chloride 250 ML 270 MG IV (20:17)
--- NOTE | 2021-05-07 22:36 | PC.NURSE ---
patient's daughter Joan called [facility] with the concern re: her mother's blood clots to the left arm ,the edema. She requested that assessment can be done by the house doctor camilo for her mother's lt arm. She was concerned if her mother is getting appropriate treatment for DVT. DR. Bran was notified and pt was assessed by Dr MD page. Pt's daughter was called again and she was assured that her concern was heard and that her mother is getting appropriate treatment for the DVT. RN assist and reminds pt to keep the left arm elevated . Intermittent warm compress was applied intermittently
[2021-05-08] VITALS (7 sets, daily range): BP systolic 126–175; BP diastolic 63–95; PULSE 59–65; RESP 18–20; TEMP 36.4–36.9; O2SAT 97–99; BMI 19.6
[2021-05-08] MEDS: methylPREDNISolone Sod Succ 125 MG/2 ML VIAL 60 MG IVPUSH (01:36)
[2021-05-08] MEDS: 0.9 % Sodium Chloride Flush 3 ML SYRINGE IVFLUSH ×4 (01:36→21:41)
[2021-05-08] MEDS: Levothyroxine Sodium 50 MCG TABLET PO (06:04)
[2021-05-08 07:05] LABS: MANUAL DIFF FLAG NO
[2021-05-08 07:17] LABS: Basophils Percent Auto 0.2 % (0-2); Hematocrit 30.8 % (37.0-47.0); Hemoglobin 9.4 g/dl (12.0-16.0); Imm Gran Abs Auto 0.22 X10*3/uL (0.00-0.03); Imm Gran Pct Auto 1.7 % (0.0-0.4); Lymphocytes Absolute Auto 0.6 X10*3/uL (1.2-4.9); Lymphocytes Percent Auto 5.1 % (20-40); Mean Corpuscular HGB Conc 30.5 g/dl (31.0-35.0); Mean Corpuscular Hemoglobin 31.2 pg (27.0-33.0); Mean Corpuscular Volume 102.3 fL (80.0-98.0); Mean Platelet Volume 12.7 fL (9.4-12.3); Monocytes Absolute Auto 0.5 X10*3/uL (0.1-1.2); Monocytes Percent Auto 3.7 % (2-11); NRBC Pct Auto 0.2 /100WBC (0.0-0.2); Neutrophils Absolute Auto 11.3 x10*3/uL (2.0-8.3); Neutrophils Percent Auto 89.3 % (45-73); Red Blood Count 3.01 X10*6/uL (4.20-5.50); Red Cell Distribution Width 17.6 % (11.0-16.0); White Blood Count 12.6 X10*3/uL (4.8-10.8)
[2021-05-08 07:18] LABS: Platelet Count 58 X10*3/uL (160-400)
[2021-05-08] MEDS: Sertraline HCL 100 MG TABLET PO (08:01)
[2021-05-08] MEDS: Famotidine/PF 20 MG/2 ML VIAL IVPUSH ×2 (08:01→21:38)
[2021-05-08] MEDS: Morphine Sulfate 2 MG/ML CARTRIDGE IVPUSH ×2 (08:01→21:52)
[2021-05-08] MEDS: Folic Acid 1 MG TABLET PO (08:01)
[2021-05-08] MEDS: Multivitamin TABLET 1 TAB PO (08:01)
[2021-05-08] MEDS: Loratadine 10 MG TABLET PO (08:01)
[2021-05-08] MEDS: Apixaban 5 MG TABLET PO ×2 (08:01→21:39)
[2021-05-08] MEDS: Cyanocobalamin (Vitamin B-12) 1,000 MCG TABLET 1000 MCG PO (08:01)
[2021-05-08 09:16] LABS: Procalcitonin 0.05 ng/mL
[2021-05-08] MEDS: methylPREDNISolone Sod Succ 40 MG/ML VIAL IVPUSH (09:54)
--- NOTE | 2021-05-08 13:02 | MHC.CLN ---
RE: CONSULT PT WITH INCREASED NUTRITION NEEDS R/T PRESSURE INJURY PO INTAKE VARIABLE DIET RX: 2GM NA-IF PO INTAKE REMAINS POOR CAN LIBERALIZE TO OFFER MORE VARIETY RECOMMEND ADDING ENSURE BID TO INCREASE KCLAS AND PROMOTE WOUND HEALING SUPP TO PROVIDE 700KCALS, 40G PROTEIN MONITOR PO INTAKE CLOSELY SEE ALSO FULL CLINICAL NUTRITION ASSESSMENT
--- NOTE | 2021-05-08 13:39 | MHC.CM.PN ---
Patient is not yet medically cleared for dc (S/P Bronch/MOLD grew, IV Pepcid, IV Solu Medrol, IV Morphine, IV Vanco, 5L O2q), [facility] [place] is attempting to get an [facility] agreement from [facility] to accept Patient. CM will follow.
--- NOTE | 2021-05-08 15:00 | HO.PM.IMPN ---
Subjective Subjective Date of Service: 05/08/21 Interval History: Dyspneic, but this is chronic. No fever. No sputum production. Fungal culture from BAL growing filamentous fungi, i.e., mold. Review of Systems Review of Systems: Yes all other systems are reviewed and are negative Physical Exam Vital Signs: Vital Signs: Last Vital Signs Temp 98.3 F 05/08/21 11:46 Pulse 65 05/08/21 11:46 Resp 18 05/08/21 11:46 BP 168/84 H 05/08/21 11:46 Pulse Ox 97 05/08/21 13:00 Oxygen Flow Rate 4 05/08/21 13:00 BMI result Body Mass Index 19.6 Gen: chronically ill but alert, hungry, and in no acute distress HEENT: sclera anicteric, moist mucus membranes Neck: supple Lungs: inspiratory crackles and rhonchi throughout Heart: regular rate and rhythm, no murmurs Abd: soft, non-tender, non-distended Ext: RUE hand swelling improved, LUE PICC Skin: warm/well-perfused Neuro: alert and oriented x3, no focal findings Psych: appropriate affect Objective Data Active Medications Acetaminophen (Acetaminophen 325 Mg Tablet) 650 mg PO Q6H PRN PRN Reason: Pain, Mild (Pain Scale 1-3) Last Admin: 05/06/21 08:50 Dose: 650 mg Documented by: STEPHANIE Albuterol Sulfate (Albuterol Sulfate 90 Mcg 8 Gm Inhaler) 2 puff INHALE Q4H PRN PRN Reason: Shortness Of Breath Last Admin: 05/04/21 08:47 Dose: 2 puff Documented by: JAMI Apixaban (Apixaban 5 Mg Tablet) 5 mg PO BID [facility] Last Admin: 05/08/21 08:01 Dose: 5 mg Documented by: ODILIA Cyanocobalamin (Cyanocobalamin (Vitamin B-12) 1,000 Mcg Tablet) 1,000 mcg PO DAILY [facility] Last Admin: 05/08/21 08:01 Dose: 1,000 mcg Documented by: ODILIA Famotidine (Famotidine/Pf 20 Mg/2 Ml Vial) 20 mg IVPUSH BID [facility] Last Admin: 05/08/21 08:01 Dose: 20 mg Documented by: ODILIA Folic Acid (Folic Acid 1 Mg Tablet) 1 mg PO DAILY [facility] Last Admin: 05/08/21 08:01 Dose: 1 mg Documented by: ODILIA Voriconazole 300 mg/ Sodium (Chloride) 100 mls @ 50 mls/hr IV Q12H [facility] Stop: 05/09/21 01:59 Last Infusion: 05/08/21 14:38 Dose: 0 mls/hr Documented by: ODILIA Voriconazole 200 mg/ Sodium (Chloride) 100 mls @ 50 mls/hr IV Q12H [facility] Levothyroxine Sodium (Levothyroxine Sodium 50 Mcg Tablet) 50 mcg PO DAILY@0630 [facility] Last Admin: 05/08/21 06:04 Dose: 50 mcg Documented by: FREDRICK Loratadine (Loratadine 10 Mg Tablet) 10 mg PO DAILY [facility] Last Admin: 05/08/21 08:01 Dose: 10 mg Documented by: ODILIA Magnesium Oxide (Magnesium Oxide 400 Mg Tablet) 400 mg PO DAILY@1700 [facility] Last Admin: 05/07/21 17:37 Dose: 400 mg Documented by: FLORECITA Melatonin (Melatonin 3 Mg Tablet) 6 mg PO BEDTIME PRN PRN Reason: Insomnia Methylprednisolone Sodium Succinate (Methylprednisolone Sod Succ 40 Mg/Ml Vial) 40 mg IVPUSH Q24H [facility] Stop: 05/09/21 22:00 Morphine Sulfate (Morphine Sulfate 2 Mg/Ml Cartridge) 2 mg IVPUSH Q4H PRN; Protocol PRN Reason: Restlessness Last Admin: 05/08/21 08:01 Dose: 2 mg Documented by: ODILIA Multivitamins/Vitamin C (Multivitamin Tablet) 1 tab PO DAILY [facility] Last Admin: 05/08/21 08:01 Dose: 1 tab Documented by: ODILIA Omeprazole (Omeprazole 20 Mg Capsule.Dr) 20 mg PO BEDTIME [facility] Last Admin: 05/07/21 20:17 Dose: 20 mg Documented by: FLORECITA Ondansetron HCl (Ondansetron Hcl 4 Mg/2 Ml Vial) 4 mg IVPUSH ONCE PRN PRN Reason: Nausea and Vomiting Prednisone (Prednisone 20 Mg Tablet) 40 mg PO DAILY [facility] Senna (Sennosides 8.6 Mg Tablet) 17.2 mg PO BEDTIME PRN PRN Reason: Constipation Sertraline HCl (Sertraline Hcl 100 Mg Tablet) 100 mg PO DAILY [facility] Last Admin: 05/08/21 08:01 Dose: 100 mg Documented by: ODILIA Sodium Chloride (0.9 % Sodium Chloride Flush 3 Ml Syringe) 3 ml IVFLUSH QSHIFT [facility] Last Admin: 05/08/21 08:02 Dose: 3 ml Documented by: ODILIA Labs CBC & Chem 7: 05/08/21 06:30 05/07/21 06:37 Labs: Laboratory Results - last 24 hr 05/08/21 05/08/21 06:30 06:30 MCV 102.3 H MCH 31.2 MCHC 30.5 L RDW 17.6 H Plt Count 58 L MPV 12.7 H Immature Gran % (Auto) 1.7 H Neut % (Auto) 89.3 H Lymph % (Auto) 5.1 L [place] % (Auto) 3.7 Eos % (Auto) 0.0 Baso % (Auto) 0.2 Lymph # (Auto) 0.6 L [place] # (Auto) 0.5 Eos # (Auto) 0.0 Baso # (Auto) 0.0 Abs Immat Gran (auto) 0.22 H Absolute Neuts (auto) 11.3 H Absolute Nucleated RBC 0.020 H Nucleated RBC % (auto) 0.2 Procalcitonin 0.05 Microbiology Microbiology Results: Microbiology 05/05/21 13:08 Fungal Identification - Preliminary Washing - Wash, bilateral Filamentous fungus Assessment and Plan (1) HAP (hospital-acquired pneumonia): Status: Acute (2) Acute embolism and thrombosis of deep vein of left upper extremity: Status: Acute Plan hospital d#8 85yo F with pulmonary MAC + bronchiectasis, prior pneumonia with Pseudomonas and Staph aureus, on suppressive/anti-inflammatory azithromycin, percussion vest, and nebulized 3% NaCl; COPD admitted with hypoxia, worsening airspace disease, underwent bronchoscopy 05/05/21 # bronchiectasis # fungal pneumonia, 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
--- NOTE | 2021-05-08 16:28 | PM.IDPN ---
Subjective Subjective Date of Service: 05/08/21 Critical Care Time (minutes): 15 Comment: she feels comfortable Objective Data Labs CBC & Chem 7: 05/15/21 06:26 05/15/21 06:26 Labs: Laboratory Results - last 24 hr 05/08/21 05/08/21 06:30 06:30 WBC 12.6 H RBC 3.01 L Hgb 9.4 L Hct 30.8 L MCV 102.3 H MCH 31.2 MCHC 30.5 L RDW 17.6 H Plt Count 58 L MPV 12.7 H Immature Gran % (Auto) 1.7 H Neut % (Auto) 89.3 H Lymph % (Auto) 5.1 L [place] % (Auto) 3.7 Eos % (Auto) 0.0 Baso % (Auto) 0.2 Lymph # (Auto) 0.6 L [place] # (Auto) 0.5 Eos # (Auto) 0.0 Baso # (Auto) 0.0 Abs Immat Gran (auto) 0.22 H Absolute Neuts (auto) 11.3 H Absolute Nucleated RBC 0.020 H Nucleated RBC % (auto) 0.2 Procalcitonin 0.05 Microbiology Microbiology Results: Microbiology 05/05/21 13:08 Washing - Wash, bilateral Fungal Identification - Preliminary Filamentous fungus 05/05/21 13:08 Washing - Wash, bilateral Gram Stain - Final 05/05/21 13:08 Washing - Wash, bilateral Routine Culture - Final No growth after 2 days 04/30/21 20:23 Blood - Venous Blood Culture - Final No growth after 5 days. 04/30/21 19:58 Blood - Venous Blood Culture - Final No growth after 5 days. 05/03/21 10:18 Sputum - Expectorated Gram Stain - Final 05/03/21 10:18 Sputum - Expectorated Sputum Culture - Final 05/01/21 07:31 Sputum - Expectorated Gram Stain - Final 05/01/21 07:31 Sputum - Expectorated Sputum Culture - Final Physical Exam Vital Signs: Vital Signs: Last Vital Signs Temp 97.5 F 05/08/21 15:18 Pulse 61 05/08/21 15:18 Resp 20 05/08/21 15:18 BP 171/80 H 05/08/21 15:18 Pulse Ox 98 05/08/21 15:18 Oxygen Flow Rate 4 05/08/21 13:00 BMI result Body Mass Index 19.6 Const: General: cooperative HENMT: Head: Yes normal to inspection General nose exam: Normal external nose present Mouth: Normal oral and palatal mucosa present Resp: Effort & Inspection: normal respiratory effort Cardio: Rate: regular rate Rhythm: regular rhythm GI: Palpation (GI): Soft to palpation and nontender Skin: General skin exam: no rashes or lesions noted Assessment and Plan Assessment and plan (1) Acute and chronic respiratory failure: Problem details: 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
[2021-05-08] MEDS: Magnesium Oxide 400 MG TABLET PO (17:44)
[2021-05-08 18:17] LABS: Creatinine Clr Calc Pharmacy 40.5; Estimated Glomerular Filt Rate > 60
[2021-05-08 18:24] LABS: Vancomycin Trough 13.5 mcg/mL (10.0-20.0)
[2021-05-08] MEDS: Omeprazole 20 MG CAPSULE.DR PO (21:38)
[2021-05-09] VITALS (8 sets, daily range): BP systolic 120–174; BP diastolic 56–83; PULSE 60–73; RESP 16–22; TEMP 35.9–37.1; O2SAT 90–100
[2021-05-09] MEDS: Morphine Sulfate 2 MG/ML CARTRIDGE IVPUSH ×2 (03:34→18:37)
[2021-05-09] MEDS: Levothyroxine Sodium 50 MCG TABLET PO (05:31)
[2021-05-09 06:45] LABS: Prothrombin Time 23.4 SEC (9.9-13.0)
[2021-05-09 06:46] LABS: Hematocrit 29.3 % (37.0-47.0); Hemoglobin 8.9 g/dl (12.0-16.0); Mean Corpuscular HGB Conc 30.4 g/dl (31.0-35.0); Mean Corpuscular Hemoglobin 31.2 pg (27.0-33.0); Mean Corpuscular Volume 102.8 fL (80.0-98.0); Mean Platelet Volume 12.5 fL (9.4-12.3); NRBC Pct Auto 0.3 /100WBC (0.0-0.2); Red Blood Count 2.85 X10*6/uL (4.20-5.50); Red Cell Distribution Width 17.9 % (11.0-16.0); White Blood Count 16.1 X10*3/uL (4.8-10.8)
[2021-05-09 06:56] LABS: Anion Gap 11 (12-20); Blood Urea Nitrogen 36 mg/dL (9-16); Carbon Dioxide 29 mmol/L (22-29); Chloride 105 mmol/L (96-108); Creatinine Clr Calc Pharmacy 42.6; Estimated Glomerular Filt Rate > 60; Glucose Random 139 mg/dL (60-115); Potassium 4.2 mmol/L (3.3-5.1); Sodium 141 mmol/L (135-145)
[2021-05-09 07:00] LABS: Platelet Count 68 X10*3/uL (160-400)
[2021-05-09 08:26] LABS: Alanine Aminotransferase 63 U/L (0-31); Albumin Level 3.1 g/dL (3.5-5.0); Alkaline Phosphatase 69 U/L (39-117); Aspartate Amino Transferase 71 U/L (5-31); Bilirubin Direct 0.2 mg/dL (0.0-0.5); Bilirubin Total 0.3 mg/dL (0.0-1.0); Total Protein 5.7 g/dL (6.5-8.0)
[2021-05-09] MEDS: Sertraline HCL 100 MG TABLET PO (09:34)
[2021-05-09] MEDS: 0.9 % Sodium Chloride Flush 3 ML SYRINGE IVFLUSH ×3 (09:34→20:58)
[2021-05-09] MEDS: Cyanocobalamin (Vitamin B-12) 1,000 MCG TABLET 1000 MCG PO (09:34)
[2021-05-09] MEDS: Famotidine/PF 20 MG/2 ML VIAL IVPUSH ×2 (09:34→20:58)
[2021-05-09] MEDS: Loratadine 10 MG TABLET PO (09:34)
[2021-05-09] MEDS: Apixaban 5 MG TABLET PO ×2 (09:34→20:58)
[2021-05-09] MEDS: methylPREDNISolone Sod Succ 40 MG/ML VIAL IVPUSH (09:34)
[2021-05-09] MEDS: Folic Acid 1 MG TABLET PO (09:35)
[2021-05-09] MEDS: Multivitamin TABLET 1 TAB PO (09:35)
--- NOTE | 2021-05-09 10:42 | PC.NURSE ---
Skin assessment completed. Patient has bilateral bruising to arms and legs. Left arm is swollen from IV infiltrate. No open wounds found. Buttocks pink and blanchable.
--- NOTE | 2021-05-09 11:31 | HO.PM.IMPN ---
Subjective Subjective Date of Service: 05/09/21 Interval History: No cough but short of breath. Feels weak. Review of Systems Review of Systems: Yes all other systems are reviewed and are negative Physical Exam Vital Signs: Vital Signs: Last Vital Signs Temp 97.2 F 05/09/21 07:11 Pulse 65 05/09/21 07:11 Resp 18 05/09/21 07:11 BP 153/83 H 05/09/21 07:11 Pulse Ox 100 05/09/21 07:11 Oxygen Flow Rate 4 05/08/21 13:00 BMI result Body Mass Index 19.6 Gen: chronically ill but alert and in no acute distress HEENT: sclera anicteric, moist mucus membranes Neck: supple Lungs: inspiratory crackles and rhonchi throughout Heart: regular rate and rhythm, no murmurs Abd: soft, non-tender, non-distended Ext: RUE hand swelling, LUE PICC Skin: warm/well-perfused Neuro: alert and oriented x3, no focal findings Psych: appropriate affect Objective Data Active Medications Acetaminophen (Acetaminophen 325 Mg Tablet) 650 mg PO Q6H PRN PRN Reason: Pain, Mild (Pain Scale 1-3) Last Admin: 05/06/21 08:50 Dose: 650 mg Documented by: STEPHANIE Albuterol Sulfate (Albuterol Sulfate 90 Mcg 8 Gm Inhaler) 2 puff INHALE Q4H PRN PRN Reason: Shortness Of Breath Last Admin: 05/04/21 08:47 Dose: 2 puff Documented by: JAMI Apixaban (Apixaban 5 Mg Tablet) 5 mg PO BID [facility] Last Admin: 05/09/21 09:34 Dose: 5 mg Documented by: KIKI Cyanocobalamin (Cyanocobalamin (Vitamin B-12) 1,000 Mcg Tablet) 1,000 mcg PO DAILY [facility] Last Admin: 05/09/21 09:34 Dose: 1,000 mcg Documented by: KIKI Famotidine (Famotidine/Pf 20 Mg/2 Ml Vial) 20 mg IVPUSH BID [facility] Last Admin: 05/09/21 09:34 Dose: 20 mg Documented by: KIKI Folic Acid (Folic Acid 1 Mg Tablet) 1 mg PO DAILY [facility] Last Admin: 05/09/21 09:35 Dose: 1 mg Documented by: KIKI Voriconazole 200 mg/ Sodium (Chloride) 100 mls @ 50 mls/hr IV Q12H [facility] Levothyroxine Sodium (Levothyroxine Sodium 50 Mcg Tablet) 50 mcg PO DAILY@0630 [facility] Last Admin: 05/09/21 05:31 Dose: 50 mcg Documented by: TYESHA Loratadine (Loratadine 10 Mg Tablet) 10 mg PO DAILY [facility] Last Admin: 05/09/21 09:34 Dose: 10 mg Documented by: KIKI Magnesium Oxide (Magnesium Oxide 400 Mg Tablet) 400 mg PO DAILY@1700 [facility] Last Admin: 05/08/21 17:44 Dose: 400 mg Documented by: ODILIA Melatonin (Melatonin 3 Mg Tablet) 6 mg PO BEDTIME PRN PRN Reason: Insomnia Methylprednisolone Sodium Succinate (Methylprednisolone Sod Succ 40 Mg/Ml Vial) 40 mg IVPUSH Q24H [facility] Stop: 05/09/21 22:00 Last Admin: 05/09/21 09:34 Dose: 40 mg Documented by: KIKI Morphine Sulfate (Morphine Sulfate 2 Mg/Ml Cartridge) 2 mg IVPUSH Q4H PRN; Protocol PRN Reason: Restlessness Last Admin: 05/09/21 03:34 Dose: 2 mg Documented by: TYESHA Multivitamins/Vitamin C (Multivitamin Tablet) 1 tab PO DAILY [facility] Last Admin: 05/09/21 09:35 Dose: 1 tab Documented by: KIKI Omeprazole (Omeprazole 20 Mg Capsule.Dr) 20 mg PO BEDTIME [facility] Last Admin: 05/08/21 21:38 Dose: 20 mg Documented by: TYESHA Ondansetron HCl (Ondansetron Hcl 4 Mg/2 Ml Vial) 4 mg IVPUSH ONCE PRN PRN Reason: Nausea and Vomiting Prednisone (Prednisone 20 Mg Tablet) 40 mg PO DAILY [facility] Senna (Sennosides 8.6 Mg Tablet) 17.2 mg PO BEDTIME PRN PRN Reason: Constipation Sertraline HCl (Sertraline Hcl 100 Mg Tablet) 100 mg PO DAILY [facility] Last Admin: 05/09/21 09:34 Dose: 100 mg Documented by: KIKI Sodium Chloride (0.9 % Sodium Chloride Flush 3 Ml Syringe) 3 ml IVFLUSH QSHIFT [facility] Last Admin: 05/09/21 09:34 Dose: 3 ml Documented by: KIKI Labs CBC & Chem 7: 05/09/21 06:28 05/09/21 06:14 Labs: Laboratory Results - last 24 hr 05/08/21 05/08/21 05/09/21 17:52 17:52 06:14 MCV MCH MCHC RDW Plt Count MPV Absolute Nucleated RBC Nucleated RBC % (auto) PT INR Anion Gap 11 L Estim Creat Clear Calc 40.5 42.6 Estimated GFR > 60 > 60 Random Glucose 139 H Calcium 9.0 Total Bilirubin 0.3 Direct Bilirubin 0.2 AST 71 H ALT 63 H Alkaline Phosphatase 69 Total Protein 5.7 L Albumin 3.1 L Vancomycin Trough 13.5 05/09/21 05/09/21 06:28 06:28 MCV 102.8 H MCH 31.2 MCHC 30.4 L RDW 17.9 H Plt Count 68 L MPV 12.5 H Absolute Nucleated RBC 0.050 H Nucleated RBC % (auto) 0.3 H PT 23.4 H INR 2.0 H Anion Gap Estim Creat Clear Calc Estimated GFR Random Glucose Calcium Total Bilirubin Direct Bilirubin AST ALT Alkaline Phosphatase Total Protein Albumin Vancomycin Trough 05/05/21 BAL fungal Fungus Cult Other Preliminary 05/08/21 Organism 1 Filamentous fungus Quantity Isolated 05/05/21 BAL cytology Lung, bilateral, bronchial washings (cytology and cell block):? Negative for malignant cells. Comment:? Examination of a monolayer preparation slide and 2 cell block slides reveals benign bronchial epithelium with focal reactive/metaplastic changes, scattered acute inflammatory cells, and mucoid/proteinaceous material.? Fragment of necrotic tissue and possible filamentous organisms are seen in the cell block.? Special stains pending, addendum to follow. See also microbiology culture reports, positive for fungi. Microbiology Microbiology Results: Microbiology 05/05/21 13:08 Fungal Identification - Preliminary Washing - Wash, bilateral Filamentous fungus Assessment and Plan (1) HAP (hospital-acquired pneumonia): Status: Acute (2) Acute embolism and thrombosis of deep vein of left upper extremity: Status: Acute Plan hospital d#9 85yo F with pulmonary MAC + bronchiectasis, prior pneumonias with Pseudomonas and MRSA, on suppressive/anti-inflammatory azithromycin, percussion vest, and nebulized 3% NaCl; COPD admitted with hypoxia, worsening airspace disease, underwent bronchoscopy 05/05/21 # bronchiectasis # fungal pneumonia, 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 # COPD - bacterial cultures negative + PCT low; d/c'ed vanc + pip/loraine; pull PICC prior to discharge - treat for suspected aspergillosis with voriconazole d#2 today, currently on 4 mg/kg q12h [200 mg q12h], change to PO upon discharge, will need to check level in 1 wk [target trough 1-2] + monitor CMP weekly - de-escalate steroids- prednisone 40 mg/d, taper as per Pulm - Pulm + ID following and will need outpt f/u # thrombocytopenia - improved, likely was due to pip/loraine # extensive LUE DVT - apixaban x3mo # dispo - anticipate STR @ [facility] Stroke Does the patient have a stroke diagnosis?: No VTE Prior VTE?: No VTE Risk Level:: Medical - moderate - high VTE Device Contraindication: Treatment Not Indicated VTE Drug Contraindication: N/A - Med Ordered
[2021-05-09] MEDS: Voriconazole 200 MG in 0.9 % Sodium Chloride 100 ML 50 MG IV (12:26)
--- NOTE | 2021-05-09 12:35 | MHC.CM.PN ---
Female 85 DX HCAP DP is [facility] tomorrow. The pt had a PT eval today. The recommendation is STR. Documentation has been sent to the facility. They are requesting authorization from [facility]. She will transition to PO Voriconazole at discharge. The facility confirmed that they will provide. Patient will travel via BLS.
[2021-05-09 14:58] LABS: COVID-19 Test Negative (Negative); IDNOW Serial# 16C4AD1C
[2021-05-09] MEDS: Albuterol Sulfate 90 MCG 8 GM INHALER 2 PUFF INHALE (15:52)
[2021-05-09] MEDS: Nystatin Oral Susp 500,000 UNIT/5 ML ORAL.SUSP 200000 UNIT PO ×2 (17:42→20:58)
[2021-05-09] MEDS: Magnesium Oxide 400 MG TABLET PO (17:42)
[2021-05-09] MEDS: Omeprazole 20 MG CAPSULE.DR PO (20:54)
[2021-05-10] VITALS (11 sets, daily range): BP systolic 145–171; BP diastolic 74–79; PULSE 62–68; RESP 14–25; TEMP 36.2–36.7; O2SAT 95–99
[2021-05-10] MEDS: Voriconazole 200 MG in 0.9 % Sodium Chloride 100 ML 50 MG IV ×2 (00:24→12:39)
[2021-05-10] MEDS: Levothyroxine Sodium 50 MCG TABLET PO (06:06)
[2021-05-10] MEDS: Morphine Sulfate 2 MG/ML CARTRIDGE IVPUSH ×2 (06:26→17:54)
[2021-05-10 08:24] LABS: Hematocrit 29.6 % (37.0-47.0); Hemoglobin 9.3 g/dl (12.0-16.0); Mean Corpuscular HGB Conc 31.4 g/dl (31.0-35.0); Mean Corpuscular Volume 101.7 fL (80.0-98.0); NRBC Pct Auto 0.5 /100WBC (0.0-0.2); Red Blood Count 2.91 X10*6/uL (4.20-5.50); Red Cell Distribution Width 18.6 % (11.0-16.0); White Blood Count 18.5 X10*3/uL (4.8-10.8)
[2021-05-10 08:37] LABS: Platelet Count 87 X10*3/uL (160-400)
[2021-05-10 08:49] LABS: Alanine Aminotransferase 62 U/L (0-31); Albumin Level 3.2 g/dL (3.5-5.0); Alkaline Phosphatase 70 U/L (39-117); Anion Gap 14 (12-20); Aspartate Amino Transferase 47 U/L (5-31); Bilirubin Total 0.4 mg/dL (0.0-1.0); Blood Urea Nitrogen 33 mg/dL (9-16); Calcium 9.2 mg/dL (8.4-10.2); Carbon Dioxide 30 mmol/L (22-29); Chloride 104 mmol/L (96-108); Creatinine Clr Calc Pharmacy 43.2; Estimated Glomerular Filt Rate > 60; Glucose Random 135 mg/dL (60-115); Sodium 143 mmol/L (135-145)
[2021-05-10 09:01] LABS: Potassium 5.1 mmol/L (3.3-5.1)
[2021-05-10] MEDS: 0.9 % Sodium Chloride Flush 3 ML SYRINGE IVFLUSH ×2 (09:06→16:45)
[2021-05-10] MEDS: predniSONE 20 MG TABLET 40 MG PO (09:06)
[2021-05-10] MEDS: Multivitamin TABLET 1 TAB PO (09:06)
[2021-05-10] MEDS: Loratadine 10 MG TABLET PO (09:06)
[2021-05-10] MEDS: Apixaban 5 MG TABLET PO ×2 (09:06→19:25)
[2021-05-10] MEDS: Sertraline HCL 100 MG TABLET PO (09:06)
[2021-05-10] MEDS: Cyanocobalamin (Vitamin B-12) 1,000 MCG TABLET 1000 MCG PO (09:06)
[2021-05-10] MEDS: Folic Acid 1 MG TABLET PO (09:06)
[2021-05-10] MEDS: Nystatin Oral Susp 500,000 UNIT/5 ML ORAL.SUSP 200000 UNIT PO ×4 (09:07→19:25)
[2021-05-10] MEDS: Famotidine/PF 20 MG/2 ML VIAL IVPUSH ×2 (09:07→19:24)
--- NOTE | 2021-05-10 11:25 | P.DS_ITS ---
DS: Providers Provider Date of Service: 05/10/21 Date of admission: 04/30/21 23:24 Primary care physician: Rebekah Kurtz MD Consults: 04/30/21 23:26 Consult to Infectious Diseases Routine Consulting Provider: Chelsea Matos Reason for consultation: hx mycobacterial infection; now p/w rec PNA/HCAP. Consult to Pulmonology Routine Consulting Provider: Jayjay Can Reason for consultation: SOB; rec pna; 05/02/21 07:53 Consult to Pulmonology Routine Consulting Provider: Jayjay Can Reason for consultation: persistant infiltrates Has provider been notified: Yes DS: Diagnosis Discharge Diagnosis (1) Acute embolism and thrombosis of deep vein of left upper extremity: Status: Acute (2) Aspergillosis, unspecified: Status: Acute (3) Acute and chronic respiratory failure: Status: Acute (4) Bronchiectasis with (acute) exacerbation: Status: Acute (5) Acute respiratory failure with hypoxia: Status: Acute (6) Thrombocytopenia: Status: Acute DS: Summary Hospital Course Hospital Course: from admission History and Physical by Israel Nogueira, 04/30/21: 85-year-old female with a past medical history of? 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 Denies any nausea vomiting or diarrhea.? ?review of all other systems is negative except mentioned above ER course: ? ER team concern for COPD exacerbation/ healthcare associated pneumonia; patient was given IV antibiotics and Solu-Medrol; admitted to the hospital for further management This 85 year-old woman with history of pulmonary MAC + bronchiectasis, prior pneumonias with Pseudomonas and MRSA, and COPD was admitted with hypoxia and worsening airspace disease concerning for pneumonia. She underwent bronchoscopy 05/05/[address] Can. Bacterial cultures were negative and procalcitonin low, so broad-spectrum antibiotic coverage with piperacillin/tazobactam and vancomycin was stopped. Cytology and fungal culture showed filamentous elements concerning for mold such as aspergillosis, for which she certainly at risk. She was started on voriconazole on 05/08/21, IV while inpatient, to transition to PO upon discharge. She will be prescribed 200 mg PO q12h for 3 more weeks recommend weekly monitoring of CBC and CMP. She is disch arged to rehab for inpatient pulmonary and physical rehabilitation and will need follow-up with Infectious Disease and Pulmonology within 1-2 week. Steroids were tapered to prednisone 20 mg/d, to decrease by 10 mg every 3 days. She had moderate thrombocytopenia attributable to piperacillin/tazobactam; this improved with discontinuation of the antibiotic. She also was diagnosed with an extensive LUE DVT and was started on full-dose apixaban 2.5 mg bid. During hospitalization On May 11 patient developed acute expressive aphasia with right upper extremity flaccid paralysis and right facial droop, TPN was contraindicated since patient on apixaban, MRI contraindicated due to pacemaker carotid Dopplers are normal, patient seen by neurology and has been placed on statin and continued on Eliquis, patient will require continue PT OT and speech therapy currently tolerating ground soft solids. During hospitalization patient also developed acute dyspnea and was diagnosed to have acute new onset right-sided congestive heart failure with BNP 2014 patient required treatment with IV diuretics with good response , currently euvolemic diuretics have been discontinued she was noted to have hypokalemia that has been aggressively repleted, and echocardiogram showed EF 45-50% with moderate severe tricuspid regurgitation, and severe pulmonary hypertension she is on 3-4 liters of supplemental O2 via nasal cannula upon discharge, with increased requirement of oxygen with activity. Check BMP at a.m. for follow-up on hypokalemia. Time Spent with Patient Time attestation: Total time spent providing and/or coordinating discharge services: Discharge coordination time: Greater than 30 minutes Quality: Stroke Does the patient have a stroke diagnosis?: No Physical Exam Vital Signs: Vital Signs: Last Vital Signs Temp 97.8 F 05/10/21 10:55 Pulse 68 05/10/21 10:55 Resp 20 05/10/21 10:55 BP 170/74 H 05/10/21 10:55 Pulse Ox 95 05/10/21 10:55 Oxygen Flow Rate 6 05/09/21 12:46 BMI result Body Mass Index 19.6 Gen: chronically ill but alert and in no acute distress HEENT: sclera anicteric, moist mucus membranes Neck: supple Lungs: inspiratory crackles and rhonchi throughout Heart: regular rate and rhythm, no murmurs Abd: soft, non-tender, non-distended Ext: RUE hand swelling Skin: warm/well-perfused Neuro: alert and oriented x3, no focal findings Psych: appropriate affect DS: Data Data Completed and Pending Completed studies during hospitalization [Text1]: Laboratory Results WBC 18.5 X10*3/uL (4.8-10.8) H 05/10/21 08:02 RBC 2.91 X10*6/uL (4.20-5.50) L 05/10/21 08:02 Hgb 9.3 g/dl (12.0-16.0) L 05/10/21 08:02 Hct 29.6 % (37.0-47.0) L 05/10/21 08:02 MCV 101.7 fL (80.0-98.0) H 05/10/21 08:02 MCH 32.0 pg (27.0-33.0) 05/10/21 08:02 MCHC 31.4 g/dl (31.0-35.0) 05/10/21 08:02 RDW 18.6 % (11.0-16.0) H 05/10/21 08:02 Plt Count 87 X10*3/uL (160-400) L D 05/10/21 08:02 MPV 12.0 fL (9.4-12.3) 05/10/21 08:02 Immature Gran % (Auto) 1.7 % (0.0-0.4) H 05/08/21 06:30 Neut % (Auto) 89.3 % (45-73) H 05/08/21 06:30 Lymph % (Auto) 5.1 % (20-40) L 05/08/21 06:30 Citrus % (Auto) 3.7 % (2-11) 05/08/21 06:30 Eos % (Auto) 0.0 % (0-4) 05/08/21 06:30 Baso % (Auto) 0.2 % (0-2) 05/08/21 06:30 Lymph # (Auto) 0.6 X10*3/uL (1.2-4.9) L 05/08/21 06:30 Citrus # (Auto) 0.5 X10*3/uL (0.1-1.2) 05/08/21 06:30 Eos # (Auto) 0.0 X10*3/uL (0.0-0.4) 05/08/21 06:30 Baso # (Auto) 0.0 X10*3/uL (0.0-0.2) 05/08/21 06:30 Abs Immat Gran (auto) 0.22 X10*3/uL (0.00-0.03) H 05/08/21 06:30 Absolute Neuts (auto) 11.3 x10*3/uL (2.0-8.3) H 05/08/21 06:30 Absolute Nucleated RBC 0.100 X10*3/uL (0.0-0.012) H 05/10/21 08:02 Nucleated RBC % (auto) 0.5 /100WBC (0.0-0.2) H 05/10/21 08:02 Smear Tech's Comments VERIFIED 05/07/21 06:37 PT 23.4 SEC (9.9-13.0) H 05/09/21 06:28 INR 2.0 (0.9-1.1) H 05/09/21 06:28 Sodium 143 mmol/L (135-145) 05/10/21 08:02 Potassium 5.1 mmol/L (3.3-5.1) D 05/10/21 08:02 Chloride 104 mmol/L (96-108) 05/10/21 08:02 Carbon Dioxide 30 mmol/L (22-29) H 05/10/21 08:02 Anion Gap 14 (12-20) 05/10/21 08:02 BUN 33 mg/dL (9-16) H 05/10/21 08:02 Creatinine 0.78 mg/dL (0.5-1.4) 05/10/21 08:02 Estim Creat Clear Calc 43.2 05/10/21 08:02 Estimated GFR > 60 05/10/21 08:02 Random Glucose 135 mg/dL (60-115) H 05/10/21 08:02 Fasting Glucose 138 mg/dL (60-99) H 05/07/21 06:37 Lactic Acid 1.3 mmol/L (0.5-2.0) 04/30/21 19:58 Calcium 9.2 mg/dL (8.4-10.2) 05/10/21 08:02 Total Bilirubin 0.4 mg/dL (0.0-1.0) 05/10/21 08:02 Direct Bilirubin 0.2 mg/dL (0.0-0.5) 05/09/21 06:14 AST 47 U/L (5-31) H 05/10/21 08:02 ALT 62 U/L (0-31) H 05/10/21 08:02 Alkaline Phosphatase 70 U/L (39-117) 05/10/21 08:02 Troponin I High Sens 15.5 ng/L (<3.5-17.0) 04/30/21 23:41 B-Natriuretic Peptide 564 pg/mL (<100) H 04/30/21 19:58 Total Protein 6.0 g/dL (6.5-8.0) L 05/10/21 08:02 Albumin 3.2 g/dL (3.5-5.0) L 05/10/21 08:02 Procalcitonin 0.05 ng/mL 05/08/21 06:30 Vancomycin Trough 13.5 mcg/mL (10.0-20.0) 05/08/21 17:52 COVID-19 (SILVER) Negative (Negative) 05/09/21 14:30 COVID-19 Clin Com See Note 05/09/21 14:30 Influenza Type A (PCR) NEGATIVE (Negative) 05/04/21 08:41 Influenza Type B (PCR) NEGATIVE (Negative) 05/04/21 08:41 RSV RNA Qual (PCR) NEGATIVE (Negative) 05/04/21 08:41 SARS-CoV-2 RNA (RT-PCR) NEGATIVE (Negative) 05/04/21 08:41 Impressions Chest X-Ray 04/30/21 19:17 IMPRESSION: Increase in the bilateral patchy airspace opacities. Chest CT 05/03/21 15:41 IMPRESSION: 1. Worsening bilateral airspace opacities. Commonly reported imaging features of COVID-19 pneumonia are present. Other processes such as influenza pneumonia or organizing pneumonia can cause a similar imaging appearance, as can certain drug toxicities and connective tissue disorders. 2. Persistent mediastinal lymphadenopathy. 3. Small bilateral pleural effusions. The volume of effusions has increased since CT chest 02/10/2021. Fleischner guidelines were followed. PICC Line Insertion 05/06/21 12:57 IMPRESSION: Successful ultrasound fluoroscopy-guided placement of a 5 Korean 38 cm long PICC catheter with its tip in distal SVC. The catheter is ready for use. Fluoroscopy time: 1.1 minute Dose area product: 83 cGy/cm2 Venous Duplex 05/07/21 09:47 IMPRESSION: * Extensive DVT present throughout the left upper extremity including the left subclavian, axillary, brachial and basilic veins. * Left internal jugular vein is patent. * Superficial venous thrombosis throughout the forearm veins. Preliminary micro results at discharge 05/05/21 13:08 Fungal Identification - Preliminary Washing - Wash, bilateral Filamentous fungus PATHOLOGY RESULTS Collected: 05/05/21 Location: [facility] Received: 05/05/21 Diagnosis Lung, bilateral, bronchial washings (cytology and cell block):? Negative for malignant cells. Comment:? Examination of a monolayer preparation slide and 2 cell block slides reveals benign bronchial epithelium with focal reactive/metaplastic changes, scattered acute inflammatory cells, and mucoid/proteinaceous material.? Fragment of necrotic tissue and possible filamentous organisms are seen in the cell block.? Special stains pending, addendum to follow. See also microbiology culture reports, positive for fungi. Discharge Plan Discharge Patient Disposition: Xfer Inpatient Rehab Fac Discharge Diagnosis: suspected aspergillosis, bronchiectasis, hypoxia, thrombocytopenia, left arm DVT Referrals: [facility] [place] [Outside] - 1 Week Rebekah Kurtz MD [Primary Care Provider] - 1 Week Chelsea Matos MD [Physician] - 1 Week Jayjay Can MD [Physician] - 1 Week Discharge Medications: New voriconazole 200 mg tablet 200 mg PO Q12H Qty: 60 2RF Rx Instructions: administer on empty stomach, at least 1 hour before or after meal(s) prednisone 10 mg tablet See Rx Instructions .ROUTE .COMPLEX Qty: 18 0RF Rx Instructions: take prednisone 2 tabs daily x 3 days, then 1 tabs daily x 3 days amlodipine 5 mg Tablet 5 mg PO DAILY Qty: 30 0RF Protocol: Hold for SBP< HOLD for SBP < : 90 atorvastatin [Lipitor] 20 mg tablet 20 mg PO DAILY Qty: 30 0RF Continued pantoprazole 40 mg Tablet,Delayed Release (Dr/Ec) 40 mg PO BEDTIME 0RF nystatin 100,000 unit/mL suspension 1 ml PO QID PRN (Reason: THRUSH) Qty: 60 0RF Rx Instructions: swish and swallow multivitamin Tablet 1 tab PO DAILY 0RF cyanocobalamin (vitamin B-12) 1,000 mcg Tablet 1,000 mcg PO DAILY 0RF folic acid 1 mg Tablet 1 mg PO DAILY 0RF lutein 20 mg Capsule 20 mg PO DAILY 0RF Probiotic 100 billion cell Capsule 2 cap PO BEDTIME 0RF magnesium oxide 400 mg magnesium Tablet 400 mg PO DAILY@1700 0RF Bone Boost 1 tab PO TID 0RF Zeaxanthin 1 mg PO DAILY 0RF ipratropium-albuterol 0.5 mg-3 mg(2.5 mg base)/3 mL solution for nebulization 3 ml inhalation BID PRN (Reason: Shortness Of Breath Or Wheezing) 0RF sodium chloride 7 % solution for nebulization 1 vial inhalation BID 0RF Trelegy Ellipta 200-62.5-25 mcg blister with device 1 puff inhalation DAILY 0RF Eliquis 2.5 mg Tablet 2.5 mg PO BID@0600,1800 Qty: 60 0RF levothyroxine 50 mcg tablet 50 mcg PO DAILY@0630 0RF albuterol sulfate 90 mcg/actuation HFA aerosol inhaler 2 inh inhalation Q4H PRN (Reason: Shortness Of Breath) 0RF sertraline 100 mg tablet 100 mg PO DAILY 0RF Discontinued doxycycline hyclate 100 mg Tablet 100 mg PO Q12H Qty: 10 0RF Discharge Orders: Discharge Order (Routine); Ordered 05/15/21 Ordered By: Akshat White Diet: advance to usual diet Activity on Discharge: As tolerated Stand Alone Forms: Patient Portal Discharge page Other Ambulatory Orders: Complete Blood Count Auto Diff (Routine) Timeframe: 1 Week Facility: [facility] - Location: Laboratory Ordered By: Nidhi Ross Comprehensive Met. Panel (Routine) Timeframe: 1 Day Facility: [facility] - Location: Laboratory Ordered By: Nidhi Ross Activity Restrictions/Additional Instructions: Takes med whole with applesause. last bm 3-3 senna and prune juice give. edema to left neg for dvt. Care Plan Goals: diagnosis and treatment of possible aspergillosis Health Concerns: suspected aspergillosis, bronchiectasis, hypoxia, thrombocytopenia, left arm DVT Plan of Treatment: voriconazole 200 mg twice daily for 3 weeks; follow up with Adan Can [Pulmonology] and Shawna [Infectious Disease] in 1-2 weeks; check labs check CBCd, CMP,including lfts q weekly check bmp at am prednisone 20 mg daily x 3 days, then 10 mg daily x 3 days supplemental oxygen, wean as tolerated take apixaban 2.5 mg twice daily for at least 3 months Assessment: see Discharge Summary Patient Instructions: Voriconazole (By mouth) Discharge Date/Time: 05/15/21 15:16
--- NOTE | 2021-05-10 13:00 | MHC.CLN ---
F/U PT WITH INCREASED NUTRITION NEEDS R/T PRESSURE INJURY PO INTAKE 50% AVG X 4 MEALS DIET RX: 2GM NA-IF PO INTAKE REMAINS POOR CAN LIBERALIZE TO REGULAR TO OFFER MORE VARIETY PT RECEIVING ENSURE BID TO INCREASE KCALS AND PROMOTE WOUND HEALING PROVIDES 700KCALS, 40G PROTEIN CONTINUE TO MONITOR PO INTAKE CLOSELY
[2021-05-10] MEDS: Albuterol Sulfate 90 MCG 8 GM INHALER 2 PUFF INHALE ×2 (13:11→16:57)
--- NOTE | 2021-05-10 14:27 | HO.PM.IMPN ---
Subjective Subjective Date of Service: 05/10/21 Interval History: Breathing slightly improved this AM, on 4L O2 via NC. At 13:30, had acute onset of R hand weakness- unable to use spoon or write her name [she is R-handed]. Code stroke called. Review of Systems Review of Systems: Yes all other systems are reviewed and are negative Physical Exam Vital Signs: Vital Signs: Last Vital Signs Temp 97.8 F 05/10/21 10:55 Pulse 67 05/10/21 13:14 Resp 24 H 05/10/21 13:14 BP 170/74 H 05/10/21 10:55 Pulse Ox 98 05/10/21 13:00 Oxygen Flow Rate 6 05/10/21 13:00 BMI result Body Mass Index 19.6 Gen: in no acute distress HEENT: sclera anicteric, moist mucus membranes Neck: supple Lungs: tachypneic, diffuse crackles and rhonchi Heart: regular rate and rhythm, no murmurs Abd: soft, non-tender, non-distended Ext: no edema Skin: warm/well-perfused Neuro: alert and oriented x3, no facial droop, no dysarthria, subtle R pronator drift with definite R hand weakness, no leg weaknes Psych: appropriate affect Objective Data Active Medications Acetaminophen (Acetaminophen 325 Mg Tablet) 650 mg PO Q6H PRN PRN Reason: Pain, Mild (Pain Scale 1-3) Last Admin: 05/06/21 08:50 Dose: 650 mg Documented by: STEPHANIE Albuterol Sulfate (Albuterol Sulfate 90 Mcg 8 Gm Inhaler) 2 puff INHALE Q4H PRN PRN Reason: Shortness Of Breath Last Admin: 05/10/21 13:11 Dose: 2 puff Documented by: JAMI Apixaban (Apixaban 5 Mg Tablet) 5 mg PO BID [facility] Last Admin: 05/10/21 09:06 Dose: 5 mg Documented by: CAMILLE Cyanocobalamin (Cyanocobalamin (Vitamin B-12) 1,000 Mcg Tablet) 1,000 mcg PO DAILY [facility] Last Admin: 05/10/21 09:06 Dose: 1,000 mcg Documented by: CAMILLE Famotidine (Famotidine/Pf 20 Mg/2 Ml Vial) 20 mg IVPUSH BID [facility] Last Admin: 05/10/21 09:07 Dose: 20 mg Documented by: CAMILLE Folic Acid (Folic Acid 1 Mg Tablet) 1 mg PO DAILY [facility] Last Admin: 05/10/21 09:06 Dose: 1 mg Documented by: CAMILLE Voriconazole 200 mg/ Sodium (Chloride) 100 mls @ 50 mls/hr IV Q12H [facility] Last Admin: 05/10/21 12:39 Dose: 50 mls/hr Documented by: CAMILLE Levothyroxine Sodium (Levothyroxine Sodium 50 Mcg Tablet) 50 mcg PO DAILY@0630 [facility] Last Admin: 05/10/21 06:06 Dose: 50 mcg Documented by: DIANNE Loratadine (Loratadine 10 Mg Tablet) 10 mg PO DAILY [facility] Last Admin: 05/10/21 09:06 Dose: 10 mg Documented by: CAMILLE Magnesium Oxide (Magnesium Oxide 400 Mg Tablet) 400 mg PO DAILY@1700 [facility] Last Admin: 05/09/21 17:42 Dose: 400 mg Documented by: KIKI Melatonin (Melatonin 3 Mg Tablet) 6 mg PO BEDTIME PRN PRN Reason: Insomnia Morphine Sulfate (Morphine Sulfate 2 Mg/Ml Cartridge) 2 mg IVPUSH Q4H PRN; Protocol PRN Reason: Restlessness Last Admin: 05/10/21 06:26 Dose: 2 mg Documented by: DIANNE Multivitamins/Vitamin C (Multivitamin Tablet) 1 tab PO DAILY [facility] Last Admin: 05/10/21 09:06 Dose: 1 tab Documented by: CAMILLE Nystatin (Nystatin Oral Susp 500,000 Unit/5 Ml Oral.Susp) 200,000 unit PO QID [facility]; Protocol Last Admin: 05/10/21 12:40 Dose: 200,000 unit Documented by: CAMILLE Omeprazole (Omeprazole 20 Mg Capsule.Dr) 20 mg PO BEDTIME [facility] Last Admin: 05/09/21 20:54 Dose: 20 mg Documented by: DIANNE Ondansetron HCl (Ondansetron Hcl 4 Mg/2 Ml Vial) 4 mg IVPUSH ONCE PRN PRN Reason: Nausea and Vomiting Prednisone (Prednisone 20 Mg Tablet) 40 mg PO DAILY [facility] Last Admin: 05/10/21 09:06 Dose: 40 mg Documented by: CAMILLE Senna (Sennosides 8.6 Mg Tablet) 17.2 mg PO BEDTIME PRN PRN Reason: Constipation Sertraline HCl (Sertraline Hcl 100 Mg Tablet) 100 mg PO DAILY [facility] Last Admin: 05/10/21 09:06 Dose: 100 mg Documented by: CAMILLE Sodium Chloride (0.9 % Sodium Chloride Flush 3 Ml Syringe) 3 ml IVFLUSH QSHIFT [facility] Last Admin: 05/10/21 09:06 Dose: 3 ml Documented by: CAMILLE Labs CBC & Chem 7: 05/10/21 08:02 05/10/21 08:02 Labs: Laboratory Results - last 24 hr 05/09/21 05/10/21 05/10/21 14:30 08:02 08:02 MCV 101.7 H MCH 32.0 MCHC 31.4 RDW 18.6 H Plt Count 87 L D MPV 12.0 Absolute Nucleated RBC 0.100 H Nucleated RBC % (auto) 0.5 H Anion Gap 14 Estim Creat Clear Calc 43.2 Estimated GFR > 60 Random Glucose 135 H Calcium 9.2 Total Bilirubin 0.4 AST 47 H ALT 62 H Alkaline Phosphatase 70 Total Protein 6.0 L Albumin 3.2 L COVID-19 (SILVER) Negative COVID-19 Clin Com See Note Microbiology Microbiology Results: Microbiology 05/05/21 13:08 Fungal Identification - Preliminary Washing - Wash, bilateral Filamentous fungus Assessment and Plan (1) HAP (hospital-acquired pneumonia): Status: Acute (2) Acute embolism and thrombosis of deep vein of left upper extremity: Status: Acute Plan hospital d#10 85yo F with pulmonary MAC + bronchiectasis, prior pneumonias with Pseudomonas and MRSA, on suppressive/anti-inflammatory azithromycin, percussion vest, and nebulized hypertonic NaCl; COPD admitted with hypoxia, worsening airspace disease, underwent bronchoscopy 05/05/21 # R hand weakness, suspected minor acute CVA - CT head stat, Neuro consult stat. 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 # COPD - bacterial cultures negative + PCT low; d/c'ed vanc + pip/loraine; pull PICC prior to discharge - treat for suspected aspergillosis with voriconazole d#3 today, currently on 4 mg/kg q12h [200 mg q12h], change to PO upon discharge, will need to check level in 1 wk [target trough 1-2] + monitor CMP weekly - de-escalate steroids- prednisone 40 mg/d, taper as per Pulm by 10 mg/d q 3d - Pulm + ID following and will need outpt f/u # thrombocytopenia - contiues to improve, likely was due to pip/loraine # extensive LUE DVT - apixaban x3mo # dispo - anticipate STR @ [place] Quality Stroke Does the patient have a stroke diagnosis?: No VTE Prior VTE?: No VTE Risk Level:: Medical - moderate - high VTE Device Contraindication: Treatment Not Indicated VTE Drug Contraindication: N/A - Med Ordered
--- NOTE | 2021-05-10 15:06 | P.CNNE_ITS ---
History of Present Illness Data of Consult Service Date: 05/10/21 Primary Care Provider: Rebekah Kurtz MD [facility] Reason for consult: Hand weakness 85 year-old woman with history of? pulmonary MAC + bronchiectasis, prior pneumonias with Pseudomonas and MRSA, and COPD was admitted with hypoxia and worsening airspace disease concerning for pneumonia.? She is on anticoagulation. Recently, couple of hours ago, she was noted to have new onset of right hand and arm weakness and this consultation was requested with stroke alert. Because of anticoagulation she was not considered a candidate for intravenous tPA. Th ere was no associated headache or pain. Review of Systems Review of Systems: No difficulty speaking headache or seizure-like symptoms PMFSH Past Medical History Medical History (Updated 05/10/21 @ 15:10 by Penny Jacobo MD) Acute and chronic respiratory failure Aspergillosis, unspecified Bronchiectasis Bronchiectasis, uncomplicated COPD (chronic obstructive pulmonary disease) COPD exacerbation Insomnia Pacemaker Pleuritic chest pain Pneumonia Presence of Watchman left atrial appendage closure device Sedimentation rate elevation Weight loss Functional capacity: independent ambulation Family History Family History Father No problems noted. Family history: reviewed and not pertinent Surgical History Surgical History No pertinent past surgical history Social History Social History Household Members: None Housing: House Do you presently have visiting nurse or other home services: No Alcohol intake: never Patient Tobacco Use Status: Former Tobacco user Quit Date: 50 years ago Advance Directives Date on File: 04/08/21 service: No Current occupational status: retired Meds Allergies Allergy/AdvReac Type Severity Reaction Status Date / Time Iodinated Contrast Media Allergy Severe Itch and Verified 04/18/21 11:05 [CONTRAST, IV] Rash Active Medications: Current Medications Acetaminophen (Acetaminophen 325 Mg Tablet) 650 mg PO Q6H PRN PRN Reason: Pain, Mild (Pain Scale 1-3) Last Admin: 05/06/21 08:50 Dose: 650 mg Documented by: Albuterol Sulfate (Albuterol Sulfate 90 Mcg 8 Gm Inhaler) 2 puff INHALE Q4H PRN PRN Reason: Shortness Of Breath Last Admin: 05/10/21 13:11 Dose: 2 puff Documented by: Apixaban (Apixaban 5 Mg Tablet) 5 mg PO BID [facility] Last Admin: 05/10/21 09:06 Dose: 5 mg Documented by: Atorvastatin Calcium (Atorvastatin Calcium 40 Mg Tablet) 40 mg PO BEDTIME [facility] Cyanocobalamin (Cyanocobalamin (Vitamin B-12) 1,000 Mcg Tablet) 1,000 mcg PO DAILY [facility] Last Admin: 05/10/21 09:06 Dose: 1,000 mcg Documented by: Famotidine (Famotidine/Pf 20 Mg/2 Ml Vial) 20 mg IVPUSH BID [facility] Last Admin: 05/10/21 09:07 Dose: 20 mg Documented by: Folic Acid (Folic Acid 1 Mg Tablet) 1 mg PO DAILY [facility] Last Admin: 05/10/21 09:06 Dose: 1 mg Documented by: Voriconazole 200 mg/ Sodium (Chloride) 100 mls @ 50 mls/hr IV Q12H [facility] Last Admin: 05/10/21 12:39 Dose: 50 mls/hr Documented by: Levothyroxine Sodium (Levothyroxine Sodium 50 Mcg Tablet) 50 mcg PO DAILY@0630 [facility] Last Admin: 05/10/21 06:06 Dose: 50 mcg Documented by: Loratadine (Loratadine 10 Mg Tablet) 10 mg PO DAILY [facility] Last Admin: 05/10/21 09:06 Dose: 10 mg Documented by: Magnesium Oxide (Magnesium Oxide 400 Mg Tablet) 400 mg PO DAILY@1700 [facility] Last Admin: 05/09/21 17:42 Dose: 400 mg Documented by: Melatonin (Melatonin 3 Mg Tablet) 6 mg PO BEDTIME PRN PRN Reason: Insomnia Morphine Sulfate (Morphine Sulfate 2 Mg/Ml Cartridge) 2 mg IVPUSH Q4H PRN; Protocol PRN Reason: Restlessness Last Admin: 05/10/21 06:26 Dose: 2 mg Documented by: Multivitamins/Vitamin C (Multivitamin Tablet) 1 tab PO DAILY [facility] Last Admin: 05/10/21 09:06 Dose: 1 tab Documented by: Nystatin (Nystatin Oral Susp 500,000 Unit/5 Ml Oral.Susp) 200,000 unit PO QID [facility]; Protocol Last Admin: 05/10/21 12:40 Dose: 200,000 unit Documented by: Omeprazole (Omeprazole 20 Mg Capsule.Dr) 20 mg PO BEDTIME [facility] Last Admin: 05/09/21 20:54 Dose: 20 mg Documented by: Ondansetron HCl (Ondansetron Hcl 4 Mg/2 Ml Vial) 4 mg IVPUSH ONCE PRN PRN Reason: Nausea and Vomiting Prednisone (Prednisone 20 Mg Tablet) 40 mg PO DAILY [facility] Last Admin: 05/10/21 09:06 Dose: 40 mg Documented by: Senna (Sennosides 8.6 Mg Tablet) 17.2 mg PO BEDTIME PRN PRN Reason: Constipation Sertraline HCl (Sertraline Hcl 100 Mg Tablet) 100 mg PO DAILY [facility] Last Admin: 05/10/21 09:06 Dose: 100 mg Documented by: Sodium Chloride (0.9 % Sodium Chloride Flush 3 Ml Syringe) 3 ml IVFLUSH QSHIFT [facility] Last Admin: 05/10/21 09:06 Dose: 3 ml Documented by: Home Medications Medication Instructions Recorded Confirmed Last Taken Type albuterol sulfate 90 mcg/actuation 2 inh INHALATION Q4H PRN 01/12/20 04/30/21 04/05/21 History aerosol inhaler levothyroxine 50 mcg tablet 50 mcg PO DAILY@0630 01/12/20 04/30/21 04/06/21 History Bone Boost 1 tab PO TID 02/10/21 04/30/21 04/05/21 History Lactobacillus 40-Bifidobact 2 cap PO BEDTIME 02/10/21 04/30/21 04/05/21 History 3-S.thermophilus 100 billion cell capsule (Probiotic) Zeaxanthin 1 mg PO DAILY 02/10/21 04/30/21 04/05/21 History cyanocobalamin (vitamin B-12) 1,000 mcg PO DAILY 02/10/21 04/30/21 04/05/21 Hist ory 1,000 mcg tablet folic acid 1 mg tablet 1 mg PO DAILY 02/10/21 04/30/21 04/05/21 History ipratropium 0.5 mg-albuterol 3 mg 3 ml INHALATION BID PRN 02/10/21 04/30/21 04/05/21 History (2.5 mg base)/3 mL nebulization soln lutein 20 mg capsule 20 mg PO DAILY 02/10/21 04/30/21 04/05/21 History magnesium oxide 400 mg PO DAILY@1700 02/10/21 04/30/21 04/05/21 History multivitamin 1 tab PO DAILY 02/10/21 04/30/21 04/05/21 History sertraline 100 mg tablet 100 mg PO DAILY 02/20/21 04/30/21 04/05/21 History pantoprazole 40 mg tablet,delayed 40 mg PO BEDTIME 04/08/21 04/30/21 2 Days Ago History release ~04/06/21 fluticasone fur. 200 mcg-umeclid 1 puff INHALATION DAILY 05/01/21 05/01/21 Unknown History 62.5 mcg-vilant 25 mcg inhalat.powder (Trelegy Ellipta) sodium chloride 7 % for 1 vial INHALATION BID 05/01/21 05/01/21 Unknown History nebulization Physical Exam Vital Signs: Vital Signs: Last Vital Signs Temp 97.8 F 05/10/21 10:55 Pulse 67 05/10/21 14:53 Resp 24 H 05/10/21 13:14 BP 170/74 H 05/10/21 10:55 Pulse Ox 98 05/10/21 13:00 Oxygen Flow Rate 6 05/10/21 13:00 BMI result Body Mass Index 19.6 Neuro: Other: [id number] right hand and arm weakness with mild diffuse muscle atrophy. Deep tendon reflexes were absent. Plantars were flat. Face was symmetrical. Speech and language were normal. Results Labs CBC & Chem 7: 05/10/21 08:02 05/10/21 08:02 Labs: Short CBC 05/10/21 Range/Units 08:02 WBC 18.5 H (4.8-10.8) X10*3/uL Hgb 9.3 L (12.0-16.0) g/dl Hct 29.6 L (37.0-47.0) % Plt Count 87 L D (160-400) X10*3/uL BMP 05/10/21 08:02 Sodium 143 Potassium 5.1 D Chloride 104 Carbon Dioxide 30 H BUN 33 H Creatinine 0.78 Calcium 9.2 Liver Function 05/10/21 Range/Units 08:02 Total Bilirubin 0.4 (0.0-1.0) mg/dL AST 47 H (5-31) U/L ALT 62 H (0-31) U/L Alkaline Phosphatase 70 (39-117) U/L Albumin 3.2 L (3.5-5.0) g/dL Noncontrast head CT revealed moderate to severe fronto temporal atrophy and some microvascular ischemic changes per Microbiology Microbiology Results: Microbiology 05/05/21 13:08 Washing - Wash, bilateral Fungal Identification - Preliminary Filamentous fungus 05/05/21 13:08 Washing - Wash, bilateral Gram Stain - Final 05/05/21 13:08 Washing - Wash, bilateral Routine Culture - Final No growth after 2 days 04/30/21 20:23 Blood - Venous Blood Culture - Final No growth after 5 days. 04/30/21 19:58 Blood - Venous Blood Culture - Final No growth after 5 days. 05/03/21 10:18 Sputum - Expectorated Gram Stain - Final 05/03/21 10:18 Sputum - Expectorated Sputum Culture - Final 05/01/21 07:31 Sputum - Expectorated Gram Stain - Final 05/01/21 07:31 Sputum - Expectorated Sputum Culture - Final Assessment and Plan (1) Hand weakness: Status: Acute 85 years old woman with extensive medical history with new onset of right hand weakness. This could be a small ischemic infarction but could also be peripheral nerve entrapment. Unfortunately MRI could not be obtained. At this time she was not a candidate for intravenous tPA or aggressive stroke management. I would recommend involving PT OT and consider outpatient EMG nerve conduction study of this weakness would continue Procedures Date of Service Date of Service: 05/10/21
--- NOTE | 2021-05-10 15:15 | MHC.CM.PN ---
Female 85 DX HCAP. Discharge was planned for today. DP STR @ [facility], pending insurance authorization. The authorization has not been received. The Patient had SS of a CVA this afternoon. She had a head CT today. Discharge is on hold for now. Patient will transport via BLS.
--- NOTE | 2021-05-10 15:32 | PC.NURSE ---
1300: patient's daughter called me into the room stating her mother couldn't hold her spoon right. Upon further assessment, her right hand was more weak than her left; this was not noted previously. Slight right arm drift also present. Dr. Ross paged; assessed at bedside and orders placed. Took patient to CT with 2nd RN without incident. Educated on stroke symptoms, including worsening of symptoms warranting calling the nurse, in which the patient stated she understood. Daughter also updated by myself and Dr. Ross.
[2021-05-10] MEDS: Magnesium Oxide 400 MG TABLET PO (16:40)
[2021-05-10] MEDS: Atorvastatin Calcium 40 MG TABLET PO (19:25)
[2021-05-10] MEDS: Omeprazole 20 MG CAPSULE.DR PO (19:25)
[2021-05-11] VITALS (9 sets, daily range): BP systolic 128–166; BP diastolic 62–84; PULSE 60–67; RESP 18–19; TEMP 36.2–37.2; O2SAT 97–99
[2021-05-11] MEDS: 0.9 % Sodium Chloride Flush 3 ML SYRINGE IVFLUSH ×4 (01:15→20:23)
[2021-05-11] MEDS: Voriconazole 200 MG in 0.9 % Sodium Chloride 100 ML 50 MG IV ×3 (01:15→22:36)
[2021-05-11] MEDS: Morphine Sulfate 2 MG/ML CARTRIDGE IVPUSH ×2 (01:37→06:32)
--- NOTE | 2021-05-11 02:08 | PM.EVENT ---
Event Note Date of Service: 05/11/21 Event Note: Acute Dyspnea: concerned fluid oveload. RRin 30s--> better with morphine. Lasix IV x1. CXR pending BNP 2013-> concerned for new onset CHF-> Echo ordered. Cardiology follow up. Villegas cath for I/Os
[2021-05-11 02:11] LABS: B Type Natriuretic Peptide 2014 pg/mL (<100)
[2021-05-11] MEDS: Furosemide 20 MG/2 ML VIAL IVPUSH ×3 (02:16→18:29)
[2021-05-11] MEDS: Levothyroxine Sodium 50 MCG TABLET PO (06:33)
--- NOTE | 2021-05-11 06:41 | PC.NURSE ---
CARE ASSUMED 23;15..AWAKE..ALERT..HANNA..O2 TITRATED TO 9 L/M FOR LOW SATURATIONS...INCREASED WORK OF BREATHING...SAO2 82% WITH O2 9 L/M..DIFFUSE CRACKLES AUSCULTATED...(+) JVD..RESPIRATIONS LABOURED...RR 32-36...INCONTINANT URINE..HOSPITALIST UPDATED...BLADDER SCANNED 1 ML PER MD REQUEST...STAT CXR DONE..STAT DSY=0212..MD UPDATED...LASIX 20MG IV GIVEN AND CHEN INSERTED...CHEN DRAINED 1350ML POST INSERTION/LASIX...PRN MORPHINE ALSO GIVEN PRIOR TO LASIX...REPORTED SIGNIFICANT IMPROVEMENT IN WORK OF BREATHIN..DOZED X 3 HOURS...AWAKE THIS AM...SAO2 HAD IMPROVED TO 100% ON 9 L/M..O2 WEANED TO 6 L/M...GRADUAL INCREASED WORK OF BREATHING THIS AM...O2 RETURNED TO 9 L/M AND PRN MORPHINE PER REQUEST..RESTFUL AFTERWARDS..SAO2 IMPROVING
[2021-05-11 07:16] LABS: Anion Gap 12 (12-20); Blood Urea Nitrogen 28 mg/dL (9-16); Calcium 9.5 mg/dL (8.4-10.2); Carbon Dioxide 35 mmol/L (22-29); Chloride 100 mmol/L (96-108); Creatinine Clr Calc Pharmacy 43.2; Estimated Glomerular Filt Rate > 60; Glucose Random 97 mg/dL (60-115); Potassium 4.9 mmol/L (3.3-5.1); Sodium 142 mmol/L (135-145)
[2021-05-11 07:17] LABS: Cholesterol 162 mg/dL; HDL Cholesterol 31 mg/dL; LDL Cholesterol Calculated 91 mg/dl; Triglycerides 204 mg/dL
--- NOTE | 2021-05-11 07:30 | CA_ITS ---
Transthoracic Echocardiogram Patient (Last, First, Middle): Racquel Martinez, Gender: Female Date of : 1935 Age: 85 Procedure Date: 05/11/2021 Procedure Type: Transthoracic Echocardiogram Location: [facility] [place] Height: 162.56 cm Weight: 51.71 kg BSA: 1.54 m2 Heart Rate: bpm BP: 128 / 72 mmHg Electron Beam Welding Machine Operator: DINO Referring MD: Nidhi Ross MD Symptoms: CVA Study Quality: Fair Conclusions: - Normal left ventricular cavity size. There is mildly increased left ventricular wall thickness. The left ventricular systolic function is borderline reduced. The visually estimated ejection fraction is between 45-50%. - Mildly increased right ventricular cavity size. There is mild to moderately decreased right ventricular systolic function. - The right atrium is severely dilated. - There is moderate to severe tricuspid valve regurgitation. Significantly elevated right atrial pressure. Severe pulmonary hypertension is present. Findings Left Ventricle Normal left ventricular cavity size. There is mildly increased left ventricular wall thickness. The left ventricular systolic function is borderline reduced. The visually estimated ejection fraction is between 45 50%. Regional wall motion abnormalities can not be excluded due to suboptimal endocardial definition. There is paradoxical septal motion consistent with a left bundle branch block. Diastolic function is indeterminate on the basis of available data. E/E prime ratio is between 8 and 15 consistent with indeterminate filling pressures. Right Ventricle Mildly increased right ventricular cavity size. There is mild to moderately decreased right ventricular systolic function. Atria The left atrium is normal in size. The right atrium is severely dilated. Aortic Valve There is no aortic valve stenosis. There is no aortic valve regurgitation. Mitral Valve The mitral valve appears normal. There is mild to moderate mitral valve regurgitation. There is no mitral valve stenosis. Pulmonic Valve Normal pulmonic valve structure and function. There is trace pulmonic valve regurgitation. Tricuspid Valve The tricuspid valve was not well visualized. There is moderate to severe tricuspid valve regurgitation. Significantly elevated right atrial pressure. Severe pulmonary hypertension is present. Great Vessels All visible segments of the aorta are normal in size. The visualized portions of the pulmonary artery and branches are normal. Venous The inferior vena cava is dilated and does not collapse with inspiration. Pericardium/Pleural There is no evidence of pericardial effusion. Prior Study Comparison No prior study available for comparison. Measurements 2D Linear Measurements IVSd: 1.09 0.6-0.9/0.6-1.0 cm LVIDd: 3.83 3.9-5.3/4.2-5.9 cm LVIDd Index: 2.49 2.4-3.2/2.2-3.1 cm/m2 LVIDs: 2.55 2.0-3.6 cm LVPWd: 1.02 0.7-1.1 cm LA Diam: 3.40 2.7-3.8/3.0-4.0 cm LAIDs Index: 2.21 1.5-2.3 cm/m2 LV Mass: 159.54 67-162/88-224 g LV Mass Index: 103.60 43-95/49-115 g/m2 LVOT Diam: 1.90 3.0+(-)1.3 cm Mitral Valve MV Pk E: 0.72 MV PK A: 0.36 MV Decel Time: 182.00 E/A: 2.00 E'Lateral: 7.07 E'Medial: 5.55 E/E' Med: 13.00 E/E' Lat: 10.20 PHT: 53.00 MVA PHT: 4.15 Decel Payne: 3.98 MR Vol - PW Dopp: 35.53 MR VTI: 1.87 MR ERO: 19.00 MR Alias William: 0.35 MR RAD: 0.70 Aortic Valve AoV Pk William: 1.17 AoV Mn William: 0.77 AoV VTI: 0.23 AoV Pk Grad: 5.00 Aov Mn Grad: 3.00 BRANDO Cont.VTI: 1.82 LVOT LVOT Pk William: 0.75 LVOT Mn William: 0.48 LVOT VTI: 0.15 LVOT Pk Grad: 2.00 LVOT Mn Grad: 1.00 LVOT Diam: 1.90 LVOT Area: 2.84 Diastolic Function MV Pk E: 0.72 MV Pk A: 0.36 E/A: 2.00 E'Medial: 5.55 E/E' Med: 13.00 E' Laterial: 7.07 E/E' Lat: 10.20 Right Ventricle TAPSE (mm): 13.80 TVS' William: 10.20 Tricuspid Valve TR Pk William: 3.88 TR Pk Grad: 60.00 RA Press: 15.00 RVSP: 75.00 Great Vessels Aorta Ao Asc: 2.90 2.1-3.4 cm Updated in Other Vendor System with Status of Final Bladimir Monique MD electronically signed on 05/11/2021 4:48:26 PM with status of Final
[2021-05-11 08:34] LABS: C Reactive Protein 4.45 mg/dL (< or = 0.50)
[2021-05-11 09:01] LABS: Procalcitonin 0.11 ng/mL
[2021-05-11] MEDS: Famotidine/PF 20 MG/2 ML VIAL IVPUSH ×2 (09:16→20:23)
[2021-05-11 09:18] LABS: Glucose, Whole Blood 87 mg/dL (60-115)
--- NOTE | 2021-05-11 12:03 | MHC.SL.SWA ---
Speech Pathologist Impression: Oropharyngeal dysphagia Risk of Aspiration Due to: Lethargy Neurological Condition History of Pneumonia Dysphasia Diet Status: Upgrade Liquid Consistency and Strategies for Safe Swallow: Liquid Intake Recommendation: Thin Liquid Intake Strategies: Small Sips Solid Food Consistency: Dietary Recommendations: Grnd/Mech Altered (NDD2) Additional Modifications to Solid Foods: Recommend GROUND/MECH ALTERED (NDD2) solids moistened with sauce/gravy and THIN liquids, pills WHOLE or CRUSHED in PUREE. Recommend supervision during meals, providing assistance as needed. Aspiration precautions apply. Patient must be awake and alert for PO intake- Tray may need to be withheld if patient is lethargic. PICK UP OPERATOR will f/u tomorrow morning. Oral Medication Intake: Whole with Puree Please contact the pharmacy regarding appropriate crushable or liquid drug formulations that are available whenever modified delivery is recommended. Compensatory Strategies and Precautions to be Taken for Safe Swallow: Sitting Upright (90 deg) Small Bites and Sips Alternate Liquids/Solids Rate of Ingestion Change Avoid Specific Foods Supervision While Eating and Drinking for Safe Swallow: Total Supervision (1:1) Foods to Avoid: Difficult to chew solids Swallowing Recommended Treatments: Compens. Strategy Educat. Recommendation for Speech: Inpatient Speech Therapy Comment: f/u tomorrow Help Desk Rep Clinican/Clinical Fellow: No Supervisory Statement: I have reviewed and agree with the student/clinical fellow's documentation: N/A Speech Language Pathologist: Lisa Gaytan M.A., [facility]-PICK UP OPERATOR
[2021-05-11] MEDS: Nystatin Oral Susp 500,000 UNIT/5 ML ORAL.SUSP 200000 UNIT PO ×3 (13:45→20:23)
--- NOTE | 2021-05-11 14:00 | HO.PM.IMPN ---
Subjective Subjective Date of Service: 05/11/21 Interval History: Overnight became more hypoxic and now on 8L NC. Given furosemide for IV diuresis This AM had acute expressive aphasia, which resolved within 1 hr R hand still weak and has R facial droop now Review of Systems Review of Systems: Yes all other systems are reviewed and are negative Physical Exam Vital Signs: Vital Signs: Last Vital Signs Temp 97.1 F 05/11/21 11:12 Pulse 67 05/11/21 11:12 Resp 19 05/11/21 11:12 BP 156/75 H 05/11/21 11:12 Pulse Ox 97 05/11/21 12:22 Oxygen Flow Rate 9 05/11/21 12:22 BMI result Body Mass Index 19.6 Gen: in no acute distress HEENT: sclera anicteric, moist mucus membranes Neck: supple Lungs: diffuse crackles and rhonchi Heart: regular rate and rhythm, no murmurs Abd: soft, non-tender, non-distended Ext: no edema Skin: warm/well-perfused Neuro: alert and oriented x3, R lower facial droop no dysarthria, RUE weakness, no leg weaknes Psych: appropriate affect Objective Data Active Medications Acetaminophen (Acetaminophen 325 Mg Tablet) 650 mg PO Q6H PRN PRN Reason: Pain, Mild (Pain Scale 1-3) Last Admin: 05/06/21 08:50 Dose: 650 mg Documented by: STEPHANIE Albuterol Sulfate (Albuterol Sulfate 90 Mcg 8 Gm Inhaler) 2 puff INHALE Q4H PRN PRN Reason: Shortness Of Breath Last Admin: 05/10/21 16:57 Dose: 2 puff Documented by: JAMI Albuterol/Ipratropium (Albuterol/Iprat 2.5/0.5mg 3 Ml Ampul.Neb) 3 ml INHALE RQ4H PRN PRN Reason: Shortness of Breath/Wheezing Apixaban (Apixaban 5 Mg Tablet) 5 mg PO BID [facility] Last Admin: 05/11/21 09:18 Dose: Not Given Documented by: BARTOLO Non-Admin Reason: NPO Atorvastatin Calcium (Atorvastatin Calcium 40 Mg Tablet) 40 mg PO BEDTIME [facility] Last Admin: 05/10/21 19:25 Dose: 40 mg Documented by: ODILIA Cyanocobalamin (Cyanocobalamin (Vitamin B-12) 1,000 Mcg Tablet) 1,000 mcg PO DAILY [facility] Last Admin: 05/11/21 09:18 Dose: Not Given Documented by: BARTOLO Non-Admin Reason: NPO Famotidine (Famotidine/Pf 20 Mg/2 Ml Vial) 20 mg IVPUSH BID [facility] Last Admin: 05/11/21 09:16 Dose: 20 mg Documented by: BARTOLO Folic Acid (Folic Acid 1 Mg Tablet) 1 mg PO DAILY [facility] Last Admin: 05/11/21 09:18 Dose: Not Given Documented by: BARTOLO Non-Admin Reason: NPO Furosemide (Furosemide 20 Mg/2 Ml Vial) 20 mg IVPUSH BID@0900,1800 [facility]; Protocol Last Admin: 05/11/21 09:16 Dose: 20 mg Documented by: BARTOLO Voriconazole 200 mg/ Sodium (Chloride) 100 mls @ 50 mls/hr IV Q12H [facility] Last Admin: 05/11/21 12:05 Dose: 50 mls/hr Documented by: BARTOLO Levothyroxine Sodium (Levothyroxine Sodium 50 Mcg Tablet) 50 mcg PO DAILY@0630 [facility] Last Admin: 05/11/21 06:33 Dose: 50 mcg Documented by: MAHI Loratadine (Loratadine 10 Mg Tablet) 10 mg PO DAILY [facility] Last Admin: 05/11/21 09:18 Dose: Not Given Documented by: BARTOLO Non-Admin Reason: NPO Magnesium Oxide (Magnesium Oxide 400 Mg Tablet) 400 mg PO DAILY@1700 [facility] Last Admin: 05/10/21 16:40 Dose: 400 mg Documented by: ODILIA Melatonin (Melatonin 3 Mg Tablet) 6 mg PO BEDTIME PRN PRN Reason: Insomnia Morphine Sulfate (Morphine Sulfate 2 Mg/Ml Cartridge) 2 mg IVPUSH Q4H PRN; Protocol PRN Reason: Restlessness Last Admin: 05/11/21 06:32 Dose: 2 mg Documented by: MAHI Multivitamins/Vitamin C (Multivitamin Tablet) 1 tab PO DAILY [facility] Last Admin: 05/11/21 09:18 Dose: Not Given Documented by: BARTOLO Non-Admin Reason: NPO Nystatin (Nystatin Oral Susp 500,000 Unit/5 Ml Oral.Susp) 200,000 unit PO QID [facility]; Protocol Last Admin: 05/11/21 13:45 Dose: 200,000 unit Documented by: BARTOLO Omeprazole (Omeprazole 20 Mg Capsule.) 20 mg PO BEDTIME [facility] Last Admin: 05/10/21 19:25 Dose: 20 mg Documented by: ODILIA Ondansetron HCl (Ondansetron Hcl 4 Mg/2 Ml Vial) 4 mg IVPUSH ONCE PRN PRN Reason: Nausea and Vomiting Prednisone (Prednisone 20 Mg Tablet) 40 mg PO DAILY [facility] Last Admin: 05/11/21 09:18 Dose: Not Given Documented by: BARTOLO Non-Admin Reason: NPO Senna (Sennosides 8.6 Mg Tablet) 17.2 mg PO BEDTIME PRN PRN Reason: Constipation Sertraline HCl (Sertraline Hcl 100 Mg Tablet) 100 mg PO DAILY [facility] Last Admin: 05/11/21 09:18 Dose: Not Given Documented by: BARTOLO Non-Admin Reason: NPO Sodium Chloride (0.9 % Sodium Chloride Flush 3 Ml Syringe) 3 ml IVFLUSH QSHIFT [facility] Last Admin: 05/11/21 09:18 Dose: 3 ml Documented by: BARTOLO Labs CBC & Chem 7: 05/10/21 08:02 05/11/21 06:25 Labs: Laboratory Results - last 24 hr 05/11/21 05/11/21 05/11/21 01:45 06:25 06:25 Anion Gap 12 Estim Creat Clear Calc 43.2 Estimated GFR > 60 POC Glucose Random Glucose 97 Calcium 9.5 C-Reactive Protein 4.45 H B-Natriuretic Peptide 2014 H Triglycerides 204 Cholesterol 162 LDL Cholesterol, Calc 91 HDL Cholesterol 31 Procalcitonin 05/11/21 05/11/21 06:25 09:13 Anion Gap Estim Creat Clear Calc Estimated GFR POC Glucose 87 Random Glucose Calcium C-Reactive Protein B-Natriuretic Peptide Triglycerides Cholesterol LDL Cholesterol, Calc HDL Cholesterol Procalcitonin 0.[address] 05/10/21 14:23 IMPRESSION: No acute intracranial pathology. Findings consistent with microangiopathy. This critical result was discussed with Dr. Ross at 1330 p.m. hours on May 10, 2021. It was ascertained that the content and urgency of the report was understood at the time of direct communication. Carotid Doppler Study 05/10/21 18:29 IMPRESSION: 1. RIGHT: 0-49% range stenosis right carotid artery. 2. LEFT: 0-49% range stenosis left carotid artery 3. Normal antegrade flow seen in both vertebral arteries. Chest X-Ray 05/11/21 01:55 IMPRESSION: Moderately extensive bilateral airspace opacities, right lung greater than left. Left basilar aeration appears improved since 05/03/2021. Head CT 05/11/21 10:07 IMPRESSION: Question possible small evolving left centrum semiovale infarct without hemorrhage or edema. Microangiopathy. This critical result was discussed with Dr. Ross at 10:27 AM hours on May 11, 2021. It was ascertained that the content and urgency of the report was understood at the time of direct communication. Assessment and Plan (1) HAP (hospital-acquired pneumonia): Status: Acute (2) Acute embolism and thrombosis of deep vein of left upper extremity: Status: Acute Plan hospital d#11 85yo F with pulmonary MAC + bronchiectasis, prior pneumonias with Pseudomonas and MRSA, on suppressive/anti-inflammatory azithromycin, percussion vest, and nebulized hypertonic NaCl; COPD admitted with hypoxia, worsening airspace disease, underwent bronchoscopy 05/05/21 hospitalization complicated by CHF exacerbation and acute CVA # acute ischemic CVA - tPA contraindicated by apixaban use, MRI contraindicated by PPM - statin - carotid dopplers normal; check TTE - Neuro consulted. PT/OT/ACCESSORIES REPAIRER evaluations # CHF exacerbation - continue IV furosemide, recheck BNP, -1060 mL yesterday, -1100 mL today. 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 # COPD - bacterial cultures negative + PCT low; d/c'ed vanc + pip/loraine; pull PICC prior to discharge - treat for suspected aspergillosis with voriconazole d#4 today, currently on 4 mg/kg q12h [200 mg q12h], change to PO upon discharge, will need to check level in 1 wk [target trough level of 1-5] + monitor CMP weekly - de-escalate steroids- prednisone 40 mg/d, taper as per Pulm by 10 mg/d q 3d - Pulm + ID following and will need outpt f/u # thrombocytopenia - contiues to improve, likely was due to pip/loraine # extensive LUE DVT - apixaban x3mo # dispo - anticipate STR @ [place] Quality Stroke Does the patient have a stroke diagnosis?: No VTE Prior VTE?: No VTE Risk Level:: Medical - moderate - high VTE Device Contraindication: Treatment Not Indicated VTE Drug Contraindication: N/A - Med Ordered
--- NOTE | 2021-05-11 15:50 | P.CONCA_ITS ---
History of Present Illness History of Present Illness Date of Service: 05/11/21 Requesting physician: Nidhi Ross Chief complaint: HCAP, ?CHF Narrative: 85-year-old female with significant pulmonary issues including mycobacterium avium intracellulare, bronchiectasis, pulmonary emboli in the past, COPD and thrombocytopenia who originally presented for hypoxia and worsening airspace disease. Underwent bronchoscopy on 05 of May. 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 Unfortunately also had acute CVA. Patient did not give any history. I am not sure whether stroke has affected her speech or that she was just too exhausted and short of breath. She visibly look short of breath and wheezy. Overnight she had worsening hypoxia and shortness of breath and blood workup showed elevated BNP and she was thought to have congestive heart failure. She was given IV Lasix along with morphine which improved her respiratory status. Currently she is sitting upright and has audible wheeze. On IV diuretics at this point. [facility] Past Medical History Medical History Acute and chronic respiratory failure Aspergillosis, unspecified Bronchiectasis Bronchiectasis, uncomplicated COPD (chronic obstructive pulmonary disease) COPD exacerbation Insomnia Pacemaker Pleuritic chest pain Pneumonia Presence of Watchman left atrial appendage closure device Sedimentation rate elevation Weight loss Functional capacity: independent ambulation Family History Family History Father No problems noted. Family history: reviewed and not pertinent Surgical History Surgical History No pertinent past surgical history Social History Social History Household Members: None Housing: House Do you presently have visiting nurse or other home services: No Alcohol intake: never Patient Tobacco Use Status: Former Tobacco user Quit Date: 50 years ago Advance Directives Date on File: 04/08/21 service: No Current occupational status: retired Meds Allergies Allergy/AdvReac Type Severity Reaction Status Date / Time Iodinated Contrast Media Allergy Severe Itch and Verified 04/18/21 11:05 [CONTRAST, IV] Rash Active Medications: Current Medications Acetaminophen (Acetaminophen 325 Mg Tablet) 650 mg PO Q6H PRN PRN Reason: Pain, Mild (Pain Scale 1-3) Last Admin: 05/06/21 08:50 Dose: 650 mg Documented by: Albuterol Sulfate (Albuterol Sulfate 90 Mcg 8 Gm Inhaler) 2 puff INHALE Q4H PRN PRN Reason: Shortness Of Breath Last Admin: 05/10/21 16:57 Dose: 2 puff Documented by: Albuterol/Ipratropium (Albuterol/Iprat 2.5/0.5mg 3 Ml Ampul.Neb) 3 ml INHALE RQ4H PRN PRN Reason: Shortness of Breath/Wheezing Apixaban (Apixaban 5 Mg Tablet) 5 mg PO BID [facility] Last Admin: 05/11/21 09:18 Dose: Not Given Documented by: Atorvastatin Calcium (Atorvastatin Calcium 40 Mg Tablet) 40 mg PO BEDTIME [facility] Last Admin: 05/10/21 19:25 Dose: 40 mg Documented by: Cyanocobalamin (Cyanocobalamin (Vitamin B-12) 1,000 Mcg Tablet) 1,000 mcg PO DAILY [facility] [place] Last Admin: 05/11/21 09:18 Dose: Not Given Documented by: Famotidine (Famotidine/Pf 20 Mg/2 Ml Vial) 20 mg IVPUSH BID [facility] [place] Last Admin: 05/11/21 09:16 Dose: 20 mg Documented by: Folic Acid (Folic Acid 1 Mg Tablet) 1 mg PO DAILY [facility] [place] Last Admin: 05/11/21 09:18 Dose: Not Given Documented by: Furosemide (Furosemide 20 Mg/2 Ml Vial) 20 mg IVPUSH BID@0900,1800 [facility]; Protocol Last Admin: 05/11/21 09:16 Dose: 20 mg Documented by: Voriconazole 200 mg/ Sodium (Chloride) 100 mls @ 50 mls/hr IV Q12H [facility] Last Infusion: 05/11/21 14:21 Dose: Infused Documented by: Levothyroxine Sodium (Levothyroxine Sodium 50 Mcg Tablet) 50 mcg PO DAILY@0630 [facility] [place] Last Admin: 05/11/21 06:33 Dose: 50 mcg Documented by: Loratadine (Loratadine 10 Mg Tablet) 10 mg PO DAILY [facility] [place] Last Admin: 05/11/21 09:18 Dose: Not Given Documented by: Magnesium Oxide (Magnesium Oxide 400 Mg Tablet) 400 mg PO DAILY@1700 [facility] [place] Last Admin: 05/10/21 16:40 Dose: 400 mg Documented by: Melatonin (Melatonin 3 Mg Tablet) 6 mg PO BEDTIME PRN PRN Reason: Insomnia Morphine Sulfate (Morphine Sulfate 2 Mg/Ml Cartridge) 2 mg IVPUSH Q4H PRN; P rotocol PRN Reason: Restlessness Last Admin: 05/11/21 06:32 Dose: 2 mg Documented by: Multivitamins/Vitamin C (Multivitamin Tablet) 1 tab PO DAILY [facility] [place] Last Admin: 05/11/21 09:18 Dose: Not Given Documented by: Nystatin (Nystatin Oral Susp 500,000 Unit/5 Ml Oral.Susp) 200,000 unit PO QID [facility] [place]; Protocol Last Admin: 05/11/21 13:45 Dose: 200,000 unit Documented by: Omeprazole (Omeprazole 20 Mg Capsule.Dr) 20 mg PO BEDTIME [facility] [place] Last Admin: 05/10/21 19:25 Dose: 20 mg Documented by: Ondansetron HCl (Ondansetron Hcl 4 Mg/2 Ml Vial) 4 mg IVPUSH ONCE PRN PRN Reason: Nausea and Vomiting Prednisone (Prednisone 20 Mg Tablet) 40 mg PO DAILY [facility] [place] Last Admin: 05/11/21 09:18 Dose: Not Given Documented by: Senna (Sennosides 8.6 Mg Tablet) 17.2 mg PO BEDTIME PRN PRN Reason: Constipation Sertraline HCl (Sertraline Hcl 100 Mg Tablet) 100 mg PO DAILY [facility] [place] Last Admin: 05/11/21 09:18 Dose: Not Given Documented by: Sodium Chloride (0.9 % Sodium Chloride Flush 3 Ml Syringe) 3 ml IVFLUSH QSHIFT [facility] [place] Last Admin: 05/11/21 09:18 Dose: 3 ml Documented by: Home Medications Medication Instructions Recorded Confirmed Last Taken Type albuterol sulfate 90 mcg/actuation 2 inh INHALATION Q4H PRN 01/12/20 04/30/21 04/05/21 History aerosol inhaler levothyroxine 50 mcg tablet 50 mcg PO DAILY@0630 01/12/20 04/30/21 04/06/21 History Bone Boost 1 tab PO TID 02/10/21 04/30/21 04/05/21 History Lactobacillus 40-Bifidobact 2 cap PO BEDTIME 02/10/21 04/30/21 04/05/21 History 3-S.thermophilus 100 billion cell capsule (Probiotic) Zeaxanthin 1 mg PO DAILY 02/10/21 04/30/21 04/05/21 History cyanocobalamin (vitamin B-12) 1,000 mcg PO DAILY 02/10/21 04/30/21 04/05/21 History 1,000 mcg tablet folic acid 1 mg tablet 1 mg PO DAILY 02/10/21 04/30/21 04/05/21 History ipratropium 0.5 mg-albuterol 3 mg 3 ml INHALATION BID PRN 02/10/21 04/30/21 04/05/21 History (2.5 mg base)/3 mL nebulization soln lutein 20 mg capsule 20 mg PO DAILY 02/10/21 04/30/21 04/05/21 History magnesium oxide 400 mg PO DAILY@1700 02/10/21 04/30/21 04/05/21 History multivitamin 1 tab PO DAILY 02/10/21 04/30/21 04/05/21 History sertraline 100 mg tablet 100 mg PO DAILY 02/20/21 04/30/21 04/05/21 History pantoprazole 40 mg tablet,delayed 40 mg PO BEDTIME 04/08/21 04/30/21 2 Days Ago History release ~04/06/21 fluticasone fur. 200 mcg-umeclid 1 puff INHALATION DAILY 05/01/21 05/01/21 Unknown History 62.5 mcg-vilant 25 mcg inhalat.powder (Trelegy Ellipta) sodium chloride 7 % for 1 vial INHALATION BID 05/01/21 05/01/21 Unknown History nebulization Physical Exam Vital Signs: Vital Signs: Last Vital Signs Temp 98.9 F 05/11/21 15:04 Pulse 60 05/11/21 15:04 Resp 18 05/11/21 15:04 BP 160/81 H 05/11/21 15:04 Pulse Ox 99 05/11/21 15:04 Oxygen Flow Rate 9 05/11/21 12:22 BMI result Body Mass Index 19.6 GENERAL APPEARANCE: Ill-appearing, short of breath /greasy. NECK: no carotid bruit, no Significant jugular venous distention. SKIN: no suspicious lesions, warm and dry. HEART: no murmurs, regular rate and rhythm. LUNGS: bilateral wheezes and crackles. ABDOMEN: soft, nontender. EXTREMITIES: no edema. PERIPHERAL PULSES: equal. Objective Labs and Meds Result diagrams: 05/10/21 08:02 05/11/21 06:25 Lab results: Laboratory Results - last 24 hr 05/11/21 05/11/21 05/11/21 01:45 06:25 06:25 Sodium 142 Potassium 4.9 Chloride 100 Carbon Dioxide 35 H Anion Gap 12 BUN 28 H Creatinine 0.78 Estim Creat Clear Calc 43.2 Estimated GFR > 60 POC Glucose Random Glucose 97 Calcium 9.5 C-Reactive Protein 4.45 H B-Natriuretic Peptide 2014 H Triglycerides 204 Cholesterol 162 LDL Cholesterol, Calc 91 HDL Cholesterol 31 Procalcitonin 05/11/21 05/11/21 06:25 09:13 Sodium Potassium Chloride Carbon Dioxide Anion Gap BUN Creatinine Estim Creat Clear Calc Estimated GFR POC Glucose 87 Random Glucose Calcium C-Reactive Protein B-Natriuretic Peptide Triglycerides Cholesterol LDL Cholesterol, Calc HDL Cholesterol Procalcitonin 0.11 Imaging Radiologist's impression: Impressions Carotid Doppler Study 05/10/21 18:29 IMPRESSION: 1. RIGHT: 0-49% range stenosis right carotid artery. 2. LEFT: 0-49% range stenosis left carotid artery 3. Normal antegrade flow seen in both vertebral arteries. Chest X-Ray 05/11/21 01:55 IMPRESSION: Moderately extensive bilateral airspace opacities, right lung greater than left. Left basilar aeration appears improved since 05/03/2021. Head CT 05/11/21 10:07 IMPRESSION: Question possible small evolving left centrum semiovale infarct without hemorrhage or edema. Microangiopathy. This critical result was discussed with Dr. Ross at 10:27 AM hours on May 11, 2021. It was ascertained that the content and urgency of the report was understood at the time of direct communication. Assessment and Plan (1) Acute and chronic respiratory failure: Qualifiers: Respiratory failure complication: hypoxia Qualified Code(s): J96.21 - Acute and chronic respiratory failure with hypoxia Status: Acute Plan 85-year-old female who has complex medical issues and it appears she is quite sick at this point with fungal pneumonia due to Aspergillus. She also had a stroke unfortunately. Overnight she had hypoxia which was thought to be due to congestive heart failure. Her BNP was elevated. Chest x-ray has shown moderately extensive bilateral airspace disease. She is on IV diuretics. I think she can continue the IV diuretics today and can be changed to oral diuretics tomorrow. Agree with echocardiography if she can tolerate it. Blood pressure is elevated and her medication should be titrated. Thank you for allowing me to participate in the care of your patient. Please feel free to contact me if you have any questions. Procedures Date of Service Date of Service: 05/11/21
[2021-05-11] MEDS: Magnesium Oxide 400 MG TABLET PO (16:04)
[2021-05-11] MEDS: amLODIPine Besylate 2.5 MG TABLET PO (16:22)
[2021-05-11] MEDS: Apixaban 5 MG TABLET PO (20:22)
[2021-05-11] MEDS: Atorvastatin Calcium 40 MG TABLET PO (20:23)
[2021-05-12] VITALS (9 sets, daily range): BP systolic 130–162; BP diastolic 65–85; PULSE 61–86; RESP 16–20; TEMP 36–36.7; O2SAT 94–100
[2021-05-12] MEDS: Levothyroxine Sodium 50 MCG TABLET PO (06:17)
[2021-05-12 07:15] LABS: B Type Natriuretic Peptide 987 pg/mL (<100)
[2021-05-12 07:17] LABS: Hematocrit 29.1 % (37.0-47.0); Hemoglobin 9.1 g/dl (12.0-16.0); Mean Corpuscular HGB Conc 31.3 g/dl (31.0-35.0); Mean Corpuscular Hemoglobin 32.2 pg (27.0-33.0); Mean Corpuscular Volume 102.8 fL (80.0-98.0); Mean Platelet Volume 12.7 fL (9.4-12.3); NRBC Pct Auto 0.5 /100WBC (0.0-0.2); Platelet Count 109 X10*3/uL (160-400); Red Blood Count 2.83 X10*6/uL (4.20-5.50); Red Cell Distribution Width 18.6 % (11.0-16.0); White Blood Count 16.9 X10*3/uL (4.8-10.8)
[2021-05-12 07:19] LABS: Anion Gap 9 (12-20); Blood Urea Nitrogen 26 mg/dL (9-16); Carbon Dioxide 39 mmol/L (22-29); Chloride 100 mmol/L (96-108); Creatinine Clr Calc Pharmacy 46.2; Estimated Glomerular Filt Rate > 60; Glucose Random 80 mg/dL (60-115); Magnesium 2.2 mg/dL (1.6-2.6); Potassium 3.5 mmol/L (3.3-5.1); Sodium 144 mmol/L (135-145)
[2021-05-12] MEDS: Furosemide 20 MG/2 ML VIAL IVPUSH (09:20)
[2021-05-12] MEDS: amLODIPine Besylate 2.5 MG TABLET PO (09:20)
[2021-05-12] MEDS: Famotidine/PF 20 MG/2 ML VIAL IVPUSH (09:20)
[2021-05-12] MEDS: Nystatin Oral Susp 500,000 UNIT/5 ML ORAL.SUSP 200000 UNIT PO ×4 (09:20→21:01)
[2021-05-12] MEDS: Folic Acid 1 MG TABLET PO (09:21)
[2021-05-12] MEDS: Apixaban 5 MG TABLET PO (09:21)
[2021-05-12] MEDS: Sertraline HCL 100 MG TABLET PO (09:21)
[2021-05-12] MEDS: Loratadine 10 MG TABLET PO (09:21)
[2021-05-12] MEDS: Cyanocobalamin (Vitamin B-12) 1,000 MCG TABLET 1000 MCG PO (09:21)
[2021-05-12] MEDS: Multivitamin TABLET 1 TAB PO (09:21)
[2021-05-12] MEDS: predniSONE 20 MG TABLET 40 MG PO (09:21)
[2021-05-12] MEDS: Albuterol Sulfate 90 MCG 8 GM INHALER 2 PUFF INHALE (10:57)
--- NOTE | 2021-05-12 11:04 | MHC.SLORD ---
Speech Language Pathology Order Status: It is unclear if speech and language is affected by breath support, language deficits or both, at this time. I spent time with Ms. Martinez and her daughter to discuss strategies regarding her word retrieval (which may actually be more related to significant difficulties with breath support) such as labeling items around the room. Right sided facial weakness is noted and she is tolerating ground/soft solids but from a nutrition and intake standpoint I question if supplementing may be warranted. I will defer this question to them through messaging system.
--- NOTE | 2021-05-12 11:14 | MHC.CM.PN ---
Per MD, Patient is likely NOT to dc over the weekend; she has a private room at [facility] offered to her. CM will follow.
--- NOTE | 2021-05-12 11:21 | P.PNCA_ITS ---
Subjective Subjective Date of Service: 05/12/21 Principal diagnosis: CHF, CVA, Chronic lung ds Interval history: Cardiology follow up for CHF. Seen at 1000. Today she is observed sitting in recliner. She has aphasia from recent CVA. She does nod to a few questions. No apparent distress. Breathing comfortable at rest. Wearing O2 with cannula 9L with sat 98%. She denies pain. Review of Systems Review of Systems as above Yes Unobtainable due to mental condition Physical Exam Vital Signs: Last Vital Signs Temp 97.4 F 05/12/21 08:00 Pulse 86 05/12/21 11:00 Resp 16 05/12/21 11:00 BP 146/85 H 05/12/21 09:38 Pulse Ox 98 05/12/21 09:38 Oxygen Flow Rate 9 05/11/21 12:22 BMI result Body Mass Index 19.6 Const Other: Frail elderly female with aphasia General: no acute distress, alert and awake Neck Neck: Yes normal visual inspection and Yes no JVD Resp Effort & Inspection: not labored Auscultation: rales (coarse rales in all lung fontanez), no rhonchi and no wheezes Cardio Rate: regular rate Rhythm: regular rhythm Heart sounds: S1 normal heart sound present and S2 normal heart sound present GI Inspection: Yes normal to inspection Extrem General: No edema Objective Labs and Meds Result diagrams: 05/12/21 06:10 05/12/21 06:20 Lab results: Laboratory Results - last 24 hr 05/12/21 05/12/21 05/12/21 06:10 06:10 06:20 WBC 16.9 H RBC 2.83 L Hgb 9.1 L Hct 29.1 L MCV 102.8 H MCH 32.2 MCHC 31.3 RDW 18.6 H Plt Count 109 L D MPV 12.7 H Absolute Nucleated RBC 0.090 H Nucleated RBC % (auto) 0.5 H Sodium 144 Potassium 3.5 D Chloride 100 Carbon Dioxide 39 H Anion Gap 9 L BUN 26 H Creatinine 0.73 Estim Creat Clear Calc 46.2 Estimated GFR > 60 Random Glucose 80 Calcium 9.0 Magnesium 2.2 B-Natriuretic Peptide 987 H Progress Note: A&P Assessment and plan (1) Acute HFrEF (heart failure with reduced ejection fraction): Status: Acute Assessment and Plan: Admit 04/30/21 with cough, sob. Events of admission reviewed. Persistent hypoxia and rales. BNP yesterday noted to be elevated at 2014. Echo shoed EF 45-50%, mild ot mod decreased in RVSF, LA severely dilated, mod to severe TR, severe pulm htn. Findings most likely related to her chronic lung disease. She was treated for acute CHF, in addition to her respiratory ailments. Gently diuresed with IV Lasix. Fluid balance Neg 2 liters in last 2 days. Breathing seems comfortable at rest. Lungs with rales noted throughout. On exam she does not appear fluid overloaded. BNP down to 987 today. Will change Lasix to po. Continue I+O monitoring, close monitoring of electrolytes and kidney function. Ongoing managment of lung disease as directed by hospitalist, pulmonology, ID. We will follow along as needed. (2) Acute and chronic respiratory failure: Status: Acute (3) COPD (chronic obstructive pulmonary disease): Status: Acute (4) CVA (cerebral vascular accident): Status: Acute Assessment and Plan: New aphagia and weakness on 05/10 with findings of CVA. Seen by neurology and note reviewed indicating this could be a small ischemic infarct. She does have a hx of AF, currently suppressed with watchman device in place. Tele shows intermittent Atrial with Ventricular paced rhythm. Has been anticoagulated with Eliquis. I do see that Eliquis is currently at 5 mg bid. For her age and weight, 2.5 mg bid is the appropriate dose for her, so I will change it. Fall Risk Details Current Medications: Current Medications Acetaminophen (Acetaminophen 325 Mg Tablet) 650 mg PO Q6H PRN PRN Reason: Pain, Mild (Pain Scale 1-3) Last Admin: 05/06/21 08:50 Dose: 650 mg Documented by: Albuterol Sulfate (Albuterol Sulfate 90 Mcg 8 Gm Inhaler) 2 puff INHALE Q4H PRN PRN Reason: Shortness Of Breath Last Admin: 05/12/21 10:57 Dose: 2 puff Documented by: Albuterol/Ipratropium (Albuterol/Iprat 2.5/0.5mg 3 Ml Ampul.Neb) 3 ml INHALE RQ4H PRN PRN Reason: Shortness of Breath/Wheezing Amlodipine Besylate (Amlodipine Besylate 2.5 Mg Tablet) 2.5 mg PO DAILY [facility]; Protocol Last Admin: 05/12/21 09:20 Dose: 2.5 mg Documented by: Apixaban (Apixaban 5 Mg Tablet) 5 mg PO BID [facility] Last Admin: 05/12/21 09:21 Dose: 5 mg Documented by: Atorvastatin Calcium (Atorvastatin Calcium 40 Mg Tablet) 40 mg PO BEDTIME [facility] Last Admin: 05/11/21 20:23 Dose: 40 mg Documented by: Cyanocobalamin (Cyanocobalamin (Vitamin B-12) 1,000 Mcg Tablet) 1,000 mcg PO DAILY [facility] Last Admin: 05/12/21 09:21 Dose: 1,000 mcg Documented by: Famotidine (Famotidine/Pf 20 Mg/2 Ml Vial) 20 mg IVPUSH BID [facility] Last Admin: 05/12/21 09:20 Dose: 20 mg Documented by: Folic Acid (Folic Acid 1 Mg Tablet) 1 mg PO DAILY [facility] Last Admin: 05/12/21 09:21 Dose: 1 mg Documented by: Voriconazole 200 mg/ Sodium (Chloride) 100 mls @ 50 mls/hr IV Q12H [facility] Last Infusion: 05/12/21 00:09 Dose: Infused Documented by: Levothyroxine Sodium (Levothyroxine Sodium 50 Mcg Tablet) 50 mcg PO DAILY@0630 [facility] Last Admin: 05/12/21 06:17 Dose: 50 mcg Documented by: Loratadine (Loratadine 10 Mg Tablet) 10 mg PO DAILY [facility] Last Admin: 05/12/21 09:21 Dose: 10 mg Documented by: Magnesium Oxide (Magnesium Oxide 400 Mg Tablet) 400 mg PO DAILY@1700 [facility] Last Admin: 05/11/21 16:04 Dose: 400 mg Documented by: Melatonin (Melatonin 3 Mg Tablet) 6 mg PO BEDTIME PRN PRN Reason: Insomnia Morphine Sulfate (Morphine Sulfate 2 Mg/Ml Cartridge) 2 mg IVPUSH Q4H PRN; Protocol PRN Reason: Restlessness Last Admin: 05/11/21 06:32 Dose: 2 mg Documented by: Multivitamins/Vitamin C (Multivitamin Tablet) 1 tab PO DAILY [facility] Last Admin: 05/12/21 09:21 Dose: 1 tab Documented by: Nystatin (Nystatin Oral Susp 500,000 Unit/5 Ml Oral.Susp) 200,000 unit PO QID [facility]; Protocol Last Admin: 05/12/21 09:20 Dose: 200,000 unit Documented by: Omeprazole (Omeprazole 20 Mg Capsule.Dr) 20 mg PO BEDTIME [facility] Last Admin: 05/11/21 20:18 Dose: Not Given Documented by: Ondansetron HCl (Ondansetron Hcl 4 Mg/2 Ml Vial) 4 mg IVPUSH ONCE PRN PRN Reason: Nausea and Vomiting Prednisone (Prednisone 20 Mg Tablet) 40 mg PO DAILY [facility] Last Admin: 05/12/21 09:21 Dose: 40 mg Documented by: Senna (Sennosides 8.6 Mg Tablet) 17.2 mg PO BEDTIME PRN PRN Reason: Constipation Sertraline HCl (Sertraline Hcl 100 Mg Tablet) 100 mg PO DAILY [facility] Last Admin: 05/12/21 09:21 Dose: 100 mg Documented by: Sodium Chloride (0.9 % Sodium Chloride Flush 3 Ml Syringe) 3 ml IVFLUSH QSHIFT [facility] Last Admin: 05/12/21 09:14 Dose: Not Given Documented by: Time Spent With Patient Time: Total time spent is greater than 50% in coordination of care (as documented) at patient's floor/unit and/or counseling patient: 22 Time with patient: 15 - 24 minutes Progress Note: Quality Stroke Does the patient have a stroke diagnosis?: No Procedures Date of Service Date of Service: 05/12/21
--- NOTE | 2021-05-12 12:08 | MHC.CLN ---
F/U PT WITH INCREASED NUTRITION NEEDS R/T PRESSURE INJURY DIET RX: 2GM NA GRD M/S-IF PO INTAKE REMAINS POOR CAN LIBERALIZE TO REGULAR TO OFFER MORE VARIETY RISK PROFESSIONAL FOLLOWING FOR DIET CONSISTENCY RECOMMEND RE-STARTING ENSURE BID TO INCREASE KCALS AND PROMOTE WOUND HEALING PROVIDES 700KCALS, 40G PROTEIN CONTINUE TO MONITOR PO INTAKE CLOSELY
[2021-05-12] MEDS: Voriconazole 200 MG in 0.9 % Sodium Chloride 100 ML 50 MG IV (12:46)
--- NOTE | 2021-05-12 14:19 | HO.PM.IMPN ---
Subjective Subjective Date of Service: 05/13/21 Interval History: Unable to answer questions due to expressive aphasia, persistent right facial droop, right upper extremity weakness and mild right lower extremity weakness , able to feed herself with left hand, does not appear to be in respiratory distress, no acute events overnight. Review of Systems Review of Systems: Yes all other systems are reviewed and are negative Physical Exam Vital Signs: Vital Signs: Last Vital Signs Temp 96.8 F 05/12/21 11:45 Pulse 65 05/12/21 11:45 Resp 20 05/12/21 11:45 BP 144/65 H 05/12/21 11:45 Pulse Ox 94 05/12/21 11:45 Oxygen Flow Rate 9 05/11/21 12:22 BMI result Body Mass Index 19.6 Const: Other: Gen: Awake alert, in no acute distress Neck: supple, no JVD Lungs: Bibasilar crackles Heart: regular rate and rhythm, no murmurs Abd: soft, non-tender, non-distended Ext: no edema Skin: warm/well-perfused Neuro: alert and oriented x3, expressive aphasia, R facial droop,RUE flaccid weakness, mild right lower extremity weaknes. Psych: appropriate affect Objective Data Active Medications Acetaminophen (Acetaminophen 325 Mg Tablet) 650 mg PO Q6H PRN PRN Reason: Pain, Mild (Pain Scale 1-3) Last Admin: 05/06/21 08:50 Dose: 650 mg Documented by: STEPHANIE Albuterol Sulfate (Albuterol Sulfate 90 Mcg 8 Gm Inhaler) 2 puff INHALE Q4H PRN PRN Reason: Shortness Of Breath Last Admin: 05/12/21 10:57 Dose: 2 puff Documented by: JENELLE Albuterol/Ipratropium (Albuterol/Iprat 2.5/0.5mg 3 Ml Ampul.Neb) 3 ml INHALE RQ4H PRN PRN Reason: Shortness of Breath/Wheezing Amlodipine Besylate (Amlodipine Besylate 5 Mg Tablet) 5 mg PO DAILY [facility]; Protocol Apixaban (Apixaban 2.5 Mg Tablet) 2.5 mg PO BID [facility] Atorvastatin Calcium (Atorvastatin Calcium 40 Mg Tablet) 40 mg PO BEDTIME [facility] Last Admin: 05/11/21 20:23 Dose: 40 mg Documented by: ANTOIC Cyanocobalamin (Cyanocobalamin (Vitamin B-12) 1,000 Mcg Tablet) 1,000 mcg PO DAILY [facility] Last Admin: 05/12/21 09:21 Dose: 1,000 mcg Documented by: WILVER Folic Acid (Folic Acid 1 Mg Tablet) 1 mg PO DAILY [facility] Last Admin: 05/12/21 09:21 Dose: 1 mg Documented by: WILVER Furosemide (Furosemide 40 Mg Tablet) 40 mg PO DAILY [facility]; Protocol Voriconazole 200 mg/ Sodium (Chloride) 100 mls @ 50 mls/hr IV Q12H [facility] Last Admin: 05/12/21 12:46 Dose: 50 mls/hr Documented by: WILVER Levothyroxine Sodium (Levothyroxine Sodium 50 Mcg Tablet) 50 mcg PO DAILY@0630 [facility] Last Admin: 05/12/21 06:17 Dose: 50 mcg Documented by: ANTDIAMOND Loratadine (Loratadine 10 Mg Tablet) 10 mg PO DAILY [facility] Last Admin: 05/12/21 09:21 Dose: 10 mg Documented by: WILVER Magnesium Oxide (Magnesium Oxide 400 Mg Tablet) 400 mg PO DAILY@1700 [facility] Last Admin: 05/11/21 16:04 Dose: 400 mg Documented by: MYRA Melatonin (Melatonin 3 Mg Tablet) 6 mg PO BEDTIME PRN PRN Reason: Insomnia Morphine Sulfate (Morphine Sulfate 2 Mg/Ml Cartridge) 2 mg IVPUSH Q4H PRN; Protocol PRN Reason: Restlessness Last Admin: 05/11/21 06:32 Dose: 2 mg Documented by: MAHI Multivitamins/Vitamin C (Multivitamin Tablet) 1 tab PO DAILY [facility] Last Admin: 05/12/21 09:21 Dose: 1 tab Documented by: WILVER Nystatin (Nystatin Oral Susp 500,000 Unit/5 Ml Oral.Susp) 200,000 unit PO QID [facility]; Protocol Last Admin: 05/12/21 12:47 Dose: 200,000 unit Documented by: WILVER Omeprazole (Omeprazole 20 Mg Capsule.Dr) 20 mg PO BEDTIME [facility] Last Admin: 05/11/21 20:18 Dose: Not Given Documented by: ANTOIC Non-Admin Reason: Unable to swallow capsule Ondansetron HCl (Ondansetron Hcl 4 Mg/2 Ml Vial) 4 mg IVPUSH ONCE PRN PRN Reason: Nausea and Vomiting Potassium Chloride (Potassium Chloride Packet 20 Meq Packet) 40 meq PO DAILY [facility] Prednisone (Prednisone 20 Mg Tablet) 40 mg PO DAILY [facility] Last Admin: 05/12/21 09:21 Dose: 40 mg Documented by: WILVER Senna (Sennosides 8.6 Mg Tablet) 17.2 mg PO BEDTIME PRN PRN Reason: Constipation Sertraline HCl (Sertraline Hcl 100 Mg Tablet) 100 mg PO DAILY [facility] Last Admin: 05/12/21 09:21 Dose: 100 mg Documented by: WILVER Sodium Chloride (0.9 % Sodium Chloride Flush 3 Ml Syringe) 3 ml IVFLUSH QSHIFT [facility] Last Admin: 05/12/21 09:14 Dose: Not Given Documented by: WILVER Non-Admin Reason: picc Labs CBC & Chem 7: 05/12/21 06:10 05/13/21 06:02 Labs: Laboratory Results - last 24 hr 05/12/21 05/12/21 05/12/21 06:10 06:10 06:20 MCV 102.8 H MCH 32.2 MCHC 31.3 RDW 18.6 H Plt Count 109 L D MPV 12.7 H Absolute Nucleated RBC 0.090 H Nucleated RBC % (auto) 0.5 H Anion Gap 9 L Estim Creat Clear Calc 46.2 Estimated GFR > 60 Random Glucose 80 Calcium 9.0 Magnesium 2.2 B-Natriuretic Peptide 987 H Microbiology Microbiology Results: Microbiology 05/05/21 13:08 Direct Acid Fast Bacilli Smear - Final Washing - Wash, bilateral Assessment and Plan (1) CVA (cerebral vascular accident): Status: Acute (2) COPD (chronic obstructive pulmonary disease): Status: Acute (3) Bronchiectasis: Status: Acute (4) Thrombocytopenia: Status: Acute (5) COPD exacerbation: Status: Acute (6) Aspergillosis, unspecified: Status: Acute (7) Acute respiratory failure with hypoxia: Status: Acute Plan hospital d#11 85yo F with pulmonary MAC + bronchiectasis, prior pneumonias with Pseudomonas and MRSA, on suppressive/anti-inflammatory azithromycin, percussion vest, and nebulized hypertonic NaCl; COPD admitted with hypoxia, worsening airspace disease, underwent bronchoscopy 05/05/21 hospitalization complicated by CHF exacerbation and acute CVA # acute ischemic CVA - persistent aphasia right facial droop and right sided weakness, noted to have worsening right lower extremity - tPA contraindicated by apixaban use, MRI contraindicated by PPM, carotid Dopplers normal, echo showed EF 45-50%, has moderate to severe tricuspid regurg and severe pulmonary hypertension - continue statin/Eliquis - being followed by PT/OT/[facility] , tolerating ground/soft solids will add supplements # acute CHF exacerbation due to right-sided heart failure, severe pulmonary hypertension, EF 45-50%, moderate to severe tricuspid regurg - persistent hypoxia and shortness of breath will transition IV Lasix to by mouth, BNP improved to 987 from 2014 Follow BMP i/os, daily weight, will need continued outpatient close cardiology follow up. 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 # COPD - bacterial cultures negative with low procalcitonin therefore IV antibiotic discontinued,will pull PICC prior to discharge - treat for suspected aspergillosis with voriconazole d#5 today, currently on 4 mg/kg q12h [200 mg q12h], will change to PO upon discharge, will need to check level in 1 wk [target trough level of 1-5] + monitor CMP weekly - de-escalate steroids- on prednisone 40 mg/d3, taper as per Pulm by 10 mg/d q 3d - Pulm + ID following , will need outpt f/u # thrombocytopenia - contiues to improve, likely was due to pip/loraine # extensive LUE DVT/possible PE with V/Q scan showing intermediate risk for PE during recent hospitalization - continue apixaban x3mo # leukocytosis likely due to infection/steroids, patient afebrile, decreased oxygen requirement follow CBC and clinical course # dispo - anticipate STR @ [place] once medically stable Need continued hospitalization due to evolving CVA needs close neurological followup, with acute congestive heart failure with shortness of breath and hypoxia. Quality Stroke Does the patient have a stroke diagnosis?: No VTE Prior VTE?: No VTE Risk Level:: Medical - moderate - high VTE Device Contraindication: Treatment Not Indicated VTE Drug Contraindication: N/A - Med Ordered
[2021-05-12] MEDS: Furosemide 20 MG TABLET PO (14:31)
[2021-05-12] MEDS: 0.9 % Sodium Chloride Flush 3 ML SYRINGE IVFLUSH (16:14)
[2021-05-12] MEDS: Magnesium Oxide 400 MG TABLET PO (18:14)
[2021-05-12] MEDS: Potassium Chloride/H20 10 MEQ/100 ML PIGGYBACK 100 MEQ IV (18:14)
[2021-05-12] MEDS: Apixaban 2.5 MG TABLET PO (21:02)
[2021-05-12] MEDS: Omeprazole 20 MG CAPSULE.DR PO (21:02)
[2021-05-12] MEDS: Atorvastatin Calcium 40 MG TABLET PO (21:02)
[2021-05-13] MEDS: Voriconazole 200 MG in 0.9 % Sodium Chloride 100 ML 50 MG IV ×3 (00:43→23:12)
[2021-05-13] MEDS: 0.9 % Sodium Chloride Flush 3 ML SYRINGE IVFLUSH ×4 (00:43→21:59)
[2021-05-13 03:39] VITALS: BP 147/76; PULSE 62; RESP 16; TEMP 36.5; O2SAT 100
[2021-05-13] MEDS: Levothyroxine Sodium 50 MCG TABLET PO (05:55)
[2021-05-13 06:45] LABS: Anion Gap 10 (12-20); Blood Urea Nitrogen 25 mg/dL (9-16); Calcium 9.1 mg/dL (8.4-10.2); Chloride 100 mmol/L (96-108); Creatinine Clr Calc Pharmacy 46.2; Estimated Glomerular Filt Rate > 60; Glucose Random 87 mg/dL (60-115); Potassium 3.5 mmol/L (3.3-5.1); Sodium 147 mmol/L (135-145)
[2021-05-13 06:55] LABS: Carbon Dioxide 41 mmol/L (22-29)
[2021-05-13 07:50] VITALS: BP 142/79; PULSE 68; RESP 18; TEMP 36.6; O2SAT 100
[2021-05-13] MEDS: Apixaban 2.5 MG TABLET PO ×2 (10:05→21:52)
[2021-05-13] MEDS: Multivitamin TABLET 1 TAB PO (10:05)
[2021-05-13] MEDS: Cyanocobalamin (Vitamin B-12) 1,000 MCG TABLET 1000 MCG PO (10:05)
[2021-05-13] MEDS: predniSONE 10 MG TABLET 30 MG PO (10:05)
[2021-05-13] MEDS: Folic Acid 1 MG TABLET PO (10:05)
[2021-05-13] MEDS: Loratadine 10 MG TABLET PO (10:05)
[2021-05-13] MEDS: acetaZOLAMIDE 250 MG TABLET 500 MG PO ×2 (10:06→21:52)
[2021-05-13] MEDS: amLODIPine Besylate 5 MG TABLET PO (10:06)
[2021-05-13] MEDS: Nystatin Oral Susp 500,000 UNIT/5 ML ORAL.SUSP 200000 UNIT PO ×3 (10:06→18:01)
[2021-05-13] MEDS: Sertraline HCL 100 MG TABLET PO (10:06)
--- NOTE | 2021-05-13 10:07 | PM.PNCARD ---
Subjective Subjective Date of Service: 05/13/21 Principal diagnosis: CHF, CVA, Chronic lung ds Interval history: Right-sided weakness. Saying that she is short of breath. Left upper extremity is erythematous. Denying any pain. Physical Exam Vital Signs: Last Vital Signs Temp 97.8 F 05/13/21 07:50 Pulse 68 05/13/21 07:50 Resp 18 05/13/21 07:50 BP 142/79 H 05/13/21 07:50 Pulse Ox 100 05/13/21 07:50 Oxygen Flow Rate 9 05/11/21 12:22 BMI result Body Mass Index 19.6 GENERAL APPEARANCE: Short of breath. NECK: no carotid bruit, no jugular venous distention. SKIN: no suspicious lesions, warm and dry. HEART: no murmurs, regular rate and rhythm. LUNGS: Bilateral crackles. ABDOMEN: soft, nontender. EXTREMITIES: no edema. PERIPHERAL PULSES: equal. NEUROLOGIC: Right upper extremity flaccid paralysis. Right lower extremity power is 2/5. Objective Labs and Meds Result diagrams: 05/12/21 06:10 05/13/21 06:02 Lab results: Laboratory Results - last 24 hr 05/13/21 06:02 Sodium 147 H Potassium 3.5 Chloride 100 Carbon Dioxide 41 H* Anion Gap 10 L BUN 25 H Creatinine 0.73 Estim Creat Clear Calc 46.2 Estimated GFR > 60 Random Glucose 87 Calcium 9.1 Progress Note: A&P Assessment and plan (1) Acute respiratory failure with hypoxia: Status: Acute (2) CVA (cerebral vascular accident): Status: Acute Plan 85-year-old female with complex issues including fungal lung infection on antibiotics as well as CVA. She has bronchiectasis and COPD. She was diuresed because she had worsening hypoxia. Overall she looks euvolemic at this stage. Can be transitioned to oral diuretics. Blood pressure control is reasonable. Overall prognosis is quite poor due to other medical issues ongoing. She has a left upper extremity swelling. Consider ultrasound to make sure she does not have thrombus. Thank you for allowing me to participate in the care of your patient. Please feel free to contact me if you have any questions. Fall Risk Details Current Medications: Current Medications Acetaminophen (Acetaminophen 325 Mg Tablet) 650 mg PO Q6H PRN PRN Reason: Pain, Mild (Pain Scale 1-3) Last Admin: 05/06/21 08:50 Dose: 650 mg Documented by: Acetazolamide (Acetazolamide 250 Mg Tablet) 500 mg PO BID [facility] [place] Stop: 05/14/21 21:01 Last Admin: 05/13/21 10:06 Dose: 500 mg Documented by: Albuterol Sulfate (Albuterol Sulfate 90 Mcg 8 Gm Inhaler) 2 puff INHALE Q4H PRN PRN Reason: Shortness Of Breath Last Admin: 05/12/21 10:57 Dose: 2 puff Documented by: Albuterol/Ipratropium (Albuterol/Iprat 2.5/0.5mg 3 Ml Ampul.Neb) 3 ml INHALE RQ4H PRN PRN Reason: Shortness of Breath/Wheezing Amlodipine Besylate (Amlodipine Besylate 5 Mg Tablet) 5 mg PO DAILY [facility] [place]; Protocol Last Admin: 05/13/21 10:06 Dose: 5 mg Documented by: Apixaban (Apixaban 2.5 Mg Tablet) 2.5 mg PO BID [facility] [place] Last Admin: 05/13/21 10:05 Dose: 2.5 mg Documented by: Atorvastatin Calcium (Atorvastatin Calcium 40 Mg Tablet) 40 mg PO BEDTIME [facility] [place] Last Admin: 05/12/21 21:02 Dose: 40 mg Documented by: Cyanocobalamin (Cyanocobalamin (Vitamin B-12) 1,000 Mcg Tablet) 1,000 mcg PO DAILY [facility] [place] [place] Last Admin: 05/13/21 10:05 Dose: 1,000 mcg Documented by: Folic Acid (Folic Acid 1 Mg Tablet) 1 mg PO DAILY [facility] [place] Last Admin: 05/13/21 10:05 Dose: 1 mg Documented by: Voriconazole 200 mg/ Sodium (Chloride) 100 mls @ 50 mls/hr IV Q12H [facility] [place] Last Infusion: 05/13/21 03:15 Dose: Infused Documented by: Levothyroxine Sodium (Levothyroxine Sodium 50 Mcg Tablet) 50 mcg PO DAILY@0630 [facility] [place] Last Admin: 05/13/21 05:55 Dose: 50 mcg Documented by: Loratadine (Loratadine 10 Mg Tablet) 10 mg PO DAILY [facility] [place] Last Admin: 05/13/21 10:05 Dose: 10 mg Documented by: Magnesium Oxide (Magnesium Oxide 400 Mg Tablet) 400 mg PO DAILY@1700 [facility] Last Admin: 05/12/21 18:14 Dose: 400 mg Documented by: Melatonin (Melatonin 3 Mg Tablet) 6 mg PO BEDTIME PRN PRN Reason: Insomnia Morphine Sulfate (Morphine Sulfate 2 Mg/Ml Cartridge) 2 mg IVPUSH Q4H PRN; Protocol PRN Reason: Restlessness Last Admin: 05/11/21 06:32 Dose: 2 mg Documented by: Multivitamins/Vitamin C (Multivitamin Tablet) 1 tab PO DAILY [facility] [place] Last Admin: 05/13/21 10:05 Dose: 1 tab Documented by: Nystatin (Nystatin Oral Susp 500,000 Unit/5 Ml Oral.Susp) 200,000 unit PO QID [facility] [place]; Protocol Last Admin: 05/13/21 10:06 Dose: 200,000 unit Documented by: Omeprazole (Omeprazole 20 Mg Capsule.Dr) 20 mg PO BEDTIME [facility] [place] [place] Last Admin: 05/12/21 21:02 Dose: 20 mg Documented by: Ondansetron HCl (Ondansetron Hcl 4 Mg/2 Ml Vial) 4 mg IVPUSH ONCE PRN PRN Reason: Nausea and Vomiting Prednisone (Prednisone 10 Mg Tablet) 30 mg PO DAILY [facility] [place] Last Admin: 05/13/21 10:05 Dose: 30 mg Documented by: Senna (Sennosides 8.6 Mg Tablet) 17.2 mg PO BEDTIME PRN PRN Reason: Constipation Sertraline HCl (Sertraline Hcl 100 Mg Tablet) 100 mg PO DAILY [facility] [place] [place] Last Admin: 05/13/21 10:06 Dose: 100 mg Documented by: Sodium Chloride (0.9 % Sodium Chloride Flush 3 Ml Syringe) [address] [facility] Last Admin: 05/13/21 10:06 Dose: 3 ml Documented by: Time Spent With Patient Time: Total time spent is greater than 50% in coordination of care (as documented) at patient's floor/unit and/or counseling patient: Time with patient: 15 - 24 minutes Progress Note: Quality Stroke Does the patient have a stroke diagnosis?: No Procedures Date of Service Date of Service: 05/13/21
[2021-05-13 13:00] VITALS: O2SAT 97
--- NOTE | 2021-05-13 13:16 | P.PNIM_ITS ---
Subjective Subjective Date of Service: 05/13/21 Interval History: Persistent aphasia, and flaccid right upper extremity, neuro examination is stable in last 24 hours no new neuro deficit noted, denies shortness of breath, tolerating soft diet. Review of Systems Review of Systems: Yes all other systems are reviewed and are negative Physical Exam Vital Signs: Vital Signs: Last Vital Signs Temp 97.8 F 05/13/21 07:50 Pulse 68 05/13/21 07:50 Resp 18 05/13/21 07:50 BP 142/79 H 05/13/21 07:50 Pulse Ox 100 05/13/21 07:50 Oxygen Flow Rate 9 05/11/21 12:22 BMI result Body Mass Index 19.6 Const: Other: Gen:? Awake alert, in no acute distress Neck: supple, no JVD Lungs:? Clear to auscultation, no respiratory distress Heart: regular rate and rhythm, no murmurs Abd: soft, non-tender, non-distended Ext: no edema Skin: warm/well-perfused Neuro: alert and oriented x3, expressive aphasia, R facial droop,RUE flaccid weakness, mild right lower extremity weakness, no change in neuro exam since yesterday. Psych: appropriate affect Objective Data Active Medications Acetaminophen (Acetaminophen 325 Mg Tablet) 650 mg PO Q6H PRN PRN Reason: Pain, Mild (Pain Scale 1-3) Last Admin: 05/06/21 08:50 Dose: 650 mg Documented by: STEPHANIE Acetazolamide (Acetazolamide 250 Mg Tablet) 500 mg PO BID [facility] Stop: 05/14/21 21:01 Last Admin: 05/13/21 10:06 Dose: 500 mg Documented by: IVY Albuterol Sulfate (Albuterol Sulfate 90 Mcg 8 Gm Inhaler) 2 puff INHALE Q4H PRN PRN Reason: Shortness Of Breath Last Admin: 05/12/21 10:57 Dose: 2 puff Documented by: JENELLE Albuterol/Ipratropium (Albuterol/Iprat 2.5/0.5mg 3 Ml Ampul.Neb) 3 ml INHALE RQ4H PRN PRN Reason: Shortness of Breath/Wheezing Amlodipine Besylate (Amlodipine Besylate 5 Mg Tablet) 5 mg PO DAILY [facility]; Protocol Last Admin: 05/13/21 10:06 Dose: 5 mg Documented by: IVY Apixaban (Apixaban 2.5 Mg Tablet) 2.5 mg PO BID [facility] Last Admin: 05/13/21 10:05 Dose: 2.5 mg Documented by: IVY Atorvastatin Calcium (Atorvastatin Calcium 40 Mg Tablet) 40 mg PO BEDTIME [facility] Last Admin: 05/12/21 21:02 Dose: 40 mg Documented by: FLORECITA Cyanocobalamin (Cyanocobalamin (Vitamin B-12) 1,000 Mcg Tablet) 1,000 mcg PO DAILY [facility] Last Admin: 05/13/21 10:05 Dose: 1,000 mcg Documented by: IVY Folic Acid (Folic Acid 1 Mg Tablet) 1 mg PO DAILY [facility] Last Admin: 05/13/21 10:05 Dose: 1 mg Documented by: IVY Voriconazole 200 mg/ Sodium (Chloride) 100 mls @ 50 mls/hr IV Q12H [facility] Last Admin: 05/13/21 12:37 Dose: 50 mls/hr Documented by: IVY Levothyroxine Sodium (Levothyroxine Sodium 50 Mcg Tablet) 50 mcg PO DAILY@0630 [facility] Last Admin: 05/13/21 05:55 Dose: 50 mcg Documented by: FREDRICK Loratadine (Loratadine 10 Mg Tablet) 10 mg PO DAILY [facility] Last Admin: 05/13/21 10:05 Dose: 10 mg Documented by: IVY Magnesium Oxide (Magnesium Oxide 400 Mg Tablet) 400 mg PO DAILY@1700 [facility] Last Admin: 05/12/21 18:14 Dose: 400 mg Documented by: FLORECITA Melatonin (Melatonin 3 Mg Tablet) 6 mg PO BEDTIME PRN PRN Reason: Insomnia Morphine Sulfate (Morphine Sulfate 2 Mg/Ml Cartridge) 2 mg IVPUSH Q4H PRN; Protocol PRN Reason: Restlessness Last Admin: 05/11/21 06:32 Dose: 2 mg Documented by: MAHI Multivitamins/Vitamin C (Multivitamin Tablet) 1 tab PO DAILY [facility] Last Admin: 05/13/21 10:05 Dose: 1 tab Documented by: IVY Nystatin (Nystatin Oral Susp 500,000 Unit/5 Ml Oral.Susp) 200,000 unit PO QID [facility]; Protocol Last Admin: 05/13/21 12:50 Dose: 200,000 unit Documented by: IVY Omeprazole (Omeprazole 20 Mg Capsule.Dr) 20 mg PO BEDTIME [facility] Last Admin: 05/12/21 21:02 Dose: 20 mg Documented by: FLORECITA Ondansetron HCl (Ondansetron Hcl 4 Mg/2 Ml Vial) 4 mg IVPUSH ONCE PRN PRN Reason: Nausea and Vomiting Prednisone (Prednisone 10 Mg Tablet) 30 mg PO DAILY [facility] Last Admin: 05/13/21 10:05 Dose: 30 mg Documented by: IVY Senna (Sennosides 8.6 Mg Tablet) 17.2 mg PO BEDTIME PRN PRN Reason: Constipation Sertraline HCl (Sertraline Hcl 100 Mg Tablet) 100 mg PO DAILY [facility] Last Admin: 05/13/21 10:06 Dose: 100 mg Documented by: IVY Sodium Chloride (0.9 % Sodium Chloride Flush 3 Ml Syringe) 3 ml IVFLUSH QSHIFT [facility] Last Admin: 05/13/21 10:06 Dose: 3 ml Documented by: IVY Labs CBC & Chem 7: 05/12/21 06:10 05/13/21 06:02 Labs: Laboratory Results - last 24 hr 05/13/21 06:02 Anion Gap 10 L Estim Creat Clear Calc 46.2 Estimated GFR > 60 Random Glucose 87 Calcium 9.1 Microbiology Microbiology Results: Microbiology 05/05/21 13:08 Direct Acid Fast Bacilli Smear - Final Washing - Wash, bilateral Assessment and Plan (1) CVA (cerebral vascular accident): Status: Acute (2) COPD (chronic obstructive pulmonary disease): Status: Acute (3) Bronchiectasis: Status: Acute (4) Thrombocytopenia: Status: Acute (5) COPD exacerbation: Status: Acute (6) Aspergillosis, unspecified: Status: Acute (7) Acute respiratory failure with hypoxia: Status: Acute Plan 85yo F with pulmonary MAC + bronchiectasis, prior pneumonias with Pseudomonas and MRSA, on suppressive/anti-inflammatory azithromycin, percussion vest, and nebulized hypertonic NaCl; COPD admitted with hypoxia, worsening airspace disease, underwent bronchoscopy 05/05/21 hospitalization complicated by CHF exacerbation and acute CVA # acute ischemic CVA - persistent aphasia right facial droop , right upper extremity flaccid paralysis, mild right lower extremity weakness unchanged. 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 # COPD - bacterial cultures negative with low procalcitonin therefore IV antibiotic discontinued,will pull PICC prior to discharge - treat for suspected aspergillosis with voriconazole d#6 today, currently on 4 mg/kg q12h [200 mg q12h], will change to PO upon discharge, will need to check level in 1 wk [target trough level of 1-5] + monitor CMP weekly - de-escalate steroids- on prednisone 40 mg/d3, will transition to 30 mg per day today, taper as per Pulm by 10 mg/d q 3d - Pulm + ID following , will need outpt f/u # thrombocytopenia - contiues to improve, likely was due to pip/loraine # extensive LUE DVT/possible PE with V/Q scan showing intermediate risk for PE during recent hospitalization - continue apixaban x3mo # leukocytosis likely due to infection/steroids, patient afebrile, decreased oxygen requirement, WBC trending down follow CBC and clinical course # dispo - anticipate STR @ [place] once medically stable Need continued hospitalization due to evolving CVA stabilized in last 24 hours, with acute hypoxic respiratory failure worsening shortness of breath and hypoxia with activity possible discharge to rehab if clinically improves in next 24-48 hrs. Quality Stroke Does the patient have a stroke diagnosis?: No VTE Prior VTE?: No VTE Risk Level:: Medical - moderate - high VTE Device Contraindication: Treatment Not Indicated VTE Drug Contraindication: N/A - Med Ordered
[2021-05-13 15:03] VITALS: BP 174/83; PULSE 64; RESP 18; TEMP 36.6; O2SAT 99
[2021-05-13] MEDS: Magnesium Oxide 400 MG TABLET PO (18:01)
[2021-05-13 19:18] VITALS: BP 150/70; PULSE 66; RESP 18; TEMP 36.6; O2SAT 100
[2021-05-13] MEDS: Atorvastatin Calcium 40 MG TABLET PO (21:52)
[2021-05-13 23:35] VITALS: BP 148/70; PULSE 66; RESP 20; TEMP 36.6; O2SAT 100
[2021-05-14 03:23] VITALS: BP 154/68; PULSE 113; RESP 20; TEMP 36.4; O2SAT 97
[2021-05-14] MEDS: Levothyroxine Sodium 50 MCG TABLET PO (06:10)
[2021-05-14 07:13] LABS: Anion Gap 12 (12-20); Blood Urea Nitrogen 24 mg/dL (9-16); Calcium 9.2 mg/dL (8.4-10.2); Carbon Dioxide 32 mmol/L (22-29); Chloride 104 mmol/L (96-108); Creatinine Clr Calc Pharmacy 40.5; Estimated Glomerular Filt Rate > 60; Glucose Random 112 mg/dL (60-115); Potassium 2.9 mmol/L (3.3-5.1); Sodium 145 mmol/L (135-145)
[2021-05-14 08:00] VITALS: BP 137/65; PULSE 64; RESP 16; TEMP 36.4; O2SAT 99
[2021-05-14] MEDS: Acetaminophen 325 MG TABLET 650 MG PO ×2 (09:35→14:45)
[2021-05-14] MEDS: amLODIPine Besylate 5 MG TABLET PO (09:38)
[2021-05-14] MEDS: predniSONE 10 MG TABLET 30 MG PO (09:39)
[2021-05-14] MEDS: Apixaban 2.5 MG TABLET PO ×2 (09:40→20:19)
[2021-05-14] MEDS: Sertraline HCL 100 MG TABLET PO (09:41)
[2021-05-14] MEDS: Folic Acid 1 MG TABLET PO (09:41)
[2021-05-14] MEDS: acetaZOLAMIDE 250 MG TABLET 500 MG PO ×2 (09:42→20:20)
[2021-05-14] MEDS: Multivitamin TABLET 1 TAB PO (09:43)
[2021-05-14] MEDS: Loratadine 10 MG TABLET PO (09:43)
[2021-05-14] MEDS: Cyanocobalamin (Vitamin B-12) 1,000 MCG TABLET 1000 MCG PO (09:44)
[2021-05-14] MEDS: Potassium Chloride ER 20 MEQ TAB.ER.PRT 40 MEQ PO (09:44)
[2021-05-14] MEDS: 0.9 % Sodium Chloride Flush 3 ML SYRINGE IVFLUSH ×2 (10:15→20:22)
[2021-05-14] MEDS: Potassium Chloride/H20 10 MEQ/100 ML PIGGYBACK 100 MEQ IV (10:18)
[2021-05-14] MEDS: Nystatin Oral Susp 500,000 UNIT/5 ML ORAL.SUSP 200000 UNIT PO ×4 (10:18→20:21)
--- NOTE | 2021-05-14 11:13 | P.PNIM_ITS ---
Subjective Subjective Date of Service: 05/15/21 Interval History: No acute events overnight, persistent expressive aphasia, no new neurological deficit, persistent right upper extremity flaccid paralysis, able to nod, denies shortness of breath, no chest pain oxygenation 100% on 6 L Review of Systems Review of Systems: Yes all other systems are reviewed and are negative Physical Exam Vital Signs: Vital Signs: Last Vital Signs Temp 97.6 F 05/14/21 08:00 Pulse 64 05/14/21 08:00 Resp 16 05/14/21 08:00 BP 137/65 05/14/21 08:00 Pulse Ox 99 05/14/21 08:00 Oxygen Flow Rate 6 05/13/21 13:00 BMI result Body Mass Index 19.6 Const: Other: Gen:? Awake alert, in no acute distr ess Neck: supple, no JVD Lungs:? Rick ar to auscultation , no respiratory d istress Heart: reg ular rate and rhyt hm, no murmurs Abd : soft, non-tender , non-distended Ex t: no edema Skin: warm/well-perfused Neuro: alert and oriented x3, expre ssive aphasia, R f acial droop,RUE fl accid weakness, mi ld right lower ext remity weakness, n o change in neuro exam since yesterd ay. Psych: appropr iate affect Objective Data Active Medications Acetaminophen (Acetaminophen 325 Mg Tablet) 650 mg PO Q6H PRN PRN Reason: Pain, Mild (Pain Scale 1-3) Last Admin: 05/14/21 09:35 Dose: 650 mg Documented by: LIBORIO Acetazolamide (Acetazolamide 250 Mg Tablet) 500 mg PO BID [facility] Stop: 05/14/21 21:01 Last Admin: 05/14/21 09:42 Dose: 500 mg Documented by: LIBORIO Albuterol Sulfate (Albuterol Sulfate 90 Mcg 8 Gm Inhaler) 2 puff INHALE Q4H PRN PRN Reason: Shortness Of Breath Last Admin: 05/12/21 10:57 Dose: 2 puff Documented by: JENELLE Albuterol/Ipratropium (Albuterol/Iprat 2.5/0.5mg 3 Ml Ampul.Neb) 3 ml INHALE RQ4H PRN PRN Reason: Shortness of Breath/Wheezing Amlodipine Besylate (Amlodipine Besylate 5 Mg Tablet) 5 mg PO DAILY [facility]; Protocol Last Admin: 05/14/21 09:38 Dose: 5 mg Documented by: LIBORIO Apixaban (Apixaban 2.5 Mg Tablet) 2.5 mg PO BID [facility] Last Admin: 05/14/21 09:40 Dose: 2.5 mg Documented by: LIBORIO Atorvastatin Calcium (Atorvastatin Calcium 40 Mg Tablet) 40 mg PO BEDTIME [facility] Last Admin: 05/13/21 21:52 Dose: 40 mg Documented by: DIANNE Cyanocobalamin (Cyanocobalamin (Vitamin B-12) 1,000 Mcg Tablet) 1,000 mcg PO DAILY [facility] Last Admin: 05/14/21 09:44 Dose: 1,000 mcg Documented by: LIBORIO Folic Acid (Folic Acid 1 Mg Tablet) 1 mg PO DAILY [facility] Last Admin: 05/14/21 09:41 Dose: 1 mg Documented by: LIBORIO Voriconazole 200 mg/ Sodium (Chloride) 100 mls @ 50 mls/hr IV Q12H [facility] Last Infusion: 05/14/21 01:34 Dose: 0 mls/hr Documented by: DIANNE Levothyroxine Sodium (Levothyroxine Sodium 50 Mcg Tablet) 50 mcg PO DAILY@0630 [facility] Last Admin: 05/14/21 06:10 Dose: 50 mcg Documented by: DIANNE Loratadine (Loratadine 10 Mg Tablet) 10 mg PO DAILY [facility] Last Admin: 05/14/21 09:43 Dose: 10 mg Documented by: LIBORIO Magnesium Oxide (Magnesium Oxide 400 Mg Tablet) 400 mg PO DAILY@1700 [facility] Last Admin: 05/13/21 18:01 Dose: 400 mg Documented by: IVY Melatonin (Melatonin 3 Mg Tablet) 6 mg PO BEDTIME PRN PRN Reason: Insomnia Multivitamins/Vitamin C (Multivitamin Tablet) 1 tab PO DAILY [facility] Last Admin: 05/14/21 09:43 Dose: 1 tab Documented by: LIBORIO Nystatin (Nystatin Oral Susp 500,000 Unit/5 Ml Oral.Susp) 200,000 unit PO QID [facility]; Protocol Last Admin: 05/14/21 10:18 Dose: 200,000 unit Documented by: LIBORIO Omeprazole (Omeprazole 20 Mg Capsule.) 20 mg PO BEDTIME [facility] Last Admin: 05/13/21 21:59 Dose: Not Given Documented by: DIANNE Non-Admin Reason: Patient Refused Ondansetron HCl (Ondansetron Hcl 4 Mg/2 Ml Vial) 4 mg IVPUSH ONCE PRN PRN Reason: Nausea and Vomiting Prednisone (Prednisone 10 Mg Tablet) 30 mg PO DAILY [facility] Last Admin: 05/14/21 09:39 Dose: 30 mg Documented by: LIBORIO Senna (Sennosides 8.6 Mg Tablet) 17.2 mg PO BEDTIME PRN PRN Reason: Constipation Sertraline HCl (Sertraline Hcl 100 Mg Tablet) 100 mg PO DAILY [facility] Last Admin: 05/14/21 09:41 Dose: 100 mg Documented by: LIBORIO Sodium Chloride (0.9 % Sodium Chloride Flush 3 Ml Syringe) 3 ml IVFLUSH QSHIFT [facility] Last Admin: 05/14/21 10:15 Dose: 3 ml Documented by: LIBORIO Labs CBC & Chem 7: 05/15/21 06:26 05/15/21 06:26 Labs: Laboratory Results - last 24 hr 05/14/21 06:30 Anion Gap 12 Estim Creat Clear Calc 40.5 Estimated GFR > 60 Random Glucose 112 Calcium 9.2 Assessment and Plan (1) CVA (cerebral vascular accident): Status: Acute (2) COPD (chronic obstructive pulmonary disease): Status: Acute (3) Bronchiectasis: Status: Acute (4) Thrombocytopenia: Status: Acute (5) COPD exacerbation: Status: Acute (6) Aspergillosis, unspecified: Status: Acute (7) Acute respiratory failure with hypoxia: Status: Acute Plan 85yo F with pulmonary MAC + bronchiectasis, prior pneumonias with Pseudomonas and MRSA, on suppressive/anti-inflammatory azithromycin, percussion vest, and nebulized hypertonic NaCl; COPD admitted with hypoxia, worsening airspace disease, underwent bronchoscopy 05/05/21 hospitalization complicated by CHF exacerbation and acute CVA # acute ischemic CVA - persistent aphasia right facial droop , right upper extremity flaccid paralysis, mild right lower extremity weakness unchanged. 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 # acute CHF exacerbation due to right-sided heart failure, severe pulmonary hypertension, EF 45-50%, moderate to severe tricuspid regurg - stable hypoxia , no shortness of breath will need continued outpatient cardiology follow up. # hypokalemia likely due to diuretics with aggressively replace and follow BMP at a.m. # contraction alkalosis bicarb improved from 41-32 continue Diamox follow BMP # acute hypoxic respiratory failure due to CHF exacerbation,copd and fungal pneumonia Oxygenation improved will titrate down oxygen to 2 L # bronchiectasis, # fungal pneumonia, 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 # COPD - bacterial cultures negative with low procalcitonin therefore IV antibiotic discontinued,will pull PICC prior to discharge - treat for suspected aspergillosis with voriconazole d#7 today, currently on 4 mg/kg q12h [200 mg q12h], will change to PO upon discharge, will check with lab regarding voriconazole trough [target trough level of 1-5] Will order CMP weekly upon discharge - on prednisone 30 mg/d2, taper as per Pulm by 10 mg/d q 3d - will need close outpt f/u with pulmonology and ID for duration of voriconazole. # thrombocytopenia - contiues to improve, likely was due to pip/loraine. # extensive LUE DVT/possible PE with V/Q scan showing intermediate risk for PE during recent hospitalization - continue apixaban 0.5 mg b.i.d. x3mo # leukocytosis likely due to infection/steroids, patient afebrile, decreased oxygen requirement, WBC trending down follow CBC and clinical course # dispo - anticipate STR @ [place] once medically stable Need continued hospitalization due to acute CVA , with acute hypoxic respiratory failure and on IV Voriconazole will DC PICC line at a.m. and transition to by mouth anti fungal prior to discharge to rehab. Quality Stroke Does the patient have a stroke diagnosis?: No VTE Prior VTE?: No VTE Risk Level:: Medical - moderate - high VTE Device Contraindication: Treatment Not Indicated VTE Drug Contraindication: N/A - Med Ordered
[2021-05-14 11:46] VITALS: BP 160/66; PULSE 58; RESP 16; TEMP 36.8; O2SAT 95
[2021-05-14] MEDS: Voriconazole 200 MG in 0.9 % Sodium Chloride 100 ML 50 MG IV (12:57)
[2021-05-14 13:00] VITALS: O2SAT 96
--- NOTE | 2021-05-14 16:21 | MHC.CM.PN ---
REFERRALS MADE TO ALL THREE ACUTE REHABS DUE TO CHANGE IN PT CONDITION. ALL THREE ARE CONSIDERING BUT WILL NEED UPDATED PT/OT EVALS ON SATURDAY IF THERE ARE NOT [facility] BED OFFERS, PT HAS BEEN ACCEPTED AT [facility]
[2021-05-14] MEDS: Magnesium Oxide 400 MG TABLET PO (18:12)
[2021-05-14 19:11] VITALS: BP 119/57; PULSE 66; RESP 18; TEMP 36.7; O2SAT 96
[2021-05-14] MEDS: Atorvastatin Calcium 40 MG TABLET PO (20:19)
[2021-05-14] MEDS: Omeprazole 20 MG CAPSULE.DR PO (20:20)
[2021-05-14] MEDS: LORazepam 0.5 MG TABLET PO (20:21)
[2021-05-14] MEDS: Sennosides 8.6 MG TABLET 17.2 MG PO (20:24)
[2021-05-14 20:49] LABS: Appearance Urine CLOUDY; Color Urine YELLOW; Glucose Urine UA NEG (NEG); Leukocyte Esterase Urine NEG (NEG); Nitrite Urine NEG (NEG); PH 8.5 (5.0-8.0); Specific Gravity - Urine <= 1.005 (1.005-1.025); Urine Blood 3+ (NEG); Urine Ketones NEG (NEG); Urine Protein 2+ MG/DL (NEG-TRACE)
[2021-05-14 20:58] LABS: Amorphous Sediment Urine 2+ /LPF; Bacteria Urine 2+ /LPF; WBC Urine 0 /HPF (0-4)
[2021-05-14 23:54] VITALS: BP 118/75; PULSE 62; RESP 18; TEMP 36.4; O2SAT 96
[2021-05-15] MEDS: Voriconazole 200 MG in 0.9 % Sodium Chloride 100 ML 50 MG IV (00:04)
[2021-05-15 03:29] VITALS: BP 152/70; PULSE 63; RESP 18; TEMP 35.8; O2SAT 98
[2021-05-15] MEDS: Levothyroxine Sodium 50 MCG TABLET PO (06:21)
[2021-05-15 07:07] LABS: MANUAL DIFF FLAG NO
[2021-05-15 07:18] LABS: Basophils Percent Auto 0.1 % (0-2); Eosinophils Absolute Auto 0.2 X10*3/uL (0.0-0.4); Eosinophils Percent Auto 1.3 % (0-4); Hematocrit 32.1 % (37.0-47.0); Hemoglobin 9.6 g/dl (12.0-16.0); Imm Gran Abs Auto 0.08 X10*3/uL (0.00-0.03); Imm Gran Pct Auto 0.6 % (0.0-0.4); Lymphocytes Absolute Auto 1.4 X10*3/uL (1.2-4.9); Lymphocytes Percent Auto 11.1 % (20-40); Mean Corpuscular HGB Conc 29.9 g/dl (31.0-35.0); Mean Corpuscular Hemoglobin 31.3 pg (27.0-33.0); Mean Corpuscular Volume 104.6 fL (80.0-98.0); Mean Platelet Volume 11.8 fL (9.4-12.3); Monocytes Percent Auto 7.5 % (2-11); Neutrophils Percent Auto 79.4 % (45-73); Red Blood Count 3.07 X10*6/uL (4.20-5.50); Red Cell Distribution Width 18.6 % (11.0-16.0); White Blood Count 12.6 X10*3/uL (4.8-10.8)
[2021-05-15 07:29] LABS: Anion Gap 10 (12-20); Blood Urea Nitrogen 24 mg/dL (9-16); Calcium 9.3 mg/dL (8.4-10.2); Carbon Dioxide 30 mmol/L (22-29); Chloride 109 mmol/L (96-108); Creatinine Clr Calc Pharmacy 42.6; Estimated Glomerular Filt Rate > 60; Glucose Random 87 mg/dL (60-115); Sodium 146 mmol/L (135-145)
[2021-05-15 07:31] LABS: Platelet Count 158 X10*3/uL (160-400)
[2021-05-15 08:00] VITALS: BP 137/63; PULSE 63; RESP 20; TEMP 36.3; O2SAT 98
--- NOTE | 2021-05-15 08:23 | P.CDIC_ITS ---
CDI Concurrent Query Documentation Clarification: PHYSICIAN'S DOCUMENTATION REQUEST Date of Query: 05/15/21 0823 Patient Name: Racquel Martinez Admit Date: 04/30/21 Dear Doctor, A review of the medical record indicates additional documentation may be indicated. Please review below and update the documentation accordingly. Clinical Indicators: Risk Factors/Clinical Indicators/Treatments Nutrition/wound care notes 05/08 - New Stage II Pressure Injury coccyx. Patient with increased nutritional needs R/T pressure injury. Based on the above, could you please provide, in the Progress Notes, further information regarding the ulcer/wound: * If a pressure ulcer, please also include the stage* of the ulcer/injury: * Stage 1 - Skin intact, non-blanchable redness * Stage 2 - Partial thickness loss of dermis, includes intact or open blister * Stage 3 - Full thickness tissue not including bone, tendon, or muscle * Other * Unable to determine *Source: National Pressure Ulcer Advisory Panel (NPUAP) Use of terms such as suspected, likely, concern for, or probable (associated with a specific diagnosis that is being evaluated, monitored, or treated as if it exists) are acceptable and can be coded in the inpatient setting, when documented at the time of discharge. Thank you, Sonam Steinberg [facility], CDIS Extension: [phone] Please use your independent medical judgment in providing your response. THIS QUERY IS PART OF THE PERMANENT MEDICAL RECORD Provider Response: Other Other Diagnosis: Stage II pressure injury coccyx
[2021-05-15 08:41] VITALS: BP 137/63; PULSE 63; O2SAT 98
[2021-05-15] MEDS: 0.9 % Sodium Chloride Flush 3 ML SYRINGE IVFLUSH (09:10)
[2021-05-15] MEDS: Folic Acid 1 MG TABLET PO (09:10)
[2021-05-15] MEDS: Sertraline HCL 100 MG TABLET PO (09:10)
[2021-05-15] MEDS: Multivitamin TABLET 1 TAB PO (09:10)
[2021-05-15] MEDS: Apixaban 2.5 MG TABLET PO (09:10)
[2021-05-15] MEDS: amLODIPine Besylate 5 MG TABLET PO (09:10)
[2021-05-15] MEDS: Loratadine 10 MG TABLET PO (09:11)
[2021-05-15] MEDS: predniSONE 10 MG TABLET 30 MG PO (09:11)
[2021-05-15] MEDS: Cyanocobalamin (Vitamin B-12) 1,000 MCG TABLET 1000 MCG PO (09:11)
[2021-05-15] MEDS: Nystatin Oral Susp 500,000 UNIT/5 ML ORAL.SUSP 200000 UNIT PO (09:20)
[2021-05-15] MEDS: Potassium Chloride ER 20 MEQ TAB.ER.PRT 40 MEQ PO (10:29)
--- NOTE | 2021-05-15 10:29 | HO.MIDLINE_ITS ---
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 DATE: 05/15/2021 2. REASON REMOVED: NO LONGER NEEDS PICC LINE 3. INSERTED LENGTH: SINGLE LUMEN PICC LINE 38CM 4. REMOVED LENGTH: 38CM INTACT SINGLE LUMEN 5. A DRESSING (XERFORM,4X4 AND TEGADERM) WAS PLACED OVER THE RIGHT BASILIC INSERTION SITE, NO BLEEDING AT THE TIME OF REMOVAL, BRUISING NOTED, NO EDEMA NOTED. PT TOLERATED PROCEDURE.
[2021-05-15 10:46] LABS: COVID-19 Test Negative (Negative); IDNOW Serial# 55D5AD1C
--- NOTE | 2021-05-15 11:11 | P.DS_ITS ---
DS: Providers Provider Date of Service: 05/15/21 Date of admission: 04/30/21 23:24 Primary care physician: Rebekah Kurtz MD Consults: 04/30/21 23:26 Consult to Infectious Diseases Routine Consulting Provider: Chelsea Matos Reason for consultation: hx mycobacterial infection; now p/w rec PNA/HCAP. Consult to Pulmonology Routine Consulting Provider: Jayjay Can Reason for consultation: SOB; rec pna; 05/02/21 07:53 Consult to Pulmonology Routine Consulting Provider: Jayjay Can Reason for consultation: persistant infiltrates Has provider been notified: Yes 05/10/21 14:06 Consult to Neurology Stat Consulting Provider: [facility] Reason for consultation: acute onset R hand weakness 13:30 [R-handed], tpA contraindicated by Apixab 05/11/21 03:41 Consult to Cardiology Routine Consulting Provider: Bladimir Monique Reason for consultation: CHF 05/15/21 07:07 Consult to Infectious Diseases Routine Consulting Provider: Chelsea Matos Reason for consultation: on voriconazole Has provider been notified: No DS: Diagnosis Discharge Diagnosis (1) CVA (cerebral vascular accident): Status: Acute (2) COPD (chronic obstructive pulmonary disease): Status: Acute (3) Bronchiectasis: Status: Acute (4) Thrombocytopenia: Status: Acute (5) COPD exacerbation: Status: Acute (6) Aspergillosis, unspecified: Status: Acute (7) Acute respiratory failure with hypoxia: Status: Acute DS: Summary Hospital Course Hospital Course: from admission History and Physical by Israel Nogueira, 04/30/21: 85-year-old female with a past medical history of? 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 Denies any nausea vomiting or diarrhea.? ?review of all other systems is negative except mentioned above ER course: ? ER team concern for COPD exacerbation/ healthcare associated pneumonia; patient was given IV antibiotics and Solu-Medrol; admitted to the hospital for further management This 85 year-old woman with history of pulmonary MAC + bronchiectasis, prior pneumonias with Pseudomonas and MRSA, and COPD was admitted with hypoxia and worsening airspace disease concerning for pneumonia. 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 Bacterial cultures were negative and procalcitonin low, so broad-spectrum antibiotic coverage with piperacillin/tazobactam and vancomycin was stopped. Cytology and fungal culture showed filamentous elements concerning for mold such as aspergillosis, for which she certainly at risk. She was started on voriconazole on 05/08/21, IV while inpatient, to transition to PO upon discharge. She will be prescribed 200 mg PO q12h for 3 more weeks recommend weekly monitoring of CBC and CMP. She is discharged to rehab for inpatient pulmonary and physical rehabilitation and will need follow-up with Infectious Disease and Pulmonology within 1-2 week. Steroids were tapered to prednisone 20 mg/d, to decrease by 10 mg every 3 days. She had moderate thrombocytopenia attributable to piperacillin/tazobactam; this improved with discontinuation of the antibiotic. She also was diagnosed with an extensive LUE DVT and was started on full-dose apixaban 2.5 mg bid. During hospitalization On May 11 patient developed acute expressive aphasia with right upper extremity flaccid paralysis and right facial droop, TPN was contraindicated since patient on apixaban, MRI contraindicated due to pacemaker carotid Dopplers are normal, patient seen by neurology and has been placed on statin and continued on Eliquis, patient will require continue PT OT and speech therapy currently tolerating ground soft solids. During hospitalization patient also developed acute dyspnea and was diagnosed to have acute new onset right-sided congestive heart failure with BNP 2013 patient required treatment with IV diuretics with good response , currently euvolemic diuretics have been discontinued she was noted to have hypokalemia that has been aggressively repleted, and echocardiogram showed EF 45-50% with moderate severe tricuspid regurgitation, and severe pulmonary hypertension she is on 3-4 liters of supplemental O2 via nasal cannula upon discharge, with increased requirement of oxygen with activity. Check BMP at a.m. for follow-up on hypokalemia. Time Spent with Patient Time attestation: Total time spent providing and/or coordinating discharge services: Discharge coordination time: Greater than 30 minutes Quality: Stroke Does the patient have a stroke diagnosis?: No Physical Exam Vital Signs: Vital Signs: Last Vital Signs Temp 97.4 F 05/15/21 08:00 Pulse 63 05/15/21 08:41 Resp 20 05/15/21 08:00 BP 137/63 05/15/21 08:41 Pulse Ox 98 05/15/21 08:41 Oxygen Flow Rate 6 05/14/21 13:00 BMI result Body Mass Index 19.6 Const: Other: Gen:? Awake alert, in no acute distress Neck: supple, no JVD Lungs:? Clear to auscultation, no respiratory distress Heart: regular rate and rhythm, no murmurs Abd: soft, non-tender, non-distended Ext: no edema Skin: warm/well-perfused Neuro: alert and oriented x3, expressive aphasia, R facial droop,RUE flaccid weakness, mild right lower extremity weakness Psych: appropriate affect DS: Data Data Completed and Pending Completed studies during hospitalization [Text1]: Pending at discharge 05/05/21 13:08 Cytology [PTH] Stat Labs on day of discharge: Laboratory Results - last 24 hr 05/14/21 05/15/21 05/15/21 20:16 06:26 06:26 WBC 12.6 H RBC 3.07 L Hgb 9.6 L Hct 32.1 L MCV 104.6 H MCH 31.3 MCHC 29.9 L RDW 18.6 H Plt Count 158 L D MPV 11.8 Immature Gran % (Auto) 0.6 H Neut % (Auto) 79.4 H Lymph % (Auto) 11.1 L Crawford % (Auto) 7.5 Eos % (Auto) 1.3 Baso % (Auto) 0.1 Lymph # (Auto) 1.4 Crawford # (Auto) 1.0 Eos # (Auto) 0.2 Baso # (Auto) 0.0 Abs Immat Gran (auto) 0.08 H Absolute Neuts (auto) 10.0 H Absolute Nucleated RBC 0.000 Nucleated RBC % (auto) 0.0 Sodium 146 H Potassium 3.0 L Chloride 109 H Carbon Dioxide 30 H Anion Gap 10 L BUN 24 H Creatinine 0.79 Estim Creat Clear Calc 42.6 Estimated GFR > 60 Random Glucose 87 Calcium 9.3 Urine Color YELLOW Urine Appearance CLOUDY Urine pH 8.5 H Ur Specific [place] <= 1.005 Urine Protein 2+ H Urine Glucose (UA) NEG Urine Ketones NEG Urine Blood 3+ H Urine Nitrite NEG Ur Leukocyte Esterase NEG Urine RBC 76-150 H Urine WBC 0 Ur Squamous Epith Cells NONE Amorphous Sediment 2+ Urine Bacteria 2+ COVID-19 (SILVER) COVID-19 Clin Com 05/15/21 10:20 WBC RBC Hgb Hct MCV MCH MCHC RDW Plt Count MPV Immature Gran % (Auto) Neut % (Auto) Lymph % (Auto) Crawford % (Auto) Eos % (Auto) Baso % (Auto) Lymph # (Auto) Crawford # (Auto) Eos # (Auto) Baso # (Auto) Abs Immat Gran (auto) Absolute Neuts (auto) Absolute Nucleated RBC Nucleated RBC % (auto) Sodium Potassium Chloride Carbon Dioxide Anion Gap BUN Creatinine Estim Creat Clear Calc Estimated GFR Random Glucose Calcium Urine Color Urine Appearance Urine pH Ur Specific [place] Urine Protein Urine Glucose (UA) Urine Ketones Urine Blood Urine Nitrite Ur Leukocyte Esterase Urine RBC Urine WBC Ur Squamous Epith Cells Amorphous Sediment Urine Bacteria COVID-19 (SILVER) Negative COVID-19 Clin Com See Note Preliminary micro results at discharge 05/05/21 13:08 Fungal Identification - Preliminary Washing - Wash, bilateral Filamentous fungus Discharge Plan Discharge Patient Disposition: Xfer Inpatient Rehab Fac Discharge Diagnosis: suspected aspergillosis, bronchiectasis, hypoxia, thrombocytopenia, left arm DVT Referrals: [facility] [place] [Outside] - 1 Week Rebekah Kurtz MD [Primary Care Provider] - 1 Week Chelsea Matos MD [Physician] - 1 Week Jayjay Can MD [Physician] - 1 Week Discharge Medications: New voriconazole 200 mg tablet 200 mg PO Q12H Qty: 60 2RF Rx Instructions: administer on empty stomach, at least 1 hour before or after meal(s) prednisone 10 mg tablet See Rx Instructions .ROUTE .COMPLEX Qty: 18 0RF Rx Instructions: take prednisone 2 tabs daily x 3 days, then 1 tabs daily x 3 days amlodipine 5 mg Tablet 5 mg PO DAILY Qty: 30 0RF Protocol: Hold for SBP< HOLD for SBP < : 90 atorvastatin [Lipitor] 20 mg tablet 20 mg PO DAILY Qty: 30 0RF Continued pantoprazole 40 mg Tablet,Delayed Release (Dr/Ec) 40 mg PO BEDTIME 0RF Eliquis 2.5 mg Tablet 2.5 mg PO BID@0600,1800 Qty: 60 0RF Rx Instructions: correct dose would be 5mg bid, however, patient only willing to take 2.5mg bid nystatin 100,000 unit/mL suspension 1 ml PO QID PRN (Reason: THRUSH) Qty: 60 0RF Rx Instructions: swish and swallow multivitamin Tablet 1 tab PO DAILY 0RF cyanocobalamin (vitamin B-12) 1,000 mcg Tablet 1,000 mcg PO DAILY 0RF folic acid 1 mg Tablet 1 mg PO DAILY 0RF lutein 20 mg Capsule 20 mg PO DAILY 0RF Probiotic 100 billion cell Capsule 2 cap PO BEDTIME 0RF magnesium oxide 400 mg magnesium Tablet 400 mg PO DAILY@1700 0RF Bone Boost 1 tab PO TID 0RF Zeaxanthin 1 mg PO DAILY 0RF ipratropium-albuterol 0.5 mg-3 mg(2.5 mg base)/3 mL solution for nebulization 3 ml inhalation BID PRN (Reason: Shortness Of Breath Or Wheezing) 0RF sodium chloride 7 % solution for nebulization 1 vial inhalation BID 0RF Trelegy Ellipta 200-62.5-25 mcg blister with device 1 puff inhalation DAILY 0RF Eliquis 2.5 mg Tablet 2.5 mg PO BID@0600,1800 Qty: 60 0RF levothyroxine 50 mcg tablet 50 mcg PO DAILY@0630 0RF albuterol sulfate 90 mcg/actuation HFA aerosol inhaler 2 inh inhalation Q4H PRN (Reason: Shortness Of Breath) 0RF sertraline 100 mg tablet 100 mg PO DAILY 0RF Discontinued doxycycline hyclate 100 mg Tablet 100 mg PO Q12H Qty: 10 0RF Discharge Orders: Discharge Order (Routine); Ordered 05/15/21 Ordered By: Akshat White Diet: advance to usual diet Activity on Discharge: As tolerated Stand Alone Forms: Patient Portal Discharge page Other Ambulatory Orders: Complete Blood Count Auto Diff (Routine) Timeframe: 1 Week Facility: [facility] - Location: Laboratory Ordered By: Nidhi Ross Comprehensive Met. Panel (Routine) Timeframe: 1 Day Facility: [facility] - Location: Laboratory Ordered By: Nidhi Ross Care Plan Goals: diagnosis and treatment of possible aspergillosis Health Concerns: suspected aspergillosis, bronchiectasis, hypoxia, thrombocytopenia, left arm DVT Plan of Treatment: voriconazole 200 mg twice daily for 3 weeks; follow up with Adan Can [Pulmonology] and Shawna [Infectious Disease] in 1-2 weeks; check labs check CBCd, CMP,including lfts q weekly check bmp at am prednisone 20 mg daily x 3 days, then 10 mg daily x 3 days supplemental oxygen, wean as tolerated take apixaban 2.5 mg twice daily for at least 3 months Assessment: see Discharge Summary Patient Instructions: Voriconazole (By mouth)
[2021-05-15 11:15] VITALS: BP 137/62; PULSE 63; RESP 20; TEMP 36.2; O2SAT 96
--- NOTE | 2021-05-15 11:29 | MHC.CM.PN ---
Patient has been accepted at her and her Daughter/HCP/Jus's first choice [facility]- [facility], pending [facility] authorization. CM will continue to follow.
--- NOTE | 2021-05-15 12:16 | MHC.CM.PN ---
Patient has been medically cleared for dc today to [facility]. Patient will dc to [facility] at 2 PM, via [facility]. Patient and her Daughter/Joan are aware of and pleased with this dc plan;IMM addressed with the 2 of them and original has been given to Patient and a copy has been placed on the chart.
[2021-05-15 13:00] VITALS: O2SAT 96
== END 2021-05-15 15:16 | DRG 867 ==
LOC: HO.ED 22:02 → HO.EDOVER 23:27 → HO.IMC 05-03 07:42
PROVIDERS: Family Medicine; Hospitalist; Internal Medicine; Admitting Provider Hospitalist; Emergency Provider Internal Medicine; PCP Internal Medicine; Visit Provider Hospitalist
PROC: 0BJ08ZZ Inspection of Tracheobronchial Tree, Via Natural or Artificial Opening Endoscopic (ICD-10-PCS; CPT 31622; principal; 2021-05-05 12:00)
DX: B44.9 Aspergillosis, unspecified (principal); J96.21 Acute and chronic respiratory failure with hypoxia; I63.9 Cerebral infarction, unspecified; I26.09 Other pulmonary embolism with acute cor pulmonale; J47.1 Bronchiectasis with (acute) exacerbation; I82.622 Acute embolism and thrombosis of deep veins of left upper extremity; R47.01 Aphasia; E87.3 Alkalosis; J47.0 Bronchiectasis with acute lower respiratory infection; D69.59 Other secondary thrombocytopenia; T36.0X5A Adverse effect of penicillins, initial encounter; G83.21 Monoplegia of upper limb affecting right dominant side; Z66 Do not resuscitate; I07.1 Rheumatic tricuspid insufficiency; I50.9 Heart failure, unspecified; R29.810 Facial weakness; L89.152 Pressure ulcer of sacral region, stage 2; Z20.822 Contact with and (suspected) exposure to COVID-19; Z95.0 Presence of cardiac pacemaker; Z86.19 Personal history of other infectious and parasitic diseases; Z86.14 Personal history of Methicillin resistant Staphylococcus aureus infection; Z91.041 Radiographic dye allergy status; Z79.01 Long term (current) use of anticoagulants; Z79.899 Other long term (current) drug therapy
CPT/HCPCS: 0241U; 36410; 36415; 36573; 70450; 71045; 71250; 80048; 80053; 80061; 80076; 80202; 81001; 82565; 82947; 83605; 83735; 83880; 84145; 84484; 85025; 85027; 85610; 86140; 87040; 87070; 87071; 87102; 87107; 87116; 87205; 87635; 88112; 88305; 88312; 92610; 93005; 93306; 93880; 93971; 94640; 96365; 96367; 96375; 97110; 97116; 97162; 97166; 97530; 99285; C1751; C1758; J0171; J0696; J1940; J2270; J2543; J2920; J2930; J3370; J3465